=== PATIENT | female | born 1950 | race Caucasian/White ===

== ENCOUNTER 2017-07-08 12:15 | Outpatient (CLI) | payer MEDICARE, OTHER ==
--- NOTE | 2017-07-08 19:44 | XRAY Report ---
THREE VIEW RIGHT FOOT: 07/08/2017 CLINICAL INDICATION: Pain. AP, lateral, oblique views of the right foot demonstrate previous postoperative changes in the first metatarsal, with mild osteoarthritis. There is no evidence of acute fracture or dislocation. Planta r and posterior calcaneal spurring is noted. IMPRESSION: POSTOPERATIVE CHANGES IN THE FIRST METATARSAL. OSTEOARTHRITIS. JOB #: [id number] EXT JOB #:[id number]
== END 2017-07-08 12:16 | disposition home or self-care (01) ==
LOC: DI 12:15
PROVIDERS: ATTEND Podiatrist
DX: M79.671 Pain in right foot (principal)

== ENCOUNTER 2022-04-17 13:46 | Emergency (ER) | payer MEDICARE, OTHER ==
[2022-04-17 14:06] VITALS: BP 145/82
--- OUTSIDE RECORDS SUMMARY | 2022-04-18 16:32 | EXTERNAL MEDICAL SUMMARY RPT | Continuity of Care Document ---
:1950 Author Organization [facility] Address [address] [place] [address] Phone Allergies and Intolerances date description facility type (no date) hydrochlorothiazide [facility] (unknown) (no date) insulin detemir [facility] (unknown) (no date) lisinopril [facility] (unknown) (no date) verapamil [facility] (unknown) Encounters No information. Functional Status No information. Immunizations No information. Medications date description facility +0000 Methocarbamol 500 MG Oral Tablet [facility] [id number] Amoxicillin 875 MG Oral Tablet [facility] [id number] tramadol hydrochloride 50 MG Oral Tabl et [facility] Problems No information. Procedures date description facility [id number] Diagnosis [facility] [id number] Finding [facility] [id number] General Physician [facility] [id number] General Physician [facility] [id number]+0000 [facility] Results/Labs test date author facility value unit interpret ation Result panel 1 (unknown) (no (unknown) (unknown) (no value) (units (unk nown) date) unknown) (unknown) (no (unknown) (unknown) Assessment and Plan: (uni ts (unknown) date) unknown) (unknown) (no (unknown) (unknown) Status: Chronic (units (unknown) date) unknown) (unknown) (no (unknown) (unknown) (no value) (units (unk nown) date) unknown) (unknown) (no (unknown) (unknown) (no value) (units (unk nown) date) unknown) (unknown) (no (unknown) (unknown) [place] [address] (unit s (unknown) date) unknown) (unknown) (no (unknown) (unknown) BLOATING (units (unkno wn) date) unknown) (unknown) (no (unknown) (unknown) COUGH, BLOAT (units (u nknown) date) unknown) (unknown) (no (unknown) (unknown) Draft (units (unkno wn) date) unknown) (unknown) (no (unknown) (unknown) Rash (units (unkno wn) date) unknown) (unknown) (no (unknown) (unknown) Sleep Visit (units (un known) date) unknown) (unknown) (no (unknown) (unknown) [facility] unknown) (unknown) (no (unknown) (unknown) (no value) (units (unk nown) date) unknown) (unknown) (no (unknown) (unknown) Device data last 90 (unit s (unknown) date) days: unknown) (unknown) (no (unknown) (unknown) [place] ([place]) date[place] [facility] [place] (according to available medical records), (unknown) (no (unknown) (unknown) by trouble staying (units (unknown) date) asleep and unknown) non-restorative sleep. This can be seen secondary (unknown) (no (unknown) (unknown) comfortable, the (units (unknown) date) room should be quiet, unknown) not too hot or cold, or too bright. (unknown) (no (unknown) (unknown) conversations and (units (unknown) date) activities before unknown) trying to go to sleep. Don't dwell on, or (unknown) (no (unknown) (unknown) head elevated or (units (unknown) date) denies sleeping pills unknown) (unknown) (no (unknown) (unknown) listen to the radio, (uni ts (unknown) date) or read as if you unknown) associate falling asleep with these (unknown) (no (unknown) (unknown) low back), denies (units (unknown) date) dizziness in the unknown) morning, reports trouble (unknown) (no (unknown) (unknown) or gasping (denies), (uni ts (unknown) date) epworth sleep scale unknown) score (19/24), bruxism (denies), sleep (unknown) (no (unknown) (unknown) talking (denies) and (uni ts (unknown) date) sleep walking unknown) (denies) (unknown) (no (unknown) (unknown) to continue with PAP (uni ts (unknown) date) therapy. unknown) (unknown) (no (unknown) (unknown) to sleep apnea, (units (unknown) date) depression, medical unknown) conditions or can be an independent (unknown) (no (unknown) (unknown) with a sleep (units (u nknown) date) problem, it's not a unknown) good time to start experimenting with spicy (unknown) (no (unknown) (unknown) (1) Obstructive (units (unknown) date) sleep apnea of adult: unknown) (unknown) (no (unknown) (unknown) (2) Excessive (units ( unknown) date) daytime sleepiness: unknown) (unknown) (no (unknown) (unknown) ([id number]), normal (unit s (unknown) date) wake time (0877-3022; unknown) she returns to sleep 1-1.5 hours), (unknown) (no (unknown) (unknown) (3) Primary (units (un known) date) insomnia: unknown) (unknown) (no (unknown) (unknown) (neuropathic pain); (unit s (unknown) date) Denies morning unknown) headache or vertigo (unknown) (no (unknown) (unknown) (waking 3 times (units (unknown) date) nightly, attributed unknown) to chronic pain and mask leak), early (unknown) (no (unknown) (unknown) 007 (units (unkno wn) date) unknown) (unknown) (no (unknown) (unknown) 02/05/22 (units (unkno wn) date) unknown) (unknown) (no (unknown) (unknown) 08/08/21 14:09) (units (unknown) date) unknown) (unknown) (no (unknown) (unknown) 1401 to 1404, chart (unit s (unknown) date) and compliance review unknown) (unknown) (no (unknown) (unknown) 1404 to 1419, visit (unit s (unknown) date) unknown) (unknown) (no (unknown) (unknown) 14:09) (units (unkno wn) date) unknown) (unknown) (no (unknown) (unknown) 1746 to 1749, (units ( unknown) date) charting unknown) (unknown) (no (unknown) (unknown) AM), reports (units (un known) date) non-supine sleeping, unknown) denies stimulant therapy, denies sleeping with (unknown) (no (unknown) (unknown) Adhere to regular (units (unknown) date) mealtime schedule, unknown) avoid snacking (unknown) (no (unknown) (unknown) Affect: normal (units (unknown) date) affect unknown) (unknown) (no (unknown) (unknown) Age/Sex: 71 / F (units (unknown) date) Date of Service: unknown) (unknown) (no (unknown) (unknown) Allergies (units (unkn own) date) unknown) (unknown) (no (unknown) (unknown) Assessment + Plan (units (unknown) date) unknown) (unknown) (no (unknown) (unknown) Associate your bed (units (unknown) date) with sleep. It's not unknown) a good idea to use your bed to watch TV, (unknown) (no (unknown) (unknown) Attending Dr: Kishan (uni ts (unknown) date) Janell PIPER unknown) (unknown) (no (unknown) (unknown) Attitude: (units (unkn own) date) cooperative unknown) (unknown) (no (unknown) (unknown) AutoBiPAP Set (units ( unknown) date) Pressures: IPAPmax: unknown) 16 cwp EPAPmin: 8 cwp PS: 6/4 cwp (unknown) (no (unknown) (unknown) Avoid alcohol after (unit s (unknown) date) 4 pm unknown) (unknown) (no (unknown) (unknown) Avoid medications (units (unknown) date) which may interfere unknown) with sleep (unknown) (no (unknown) (unknown) Avoid random napping (uni ts (unknown) date) during the day; it unknown) can disturb the normal pattern of sleep (unknown) (no (unknown) (unknown) Avoid stimulants (units (unknown) date) such as caffeine, unknown) nicotine, and alcohol too close to bedtime. (unknown) (no (unknown) (unknown) Bi-level PAP (units (u nknown) date) (-6) unknown) (unknown) (no (unknown) (unknown) Bilateral bunions (units (unknown) date) unknown) (unknown) (no (unknown) (unknown) Cardiac (units (unkno wn) date) unknown) (unknown) (no (unknown) (unknown) Chief Complaint: (units (unknown) date) Patient is here to unknown) follow up on therapy for RABIA (unknown) (no (unknown) (unknown) Clinical Course (units (unknown) date) unknown) (unknown) (no (unknown) (unknown) Condition is Onset: (unit s (unknown) date) Chronic and ongoing unknown) condition (unknown) (no (unknown) (unknown) Conjunctivae: (units ( unknown) date) conjunctivae normal unknown) (unknown) (no (unknown) (unknown) Consider weaning (units (unknown) date) caffeine use, unknown) starting with no caffeine after 3pm (unknown) (no (unknown) (unknown) Const (units (unkno wn) date) unknown) (unknown) (no (unknown) (unknown) : 1950 (units (unknown) date) Acct:[id number] unknown) (unknown) (no (unknown) (unknown) Denies chest pain or (uni ts (unknown) date) nocturnal unknown) palpitations (unknown) (no (unknown) (unknown) Denies dyspnea at (units (unknown) date) night or cough unknown) (unknown) (no (unknown) (unknown) Denies itchy eyes, (units (unknown) date) redness, blurry unknown) vision or seasonal allergies (unknown) (no (unknown) (unknown) Denies reflux pain (units (unknown) date) at night or bloating unknown) on CPAP (unknown) (no (unknown) (unknown) Denies weakness (units (unknown) date) associated with unknown) strong emotion or sleep paralysis (unknown) (no (unknown) (unknown) Dept at (units (unkno wn) date) . 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 unknown) This will be reassessed on her new bi- (unknown) (no (unknown) (unknown) ENT (units (unkno wn) date) unknown) (unknown) (no (unknown) (unknown) Ears: hearing (units ( unknown) date) grossly normal unknown) bilaterally and external ears normal (unknown) (no (unknown) (unknown) Effort + Inspection: (uni ts (unknown) date) normal respiratory unknown) effort, able to speak in complete (unknown) (no (unknown) (unknown) Ensure adequate (units (unknown) date) exposure to natural unknown) light. This is particularly important for (unknown) (no (unknown) (unknown) Establish a regular (units (unknown) date) relaxing bedtime unknown) routine. Try to avoid emotionally upsetting (unknown) (no (unknown) (unknown) Exacerbating/Allevia (uni ts (unknown) date) ting Factors unknown) (unknown) (no (unknown) (unknown) Exam (units (unkno wn) date) unknown) (unknown) (no (unknown) (unknown) Exam Narrative (units (unknown) date) unknown) (unknown) (no (unknown) (unknown) Exam Narrative: (units (unknown) date) unknown) (unknown) (no (unknown) (unknown) Excessive daytime (units (unknown) date) sleepiness unknown) (unknown) (no (unknown) (unknown) Eyes (units (unkno wn) date) unknown) (unknown) (no (unknown) (unknown) Food can be (units (un known) date) disruptive right unknown) before sleep; stay away from large meals close to (unknown) (no (unknown) (unknown) GI (units (unkno wn) date) unknown) (unknown) (no (unknown) (unknown) (units (unkno wn) date) unknown) (unknown) (no (unknown) (unknown) Gait: gait assisted (unit s (unknown) date) (uses cane) unknown) (unknown) (no (unknown) (unknown) General: cooperative (uni ts (unknown) date) and no acute distress unknown) (but looks fatigued) (unknown) (no (unknown) (unknown) General: patient (units (unknown) date) alert and patient unknown) oriented x3 (unknown) (no (unknown) (unknown) Get regular moderate (uni ts (unknown) date) exercise (30 minutes, unknown) 3x/week) (unknown) (no (unknown) (unknown) HENMT (units (unkno wn) date) unknown) (unknown) (no (unknown) (unknown) HPI (units (unkno wn) date) unknown) (unknown) (no (unknown) (unknown) HPI Sleep Follow Up (unit s (unknown) date) unknown) (unknown) (no (unknown) (unknown) Head: normal to (units (unknown) date) inspection unknown) (unknown) (no (unknown) (unknown) History of (units (unk nown) date) bunionectomy of both unknown) great toes (unknown) (no (unknown) (unknown) Intake (units (unkno wn) date) unknown) (unknown) (no (unknown) (unknown) Light exposure (units (unknown) date) during the day helps unknown) maintain a healthy sleep-wake cycle. In (unknown) (no (unknown) (unknown) Loc: SLEEP (units (unk nown) date) unknown) (unknown) (no (unknown) (unknown) Make sure that the (units (unknown) date) sleep environment is unknown) pleasant and relaxing. The bed should be (unknown) (no (unknown) (unknown) Medical History (units (unknown) date) (Reviewed 02/05/22 @ unknown) 13:02 by Kishan Maciel MD) (unknown) (no (unknown) (unknown) Memory loss of (units (unknown) date) unknown cause unknown) (unknown) (no (unknown) (unknown) Mood: congruent mood (uni ts (unknown) date) unknown) (unknown) (no (unknown) (unknown) Musc (units (unkno wn) date) unknown) (unknown) (no (unknown) (unknown) Neck (units (unkno wn) date) unknown) (unknown) (no (unknown) (unknown) Neck: normal visual (unit s (unknown) date) inspection unknown) (unknown) (no (unknown) (unknown) Neuro (units (unkno wn) date) unknown) (unknown) (no (unknown) (unknown) Neurological (units (u nknown) date) unknown) (unknown) (no (unknown) (unknown) 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 She also felt she slept (unknown) (no (unknown) (unknown) PFSH (units (unkno wn) date) unknown) (unknown) (no (unknown) (unknown) Patient denies (units (unknown) date) stress, denies unknown) alcohol (abstains), reports caffeine (2 cups in (unknown) (no (unknown) (unknown) Patient instructed (units (unknown) date) to use scheduled naps unknown) as needed for drowsiness safety. (unknown) (no (unknown) (unknown) Patient reported a (units (unknown) date) history of snoring unknown) and a disturbed sleep pattern. There is (unknown) (no (unknown) (unknown) Patient reports (units (unknown) date) difficulty falling unknown) asleep is denied, difficulty staying asleep (unknown) (no (unknown) (unknown) Patient reports (units (unknown) date) symptoms of chronic unknown) insomnia for more than 3 months as evidenced (unknown) (no (unknown) (unknown) Patient was (units (un known) date) encouraged to unknown) continue with PAP therapy at IPAPmax 16, EPAPmin 18 (unknown) (no (unknown) (unknown) Patient was (units (un known) date) encouraged to unknown) maintain CPAP usage at a minimum of 4 hours a night, (unknown) (no (unknown) (unknown) Patient was (units (un known) date) instructed to avoid unknown) driving or operating heavy machinery when (unknown) (no (unknown) (unknown) Patient was (units (un known) date) instructed to return unknown) sooner if any questions or concerns arise. (unknown) (no (unknown) (unknown) Patient's compliance (uni ts (unknown) date) is good with positive unknown) clinical response including no (unknown) (no (unknown) (unknown) Patient: WalisukiTerrence Dowell (uni ts (unknown) date) MR#: [id number] unknown) (unknown) (no (unknown) (unknown) Pertinent (units (unkn own) date) Positives/Negatives unknown) (unknown) (no (unknown) (unknown) Plan (units (unkno wn) date) unknown) (unknown) (no (unknown) (unknown) Primary insomnia (units (unknown) date) unknown) (unknown) (no (unknown) (unknown) Properly timed (units (unknown) date) exercise can promote unknown) good sleep. Vigorous exercise should be (unknown) (no (unknown) (unknown) Psych (units (unkno wn) date) unknown) (unknown) (no (unknown) (unknown) Psychological (units ( unknown) date) unknown) (unknown) (no (unknown) (unknown) ROS Sleep (units (unkn own) date) unknown) (unknown) (no (unknown) (unknown) Reason For Visit (units (unknown) date) unknown) (unknown) (no (unknown) (unknown) Reports dizzy in the (uni ts (unknown) date) morning, trouble unknown) concentrating or focusing and other (unknown) (no (unknown) (unknown) Reports dry mouth in (uni ts (unknown) date) the morning; Denies unknown) runny nose, nasal congestion at night (unknown) (no (unknown) (unknown) Reports myalgia (units (unknown) date) interfering with unknown) sleep and arthralgia interfering with sleep; (unknown) (no (unknown) (unknown) Reports napping; (units (unknown) date) Denies depression, unknown) anxiety, hypnagogic hallucinations or sleep (unknown) (no (unknown) (unknown) Reports nocturia (units (unknown) date) unknown) (unknown) (no (unknown) (unknown) Resp (units (unkno wn) date) unknown) (unknown) (no (unknown) (unknown) Respiratory (units (un known) date) unknown) (unknown) (no (unknown) (unknown) Return visit in 6 (units (unknown) date) months to assess unknown) continued response to PAP therapy (unknown) (no (unknown) (unknown) S/P lumbar spinal (units (unknown) date) fusion unknown) (unknown) (no (unknown) (unknown) Sclera: sclerae (units (unknown) date) normal unknown) (unknown) (no (unknown) (unknown) She is currently on (unit s (unknown) date) nasal Bi-level PAP at unknown) -. She is using it regularly (unknown) (no (unknown) (unknown) Signed By: (units (unk nown) date) unknown) (unknown) (no (unknown) (unknown) Smoking Status: (units (unknown) date) Never smoker unknown) (unknown) (no (unknown) (unknown) Social History (units (unknown) date) unknown) (unknown) (no (unknown) (unknown) Speech: speech (units (unknown) date) normal unknown) (unknown) (no (unknown) (unknown) Sub-optimal therapy (unit s (unknown) date) unknown) (unknown) (no (unknown) (unknown) Surgical History (units (unknown) date) (Reviewed 02/05/22 @ unknown) 13:02 by Kishan Maciel MD) (unknown) (no (unknown) (unknown) Symptoms (units (unkno wn) date) unknown) (unknown) (no (unknown) (unknown) The patient reported (uni ts (unknown) date) symptoms of excessive unknown) daytime sleepiness as evidenced by (unknown) (no (unknown) (unknown) This note may have (units (unknown) date) been all or partially unknown) generated using voice recognition (unknown) (no (unknown) (unknown) Time Coding Minutes (unit s (unknown) date) Spent: (must be on unknown) same date of service/appointment) (unknown) (no (unknown) (unknown) Time Spent (units (unk nown) date) unknown) (unknown) (no (unknown) (unknown) Tobacco + Substance (unit s (unknown) date) Use unknown) (unknown) (no (unknown) (unknown) Tobacco Status (units (unknown) date) unknown) (unknown) (no (unknown) (unknown) Total Time: 21 (units (unknown) date) unknown) (unknown) (no (unknown) (unknown) Treatment Effects: (units (unknown) date) Pap Treatment unknown) Response/Side Effects: adherent to current PAP (unknown) (no (unknown) (unknown) Treatment (units (unkn own) date) Response/Side Affects unknown) (unknown) (no (unknown) (unknown) Type 2 diabetes (units (unknown) date) mellitus unknown) (unknown) (no (unknown) (unknown) Usage: 100%, w/98.9% (unit s (unknown) date) of that time > 4 unknown) hours. Leak: 13 sec flowAHI: 0.6 (unknown) (no (unknown) (unknown) Visit Reasons: 6M (units (unknown) date) unknown) (unknown) (no (unknown) (unknown) Visit type (FU): (units (unknown) date) follow up of RABIA unknown) therapy Follow up evaluation of RABIA therapy: (unknown) (no (unknown) (unknown) While alcohol is (units (unknown) date) well known to speed unknown) the onset of sleep, it disrupts sleep in (unknown) (no (unknown) (unknown) activities, you may (unit s (unknown) date) have more problems unknown) getting back to sleep during the night. (unknown) (no (unknown) (unknown) addition, avoiding (units (unknown) date) nighttime bright unknown) light exposure, which can occur with many (unknown) (no (unknown) (unknown) also a history of (units (unknown) date) hypertension with a unknown) Mallampati score of IV. For this a (unknown) (no (unknown) (unknown) an [place] (units (unk nown) date) Sleepiness scale unknown) score of 19/24. Her pain is significant and it is (unknown) (no (unknown) (unknown) and sleep quality. (units (unknown) date) Her NPO on CPAP was unknown) positive, so she under went a bi-level (unknown) (no (unknown) (unknown) and wakefulness. (units (unknown) date) Scheduled napping may unknown) be considered if appropriate for the (unknown) (no (unknown) (unknown) bedtime. Also dietary (uni ts (unknown) date) changes can cause unknown) sleep problems, if someone is struggling (unknown) (no (unknown) (unknown) better on b-level (units (unknown) date) PAP. She is currently unknown) on bi-level PAP machine at 16/8/4-6 and (unknown) (no (unknown) (unknown) bring your problems (unit s (unknown) date) to bed. unknown) (unknown) (no (unknown) (unknown) but increased (units ( unknown) date) benefit from more unknown) usage was also explained. (unknown) (no (unknown) (unknown) can be seen (units (un known) date) secondary to sleep unknown) apnea, insomnia, depression, medical conditions (unknown) (no (unknown) (unknown) caregiver/support (units (unknown) date) person: No unknown) (unknown) (no (unknown) (unknown) clinical response (units (unknown) date) including no snoring unknown) and no daytime sleepiness. It is clear (unknown) (no (unknown) (unknown) compliance wais (units (unknown) date) excellent with a unknown) normal AHIflow, but she was snoring and her (unknown) (no (unknown) (unknown) condition (units (unkn own) date) unknown) (unknown) (no (unknown) (unknown) congestion at night, (uni ts (unknown) date) reports dry mouth, unknown) denies sore throat in the morning, (unknown) (no (unknown) (unknown) consentrating/focusi (uni ts (unknown) date) ng durng the day unknown) (having progressive difficulties), denies (unknown) (no (unknown) (unknown) daytime sleeping and (uni ts (unknown) date) an elevated [place] unknown) Sleepiness Scale score of 12/24. This (unknown) (no (unknown) (unknown) denies night sweats, (uni ts (unknown) date) reports morning unknown) headache (head gear), denies nasal (unknown) (no (unknown) (unknown) denies nocturnal (units (unknown) date) cough, denies unknown) nocturnal palpitations, denies heart burn (unknown) (no (unknown) (unknown) depression or denies (uni ts (unknown) date) anxiety unknown) (unknown) (no (unknown) (unknown) details: bayron Wu, (uni ts (unknown) date) lives in [place] unknown) (unknown) (no (unknown) (unknown) diagnostic sleep (units (unknown) date) study was performed unknown) and showed obstructive sleep apnea. (unknown) (no (unknown) (unknown) dishes. And, (units (u nknown) date) remember, chocolate unknown) has caffeine. (unknown) (no (unknown) (unknown) done before bed to (units (unknown) date) help initiate a unknown) restful night's sleep. (unknown) (no (unknown) (unknown) drowsy. Drowsy (units (unknown) date) driving handout made unknown) available. (unknown) (no (unknown) (unknown) effecting the (units ( unknown) date) quality of her sleep. unknown) Also her PAP machine is due to be replaced. (unknown) (no (unknown) (unknown) has not improved. (units (unknown) date) unknown) (unknown) (no (unknown) (unknown) have occurred. If (units (unknown) date) there are any unknown) questions, please contact the Medical Records (unknown) (no (unknown) (unknown) having already been (unit s (unknown) date) on CPAP, and was unknown) effective until 2017 when she developed (unknown) (no (unknown) (unknown) headaches and (units ( unknown) date) nocturia, as well as unknown) diminishing cognitive capabilities. An NPO (unknown) (no (unknown) (unknown) her compliance is (units (unknown) date) excellent with an unknown) optimal AHIflow. She also reports positive (unknown) (no (unknown) (unknown) hours ) frequent, (units (unknown) date) spending time in bed unknown) not sleeping a little, normal bedtime (unknown) (no (unknown) (unknown) household members: (units (unknown) date) spouse unknown) (unknown) (no (unknown) (unknown) housing: house (units (unknown) date) unknown) (unknown) (no (unknown) (unknown) hydrochlorothiazide (unit s (unknown) date) [From ZESTORETIC] unknown) Allergy (Intermediate, Verified 08/08/21 (unknown) (no (unknown) (unknown) insulin detemir (units (unknown) date) [From Levemir U-100 unknown) Insulin] Allergy (Intermediate, Verified (unknown) (no (unknown) (unknown) level PAP machine. (units (unknown) date) unknown) (unknown) (no (unknown) (unknown) lisinopril [From (units (unknown) date) ZESTORETIC] Allergy unknown) (Intermediate, Verified 08/08/21 14:09) (unknown) (no (unknown) (unknown) lives independently: (uni ts (unknown) date) Yes unknown) (unknown) (no (unknown) (unknown) marital status: (units (unknown) date) unknown) (unknown) (no (unknown) (unknown) may occur. (units (unk nown) date) Occasional wrong-word unknown) or 'sound-alike' substitutions may have (unknown) (no (unknown) (unknown) morning awakening (units (unknown) date) (may wake at unknown) [id number], up for 2 hours, back to sleep for 3 (unknown) (no (unknown) (unknown) occurred due to the (unit s (unknown) date) inherent limitations unknown) of voice recognition software. Please (unknown) (no (unknown) (unknown) older people who may (uni ts (unknown) date) not venture outside unknown) as frequently as children and adults. (unknown) (no (unknown) (unknown) on PAP well, sleep (units (unknown) date) quality okay and unknown) daytime sleepiness (unknown) (no (unknown) (unknown) on PAP; other naps (units (unknown) date) are unintentional), unknown) snoring (denies), apnea (denies), choking (unknown) (no (unknown) (unknown) optimal sleep (units ( unknown) date) schedule. unknown) (unknown) (no (unknown) (unknown) or can be a primary (unit s (unknown) date) problem. This unknown) continues to be elevated on PAP therapy with (unknown) (no (unknown) (unknown) or sore throat in (units (unknown) date) the morning unknown) (unknown) (no (unknown) (unknown) paralysis (units (unkn own) date) unknown) (unknown) (no (unknown) (unknown) personal electronic (unit s (unknown) date) devices, can also unknown) help maintain a healthy sleep-wake cycle. (unknown) (no (unknown) (unknown) pressures, found to (unit s (unknown) date) be 17/11 cwp. unknown) (unknown) (no (unknown) (unknown) problem. Sleep (units (unknown) date) hygiene and sleep unknown) schedules were discussed. This has improved (unknown) (no (unknown) (unknown) read the note (units ( unknown) date) carefully and unknown) recognize, using context, where these substitutions (unknown) (no (unknown) (unknown) seconds <= 88%. She (unit s (unknown) date) repeated the biPAP unknown) titration study to identify optimal (unknown) (no (unknown) (unknown) sentences, no (units ( unknown) date) audible wheezes, no unknown) cough, no grunting and not labored (unknown) (no (unknown) (unknown) she is benefitting (units (unknown) date) from bi-level PAP unknown) therapy and is motivated to continue its (unknown) (no (unknown) (unknown) she would benefit (units (unknown) date) from the continued unknown) use of PAP therapy. The patient is willing (unknown) (no (unknown) (unknown) sleep quality was (units (unknown) date) less than optimal. unknown) Her pressure was increased for the snoring (unknown) (no (unknown) (unknown) sleep schedule (units (unknown) date) (somewhat variable), unknown) daytime somnolence (daily; naps for 2 hours (unknown) (no (unknown) (unknown) snoring but she (units (unknown) date) continues to have unknown) significant daytime sleepiness. Patient's (unknown) (no (unknown) (unknown) software. 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 In (unit s (unknown) date) 06/2019 she reported unknown) new onset night sweats, morning (unknown) (no (unknown) (unknown) study (07/20/19) (units (unknown) date) showed GAIVN: 19, with unknown) eufemia SpO2: 60%, and spent 62 minutes 18 (unknown) (no (unknown) (unknown) substance use type: (unit s (unknown) date) does not use unknown) (unknown) (no (unknown) (unknown) symptoms at night, (units (unknown) date) reports nocturia (3 unknown) times nightly), reports pain (feet, legs, (unknown) (no (unknown) (unknown) symptoms of CPAP (units (unknown) date) failure. Switched to unknown) bi-levelPAP therapy after a titration (unknown) (no (unknown) (unknown) taken in the morning (uni ts (unknown) date) or late afternoon. A unknown) relaxing exercise, like yoga, can be (unknown) (no (unknown) (unknown) the second half as (units (unknown) date) the body begins to unknown) metabolize the alcohol, causing arousal. (unknown) (no (unknown) (unknown) treatment variable (units (unknown) date) response to treatment unknown) (unknown) (no (unknown) (unknown) use. (units (unkno wn) date) unknown) (unknown) (no (unknown) (unknown) verapamil (units (unkn own) date) [VERAPAMIL] Allergy unknown) (Intermediate, Verified 08/08/21 14:09) (unknown) (no (unknown) (unknown) with an optimal (units (unknown) date) AHIflow. She reports unknown) no problems with the pressure. She feels (unknown) (no (unknown) (unknown) with pressure (units ( unknown) date) support of 4-6 cwp. unknown) Result panel 2 (unknown) (no (unknown) (unknown) (no value) (units (unk nown) date) unknown) (unknown) (no (unknown) (unknown) Assessment and Plan: (uni ts (unknown) date) unknown) (unknown) (no (unknown) (unknown) Status: Chronic (units (unknown) date) unknown) (unknown) (no (unknown) (unknown) (no value) (units (unk nown) date) unknown) (unknown) (no (unknown) (unknown) (no value) (units (unk nown) date) unknown) (unknown) (no (unknown) (unknown) [place] [address] (unit s (unknown) date) unknown) (unknown) (no (unknown) (unknown) BLOATING (units (unkno wn) date) unknown) (unknown) (no (unknown) (unknown) COUGH, BLOAT (units (u nknown) date) unknown) (unknown) (no (unknown) (unknown) Draft (units (unkno wn) date) unknown) (unknown) (no (unknown) (unknown) Rash (units (unkno wn) date) unknown) (unknown) (no (unknown) (unknown) Sleep Visit (units (un known) date) unknown) (unknown) (no (unknown) (unknown) [facility] unknown) (unknown) (no (unknown) (unknown) (no value) (units (unk nown) date) unknown) (unknown) (no (unknown) (unknown) (), bruxism (units (unknown) date) (denies), sleep unknown) talking (denies) and sleep walking (denies) (unknown) (no (unknown) (unknown) 2: unchanged (units (u nknown) date) unknown) (unknown) (no (unknown) (unknown) Device data last 90 (unit s (unknown) date) days: unknown) (unknown) (no (unknown) (unknown) Initially [place] ([place]) [place] [facility] [place] (according to available medical records), (unknown) (no (unknown) (unknown) by trouble staying (units (unknown) date) asleep and unknown) non-restorative sleep. This can be seen secondary (unknown) (no (unknown) (unknown) comfortable, the (units (unknown) date) room should be quiet, unknown) not too hot or cold, or too bright. (unknown) (no (unknown) (unknown) conversations and (units (unknown) date) activities before unknown) trying to go to sleep. Don't dwell on, or (unknown) (no (unknown) (unknown) head elevated or (units (unknown) date) denies sleeping pills unknown) (unknown) (no (unknown) (unknown) listen to the radio, (uni ts (unknown) date) or read as if you unknown) associate falling asleep with these (unknown) (no (unknown) (unknown) low back), denies (units (unknown) date) dizziness in the unknown) morning, reports trouble (unknown) (no (unknown) (unknown) to sleep apnea, (units (unknown) date) depression, medical unknown) conditions or can be an independent (unknown) (no (unknown) (unknown) with a sleep (units (u nknown) date) problem, it's not a unknown) good time to start experimenting with spicy (unknown) (no (unknown) (unknown) (1) Obstructive (units (unknown) date) sleep apnea of adult: unknown) (unknown) (no (unknown) (unknown) (2) Excessive (units ( unknown) date) daytime sleepiness: unknown) (unknown) (no (unknown) (unknown) ([id number]), normal (unit s (unknown) date) wake time ([id number]; unknown) she returns to sleep 1-1.5 hours), (unknown) (no (unknown) (unknown) (3) Primary (units (un known) date) insomnia: unknown) (unknown) (no (unknown) (unknown) (denies), apnea (units (unknown) date) (denies), choking or unknown) gasping (denies), epworth sleep scale score (unknown) (no (unknown) (unknown) (neuropathic pain); (unit s (unknown) date) Denies morning unknown) headache or vertigo (unknown) (no (unknown) (unknown) (waking 3 times (units (unknown) date) nightly, attributed unknown) to chronic pain and mask leak), early (unknown) (no (unknown) (unknown) 007 (units (unkno wn) date) unknown) (unknown) (no (unknown) (unknown) 02/05/22 (units (unkno wn) date) unknown) (unknown) (no (unknown) (unknown) 08/08/21 14:09) (units (unknown) date) unknown) (unknown) (no (unknown) (unknown) 1401 to 1404, chart (unit s (unknown) date) and compliance review unknown) (unknown) (no (unknown) (unknown) 1404 to 1419, visit (unit s (unknown) date) unknown) (unknown) (no (unknown) (unknown) 14:09) (units (unkno wn) date) unknown) (unknown) (no (unknown) (unknown) 1746 to 1749, (units ( unknown) date) charting unknown) (unknown) (no (unknown) (unknown) AM), reports (units (un known) date) non-supine sleeping, unknown) denies stimulant therapy, denies sleeping with (unknown) (no (unknown) (unknown) Adhere to regular (units (unknown) date) mealtime schedule, unknown) avoid snacking (unknown) (no (unknown) (unknown) Affect: normal (units (unknown) date) affect unknown) (unknown) (no (unknown) (unknown) Age/Sex: 71 / F (units (unknown) date) Date of Service: unknown) (unknown) (no (unknown) (unknown) Allergies (units (unkn own) date) unknown) (unknown) (no (unknown) (unknown) Assessment + Plan (units (unknown) date) unknown) (unknown) (no (unknown) (unknown) Associate your bed (units (unknown) date) with sleep. It's not unknown) a good idea to use your bed to watch TV, (unknown) (no (unknown) (unknown) Attending Dr: Kishan (uni ts (unknown) date) Janell PIPER unknown) (unknown) (no (unknown) (unknown) Attitude: (units (unkn own) date) cooperative unknown) (unknown) (no (unknown) (unknown) AutoBiPAP Set (units ( unknown) date) Pressures: IPAPmax: unknown) 16 cwp EPAPmin: 8 cwp PS: 6/4 cwp (unknown) (no (unknown) (unknown) Avoid alcohol after (unit s (unknown) date) 4 pm unknown) (unknown) (no (unknown) (unknown) Avoid medications (units (unknown) date) which may interfere unknown) with sleep (unknown) (no (unknown) (unknown) Avoid random napping (uni ts (unknown) date) during the day; it unknown) can disturb the normal pattern of sleep (unknown) (no (unknown) (unknown) Avoid stimulants (units (unknown) date) such as caffeine, unknown) nicotine, and alcohol too close to bedtime. (unknown) (no (unknown) (unknown) Bi-level PAP (units (u nknown) date) (-6) unknown) (unknown) (no (unknown) (unknown) Bilateral bunions (units (unknown) date) unknown) (unknown) (no (unknown) (unknown) Cardiac (units (unkno wn) date) unknown) (unknown) (no (unknown) (unknown) Chief Complaint: (units (unknown) date) Patient is here to unknown) follow up on therapy for RABIA (unknown) (no (unknown) (unknown) Clinical Course (units (unknown) date) unknown) (unknown) (no (unknown) (unknown) Condition is Onset: (unit s (unknown) date) Chronic and ongoing unknown) condition (unknown) (no (unknown) (unknown) Conjunctivae: (units ( unknown) date) conjunctivae normal unknown) (unknown) (no (unknown) (unknown) Consider weaning (units (unknown) date) caffeine use, unknown) starting with no caffeine after 3pm (unknown) (no (unknown) (unknown) Const (units (unkno wn) date) unknown) (unknown) (no (unknown) (unknown) : 1950 (units (unknown) date) Acct:[id number] unknown) (unknown) (no (unknown) (unknown) Denies chest pain or (uni ts (unknown) date) nocturnal unknown) palpitations (unknown) (no (unknown) (unknown) Denies dyspnea at (units (unknown) date) night or cough unknown) (unknown) (no (unknown) (unknown) Denies itchy eyes, (units (unknown) date) redness, blurry unknown) vision or seasonal allergies (unknown) (no (unknown) (unknown) Denies reflux pain (units (unknown) date) at night or bloating unknown) on CPAP (unknown) (no (unknown) (unknown) Denies weakness (units (unknown) date) associated with unknown) strong emotion or sleep paralysis (unknown) (no (unknown) (unknown) Dept at (units (unkno wn) date) . 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 This is particularly important for (unknown) (no (unknown) (unknown) Establish a regular (units (unknown) date) relaxing bedtime unknown) routine. Try to avoid emotionally upsetting (unknown) (no (unknown) (unknown) Exacerbating/Allevia (uni ts (unknown) date) ting Factors unknown) (unknown) (no (unknown) (unknown) Exam (units (unkno wn) date) unknown) (unknown) (no (unknown) (unknown) Exam Narrative (units (unknown) date) unknown) (unknown) (no (unknown) (unknown) Exam Narrative: (units (unknown) date) unknown) (unknown) (no (unknown) (unknown) Excessive daytime (units (unknown) date) sleepiness unknown) (unknown) (no (unknown) (unknown) Eyes (units (unkno wn) date) unknown) (unknown) (no (unknown) (unknown) Food can be (units (un known) date) disruptive right unknown) before sleep; stay away from large meals close to (unknown) (no (unknown) (unknown) GI (units (unkno wn) date) unknown) (unknown) (no (unknown) (unknown) (units (unkno wn) date) unknown) (unknown) (no (unknown) (unknown) Gait: gait assisted (unit s (unknown) date) (uses cane) unknown) (unknown) (no (unknown) (unknown) General: cooperative (uni ts (unknown) date) and no acute distress unknown) (but looks fatigued) (unknown) (no (unknown) (unknown) General: patient (units (unknown) date) alert and patient unknown) oriented x3 (unknown) (no (unknown) (unknown) Get regular moderate (uni ts (unknown) date) exercise (30 minutes, unknown) 3x/week) (unknown) (no (unknown) (unknown) HENMT (units (unkno wn) date) unknown) (unknown) (no (unknown) (unknown) HPI (units (unkno wn) date) unknown) (unknown) (no (unknown) (unknown) HPI Sleep Follow Up (unit s (unknown) date) unknown) (unknown) (no (unknown) (unknown) Head: normal to (units (unknown) date) inspection unknown) (unknown) (no (unknown) (unknown) History of (units (unk nown) date) bunionectomy of both unknown) great toes (unknown) (no (unknown) (unknown) Intake (units (unkno wn) date) unknown) (unknown) (no (unknown) (unknown) Light exposure (units (unknown) date) during the day helps unknown) maintain a healthy sleep-wake cycle. In (unknown) (no (unknown) (unknown) Loc: SLEEP (units (unk nown) date) unknown) (unknown) (no (unknown) (unknown) Make sure that the (units (unknown) date) sleep environment is unknown) pleasant and relaxing. The bed should be (unknown) (no (unknown) (unknown) Medical History (units (unknown) date) (Reviewed 02/05/22 @ unknown) 13:02 by Kishan Maciel MD) (unknown) (no (unknown) (unknown) Memory loss of (units (unknown) date) unknown cause unknown) (unknown) (no (unknown) (unknown) Mood: congruent mood (uni ts (unknown) date) unknown) (unknown) (no (unknown) (unknown) Musc (units (unkno wn) date) unknown) (unknown) (no (unknown) (unknown) Neck (units (unkno wn) date) unknown) (unknown) (no (unknown) (unknown) Neck: normal visual (unit s (unknown) date) inspection unknown) (unknown) (no (unknown) (unknown) Neuro (units (unkno wn) date) unknown) (unknown) (no (unknown) (unknown) Neurological (units (u nknown) date) unknown) (unknown) (no (unknown) (unknown) 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 She also felt she slept (unknown) (no (unknown) (unknown) PFSH (units (unkno wn) date) unknown) (unknown) (no (unknown) (unknown) Patient denies (units (unknown) date) stress, denies unknown) alcohol (abstains), reports caffeine (2 cups in (unknown) (no (unknown) (unknown) Patient instructed (units (unknown) date) to use scheduled naps unknown) as needed for drowsiness safety. (unknown) (no (unknown) (unknown) Patient reported a (units (unknown) date) history of snoring unknown) and a disturbed sleep pattern. There is (unknown) (no (unknown) (unknown) Patient reports (units (unknown) date) difficulty falling unknown) asleep is denied, difficulty staying asleep (unknown) (no (unknown) (unknown) Patient reports (units (unknown) date) symptoms of chronic unknown) insomnia for more than 3 months as evidenced (unknown) (no (unknown) (unknown) Patient was (units (un known) date) encouraged to unknown) continue with PAP therapy at IPAPmax 16, EPAPmin 18 (unknown) (no (unknown) (unknown) Patient was (units (un known) date) encouraged to unknown) maintain CPAP usage at a minimum of 4 hours a night, (unknown) (no (unknown) (unknown) Patient was (units (un known) date) instructed to avoid unknown) driving or operating heavy machinery when (unknown) (no (unknown) (unknown) Patient was (units (un known) date) instructed to return unknown) sooner if any questions or concerns arise. (unknown) (no (unknown) (unknown) Patient's compliance (uni ts (unknown) date) is good with positive unknown) clinical response including no (unknown) (no (unknown) (unknown) Patient: Terrence Buckley (uni ts (unknown) date) MR#: [id number] unknown) (unknown) (no (unknown) (unknown) Pertinent (units (unkn own) date) Positives/Negatives unknown) (unknown) (no (unknown) (unknown) Plan (units (unkno wn) date) unknown) (unknown) (no (unknown) (unknown) Primary insomnia (units (unknown) date) unknown) (unknown) (no (unknown) (unknown) Properly timed (units (unknown) date) exercise can promote unknown) good sleep. Vigorous exercise should be (unknown) (no (unknown) (unknown) Psych (units (unkno wn) date) unknown) (unknown) (no (unknown) (unknown) Psychological (units ( unknown) date) unknown) (unknown) (no (unknown) (unknown) ROS Sleep (units (unkn own) date) unknown) (unknown) (no (unknown) (unknown) Reason For Visit (units (unknown) date) unknown) (unknown) (no (unknown) (unknown) Reports daytime (units (unknown) date) sleepiness, Reports unknown) fatigue, Denies snoring and Denies stops (unknown) (no (unknown) (unknown) Reports dizzy in the (uni ts (unknown) date) morning, trouble unknown) concentrating or focusing and other (unknown) (no (unknown) (unknown) Reports dry mouth in (uni ts (unknown) date) the morning; Denies unknown) runny nose, nasal congestion at night (unknown) (no (unknown) (unknown) Reports myalgia (units (unknown) date) interfering with unknown) sleep and arthralgia interfering with sleep; (unknown) (no (unknown) (unknown) Reports napping on a (uni ts (unknown) date) regular basis; Denies unknown) depression, anxiety, hypnagogic (unknown) (no (unknown) (unknown) Reports nocturia (units (unknown) date) unknown) (unknown) (no (unknown) (unknown) Resp (units (unkno wn) date) unknown) (unknown) (no (unknown) (unknown) Respiratory (units (un known) date) unknown) (unknown) (no (unknown) (unknown) Return visit in 6 (units (unknown) date) months to assess unknown) continued response to PAP therapy (unknown) (no (unknown) (unknown) S/P lumbar spinal (units (unknown) date) fusion unknown) (unknown) (no (unknown) (unknown) Sclera: sclerae (units (unknown) date) normal unknown) (unknown) (no (unknown) (unknown) She is currently on (unit s (unknown) date) nasal Bi-level PAP at unknown) -. She is using it regularly (unknown) (no (unknown) (unknown) Signed By: (units (unk nown) date) unknown) (unknown) (no (unknown) (unknown) Smoking Status: (units (unknown) date) Never smoker unknown) (unknown) (no (unknown) (unknown) Social History (units (unknown) date) unknown) (unknown) (no (unknown) (unknown) Speech: speech (units (unknown) date) normal unknown) (unknown) (no (unknown) (unknown) Sub-optimal therapy (unit s (unknown) date) unknown) (unknown) (no (unknown) (unknown) Surgical History (units (unknown) date) (Reviewed 02/05/22 @ unknown) 13:02 by Kishan Maciel MD) (unknown) (no (unknown) (unknown) Symptoms (units (unkno wn) date) unknown) (unknown) (no (unknown) (unknown) The patient reported (uni ts (unknown) date) symptoms of excessive unknown) daytime sleepiness as evidenced by (unknown) (no (unknown) (unknown) This note may have (units (unknown) date) been all or partially unknown) generated using voice recognition (unknown) (no (unknown) (unknown) This will be (units (u nknown) date) reassessed on her new unknown) bi-level PAP machine. (unknown) (no (unknown) (unknown) Time Coding Minutes (unit s (unknown) date) Spent: (must be on unknown) same date of service/appointment) (unknown) (no (unknown) (unknown) Time Spent (units (unk nown) date) unknown) (unknown) (no (unknown) (unknown) Tobacco + Substance (unit s (unknown) date) Use unknown) (unknown) (no (unknown) (unknown) Tobacco Status (units (unknown) date) unknown) (unknown) (no (unknown) (unknown) Total Time: 21 (units (unknown) date) unknown) (unknown) (no (unknown) (unknown) Treatment Effects: (units (unknown) date) Pap Treatment unknown) Response/Side Effects: adherent to current PAP (unknown) (no (unknown) (unknown) Treatment (units (unkn own) date) Response/Side Affects unknown) (unknown) (no (unknown) (unknown) Type 2 diabetes (units (unknown) date) mellitus unknown) (unknown) (no (unknown) (unknown) Usage: 100%, w/98.9% (unit s (unknown) date) of that time > 4 unknown) hours. Leak: 13 sec flowAHI: 0.6 (unknown) (no (unknown) (unknown) Visit Reasons: 6M (units (unknown) date) unknown) (unknown) (no (unknown) (unknown) Visit type (FU): (units (unknown) date) follow up of RABIA unknown) therapy Follow up evaluation of RABIA therapy: (unknown) (no (unknown) (unknown) While alcohol is (units (unknown) date) well known to speed unknown) the onset of sleep, it disrupts sleep in (unknown) (no (unknown) (unknown) activities, you may (unit s (unknown) date) have more problems unknown) getting back to sleep during the night. (unknown) (no (unknown) (unknown) addition, avoiding (units (unknown) date) nighttime bright unknown) light exposure, which can occur with many (unknown) (no (unknown) (unknown) also a history of (units (unknown) date) hypertension with a unknown) Mallampati score of IV. For this a (unknown) (no (unknown) (unknown) an [place] (units (unk nown) date) Sleepiness scale unknown) score of 22/24. Her pain is significant and it is (unknown) (no (unknown) (unknown) and sleep quality. (units (unknown) date) Her NPO on CPAP was unknown) positive, so she under went a bi-level (unknown) (no (unknown) (unknown) and wakefulness. (units (unknown) date) Scheduled napping may unknown) be considered if appropriate for the (unknown) (no (unknown) (unknown) bedtime. Also dietary (uni ts (unknown) date) changes can cause unknown) sleep problems, if someone is struggling (unknown) (no (unknown) (unknown) better on b-level (units (unknown) date) PAP. She is currently unknown) on bi-level PAP machine at 16/8/4-6 and (unknown) (no (unknown) (unknown) breathing during (units (unknown) date) sleep unknown) (unknown) (no (unknown) (unknown) bring your problems (unit s (unknown) date) to bed. unknown) (unknown) (no (unknown) (unknown) but increased (units ( unknown) date) benefit from more unknown) usage was also explained. (unknown) (no (unknown) (unknown) can be seen (units (un known) date) secondary to sleep unknown) apnea, insomnia, depression, medical conditions (unknown) (no (unknown) (unknown) caregiver/support (units (unknown) date) person: No unknown) (unknown) (no (unknown) (unknown) clinical response (units (unknown) date) including no snoring. unknown) It is clear she would benefit from the (unknown) (no (unknown) (unknown) compliance wais (units (unknown) date) excellent with a unknown) normal AHIflow, but she was snoring and her (unknown) (no (unknown) (unknown) condition (units (unkn own) date) unknown) (unknown) (no (unknown) (unknown) congestion at night, (uni ts (unknown) date) reports dry mouth, unknown) denies sore throat in the morning, (unknown) (no (unknown) (unknown) consentrating/focusi (uni ts (unknown) date) ng durng the day unknown) (having progressive difficulties), denies (unknown) (no (unknown) (unknown) continued use of PAP (uni ts (unknown) date) therapy. The patient unknown) is willing to continue with PAP (unknown) (no (unknown) (unknown) daytime sleeping and (uni ts (unknown) date) an elevated [place] unknown) Sleepiness Scale score of 12/24. This (unknown) (no (unknown) (unknown) denies night sweats, (uni ts (unknown) date) reports morning unknown) headache (head gear), denies nasal (unknown) (no (unknown) (unknown) denies nocturnal (units (unknown) date) cough, denies unknown) nocturnal palpitations, denies heart burn (unknown) (no (unknown) (unknown) depression or denies (uni ts (unknown) date) anxiety unknown) (unknown) (no (unknown) (unknown) details: bayron Bryce, (uni ts (unknown) date) lives in [place] unknown) (unknown) (no (unknown) (unknown) diagnostic sleep (units (unknown) date) study was performed unknown) and showed obstructive sleep apnea. (unknown) (no (unknown) (unknown) dishes. And, (units (u nknown) date) remember, chocolate unknown) has caffeine. (unknown) (no (unknown) (unknown) done before bed to (units (unknown) date) help initiate a unknown) restful night's sleep. (unknown) (no (unknown) (unknown) drowsy. Drowsy (units (unknown) date) driving handout made unknown) available. (unknown) (no (unknown) (unknown) effecting the (units ( unknown) date) quality of her sleep. unknown) Drowsiness risks and symptoms reviewed. (unknown) (no (unknown) (unknown) hallucinations or (units (unknown) date) sleep paralysis unknown) (unknown) (no (unknown) (unknown) has not improved. (units (unknown) date) unknown) (unknown) (no (unknown) (unknown) have occurred. If (units (unknown) date) there are any unknown) questions, please contact the Medical Records (unknown) (no (unknown) (unknown) having already been (unit s (unknown) date) on CPAP, and was unknown) effective until 2017 when she developed (unknown) (no (unknown) (unknown) headaches and (units ( unknown) date) nocturia, as well as unknown) diminishing cognitive capabilities. An NPO (unknown) (no (unknown) (unknown) her compliance is (units (unknown) date) excellent with an unknown) optimal AHIflow. She also reports positive (unknown) (no (unknown) (unknown) hours ) frequent, (units (unknown) date) spending time in bed unknown) not sleeping a little, normal bedtime (unknown) (no (unknown) (unknown) household members: (units (unknown) date) spouse unknown) (unknown) (no (unknown) (unknown) housing: house (units (unknown) date) unknown) (unknown) (no (unknown) (unknown) hydrochlorothiazide (unit s (unknown) date) [From ZESTORETIC] unknown) Allergy (Intermediate, Verified 08/08/21 (unknown) (no (unknown) (unknown) insulin detemir (units (unknown) date) [From Levemir U-100 unknown) Insulin] Allergy (Intermediate, Verified (unknown) (no (unknown) (unknown) lisinopril [From (units (unknown) date) ZESTORETIC] Allergy unknown) (Intermediate, Verified 08/08/21 14:09) (unknown) (no (unknown) (unknown) lives independently: (uni ts (unknown) date) Yes unknown) (unknown) (no (unknown) (unknown) marital status: (units (unknown) date) unknown) (unknown) (no (unknown) (unknown) may occur. (units (unk nown) date) Occasional wrong-word unknown) or 'sound-alike' substitutions may have (unknown) (no (unknown) (unknown) morning awakening (units (unknown) date) (may wake at unknown) [id number], up for 2 hours, back to sleep for 3 (unknown) (no (unknown) (unknown) occurred due to the (unit s (unknown) date) inherent limitations unknown) of voice recognition software. Please (unknown) (no (unknown) (unknown) older people who may (uni ts (unknown) date) not venture outside unknown) as frequently as children and adults. (unknown) (no (unknown) (unknown) on PAP well, sleep (units (unknown) date) quality okay and unknown) daytime sleepiness Daytime Sleepiness Branch (unknown) (no (unknown) (unknown) optimal sleep (units ( unknown) date) schedule. unknown) (unknown) (no (unknown) (unknown) or can be a primary (unit s (unknown) date) problem. This unknown) continues to be elevated on PAP therapy with (unknown) (no (unknown) (unknown) or sore throat in (units (unknown) date) the morning unknown) (unknown) (no (unknown) (unknown) personal electronic (unit s (unknown) date) devices, can also unknown) help maintain a healthy sleep-wake cycle. (unknown) (no (unknown) (unknown) pressures, found to (unit s (unknown) date) be 17/11 cwp. unknown) (unknown) (no (unknown) (unknown) problem. Sleep (units (unknown) date) hygiene and sleep unknown) schedules were discussed. This has improved (unknown) (no (unknown) (unknown) read the note (units ( unknown) date) carefully and unknown) recognize, using context, where these substitutions (unknown) (no (unknown) (unknown) seconds <= 88%. She (unit s (unknown) date) repeated the biPAP unknown) titration study to identify optimal (unknown) (no (unknown) (unknown) sentences, no (units ( unknown) date) audible wheezes, no unknown) cough, no grunting and not labored (unknown) (no (unknown) (unknown) she is benefitting (units (unknown) date) from bi-level PAP unknown) therapy and is motivated to continue its (unknown) (no (unknown) (unknown) sleep quality was (units (unknown) date) less than optimal. unknown) Her pressure was increased for the snoring (unknown) (no (unknown) (unknown) sleep schedule (units (unknown) date) (somewhat variable), unknown) daytime somnolence frequent, snoring (unknown) (no (unknown) (unknown) snoring but she (units (unknown) date) continues to have unknown) significant daytime sleepiness. Patient's (unknown) (no (unknown) (unknown) software. 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 In (unit s (unknown) date) 06/2019 she reported unknown) new onset night sweats, morning (unknown) (no (unknown) (unknown) study (07/20/19) (units (unknown) date) showed GAVIN: 19, with unknown) eufemia SpO2: 60%, and spent 62 minutes 18 (unknown) (no (unknown) (unknown) substance use type: (unit s (unknown) date) does not use unknown) (unknown) (no (unknown) (unknown) symptoms at night, (units (unknown) date) reports nocturia (3 unknown) times nightly), reports pain (feet, legs, (unknown) (no (unknown) (unknown) symptoms of CPAP (units (unknown) date) failure. Switched to unknown) bi-levelPAP therapy after a titration (unknown) (no (unknown) (unknown) taken in the morning (uni ts (unknown) date) or late afternoon. A unknown) relaxing exercise, like yoga, can be (unknown) (no (unknown) (unknown) the second half as (units (unknown) date) the body begins to unknown) metabolize the alcohol, causing arousal. (unknown) (no (unknown) (unknown) therapy. (units (unkno wn) date) unknown) (unknown) (no (unknown) (unknown) treatment variable (units (unknown) date) response to treatment unknown) (unknown) (no (unknown) (unknown) use. (units (unkno wn) date) unknown) (unknown) (no (unknown) (unknown) verapamil (units (unkn own) date) [VERAPAMIL] Allergy unknown) (Intermediate, Verified 08/08/21 14:09) (unknown) (no (unknown) (unknown) with an optimal (units (unknown) date) AHIflow. She reports unknown) no problems with the pressure. She feels (unknown) (no (unknown) (unknown) with pressure (units ( unknown) date) support of 4-6 cwp. unknown) Result panel 3 (unknown) (no (unknown) (unknown) (no value) (units (unk nown) date) unknown) (unknown) (no (unknown) (unknown) Assessment and Plan: (uni ts (unknown) date) unknown) (unknown) (no (unknown) (unknown) Status: Chronic (units (unknown) date) unknown) (unknown) (no (unknown) (unknown) (no value) (units (unk nown) date) unknown) (unknown) (no (unknown) (unknown) (no value) (units (unk nown) date) unknown) (unknown) (no (unknown) (unknown) 02/05/22 (units (unkno wn) date) unknown) (unknown) (no (unknown) (unknown) 13:27 (units (unkno wn) date) unknown) (unknown) (no (unknown) (unknown) RAUL Bass [id number] (unit s (unknown) date) unknown) (unknown) (no (unknown) (unknown) BLOATING (units (unkno wn) date) unknown) (unknown) (no (unknown) (unknown) COUGH, BLOAT (units (u nknown) date) unknown) (unknown) (no (unknown) (unknown) Draft (units (unkno wn) date) unknown) (unknown) (no (unknown) (unknown) Rash (units (unkno wn) date) unknown) (unknown) (no (unknown) (unknown) Sleep Visit (units (un known) date) unknown) (unknown) (no (unknown) (unknown) [facility] unknown) (unknown) (no (unknown) (unknown) (no value) (units (unk nown) date) unknown) (unknown) (no (unknown) (unknown) (), bruxism (units (unknown) date) (denies), sleep unknown) talking (denies) and sleep walking (denies) (unknown) (no (unknown) (unknown) 2: unchanged (units (u nknown) date) unknown) (unknown) (no (unknown) (unknown) Device data last 90 (unit s (unknown) date) days: unknown) (unknown) (no (unknown) (unknown) [place] ([place]) [place] [facility] [place] (according to available medical records), (unknown) (no (unknown) (unknown) by trouble staying (units (unknown) date) asleep and unknown) non-restorative sleep. This can be seen secondary (unknown) (no (unknown) (unknown) comfortable, the (units (unknown) date) room should be quiet, unknown) not too hot or cold, or too bright. (unknown) (no (unknown) (unknown) conversations and (units (unknown) date) activities before unknown) trying to go to sleep. Don't dwell on, or (unknown) (no (unknown) (unknown) head elevated or (units (unknown) date) denies sleeping pills unknown) (unknown) (no (unknown) (unknown) listen to the radio, (uni ts (unknown) date) or read as if you unknown) associate falling asleep with these (unknown) (no (unknown) (unknown) low back), denies (units (unknown) date) dizziness in the unknown) morning, reports trouble (unknown) (no (unknown) (unknown) to sleep apnea, (units (unknown) date) depression, medical unknown) conditions or can be an independent (unknown) (no (unknown) (unknown) with a sleep (units (u nknown) date) problem, it's not a unknown) good time to start experimenting with spicy (unknown) (no (unknown) (unknown) (1) Obstructive (units (unknown) date) sleep apnea of adult: unknown) (unknown) (no (unknown) (unknown) (2) Excessive (units ( unknown) date) daytime sleepiness: unknown) (unknown) (no (unknown) (unknown) ([id number]), normal (unit s (unknown) date) wake time (0613-9383; unknown) she returns to sleep 1-1.5 hours), (unknown) (no (unknown) (unknown) (3) Primary (units (un known) date) insomnia: unknown) (unknown) (no (unknown) (unknown) (denies), apnea (units (unknown) date) (denies), choking or unknown) gasping (denies), epworth sleep scale score (unknown) (no (unknown) (unknown) (neuropathic pain); (unit s (unknown) date) Denies morning unknown) headache or vertigo (unknown) (no (unknown) (unknown) (waking 3 times (units (unknown) date) nightly, attributed unknown) to chronic pain and mask leak), early (unknown) (no (unknown) (unknown) 0 = Would never doze (uni ts (unknown) date) or sleep, 1 = Slight unknown) chance of dozing or sleeping, 2 = (unknown) (no (unknown) (unknown) 007 (units (unkno wn) date) unknown) (unknown) (no (unknown) (unknown) 02/05/22 (units (unkno wn) date) unknown) (unknown) (no (unknown) (unknown) 08/08/21 14:09) (units (unknown) date) unknown) (unknown) (no (unknown) (unknown) 1401 to 1404, chart (unit s (unknown) date) and compliance review unknown) (unknown) (no (unknown) (unknown) 1404 to 1419, visit (unit s (unknown) date) unknown) (unknown) (no (unknown) (unknown) 14:09) (units (unkno wn) date) unknown) (unknown) (no (unknown) (unknown) 1746 to 1749, (units ( unknown) date) charting unknown) (unknown) (no (unknown) (unknown) AM), reports (units (un known) date) non-supine sleeping, unknown) denies stimulant therapy, denies sleeping with (unknown) (no (unknown) (unknown) Adhere to regular (units (unknown) date) mealtime schedule, unknown) avoid snacking (unknown) (no (unknown) (unknown) Affect: normal (units (unknown) date) affect unknown) (unknown) (no (unknown) (unknown) Age/Sex: 71 / F (units (unknown) date) Date of Service: unknown) (unknown) (no (unknown) (unknown) Allergies (units (unkn own) date) unknown) (unknown) (no (unknown) (unknown) Assessment + Plan (units (unknown) date) unknown) (unknown) (no (unknown) (unknown) Associate your bed (units (unknown) date) with sleep. It's not unknown) a good idea to use your bed to watch TV, (unknown) (no (unknown) (unknown) Attending Dr: Kishan (uni ts (unknown) date) Janell PIPER unknown) (unknown) (no (unknown) (unknown) Attitude: (units (unkn own) date) cooperative unknown) (unknown) (no (unknown) (unknown) AutoBiPAP Set (units ( unknown) date) Pressures: IPAPmax: unknown) 16 cwp EPAPmin: 8 cwp PS: 6/4 cwp (unknown) (no (unknown) (unknown) Avoid alcohol after (unit s (unknown) date) 4 pm unknown) (unknown) (no (unknown) (unknown) Avoid medications (units (unknown) date) which may interfere unknown) with sleep (unknown) (no (unknown) (unknown) Avoid random napping (uni ts (unknown) date) during the day; it unknown) can disturb the normal pattern of sleep (unknown) (no (unknown) (unknown) Avoid stimulants (units (unknown) date) such as caffeine, unknown) nicotine, and alcohol too close to bedtime. (unknown) (no (unknown) (unknown) BMI 41.0 (units (un known) date) unknown) (unknown) (no (unknown) (unknown) BP 108/72 (units (u nknown) date) unknown) (unknown) (no (unknown) (unknown) Being a passenger in (uni ts (unknown) date) a motor vehicle for unknown) an hour or so: 3 = High (unknown) (no (unknown) (unknown) Bi-level PAP (units (u nknown) date) (-6) unknown) (unknown) (no (unknown) (unknown) Bilateral bunions (units (unknown) date) unknown) (unknown) (no (unknown) (unknown) Blood Pressure (units (unknown) date) Location Lt unknown) brachial (unknown) (no (unknown) (unknown) Cardiac (units (unkno wn) date) unknown) (unknown) (no (unknown) (unknown) Chief Complaint: (units (unknown) date) Patient is here to unknown) follow up on therapy for RABIA (unknown) (no (unknown) (unknown) Clinical Course (units (unknown) date) unknown) (unknown) (no (unknown) (unknown) Condition is Onset: (unit s (unknown) date) Chronic and ongoing unknown) condition (unknown) (no (unknown) (unknown) Conjunctivae: (units ( unknown) date) conjunctivae normal unknown) (unknown) (no (unknown) (unknown) Consider weaning (units (unknown) date) caffeine use, unknown) starting with no caffeine after 3pm (unknown) (no (unknown) (unknown) Const (units (unkno wn) date) unknown) (unknown) (no (unknown) (unknown) : 1950 (units (unknown) date) Acct:[id number] unknown) (unknown) (no (unknown) (unknown) Denies chest pain or (uni ts (unknown) date) nocturnal unknown) palpitations (unknown) (no (unknown) (unknown) Denies dyspnea at (units (unknown) date) night or cough unknown) (unknown) (no (unknown) (unknown) Denies itchy eyes, (units (unknown) date) redness, blurry unknown) vision or seasonal allergies (unknown) (no (unknown) (unknown) Denies reflux pain (units (unknown) date) at night or bloating unknown) on CPAP (unknown) (no (unknown) (unknown) Denies weakness (units (unknown) date) associated with unknown) strong emotion or sleep paralysis (unknown) (no (unknown) (unknown) Dept at (units (unkno wn) date) . 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 This is particularly important for (unknown) (no (unknown) (unknown) [place] Score: 21 (units (unknown) date) unknown) (unknown) (no (unknown) (unknown) [place] Sleepiness (units (unknown) date) Scale unknown) (unknown) (no (unknown) (unknown) Establish a regular (units (unknown) date) relaxing bedtime unknown) routine. Try to avoid emotionally upsetting (unknown) (no (unknown) (unknown) Exacerbating/Allevia (uni ts (unknown) date) ting Factors unknown) (unknown) (no (unknown) (unknown) Exam (units (unkno wn) date) unknown) (unknown) (no (unknown) (unknown) Exam Narrative (units (unknown) date) unknown) (unknown) (no (unknown) (unknown) Exam Narrative: (units (unknown) date) unknown) (unknown) (no (unknown) (unknown) Excessive daytime (units (unknown) date) sleepiness unknown) (unknown) (no (unknown) (unknown) Eyes (units (unkno wn) date) unknown) (unknown) (no (unknown) (unknown) Food can be (units (un known) date) disruptive right unknown) before sleep; stay away from large meals close to (unknown) (no (unknown) (unknown) GI (units (unkno wn) date) unknown) (unknown) (no (unknown) (unknown) (units (unkno wn) date) unknown) (unknown) (no (unknown) (unknown) Gait: gait assisted (unit s (unknown) date) (uses cane) unknown) (unknown) (no (unknown) (unknown) General: cooperative (uni ts (unknown) date) and no acute distress unknown) (but looks fatigued) (unknown) (no (unknown) (unknown) General: patient (units (unknown) date) alert and patient unknown) oriented x3 (unknown) (no (unknown) (unknown) Get regular moderate (uni ts (unknown) date) exercise (30 minutes, unknown) 3x/week) (unknown) (no (unknown) (unknown) HENMT (units (unkno wn) date) unknown) (unknown) (no (unknown) (unknown) HPI (units (unkno wn) date) unknown) (unknown) (no (unknown) (unknown) HPI Sleep Follow Up (unit s (unknown) date) unknown) (unknown) (no (unknown) (unknown) Head: normal to (units (unknown) date) inspection unknown) (unknown) (no (unknown) (unknown) Height 5 ft (units (unknown) date) unknown) (unknown) (no (unknown) (unknown) History of (units (unk nown) date) bunionectomy of both unknown) great toes (unknown) (no (unknown) (unknown) Intake (units (unkno wn) date) unknown) (unknown) (no (unknown) (unknown) Light exposure (units (unknown) date) during the day helps unknown) maintain a healthy sleep-wake cycle. In (unknown) (no (unknown) (unknown) Loc: SLEEP (units (unk nown) date) unknown) (unknown) (no (unknown) (unknown) Lying down in the (units (unknown) date) afternoon: 3 = High unknown) (unknown) (no (unknown) (unknown) Make sure that the (units (unknown) date) sleep environment is unknown) pleasant and relaxing. The bed should be (unknown) (no (unknown) (unknown) Medical History (units (unknown) date) (Reviewed 02/05/22 @ unknown) 13:02 by Kishan Maciel MD) (unknown) (no (unknown) (unknown) Memory loss of (units (unknown) date) unknown cause unknown) (unknown) (no (unknown) (unknown) Moderate chance of (units (unknown) date) dozing or sleeping, 3 unknown) = High chance of dozing or sleeping (unknown) (no (unknown) (unknown) Mood: congruent mood (uni ts (unknown) date) unknown) (unknown) (no (unknown) (unknown) Musc (units (unkno wn) date) unknown) (unknown) (no (unknown) (unknown) Neck (units (unkno wn) date) unknown) (unknown) (no (unknown) (unknown) Neck: normal visual (unit s (unknown) date) inspection unknown) (unknown) (no (unknown) (unknown) Neuro (units (unkno wn) date) unknown) (unknown) (no (unknown) (unknown) Neurological (units (u nknown) date) unknown) (unknown) (no (unknown) (unknown) 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 She also felt she slept (unknown) (no (unknown) (unknown) PFSH (units (unkno wn) date) unknown) (unknown) (no (unknown) (unknown) Patient denies (units (unknown) date) stress, denies unknown) alcohol (abstains), reports caffeine (2 cups in (unknown) (no (unknown) (unknown) Patient instructed (units (unknown) date) to use scheduled naps unknown) as needed for drowsiness safety. (unknown) (no (unknown) (unknown) Patient reported a (units (unknown) date) history of snoring unknown) and a disturbed sleep pattern. There is (unknown) (no (unknown) (unknown) Patient reports (units (unknown) date) difficulty falling unknown) asleep is denied, difficulty staying asleep (unknown) (no (unknown) (unknown) Patient reports (units (unknown) date) symptoms of chronic unknown) insomnia for more than 3 months as evidenced (unknown) (no (unknown) (unknown) Patient was (units (un known) date) encouraged to unknown) continue with PAP therapy at IPAPmax 16, EPAPmin 18 (unknown) (no (unknown) (unknown) Patient was (units (un known) date) encouraged to unknown) maintain CPAP usage at a minimum of 4 hours a night, (unknown) (no (unknown) (unknown) Patient was (units (un known) date) instructed to avoid unknown) driving or operating heavy machinery when (unknown) (no (unknown) (unknown) Patient was (units (un known) date) instructed to return unknown) sooner if any questions or concerns arise. (unknown) (no (unknown) (unknown) Patient's compliance (uni ts (unknown) date) is good with positive unknown) clinical response including no (unknown) (no (unknown) (unknown) Patient: Terrence Buckley (uni ts (unknown) date) MR#: [id number] unknown) (unknown) (no (unknown) (unknown) Pertinent (units (unkn own) date) Positives/Negatives unknown) (unknown) (no (unknown) (unknown) Plan (units (unkno wn) date) unknown) (unknown) (no (unknown) (unknown) Position Sitting (unit s (unknown) date) unknown) (unknown) (no (unknown) (unknown) Primary insomnia (units (unknown) date) unknown) (unknown) (no (unknown) (unknown) Properly timed (units (unknown) date) exercise can promote unknown) good sleep. Vigorous exercise should be (unknown) (no (unknown) (unknown) Psych (units (unkno wn) date) unknown) (unknown) (no (unknown) (unknown) Psychological (units ( unknown) date) unknown) (unknown) (no (unknown) (unknown) Pulse 71 (units (un known) date) unknown) (unknown) (no (unknown) (unknown) Questionnaires (units (unknown) date) unknown) (unknown) (no (unknown) (unknown) ROS Sleep (units (unkn own) date) unknown) (unknown) (no (unknown) (unknown) Reason For Visit (units (unknown) date) unknown) (unknown) (no (unknown) (unknown) Reports daytime (units (unknown) date) sleepiness, Reports unknown) fatigue, Denies snoring and Denies stops (unknown) (no (unknown) (unknown) Reports dizzy in the (uni ts (unknown) date) morning, trouble unknown) concentrating or focusing and other (unknown) (no (unknown) (unknown) Reports dry mouth in (uni ts (unknown) date) the morning; Denies unknown) runny nose, nasal congestion at night (unknown) (no (unknown) (unknown) Reports myalgia (units (unknown) date) interfering with unknown) sleep and arthralgia interfering with sleep; (unknown) (no (unknown) (unknown) Reports napping on a (uni ts (unknown) date) regular basis; Denies unknown) depression, anxiety, hypnagogic (unknown) (no (unknown) (unknown) Reports nocturia (units (unknown) date) unknown) (unknown) (no (unknown) (unknown) Resp (units (unkno wn) date) unknown) (unknown) (no (unknown) (unknown) Respiration 16 (units (unknown) date) unknown) (unknown) (no (unknown) (unknown) Respiratory (units (un known) date) unknown) (unknown) (no (unknown) (unknown) Return visit in 6 (units (unknown) date) months to assess unknown) continued response to PAP therapy (unknown) (no (unknown) (unknown) S/P lumbar spinal (units (unknown) date) fusion unknown) (unknown) (no (unknown) (unknown) Sclera: sclerae (units (unknown) date) normal unknown) (unknown) (no (unknown) (unknown) She is currently on (unit s (unknown) date) nasal Bi-level PAP at unknown) -. She is using it regularly (unknown) (no (unknown) (unknown) Signed By: (units (unk nown) date) unknown) (unknown) (no (unknown) (unknown) Sitting and Reading: (uni ts (unknown) date) 3 = High unknown) (unknown) (no (unknown) (unknown) Sitting and talking (unit s (unknown) date) to someone: 0 = Never unknown) (None) (unknown) (no (unknown) (unknown) Sitting inactive in (unit s (unknown) date) a public place: 3 = unknown) High (unknown) (no (unknown) (unknown) Sitting quietly (units (unknown) date) after lunch (no unknown) alcohol): 3 = High (unknown) (no (unknown) (unknown) Smoking Status: (units (unknown) date) Never smoker unknown) (unknown) (no (unknown) (unknown) Social History (units (unknown) date) unknown) (unknown) (no (unknown) (unknown) Speech: speech (units (unknown) date) normal unknown) (unknown) (no (unknown) (unknown) Stopped for a few (units (unknown) date) minutes in traffic: 3 unknown) = High (unknown) (no (unknown) (unknown) Sub-optimal therapy (unit s (unknown) date) unknown) (unknown) (no (unknown) (unknown) Surgical History (units (unknown) date) (Reviewed 02/05/22 @ unknown) 13:02 by Kishan Maciel MD) (unknown) (no (unknown) (unknown) Symptoms (units (unkno wn) date) unknown) (unknown) (no (unknown) (unknown) Temp 97.6 F (units (unknown) date) unknown) (unknown) (no (unknown) (unknown) The patient reported (uni ts (unknown) date) symptoms of excessive unknown) daytime sleepiness as evidenced by (unknown) (no (unknown) (unknown) This note may have (units (unknown) date) been all or partially unknown) generated using voice recognition (unknown) (no (unknown) (unknown) This will be (units (u nknown) date) reassessed on her new unknown) bi-level PAP machine. (unknown) (no (unknown) (unknown) Time Coding Minutes (unit s (unknown) date) Spent: (must be on unknown) same date of service/appointment) (unknown) (no (unknown) (unknown) Time Spent (units (unk nown) date) unknown) (unknown) (no (unknown) (unknown) Tobacco + Substance (unit s (unknown) date) Use unknown) (unknown) (no (unknown) (unknown) Tobacco Status (units (unknown) date) unknown) (unknown) (no (unknown) (unknown) Treatment Effects: (units (unknown) date) Pap Treatment unknown) Response/Side Effects: adherent to current PAP (unknown) (no (unknown) (unknown) Treatment (units (unkn own) date) Response/Side Affects unknown) (unknown) (no (unknown) (unknown) Type 2 diabetes (units (unknown) date) mellitus unknown) (unknown) (no (unknown) (unknown) Usage: 100%, w/98.9% (unit s (unknown) date) of that time > 4 unknown) hours. Leak: 13 sec flowAHI: 0.6 (unknown) (no (unknown) (unknown) Visit Reasons: 6M (units (unknown) date) unknown) (unknown) (no (unknown) (unknown) Visit type (FU): (units (unknown) date) follow up of RABIA unknown) therapy Follow up evaluation of RABIA therapy: (unknown) (no (unknown) (unknown) Vitals (units (unkno wn) date) unknown) (unknown) (no (unknown) (unknown) Watching TV: 3 = (units (unknown) date) High unknown) (unknown) (no (unknown) (unknown) Weight 210 lb (units (unknown) date) unknown) (unknown) (no (unknown) (unknown) While alcohol is (units (unknown) date) well known to speed unknown) the onset of sleep, it disrupts sleep in (unknown) (no (unknown) (unknown) activities, you may (unit s (unknown) date) have more problems unknown) getting back to sleep during the night. (unknown) (no (unknown) (unknown) addition, avoiding (units (unknown) date) nighttime bright unknown) light exposure, which can occur with many (unknown) (no (unknown) (unknown) also a history of (units (unknown) date) hypertension with a unknown) Mallampati score of IV. For this a (unknown) (no (unknown) (unknown) an [place] (units (unk nown) date) Sleepiness scale unknown) score of 22/24. Her pain is significant and it is (unknown) (no (unknown) (unknown) and sleep quality. (units (unknown) date) Her NPO on CPAP was unknown) positive, so she under went a bi-level (unknown) (no (unknown) (unknown) and wakefulness. (units (unknown) date) Scheduled napping may unknown) be considered if appropriate for the (unknown) (no (unknown) (unknown) bedtime. Also dietary (uni ts (unknown) date) changes can cause unknown) sleep problems, if someone is struggling (unknown) (no (unknown) (unknown) better on b-level (units (unknown) date) PAP. She is currently unknown) on bi-level PAP machine at 16/8/4-6 and (unknown) (no (unknown) (unknown) breathing during (units (unknown) date) sleep unknown) (unknown) (no (unknown) (unknown) bring your problems (unit s (unknown) date) to bed. unknown) (unknown) (no (unknown) (unknown) but increased (units ( unknown) date) benefit from more unknown) usage was also explained. (unknown) (no (unknown) (unknown) can be seen (units (un known) date) secondary to sleep unknown) apnea, insomnia, depression, medical conditions (unknown) (no (unknown) (unknown) caregiver/support (units (unknown) date) person: No unknown) (unknown) (no (unknown) (unknown) clinical response (units (unknown) date) including no snoring. unknown) It is clear she would benefit from the (unknown) (no (unknown) (unknown) compliance wais (units (unknown) date) excellent with a unknown) normal AHIflow, but she was snoring and her (unknown) (no (unknown) (unknown) condition (units (unkn own) date) unknown) (unknown) (no (unknown) (unknown) congestion at night, (uni ts (unknown) date) reports dry mouth, unknown) denies sore throat in the morning, (unknown) (no (unknown) (unknown) consentrating/focusi (uni ts (unknown) date) ng durng the day unknown) (having progressive difficulties), denies (unknown) (no (unknown) (unknown) continued use of PAP (uni ts (unknown) date) therapy. The patient unknown) is willing to continue with PAP (unknown) (no (unknown) (unknown) daytime sleeping and (uni ts (unknown) date) an elevated [place] unknown) Sleepiness Scale score of 12/24. This (unknown) (no (unknown) (unknown) denies night sweats, (uni ts (unknown) date) reports morning unknown) headache (head gear), denies nasal (unknown) (no (unknown) (unknown) denies nocturnal (units (unknown) date) cough, denies unknown) nocturnal palpitations, denies heart burn (unknown) (no (unknown) (unknown) depression or denies (uni ts (unknown) date) anxiety unknown) (unknown) (no (unknown) (unknown) details: bayron Wu, (uni ts (unknown) date) lives in [place] unknown) (unknown) (no (unknown) (unknown) diagnostic sleep (units (unknown) date) study was performed unknown) and showed obstructive sleep apnea. (unknown) (no (unknown) (unknown) dishes. And, (units (u nknown) date) remember, chocolate unknown) has caffeine. (unknown) (no (unknown) (unknown) done before bed to (units (unknown) date) help initiate a unknown) restful night's sleep. (unknown) (no (unknown) (unknown) drowsy. Drowsy (units (unknown) date) driving handout made unknown) available. (unknown) (no (unknown) (unknown) effecting the (units ( unknown) date) quality of her sleep. unknown) Drowsiness risks and symptoms reviewed. (unknown) (no (unknown) (unknown) hallucinations or (units (unknown) date) sleep paralysis unknown) (unknown) (no (unknown) (unknown) has not improved. (units (unknown) date) unknown) (unknown) (no (unknown) (unknown) have occurred. If (units (unknown) date) there are any unknown) questions, please contact the Medical Records (unknown) (no (unknown) (unknown) having already been (unit s (unknown) date) on CPAP, and was unknown) effective until 2017 when she developed (unknown) (no (unknown) (unknown) headaches and (units ( unknown) date) nocturia, as well as unknown) diminishing cognitive capabilities. An NPO (unknown) (no (unknown) (unknown) her compliance is (units (unknown) date) excellent with an unknown) optimal AHIflow. She also reports positive (unknown) (no (unknown) (unknown) hours ) frequent, (units (unknown) date) spending time in bed unknown) not sleeping a little, normal bedtime (unknown) (no (unknown) (unknown) household members: (units (unknown) date) spouse unknown) (unknown) (no (unknown) (unknown) housing: house (units (unknown) date) unknown) (unknown) (no (unknown) (unknown) hydrochlorothiazide (unit s (unknown) date) [From ZESTORETIC] unknown) Allergy (Intermediate, Verified 08/08/21 (unknown) (no (unknown) (unknown) insulin detemir (units (unknown) date) [From Levemir U-100 unknown) Insulin] Allergy (Intermediate, Verified (unknown) (no (unknown) (unknown) lisinopril [From (units (unknown) date) ZESTORETIC] Allergy unknown) (Intermediate, Verified 08/08/21 14:09) (unknown) (no (unknown) (unknown) lives independently: (uni ts (unknown) date) Yes unknown) (unknown) (no (unknown) (unknown) marital status: (units (unknown) date) unknown) (unknown) (no (unknown) (unknown) may occur. (units (unk nown) date) Occasional wrong-word unknown) or 'sound-alike' substitutions may have (unknown) (no (unknown) (unknown) morning awakening (units (unknown) date) (may wake at unknown) [id number], up for 2 hours, back to sleep for 3 (unknown) (no (unknown) (unknown) occurred due to the (unit s (unknown) date) inherent limitations unknown) of voice recognition software. Please (unknown) (no (unknown) (unknown) older people who may (uni ts (unknown) date) not venture outside unknown) as frequently as children and adults. (unknown) (no (unknown) (unknown) on PAP well, sleep (units (unknown) date) quality okay and unknown) daytime sleepiness Daytime Sleepiness Branch (unknown) (no (unknown) (unknown) optimal sleep (units ( unknown) date) schedule. unknown) (unknown) (no (unknown) (unknown) or can be a primary (unit s (unknown) date) problem. This unknown) continues to be elevated on PAP therapy with (unknown) (no (unknown) (unknown) or sore throat in (units (unknown) date) the morning unknown) (unknown) (no (unknown) (unknown) personal electronic (unit s (unknown) date) devices, can also unknown) help maintain a healthy sleep-wake cycle. (unknown) (no (unknown) (unknown) pressures, found to (unit s (unknown) date) be 17 cwp. unknown) (unknown) (no (unknown) (unknown) problem. Sleep (units (unknown) date) hygiene and sleep unknown) schedules were discussed. This has improved (unknown) (no (unknown) (unknown) read the note (units ( unknown) date) carefully and unknown) recognize, using context, where these substitutions (unknown) (no (unknown) (unknown) seconds <= 88%. She (unit s (unknown) date) repeated the biPAP unknown) titration study to identify optimal (unknown) (no (unknown) (unknown) sentences, no (units ( unknown) date) audible wheezes, no unknown) cough, no grunting and not labored (unknown) (no (unknown) (unknown) she is benefitting (units (unknown) date) from bi-level PAP unknown) therapy and is motivated to continue its (unknown) (no (unknown) (unknown) sleep quality was (units (unknown) date) less than optimal. unknown) Her pressure was increased for the snoring (unknown) (no (unknown) (unknown) sleep schedule (units (unknown) date) (somewhat variable), unknown) daytime somnolence frequent, snoring (unknown) (no (unknown) (unknown) snoring but she (units (unknown) date) continues to have unknown) significant daytime sleepiness. Patient's (unknown) (no (unknown) (unknown) software. 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 In (unit s (unknown) date) 06/2019 she reported unknown) new onset night sweats, morning (unknown) (no (unknown) (unknown) study (07/20/19) (units (unknown) date) showed GAVIN: 19, with unknown) eufemia SpO2: 60%, and spent 62 minutes 18 (unknown) (no (unknown) (unknown) substance use type: (unit s (unknown) date) does not use unknown) (unknown) (no (unknown) (unknown) symptoms at night, (units (unknown) date) reports nocturia (3 unknown) times nightly), reports pain (feet, legs, (unknown) (no (unknown) (unknown) symptoms of CPAP (units (unknown) date) failure. Switched to unknown) bi-levelPAP therapy after a titration (unknown) (no (unknown) (unknown) taken in the morning (uni ts (unknown) date) or late afternoon. A unknown) relaxing exercise, like yoga, can be (unknown) (no (unknown) (unknown) the second half as (units (unknown) date) the body begins to unknown) metabolize the alcohol, causing arousal. (unknown) (no (unknown) (unknown) therapy. (units (unkno wn) date) unknown) (unknown) (no (unknown) (unknown) treatment variable (units (unknown) date) response to treatment unknown) (unknown) (no (unknown) (unknown) use. (units (unkno wn) date) unknown) (unknown) (no (unknown) (unknown) verapamil (units (unkn own) date) [VERAPAMIL] Allergy unknown) (Intermediate, Verified 08/08/21 14:09) (unknown) (no (unknown) (unknown) with an optimal (units (unknown) date) AHIflow. She reports unknown) no problems with the pressure. She feels (unknown) (no (unknown) (unknown) with pressure (units ( unknown) date) support of 4-6 cwp. unknown) Result panel 4 (unknown) (no (unknown) (unknown) (no value) (units (unk nown) date) unknown) (unknown) (no (unknown) (unknown) Assessment and Plan: (uni ts (unknown) date) unknown) (unknown) (no (unknown) (unknown) Status: Chronic (units (unknown) date) unknown) (unknown) (no (unknown) (unknown) (no value) (units (unk nown) date) unknown) (unknown) (no (unknown) (unknown) (no value) (units (unk nown) date) unknown) (unknown) (no (unknown) (unknown) [place] [address] (unit s (unknown) date) unknown) (unknown) (no (unknown) (unknown) BLOATING (units (unkno wn) date) unknown) (unknown) (no (unknown) (unknown) COUGH, BLOAT (units (u nknown) date) unknown) (unknown) (no (unknown) (unknown) Draft (units (unkno wn) date) unknown) (unknown) (no (unknown) (unknown) Rash (units (unkno wn) date) unknown) (unknown) (no (unknown) (unknown) Sleep Visit (units (un known) date) unknown) (unknown) (no (unknown) (unknown) [facility]) (unknown) (no (unknown) (unknown) (no value) (units (unk nown) date) unknown) (unknown) (no (unknown) (unknown) (), bruxism (units (unknown) date) (denies), sleep unknown) talking (denies) and sleep walking (denies) (unknown) (no (unknown) (unknown) 2: unchanged (units (u nknown) date) unknown) (unknown) (no (unknown) (unknown) Device data last 90 (unit s (unknown) date) days: unknown) (unknown) (no (unknown) (unknown) [place] ([place]) [place] [facility] [place] (according to available medical records), (unknown) (no (unknown) (unknown) by trouble staying (units (unknown) date) asleep and unknown) non-restorative sleep. This can be seen secondary (unknown) (no (unknown) (unknown) comfortable, the (units (unknown) date) room should be quiet, unknown) not too hot or cold, or too bright. (unknown) (no (unknown) (unknown) conversations and (units (unknown) date) activities before unknown) trying to go to sleep. Don't dwell on, or (unknown) (no (unknown) (unknown) head elevated or (units (unknown) date) denies sleeping pills unknown) (unknown) (no (unknown) (unknown) listen to the radio, (uni ts (unknown) date) or read as if you unknown) associate falling asleep with these (unknown) (no (unknown) (unknown) low back), denies (units (unknown) date) dizziness in the unknown) morning, reports trouble (unknown) (no (unknown) (unknown) to sleep apnea, (units (unknown) date) depression, medical unknown) conditions or can be an independent (unknown) (no (unknown) (unknown) with a sleep (units (u nknown) date) problem, it's not a unknown) good time to start experimenting with spicy (unknown) (no (unknown) (unknown) (1) Obstructive (units (unknown) date) sleep apnea of adult: unknown) (unknown) (no (unknown) (unknown) (2) Excessive (units ( unknown) date) daytime sleepiness: unknown) (unknown) (no (unknown) (unknown) ([id number]), normal (unit s (unknown) date) wake time (5527-6519; unknown) she returns to sleep 1-1.5 hours), (unknown) (no (unknown) (unknown) (3) Primary (units (un known) date) insomnia: unknown) (unknown) (no (unknown) (unknown) (denies), apnea (units (unknown) date) (denies), choking or unknown) gasping (denies), epworth sleep scale score (unknown) (no (unknown) (unknown) (neuropathic pain); (unit s (unknown) date) Denies morning unknown) headache or vertigo (unknown) (no (unknown) (unknown) (waking 3 times (units (unknown) date) nightly, attributed unknown) to chronic pain and mask leak), early (unknown) (no (unknown) (unknown) 0 = Would never doze (uni ts (unknown) date) or sleep, 1 = Slight unknown) chance of dozing or sleeping, 2 = (unknown) (no (unknown) (unknown) 007 (units (unkno wn) date) unknown) (unknown) (no (unknown) (unknown) 02/05/22 (units (unkno wn) date) unknown) (unknown) (no (unknown) (unknown) 08/08/21 14:09) (units (unknown) date) unknown) (unknown) (no (unknown) (unknown) 1401 to 1404, chart (unit s (unknown) date) and compliance review unknown) (unknown) (no (unknown) (unknown) 1404 to 1419, visit (unit s (unknown) date) unknown) (unknown) (no (unknown) (unknown) 14:09) (units (unkno wn) date) unknown) (unknown) (no (unknown) (unknown) 1746 to 1749, (units ( unknown) date) charting unknown) (unknown) (no (unknown) (unknown) AM), reports (units (un known) date) non-supine sleeping, unknown) denies stimulant therapy, denies sleeping with (unknown) (no (unknown) (unknown) Adhere to regular (units (unknown) date) mealtime schedule, unknown) avoid snacking (unknown) (no (unknown) (unknown) Affect: normal (units (unknown) date) affect unknown) (unknown) (no (unknown) (unknown) Age/Sex: 71 / F (units (unknown) date) Date of Service: unknown) (unknown) (no (unknown) (unknown) Allergies (units (unkn own) date) unknown) (unknown) (no (unknown) (unknown) Assessment + Plan (units (unknown) date) unknown) (unknown) (no (unknown) (unknown) Associate your bed (units (unknown) date) with sleep. It's not unknown) a good idea to use your bed to watch TV, (unknown) (no (unknown) (unknown) Attending Dr: Kishan (uni ts (unknown) date) Janell PIPER unknown) (unknown) (no (unknown) (unknown) Attitude: (units (unkn own) date) cooperative unknown) (unknown) (no (unknown) (unknown) AutoBiPAP Set (units ( unknown) date) Pressures: IPAPmax: unknown) 16 cwp EPAPmin: 8 cwp PS: 6/4 cwp (unknown) (no (unknown) (unknown) Avoid alcohol after (unit s (unknown) date) 4 pm unknown) (unknown) (no (unknown) (unknown) Avoid medications (units (unknown) date) which may interfere unknown) with sleep (unknown) (no (unknown) (unknown) Avoid random napping (uni ts (unknown) date) during the day; it unknown) can disturb the normal pattern of sleep (unknown) (no (unknown) (unknown) Avoid stimulants (units (unknown) date) such as caffeine, unknown) nicotine, and alcohol too close to bedtime. (unknown) (no (unknown) (unknown) Being a passenger in (uni ts (unknown) date) a motor vehicle for unknown) an hour or so: 3 = High (unknown) (no (unknown) (unknown) Bi-level PAP (units (u nknown) date) (-6) unknown) (unknown) (no (unknown) (unknown) Bilateral bunions (units (unknown) date) unknown) (unknown) (no (unknown) (unknown) Cardiac (units (unkno wn) date) unknown) (unknown) (no (unknown) (unknown) Chief Complaint: (units (unknown) date) Patient is here to unknown) follow up on therapy for RABIA (unknown) (no (unknown) (unknown) Clinical Course (units (unknown) date) unknown) (unknown) (no (unknown) (unknown) Condition is Onset: (unit s (unknown) date) Chronic and ongoing unknown) condition (unknown) (no (unknown) (unknown) Conjunctivae: (units ( unknown) date) conjunctivae normal unknown) (unknown) (no (unknown) (unknown) Consider weaning (units (unknown) date) caffeine use, unknown) starting with no caffeine after 3pm (unknown) (no (unknown) (unknown) Const (units (unkno wn) date) unknown) (unknown) (no (unknown) (unknown) : 1950 (units (unknown) date) Acct:[id number] unknown) (unknown) (no (unknown) (unknown) Denies chest pain or (uni ts (unknown) date) nocturnal unknown) palpitations (unknown) (no (unknown) (unknown) Denies dyspnea at (units (unknown) date) night or cough unknown) (unknown) (no (unknown) (unknown) Denies itchy eyes, (units (unknown) date) redness, blurry unknown) vision or seasonal allergies (unknown) (no (unknown) (unknown) Denies reflux pain (units (unknown) date) at night or bloating unknown) on CPAP (unknown) (no (unknown) (unknown) Denies weakness (units (unknown) date) associated with unknown) strong emotion or sleep paralysis (unknown) (no (unknown) (unknown) Dept at (units (unkno wn) date) . 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 This is particularly important for (unknown) (no (unknown) (unknown) [place] Score: 21 (units (unknown) date) unknown) (unknown) (no (unknown) (unknown) [place] Sleepiness (units (unknown) date) Scale unknown) (unknown) (no (unknown) (unknown) Establish a regular (units (unknown) date) relaxing bedtime unknown) routine. Try to avoid emotionally upsetting (unknown) (no (unknown) (unknown) Exacerbating/Allevia (uni ts (unknown) date) ting Factors unknown) (unknown) (no (unknown) (unknown) Exam (units (unkno wn) date) unknown) (unknown) (no (unknown) (unknown) Exam Narrative (units (unknown) date) unknown) (unknown) (no (unknown) (unknown) Exam Narrative: (units (unknown) date) unknown) (unknown) (no (unknown) (unknown) Excessive daytime (units (unknown) date) sleepiness unknown) (unknown) (no (unknown) (unknown) Eyes (units (unkno wn) date) unknown) (unknown) (no (unknown) (unknown) Food can be (units (un known) date) disruptive right unknown) before sleep; stay away from large meals close to (unknown) (no (unknown) (unknown) GI (units (unkno wn) date) unknown) (unknown) (no (unknown) (unknown) (units (unkno wn) date) unknown) (unknown) (no (unknown) (unknown) Gait: gait assisted (unit s (unknown) date) (uses cane) unknown) (unknown) (no (unknown) (unknown) General: cooperative (uni ts (unknown) date) and no acute distress unknown) (but looks fatigued) (unknown) (no (unknown) (unknown) General: patient (units (unknown) date) alert and patient unknown) oriented x3 (unknown) (no (unknown) (unknown) Get regular moderate (uni ts (unknown) date) exercise (30 minutes, unknown) 3x/week) (unknown) (no (unknown) (unknown) HENMT (units (unkno wn) date) unknown) (unknown) (no (unknown) (unknown) HPI (units (unkno wn) date) unknown) (unknown) (no (unknown) (unknown) HPI Sleep Follow Up (unit s (unknown) date) unknown) (unknown) (no (unknown) (unknown) Head: normal to (units (unknown) date) inspection unknown) (unknown) (no (unknown) (unknown) History of (units (unk nown) date) bunionectomy of both unknown) great toes (unknown) (no (unknown) (unknown) Intake (units (unkno wn) date) unknown) (unknown) (no (unknown) (unknown) Light exposure (units (unknown) date) during the day helps unknown) maintain a healthy sleep-wake cycle. In (unknown) (no (unknown) (unknown) Loc: SLEEP (units (unk nown) date) unknown) (unknown) (no (unknown) (unknown) Lying down in the (units (unknown) date) afternoon: 3 = High unknown) (unknown) (no (unknown) (unknown) Make sure that the (units (unknown) date) sleep environment is unknown) pleasant and relaxing. The bed should be (unknown) (no (unknown) (unknown) Medical History (units (unknown) date) (Reviewed 02/05/22 @ unknown) 13:02 by Kishan Maciel MD) (unknown) (no (unknown) (unknown) Memory loss of (units (unknown) date) unknown cause unknown) (unknown) (no (unknown) (unknown) Moderate chance of (units (unknown) date) dozing or sleeping, 3 unknown) = High chance of dozing or sleeping (unknown) (no (unknown) (unknown) Mood: congruent mood (uni ts (unknown) date) unknown) (unknown) (no (unknown) (unknown) Musc (units (unkno wn) date) unknown) (unknown) (no (unknown) (unknown) Neck (units (unkno wn) date) unknown) (unknown) (no (unknown) (unknown) Neck: normal visual (unit s (unknown) date) inspection unknown) (unknown) (no (unknown) (unknown) Neuro (units (unkno wn) date) unknown) (unknown) (no (unknown) (unknown) Neurological (units (u nknown) date) unknown) (unknown) (no (unknown) (unknown) 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 She also felt she slept (unknown) (no (unknown) (unknown) PFSH (units (unkno wn) date) unknown) (unknown) (no (unknown) (unknown) Patient denies (units (unknown) date) stress, denies unknown) alcohol (abstains), reports caffeine (2 cups in (unknown) (no (unknown) (unknown) Patient instructed (units (unknown) date) to use scheduled naps unknown) as needed for drowsiness safety. (unknown) (no (unknown) (unknown) Patient reported a (units (unknown) date) history of snoring unknown) and a disturbed sleep pattern. There is (unknown) (no (unknown) (unknown) Patient reports (units (unknown) date) difficulty falling unknown) asleep is denied, difficulty staying asleep (unknown) (no (unknown) (unknown) Patient reports (units (unknown) date) symptoms of chronic unknown) insomnia for more than 3 months as evidenced (unknown) (no (unknown) (unknown) Patient was (units (un known) date) encouraged to unknown) continue with PAP therapy at IPAPmax 16, EPAPmin 18 (unknown) (no (unknown) (unknown) Patient was (units (un known) date) encouraged to unknown) maintain CPAP usage at a minimum of 4 hours a night, (unknown) (no (unknown) (unknown) Patient was (units (un known) date) instructed to avoid unknown) driving or operating heavy machinery when (unknown) (no (unknown) (unknown) Patient was (units (un known) date) instructed to return unknown) sooner if any questions or concerns arise. (unknown) (no (unknown) (unknown) Patient's compliance (uni ts (unknown) date) is good with positive unknown) clinical response including no (unknown) (no (unknown) (unknown) Patient: Terrence Buckley (uni ts (unknown) date) MR#: [id number] unknown) (unknown) (no (unknown) (unknown) Pertinent (units (unkn own) date) Positives/Negatives unknown) (unknown) (no (unknown) (unknown) Plan (units (unkno wn) date) unknown) (unknown) (no (unknown) (unknown) Primary insomnia (units (unknown) date) unknown) (unknown) (no (unknown) (unknown) Properly timed (units (unknown) date) exercise can promote unknown) good sleep. Vigorous exercise should be (unknown) (no (unknown) (unknown) Psych (units (unkno wn) date) unknown) (unknown) (no (unknown) (unknown) Psychological (units ( unknown) date) unknown) (unknown) (no (unknown) (unknown) Questionnaires (units (unknown) date) unknown) (unknown) (no (unknown) (unknown) ROS Sleep (units (unkn own) date) unknown) (unknown) (no (unknown) (unknown) Reason For Visit (units (unknown) date) unknown) (unknown) (no (unknown) (unknown) Reports daytime (units (unknown) date) sleepiness, Reports unknown) fatigue, Denies snoring and Denies stops (unknown) (no (unknown) (unknown) Reports dizzy in the (uni ts (unknown) date) morning, trouble unknown) concentrating or focusing and other (unknown) (no (unknown) (unknown) Reports dry mouth in (uni ts (unknown) date) the morning; Denies unknown) runny nose, nasal congestion at night (unknown) (no (unknown) (unknown) Reports myalgia (units (unknown) date) interfering with unknown) sleep and arthralgia interfering with sleep; (unknown) (no (unknown) (unknown) Reports napping on a (uni ts (unknown) date) regular basis; Denies unknown) depression, anxiety, hypnagogic (unknown) (no (unknown) (unknown) Reports nocturia (units (unknown) date) unknown) (unknown) (no (unknown) (unknown) Resp (units (unkno wn) date) unknown) (unknown) (no (unknown) (unknown) Respiratory (units (un known) date) unknown) (unknown) (no (unknown) (unknown) Return visit in 6 (units (unknown) date) months to assess unknown) continued response to PAP therapy (unknown) (no (unknown) (unknown) S/P lumbar spinal (units (unknown) date) fusion unknown) (unknown) (no (unknown) (unknown) Sclera: sclerae (units (unknown) date) normal unknown) (unknown) (no (unknown) (unknown) She is currently on (unit s (unknown) date) nasal Bi-level PAP at unknown) -4. She is using it regularly (unknown) (no (unknown) (unknown) Signed By: (units (unk nown) date) unknown) (unknown) (no (unknown) (unknown) Sitting and Reading: (uni ts (unknown) date) 3 = High unknown) (unknown) (no (unknown) (unknown) Sitting and talking (unit s (unknown) date) to someone: 0 = Never unknown) (None) (unknown) (no (unknown) (unknown) Sitting inactive in (unit s (unknown) date) a public place: 3 = unknown) High (unknown) (no (unknown) (unknown) Sitting quietly (units (unknown) date) after lunch (no unknown) alcohol): 3 = High (unknown) (no (unknown) (unknown) Smoking Status: (units (unknown) date) Never smoker unknown) (unknown) (no (unknown) (unknown) Social History (units (unknown) date) unknown) (unknown) (no (unknown) (unknown) Speech: speech (units (unknown) date) normal unknown) (unknown) (no (unknown) (unknown) Stopped for a few (units (unknown) date) minutes in traffic: 3 unknown) = High (unknown) (no (unknown) (unknown) Sub-optimal therapy (unit s (unknown) date) unknown) (unknown) (no (unknown) (unknown) Surgical History (units (unknown) date) (Reviewed 02/05/22 @ unknown) 13:02 by Kishan Maciel MD) (unknown) (no (unknown) (unknown) Symptoms (units (unkno wn) date) unknown) (unknown) (no (unknown) (unknown) The patient reported (uni ts (unknown) date) symptoms of excessive unknown) daytime sleepiness as evidenced by (unknown) (no (unknown) (unknown) This note may have (units (unknown) date) been all or partially unknown) generated using voice recognition (unknown) (no (unknown) (unknown) This will be (units (u nknown) date) reassessed on her new unknown) bi-level PAP machine. (unknown) (no (unknown) (unknown) Time Coding Minutes (unit s (unknown) date) Spent: (must be on unknown) same date of service/appointment) (unknown) (no (unknown) (unknown) Time Spent (units (unk nown) date) unknown) (unknown) (no (unknown) (unknown) Tobacco + Substance (unit s (unknown) date) Use unknown) (unknown) (no (unknown) (unknown) Tobacco Status (units (unknown) date) unknown) (unknown) (no (unknown) (unknown) Treatment Effects: (units (unknown) date) Pap Treatment unknown) Response/Side Effects: adherent to current PAP (unknown) (no (unknown) (unknown) Treatment (units (unkn own) date) Response/Side Affects unknown) (unknown) (no (unknown) (unknown) Type 2 diabetes (units (unknown) date) mellitus unknown) (unknown) (no (unknown) (unknown) Usage: 100%, w/98.9% (unit s (unknown) date) of that time > 4 unknown) hours. Leak: 13 sec flowAHI: 0.6 (unknown) (no (unknown) (unknown) Visit Reasons: 6M (units (unknown) date) unknown) (unknown) (no (unknown) (unknown) Visit type (FU): (units (unknown) date) follow up of RABIA unknown) therapy Follow up evaluation of RABIA therapy: (unknown) (no (unknown) (unknown) Watching TV: 3 = (units (unknown) date) High unknown) (unknown) (no (unknown) (unknown) While alcohol is (units (unknown) date) well known to speed unknown) the onset of sleep, it disrupts sleep in (unknown) (no (unknown) (unknown) activities, you may (unit s (unknown) date) have more problems unknown) getting back to sleep during the night. (unknown) (no (unknown) (unknown) addition, avoiding (units (unknown) date) nighttime bright unknown) light exposure, which can occur with many (unknown) (no (unknown) (unknown) also a history of (units (unknown) date) hypertension with a unknown) Mallampati score of IV. For this a (unknown) (no (unknown) (unknown) an [place] (units (unk nown) date) Sleepiness scale unknown) score of 22/24. Her pain is significant and it is (unknown) (no (unknown) (unknown) and sleep quality. (units (unknown) date) Her NPO on CPAP was unknown) positive, so she under went a bi-level (unknown) (no (unknown) (unknown) and wakefulness. (units (unknown) date) Scheduled napping may unknown) be considered if appropriate for the (unknown) (no (unknown) (unknown) bedtime. Also dietary (uni ts (unknown) date) changes can cause unknown) sleep problems, if someone is struggling (unknown) (no (unknown) (unknown) better on b-level (units (unknown) date) PAP. She is currently unknown) on bi-level PAP machine at 16/8/4-6 and (unknown) (no (unknown) (unknown) breathing during (units (unknown) date) sleep unknown) (unknown) (no (unknown) (unknown) bring your problems (unit s (unknown) date) to bed. unknown) (unknown) (no (unknown) (unknown) but increased (units ( unknown) date) benefit from more unknown) usage was also explained. (unknown) (no (unknown) (unknown) can be seen (units (un known) date) secondary to sleep unknown) apnea, insomnia, depression, medical conditions (unknown) (no (unknown) (unknown) caregiver/support (units (unknown) date) person: No unknown) (unknown) (no (unknown) (unknown) clinical response (units (unknown) date) including no snoring. unknown) It is clear she would benefit from the (unknown) (no (unknown) (unknown) compliance wais (units (unknown) date) excellent with a unknown) normal AHIflow, but she was snoring and her (unknown) (no (unknown) (unknown) condition (units (unkn own) date) unknown) (unknown) (no (unknown) (unknown) congestion at night, (uni ts (unknown) date) reports dry mouth, unknown) denies sore throat in the morning, (unknown) (no (unknown) (unknown) consentrating/focusi (uni ts (unknown) date) ng durng the day unknown) (having progressive difficulties), denies (unknown) (no (unknown) (unknown) continued use of PAP (uni ts (unknown) date) therapy. The patient unknown) is willing to continue with PAP (unknown) (no (unknown) (unknown) daytime sleeping and (uni ts (unknown) date) an elevated [place] unknown) Sleepiness Scale score of 12/24. This (unknown) (no (unknown) (unknown) denies night sweats, (uni ts (unknown) date) reports morning unknown) headache (head gear), denies nasal (unknown) (no (unknown) (unknown) denies nocturnal (units (unknown) date) cough, denies unknown) nocturnal palpitations, denies heart burn (unknown) (no (unknown) (unknown) depression or denies (uni ts (unknown) date) anxiety unknown) (unknown) (no (unknown) (unknown) details: bayron Wu, (uni ts (unknown) date) lives in [place] unknown) (unknown) (no (unknown) (unknown) diagnostic sleep (units (unknown) date) study was performed unknown) and showed obstructive sleep apnea. (unknown) (no (unknown) (unknown) dishes. And, (units (u nknown) date) remember, chocolate unknown) has caffeine. (unknown) (no (unknown) (unknown) done before bed to (units (unknown) date) help initiate a unknown) restful night's sleep. (unknown) (no (unknown) (unknown) drowsy. Drowsy (units (unknown) date) driving handout made unknown) available. (unknown) (no (unknown) (unknown) effecting the (units ( unknown) date) quality of her sleep. unknown) Drowsiness risks and symptoms reviewed. (unknown) (no (unknown) (unknown) hallucinations or (units (unknown) date) sleep paralysis unknown) (unknown) (no (unknown) (unknown) has not improved. (units (unknown) date) unknown) (unknown) (no (unknown) (unknown) have occurred. If (units (unknown) date) there are any unknown) questions, please contact the Medical Records (unknown) (no (unknown) (unknown) having already been (unit s (unknown) date) on CPAP, and was unknown) effective until 2017 when she developed (unknown) (no (unknown) (unknown) headaches and (units ( unknown) date) nocturia, as well as unknown) diminishing cognitive capabilities. An NPO (unknown) (no (unknown) (unknown) her compliance is (units (unknown) date) excellent with an unknown) optimal AHIflow. She also reports positive (unknown) (no (unknown) (unknown) hours ) frequent, (units (unknown) date) spending time in bed unknown) not sleeping a little, normal bedtime (unknown) (no (unknown) (unknown) household members: (units (unknown) date) spouse unknown) (unknown) (no (unknown) (unknown) housing: house (units (unknown) date) unknown) (unknown) (no (unknown) (unknown) hydrochlorothiazide (unit s (unknown) date) [From ZESTORETIC] unknown) Allergy (Intermediate, Verified 08/08/21 (unknown) (no (unknown) (unknown) insulin detemir (units (unknown) date) [From Levemir U-100 unknown) Insulin] Allergy (Intermediate, Verified (unknown) (no (unknown) (unknown) lisinopril [From (units (unknown) date) ZESTORETIC] Allergy unknown) (Intermediate, Verified 08/08/21 14:09) (unknown) (no (unknown) (unknown) lives independently: (uni ts (unknown) date) Yes unknown) (unknown) (no (unknown) (unknown) marital status: (units (unknown) date) unknown) (unknown) (no (unknown) (unknown) may occur. (units (unk nown) date) Occasional wrong-word unknown) or 'sound-alike' substitutions may have (unknown) (no (unknown) (unknown) morning awakening (units (unknown) date) (may wake at unknown) [id number], up for 2 hours, back to sleep for 3 (unknown) (no (unknown) (unknown) occurred due to the (unit s (unknown) date) inherent limitations unknown) of voice recognition software. Please (unknown) (no (unknown) (unknown) older people who may (uni ts (unknown) date) not venture outside unknown) as frequently as children and adults. (unknown) (no (unknown) (unknown) on PAP well, sleep (units (unknown) date) quality okay and unknown) daytime sleepiness Daytime Sleepiness Branch (unknown) (no (unknown) (unknown) optimal sleep (units ( unknown) date) schedule. unknown) (unknown) (no (unknown) (unknown) or can be a primary (unit s (unknown) date) problem. This unknown) continues to be elevated on PAP therapy with (unknown) (no (unknown) (unknown) or sore throat in (units (unknown) date) the morning unknown) (unknown) (no (unknown) (unknown) personal electronic (unit s (unknown) date) devices, can also unknown) help maintain a healthy sleep-wake cycle. (unknown) (no (unknown) (unknown) pressures, found to (unit s (unknown) date) be 17/11 cwp. unknown) (unknown) (no (unknown) (unknown) problem. Sleep (units (unknown) date) hygiene and sleep unknown) schedules were discussed. This has improved (unknown) (no (unknown) (unknown) read the note (units ( unknown) date) carefully and unknown) recognize, using context, where these substitutions (unknown) (no (unknown) (unknown) seconds <= 88%. She (unit s (unknown) date) repeated the biPAP unknown) titration study to identify optimal (unknown) (no (unknown) (unknown) sentences, no (units ( unknown) date) audible wheezes, no unknown) cough, no grunting and not labored (unknown) (no (unknown) (unknown) she is benefitting (units (unknown) date) from bi-level PAP unknown) therapy and is motivated to continue its (unknown) (no (unknown) (unknown) sleep quality was (units (unknown) date) less than optimal. unknown) Her pressure was increased for the snoring (unknown) (no (unknown) (unknown) sleep schedule (units (unknown) date) (somewhat variable), unknown) daytime somnolence frequent, snoring (unknown) (no (unknown) (unknown) snoring but she (units (unknown) date) continues to have unknown) significant daytime sleepiness. Patient's (unknown) (no (unknown) (unknown) software. 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 In (unit s (unknown) date) 06/2019 she reported unknown) new onset night sweats, morning (unknown) (no (unknown) (unknown) study (07/20/19) (units (unknown) date) showed GAVIN: 19, with unknown) eufemia SpO2: 60%, and spent 62 minutes 18 (unknown) (no (unknown) (unknown) substance use type: (unit s (unknown) date) does not use unknown) (unknown) (no (unknown) (unknown) symptoms at night, (units (unknown) date) reports nocturia (3 unknown) times nightly), reports pain (feet, legs, (unknown) (no (unknown) (unknown) symptoms of CPAP (units (unknown) date) failure. Switched to unknown) bi-levelPAP therapy after a titration (unknown) (no (unknown) (unknown) taken in the morning (uni ts (unknown) date) or late afternoon. A unknown) relaxing exercise, like yoga, can be (unknown) (no (unknown) (unknown) the second half as (units (unknown) date) the body begins to unknown) metabolize the alcohol, causing arousal. (unknown) (no (unknown) (unknown) therapy. (units (unkno wn) date) unknown) (unknown) (no (unknown) (unknown) treatment variable (units (unknown) date) response to treatment unknown) (unknown) (no (unknown) (unknown) use. Pain is (units (u nknown) date) interfering with her unknown) sleep. (unknown) (no (unknown) (unknown) verapamil (units (unkn own) date) [VERAPAMIL] Allergy unknown) (Intermediate, Verified 08/08/21 14:09) (unknown) (no (unknown) (unknown) with an optimal (units (unknown) date) AHIflow. She reports unknown) no problems with the pressure. She feels (unknown) (no (unknown) (unknown) with pressure (units ( unknown) date) support of 4-6 cwp. unknown) Result panel 5 (unknown) (no (unknown) (unknown) (no value) (units (unk nown) date) unknown) (unknown) (no (unknown) (unknown) Assessment and Plan: (uni ts (unknown) date) unknown) (unknown) (no (unknown) (unknown) Status: Chronic (units (unknown) date) unknown) (unknown) (no (unknown) (unknown) (no value) (units (unk nown) date) unknown) (unknown) (no (unknown) (unknown) (no value) (units (unk nown) date) unknown) (unknown) (no (unknown) (unknown) [place] [id number] (unit s (unknown) date) unknown) (unknown) (no (unknown) (unknown) BLOATING (units (unkno wn) date) unknown) (unknown) (no (unknown) (unknown) COUGH, BLOAT (units (u nknown) date) unknown) (unknown) (no (unknown) (unknown) Draft (units (unkno wn) date) unknown) (unknown) (no (unknown) (unknown) Rash (units (unkno wn) date) unknown) (unknown) (no (unknown) (unknown) Sleep Visit (units (un known) date) unknown) (unknown) (no (unknown) (unknown) [facility]) (unknown) (no (unknown) (unknown) (no value) (units (unk nown) date) unknown) (unknown) (no (unknown) (unknown) 2: unchanged (units (u nknown) date) unknown) (unknown) (no (unknown) (unknown) Device data last 90 (unit s (unknown) date) days: unknown) (unknown) (no (unknown) (unknown) [place] ([place]) [place] [facility] [place] (according to available medical records), (unknown) (no (unknown) (unknown) by trouble staying (units (unknown) date) asleep and unknown) non-restorative sleep. This can be seen secondary (unknown) (no (unknown) (unknown) comfortable, the (units (unknown) date) room should be quiet, unknown) not too hot or cold, or too bright. (unknown) (no (unknown) (unknown) conversations and (units (unknown) date) activities before unknown) trying to go to sleep. Don't dwell on, or (unknown) (no (unknown) (unknown) listen to the radio, (uni ts (unknown) date) or read as if you unknown) associate falling asleep with these (unknown) (no (unknown) (unknown) to sleep apnea, (units (unknown) date) depression, medical unknown) conditions or can be an independent (unknown) (no (unknown) (unknown) with a sleep (units (u nknown) date) problem, it's not a unknown) good time to start experimenting with spicy (unknown) (no (unknown) (unknown) (1) Obstructive (units (unknown) date) sleep apnea of adult: unknown) (unknown) (no (unknown) (unknown) (2) Excessive (units ( unknown) date) daytime sleepiness: unknown) (unknown) (no (unknown) (unknown) ([id number]), normal (unit s (unknown) date) wake time unknown) ([id number]), sleep schedule (somewhat variable), (unknown) (no (unknown) (unknown) (3) Primary (units (un known) date) insomnia: unknown) (unknown) (no (unknown) (unknown) (having progressive (unit s (unknown) date) difficulties), denies unknown) depression or denies anxiety (unknown) (no (unknown) (unknown) (neuropathic pain); (unit s (unknown) date) Denies morning unknown) headache or vertigo (unknown) (no (unknown) (unknown) (waking 3 times (units (unknown) date) nightly, attributed unknown) to chronic pain and mask leak), early mo (unknown) (no (unknown) (unknown) 0 = Would never doze (uni ts (unknown) date) or sleep, 1 = Slight unknown) chance of dozing or sleeping, 2 = (unknown) (no (unknown) (unknown) 007 (units (unkno wn) date) unknown) (unknown) (no (unknown) (unknown) 02/05/22 (units (unkno wn) date) unknown) (unknown) (no (unknown) (unknown) 08/08/21 14:09) (units (unknown) date) unknown) (unknown) (no (unknown) (unknown) 1401 to 1404, chart (unit s (unknown) date) and compliance review unknown) (unknown) (no (unknown) (unknown) 1404 to 1419, visit (unit s (unknown) date) unknown) (unknown) (no (unknown) (unknown) 14:09) (units (unkno wn) date) unknown) (unknown) (no (unknown) (unknown) 1746 to 1749, (units ( unknown) date) charting unknown) (unknown) (no (unknown) (unknown) Adhere to regular (units (unknown) date) mealtime schedule, unknown) avoid snacking (unknown) (no (unknown) (unknown) Affect: normal (units (unknown) date) affect unknown) (unknown) (no (unknown) (unknown) Age/Sex: 71 / F (units (unknown) date) Date of Service: unknown) (unknown) (no (unknown) (unknown) Allergies (units (unkn own) date) unknown) (unknown) (no (unknown) (unknown) Assessment + Plan (units (unknown) date) unknown) (unknown) (no (unknown) (unknown) Associate your bed (units (unknown) date) with sleep. It's not unknown) a good idea to use your bed to watch TV, (unknown) (no (unknown) (unknown) Attending Dr: Kishan (uni ts (unknown) date) Janell PIPER unknown) (unknown) (no (unknown) (unknown) Attitude: (units (unkn own) date) cooperative unknown) (unknown) (no (unknown) (unknown) AutoBiPAP Set (units ( unknown) date) Pressures: IPAPmax: unknown) 16 cwp EPAPmin: 8 cwp PS: 6/4 cwp (unknown) (no (unknown) (unknown) Avoid alcohol after (unit s (unknown) date) 4 pm unknown) (unknown) (no (unknown) (unknown) Avoid medications (units (unknown) date) which may interfere unknown) with sleep (unknown) (no (unknown) (unknown) Avoid random napping (uni ts (unknown) date) during the day; it unknown) can disturb the normal pattern of sleep (unknown) (no (unknown) (unknown) Avoid stimulants (units (unknown) date) such as caffeine, unknown) nicotine, and alcohol too close to bedtime. (unknown) (no (unknown) (unknown) Being a passenger in (uni ts (unknown) date) a motor vehicle for unknown) an hour or so: 3 = High (unknown) (no (unknown) (unknown) Bi-level PAP (units (u nknown) date) (-6) unknown) (unknown) (no (unknown) (unknown) Bilateral bunions (units (unknown) date) unknown) (unknown) (no (unknown) (unknown) Cardiac (units (unkno wn) date) unknown) (unknown) (no (unknown) (unknown) Chief Complaint: (units (unknown) date) Patient is here to unknown) follow up on therapy for RABIA (unknown) (no (unknown) (unknown) Clinical Course (units (unknown) date) unknown) (unknown) (no (unknown) (unknown) Condition is Onset: (unit s (unknown) date) Chronic and ongoing unknown) condition (unknown) (no (unknown) (unknown) Conjunctivae: (units ( unknown) date) conjunctivae normal unknown) (unknown) (no (unknown) (unknown) Consider weaning (units (unknown) date) caffeine use, unknown) starting with no caffeine after 3pm (unknown) (no (unknown) (unknown) Const (units (unkno wn) date) unknown) (unknown) (no (unknown) (unknown) : 1950 (units (unknown) date) Acct:[id number] unknown) (unknown) (no (unknown) (unknown) Denies chest pain or (uni ts (unknown) date) nocturnal unknown) palpitations (unknown) (no (unknown) (unknown) Denies dyspnea at (units (unknown) date) night or cough unknown) (unknown) (no (unknown) (unknown) Denies itchy eyes, (units (unknown) date) redness, blurry unknown) vision or seasonal allergies (unknown) (no (unknown) (unknown) Denies reflux pain (units (unknown) date) at night or bloating unknown) on CPAP (unknown) (no (unknown) (unknown) Denies weakness (units (unknown) date) associated with unknown) strong emotion or sleep paralysis (unknown) (no (unknown) (unknown) Dept at (units (unkno wn) date) . 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 This is particularly important for (unknown) (no (unknown) (unknown) [place] Score: 21 (units (unknown) date) unknown) (unknown) (no (unknown) (unknown) [place] Sleepiness (units (unknown) date) Scale unknown) (unknown) (no (unknown) (unknown) Establish a regular (units (unknown) date) relaxing bedtime unknown) routine. Try to avoid emotionally upsetting (unknown) (no (unknown) (unknown) Exam (units (unkno wn) date) unknown) (unknown) (no (unknown) (unknown) Exam Narrative (units (unknown) date) unknown) (unknown) (no (unknown) (unknown) Exam Narrative: (units (unknown) date) unknown) (unknown) (no (unknown) (unknown) Excessive daytime (units (unknown) date) sleepiness unknown) (unknown) (no (unknown) (unknown) Eyes (units (unkno wn) date) unknown) (unknown) (no (unknown) (unknown) Food can be (units (un known) date) disruptive right unknown) before sleep; stay away from large meals close to (unknown) (no (unknown) (unknown) GI (units (unkno wn) date) unknown) (unknown) (no (unknown) (unknown) (units (unkno wn) date) unknown) (unknown) (no (unknown) (unknown) Gait: gait assisted (unit s (unknown) date) (uses cane) unknown) (unknown) (no (unknown) (unknown) General: cooperative (uni ts (unknown) date) and no acute distress unknown) (but looks fatigued) (unknown) (no (unknown) (unknown) General: patient (units (unknown) date) alert and patient unknown) oriented x3 (unknown) (no (unknown) (unknown) Get regular moderate (uni ts (unknown) date) exercise (30 minutes, unknown) 3x/week) (unknown) (no (unknown) (unknown) HENMT (units (unkno wn) date) unknown) (unknown) (no (unknown) (unknown) HPI (units (unkno wn) date) unknown) (unknown) (no (unknown) (unknown) HPI Sleep Follow Up (unit s (unknown) date) unknown) (unknown) (no (unknown) (unknown) Head: normal to (units (unknown) date) inspection unknown) (unknown) (no (unknown) (unknown) History of (units (unk nown) date) bunionectomy of both unknown) great toes (unknown) (no (unknown) (unknown) Intake (units (unkno wn) date) unknown) (unknown) (no (unknown) (unknown) Light exposure (units (unknown) date) during the day helps unknown) maintain a healthy sleep-wake cycle. In (unknown) (no (unknown) (unknown) Loc: SLEEP (units (unk nown) date) unknown) (unknown) (no (unknown) (unknown) Lying down in the (units (unknown) date) afternoon: 3 = High unknown) (unknown) (no (unknown) (unknown) Make sure that the (units (unknown) date) sleep environment is unknown) pleasant and relaxing. The bed should be (unknown) (no (unknown) (unknown) Medical History (units (unknown) date) (Reviewed 02/05/22 @ unknown) 13:02 by Kishan Maciel MD) (unknown) (no (unknown) (unknown) Memory loss of (units (unknown) date) unknown cause unknown) (unknown) (no (unknown) (unknown) Moderate chance of (units (unknown) date) dozing or sleeping, 3 unknown) = High chance of dozing or sleeping (unknown) (no (unknown) (unknown) Mood: congruent mood (uni ts (unknown) date) unknown) (unknown) (no (unknown) (unknown) Musc (units (unkno wn) date) unknown) (unknown) (no (unknown) (unknown) Neck (units (unkno wn) date) unknown) (unknown) (no (unknown) (unknown) Neck: normal visual (unit s (unknown) date) inspection unknown) (unknown) (no (unknown) (unknown) Neuro (units (unkno wn) date) unknown) (unknown) (no (unknown) (unknown) Neurological (units (u nknown) date) unknown) (unknown) (no (unknown) (unknown) 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 She also felt she slept (unknown) (no (unknown) (unknown) PFSH (units (unkno wn) date) unknown) (unknown) (no (unknown) (unknown) Patient instructed (units (unknown) date) to use scheduled naps unknown) as needed for drowsiness safety. (unknown) (no (unknown) (unknown) Patient reported a (units (unknown) date) history of snoring unknown) and a disturbed sleep pattern. There is (unknown) (no (unknown) (unknown) Patient reports (units (unknown) date) difficulty falling unknown) asleep is denied, difficulty staying asleep (unknown) (no (unknown) (unknown) Patient reports (units (unknown) date) symptoms of chronic unknown) insomnia for more than 3 months as evidenced (unknown) (no (unknown) (unknown) Patient was (units (un known) date) encouraged to unknown) continue with PAP therapy at IPAPmax 16, EPAPmin 18 (unknown) (no (unknown) (unknown) Patient was (units (un known) date) encouraged to unknown) maintain CPAP usage at a minimum of 4 hours a night, (unknown) (no (unknown) (unknown) Patient was (units (un known) date) instructed to avoid unknown) driving or operating heavy machinery when (unknown) (no (unknown) (unknown) Patient was (units (un known) date) instructed to return unknown) sooner if any questions or concerns arise. (unknown) (no (unknown) (unknown) Patient's compliance (uni ts (unknown) date) is good with positive unknown) clinical response including no (unknown) (no (unknown) (unknown) Patient: Terrence Buckley (uni ts (unknown) date) MR#: [id number] unknown) (unknown) (no (unknown) (unknown) Pertinent (units (unkn own) date) Positives/Negatives unknown) (unknown) (no (unknown) (unknown) Plan (units (unkno wn) date) unknown) (unknown) (no (unknown) (unknown) Primary insomnia (units (unknown) date) unknown) (unknown) (no (unknown) (unknown) Properly timed (units (unknown) date) exercise can promote unknown) good sleep. Vigorous exercise should be (unknown) (no (unknown) (unknown) Psych (units (unkno wn) date) unknown) (unknown) (no (unknown) (unknown) Psychological (units ( unknown) date) unknown) (unknown) (no (unknown) (unknown) Questionnaires (units (unknown) date) unknown) (unknown) (no (unknown) (unknown) ROS Sleep (units (unkn own) date) unknown) (unknown) (no (unknown) (unknown) Reason For Visit (units (unknown) date) unknown) (unknown) (no (unknown) (unknown) Reports daytime (units (unknown) date) sleepiness, Reports unknown) fatigue, Denies snoring and Denies stops (unknown) (no (unknown) (unknown) Reports dizzy in the (uni ts (unknown) date) morning, trouble unknown) concentrating or focusing and other (unknown) (no (unknown) (unknown) Reports dry mouth in (uni ts (unknown) date) the morning; Denies unknown) runny nose, nasal congestion at night (unknown) (no (unknown) (unknown) Reports myalgia (units (unknown) date) interfering with unknown) sleep and arthralgia interfering with sleep; (unknown) (no (unknown) (unknown) Reports napping on a (uni ts (unknown) date) regular basis; Denies unknown) depression, anxiety, hypnagogic (unknown) (no (unknown) (unknown) Reports nocturia (units (unknown) date) unknown) (unknown) (no (unknown) (unknown) Resp (units (unkno wn) date) unknown) (unknown) (no (unknown) (unknown) Respiratory (units (un known) date) unknown) (unknown) (no (unknown) (unknown) Return visit in 6 (units (unknown) date) months to assess unknown) continued response to PAP therapy (unknown) (no (unknown) (unknown) S/P lumbar spinal (units (unknown) date) fusion unknown) (unknown) (no (unknown) (unknown) Sclera: sclerae (units (unknown) date) normal unknown) (unknown) (no (unknown) (unknown) She is currently on (unit s (unknown) date) nasal Bi-level PAP at unknown) -4. She is using it regularly (unknown) (no (unknown) (unknown) Signed By: (units (unk nown) date) unknown) (unknown) (no (unknown) (unknown) Sitting and Reading: (uni ts (unknown) date) 3 = High unknown) (unknown) (no (unknown) (unknown) Sitting and talking (unit s (unknown) date) to someone: 0 = Never unknown) (None) (unknown) (no (unknown) (unknown) Sitting inactive in (unit s (unknown) date) a public place: 3 = unknown) High (unknown) (no (unknown) (unknown) Sitting quietly (units (unknown) date) after lunch (no unknown) alcohol): 3 = High (unknown) (no (unknown) (unknown) Smoking Status: (units (unknown) date) Never smoker unknown) (unknown) (no (unknown) (unknown) Social History (units (unknown) date) unknown) (unknown) (no (unknown) (unknown) Speech: speech (units (unknown) date) normal unknown) (unknown) (no (unknown) (unknown) Stopped for a few (units (unknown) date) minutes in traffic: 3 unknown) = High (unknown) (no (unknown) (unknown) Sub-optimal therapy (unit s (unknown) date) unknown) (unknown) (no (unknown) (unknown) Surgical History (units (unknown) date) (Reviewed 02/05/22 @ unknown) 13:02 by Kishan Maciel MD) (unknown) (no (unknown) (unknown) Symptoms (units (unkno wn) date) unknown) (unknown) (no (unknown) (unknown) The patient reported (uni ts (unknown) date) symptoms of excessive unknown) daytime sleepiness as evidenced by (unknown) (no (unknown) (unknown) This note may have (units (unknown) date) been all or partially unknown) generated using voice recognition (unknown) (no (unknown) (unknown) Time Coding Minutes (unit s (unknown) date) Spent: (must be on unknown) same date of service/appointment) (unknown) (no (unknown) (unknown) Time Spent (units (unk nown) date) unknown) (unknown) (no (unknown) (unknown) Tobacco + Substance (unit s (unknown) date) Use unknown) (unknown) (no (unknown) (unknown) Tobacco Status (units (unknown) date) unknown) (unknown) (no (unknown) (unknown) Treatment Effects: (units (unknown) date) Pap Treatment unknown) Response/Side Effects: adherent to current PAP (unknown) (no (unknown) (unknown) Treatment (units (unkn own) date) Response/Side Affects unknown) (unknown) (no (unknown) (unknown) Type 2 diabetes (units (unknown) date) mellitus unknown) (unknown) (no (unknown) (unknown) Usage: 100%, w/98.9% (unit s (unknown) date) of that time > 4 unknown) hours. Leak: 13 sec flowAHI: 0.6 (unknown) (no (unknown) (unknown) Visit Reasons: 6M (units (unknown) date) unknown) (unknown) (no (unknown) (unknown) Visit type (FU): (units (unknown) date) follow up of RABIA unknown) therapy Follow up evaluation of RABIA therapy: (unknown) (no (unknown) (unknown) Watching TV: 3 = (units (unknown) date) High unknown) (unknown) (no (unknown) (unknown) While alcohol is (units (unknown) date) well known to speed unknown) the onset of sleep, it disrupts sleep in (unknown) (no (unknown) (unknown) activities, you may (unit s (unknown) date) have more problems unknown) getting back to sleep during the night. (unknown) (no (unknown) (unknown) addition, avoiding (units (unknown) date) nighttime bright unknown) light exposure, which can occur with many (unknown) (no (unknown) (unknown) also a history of (units (unknown) date) hypertension with a unknown) Mallampati score of IV. For this a (unknown) (no (unknown) (unknown) an [place] (units (unk nown) date) Sleepiness scale unknown) score of 22/24. Her pain is significant and it is (unknown) (no (unknown) (unknown) and sleep quality. (units (unknown) date) Her NPO on CPAP was unknown) positive, so she under went a bi-level (unknown) (no (unknown) (unknown) and wakefulness. (units (unknown) date) Scheduled napping may unknown) be considered if appropriate for the (unknown) (no (unknown) (unknown) bedtime. Also dietary (uni ts (unknown) date) changes can cause unknown) sleep problems, if someone is struggling (unknown) (no (unknown) (unknown) better on b-level (units (unknown) date) PAP. She is currently unknown) on bi-level PAP machine at 16/8/4-6 and (unknown) (no (unknown) (unknown) breathing during (units (unknown) date) sleep unknown) (unknown) (no (unknown) (unknown) bring your problems (unit s (unknown) date) to bed. unknown) (unknown) (no (unknown) (unknown) but increased (units ( unknown) date) benefit from more unknown) usage was also explained. (unknown) (no (unknown) (unknown) can be seen (units (un known) date) secondary to sleep unknown) apnea, insomnia, depression, medical conditions (unknown) (no (unknown) (unknown) caregiver/support (units (unknown) date) person: No unknown) (unknown) (no (unknown) (unknown) clinical response (units (unknown) date) including no snoring. unknown) It is clear she would benefit from the (unknown) (no (unknown) (unknown) compliance wais (units (unknown) date) excellent with a unknown) normal AHIflow, but she was snoring and her (unknown) (no (unknown) (unknown) condition (units (unkn own) date) unknown) (unknown) (no (unknown) (unknown) continued use of PAP (uni ts (unknown) date) therapy. The patient unknown) is willing to continue with PAP (unknown) (no (unknown) (unknown) daytime sleeping and (uni ts (unknown) date) an elevated [place] unknown) Sleepiness Scale score of 12/24. This (unknown) (no (unknown) (unknown) daytime somnolence (units (unknown) date) frequent, snoring unknown) (denies), apnea (denies), choking or (unknown) (no (unknown) (unknown) denies night sweats, (uni ts (unknown) date) denies morning unknown) headache, denies nasal congestion at night, (unknown) (no (unknown) (unknown) denies nocturnal (units (unknown) date) palpitations, denies unknown) heart burn symptoms at night, reports (unknown) (no (unknown) (unknown) details: bayron Bryce, (uni ts (unknown) date) lives in [place] unknown) (unknown) (no (unknown) (unknown) diagnostic sleep (units (unknown) date) study was performed unknown) and showed obstructive sleep apnea. (unknown) (no (unknown) (unknown) dishes. And, (units (u nknown) date) remember, chocolate unknown) has caffeine. (unknown) (no (unknown) (unknown) disturbing to her (units (unknown) date) sleep. unknown) (unknown) (no (unknown) (unknown) dizziness in the (units (unknown) date) morning, reports unknown) trouble consentrating/focusin g durng the day (unknown) (no (unknown) (unknown) done before bed to (units (unknown) date) help initiate a unknown) restful night's sleep. (unknown) (no (unknown) (unknown) drowsiness. (units (un known) date) Drowsiness risks and unknown) symptoms reviewed. (unknown) (no (unknown) (unknown) drowsy. Drowsy (units (unknown) date) driving handout made unknown) available. (unknown) (no (unknown) (unknown) effecting the (units ( unknown) date) quality of her sleep unknown) and the pain medication adds to her (unknown) (no (unknown) (unknown) gasping (denies), (units (unknown) date) epworth sleep scale unknown) score (22/24), bruxism (denies), sleep (unknown) (no (unknown) (unknown) hallucinations or (units (unknown) date) sleep paralysis unknown) (unknown) (no (unknown) (unknown) has not improved. (units (unknown) date) unknown) (unknown) (no (unknown) (unknown) have occurred. If (units (unknown) date) there are any unknown) questions, please contact the Medical Records (unknown) (no (unknown) (unknown) having already been (unit s (unknown) date) on CPAP, and was unknown) effective until 2017 when she developed (unknown) (no (unknown) (unknown) headaches and (units ( unknown) date) nocturia, as well as unknown) diminishing cognitive capabilities. An NPO (unknown) (no (unknown) (unknown) her compliance is (units (unknown) date) excellent with an unknown) optimal AHIflow. She also reports positive (unknown) (no (unknown) (unknown) hours ) frequent, (units (unknown) date) spending time in bed unknown) not sleeping a little, normal bedtime (unknown) (no (unknown) (unknown) household members: (units (unknown) date) spouse unknown) (unknown) (no (unknown) (unknown) housing: house (units (unknown) date) unknown) (unknown) (no (unknown) (unknown) hydrochlorothiazide (unit s (unknown) date) [From ZESTORETIC] unknown) Allergy (Intermediate, Verified 08/08/21 (unknown) (no (unknown) (unknown) insulin detemir (units (unknown) date) [From Levemir U-100 unknown) Insulin] Allergy (Intermediate, Verified (unknown) (no (unknown) (unknown) lisinopril [From (units (unknown) date) ZESTORETIC] Allergy unknown) (Intermediate, Verified 08/08/21 14:09) (unknown) (no (unknown) (unknown) lives independently: (uni ts (unknown) date) Yes unknown) (unknown) (no (unknown) (unknown) marital status: (units (unknown) date) unknown) (unknown) (no (unknown) (unknown) may occur. (units (unk nown) date) Occasional wrong-word unknown) or 'sound-alike' substitutions may have (unknown) (no (unknown) (unknown) nocturia (3 times (units (unknown) date) nightly), reports unknown) pain (feet, legs, low back), denies (unknown) (no (unknown) (unknown) occurred due to the (unit s (unknown) date) inherent limitations unknown) of voice recognition software. Please (unknown) (no (unknown) (unknown) older people who may (uni ts (unknown) date) not venture outside unknown) as frequently as children and adults. (unknown) (no (unknown) (unknown) on PAP well, sleep (units (unknown) date) quality okay and unknown) daytime sleepiness Daytime Sleepiness Branch (unknown) (no (unknown) (unknown) optimal sleep (units ( unknown) date) schedule. unknown) (unknown) (no (unknown) (unknown) or can be a primary (unit s (unknown) date) problem. This unknown) continues to be elevated on PAP therapy with (unknown) (no (unknown) (unknown) or sore throat in (units (unknown) date) the morning unknown) (unknown) (no (unknown) (unknown) personal electronic (unit s (unknown) date) devices, can also unknown) help maintain a healthy sleep-wake cycle. (unknown) (no (unknown) (unknown) pressures, found to (unit s (unknown) date) be 17/ cwp. unknown) (unknown) (no (unknown) (unknown) problem. Sleep (units (unknown) date) hygiene and sleep unknown) schedules were discussed. This has improved (unknown) (no (unknown) (unknown) read the note (units ( unknown) date) carefully and unknown) recognize, using context, where these substitutions (unknown) (no (unknown) (unknown) reports dry mouth, (units (unknown) date) denies sore throat in unknown) the morning, denies nocturnal cough, (unknown) (no (unknown) (unknown) rning awakening (february (uni ts (unknown) date) wake at [id number], up unknown) for 2 hours, back to sleep for 3 (unknown) (no (unknown) (unknown) seconds <= 88%. She (unit s (unknown) date) repeated the biPAP unknown) titration study to identify optimal (unknown) (no (unknown) (unknown) sentences, no (units ( unknown) date) audible wheezes, no unknown) cough, no grunting and not labored (unknown) (no (unknown) (unknown) she is benefitting (units (unknown) date) from bi-level PAP unknown) therapy and is motivated to continue its (unknown) (no (unknown) (unknown) sleep quality was (units (unknown) date) less than optimal. unknown) Her pressure was increased for the snoring (unknown) (no (unknown) (unknown) snoring but she (units (unknown) date) continues to have unknown) significant daytime sleepiness. Patient's (unknown) (no (unknown) (unknown) software. 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 In (unit s (unknown) date) 06/2019 she reported unknown) new onset night sweats, morning (unknown) (no (unknown) (unknown) study (07/20/19) (units (unknown) date) showed GAVIN: 19, with unknown) eufemia SpO2: 60%, and spent 62 minutes 18 (unknown) (no (unknown) (unknown) substance use type: (unit s (unknown) date) does not use unknown) (unknown) (no (unknown) (unknown) symptoms of CPAP (units (unknown) date) failure. Switched to unknown) bi-levelPAP therapy after a titration (unknown) (no (unknown) (unknown) taken in the morning (uni ts (unknown) date) or late afternoon. A unknown) relaxing exercise, like yoga, can be (unknown) (no (unknown) (unknown) talking (denies) and (uni ts (unknown) date) sleep walking unknown) (denies) (unknown) (no (unknown) (unknown) the second half as (units (unknown) date) the body begins to unknown) metabolize the alcohol, causing arousal. (unknown) (no (unknown) (unknown) therapy. (units (unkno wn) date) unknown) (unknown) (no (unknown) (unknown) treatment variable (units (unknown) date) response to treatment unknown) (unknown) (no (unknown) (unknown) use. Pain is (units (u nknown) date) interfering with her unknown) sleep, neuropathy in her feet is most (unknown) (no (unknown) (unknown) verapamil (units (unkn own) date) [VERAPAMIL] Allergy unknown) (Intermediate, Verified 08/08/21 14:09) (unknown) (no (unknown) (unknown) with an optimal (units (unknown) date) AHIflow. She reports unknown) no problems with the pressure. She feels (unknown) (no (unknown) (unknown) with pressure (units ( unknown) date) support of 4-6 cwp. unknown) Result panel 6 (unknown) (no (unknown) (unknown) (no value) (units (unk nown) date) unknown) (unknown) (no (unknown) (unknown) Assessment and Plan: (uni ts (unknown) date) unknown) (unknown) (no (unknown) (unknown) Status: Chronic (units (unknown) date) unknown) (unknown) (no (unknown) (unknown) (no value) (units (unk nown) date) unknown) (unknown) (no (unknown) (unknown) (no value) (units (unk nown) date) unknown) (unknown) (no (unknown) (unknown) [place] [address] (unit s (unknown) date) unknown) (unknown) (no (unknown) (unknown) BLOATING (units (unkno wn) date) unknown) (unknown) (no (unknown) (unknown) COUGH, BLOAT (units (u nknown) date) unknown) (unknown) (no (unknown) (unknown) Draft (units (unkno wn) date) unknown) (unknown) (no (unknown) (unknown) Rash (units (unkno wn) date) unknown) (unknown) (no (unknown) (unknown) Sleep Visit (units (un known) date) unknown) (unknown) (no (unknown) (unknown) [facility] unknown) (unknown) (no (unknown) (unknown) (no value) (units (unk nown) date) unknown) (unknown) (no (unknown) (unknown) 2: unchanged (units (u nknown) date) unknown) (unknown) (no (unknown) (unknown) Device data last 90 (unit s (unknown) date) days: unknown) (unknown) (no (unknown) (unknown) Initially [place]unit [place] ([place]) date[place] [facility] [place] (according to available medical records), (unknown) (no (unknown) (unknown) by trouble staying (units (unknown) date) asleep and unknown) non-restorative sleep. This can be seen secondary (unknown) (no (unknown) (unknown) comfortable, the (units (unknown) date) room should be quiet, unknown) not too hot or cold, or too bright. (unknown) (no (unknown) (unknown) conversations and (units (unknown) date) activities before unknown) trying to go to sleep. Don't dwell on, or (unknown) (no (unknown) (unknown) listen to the radio, (uni ts (unknown) date) or read as if you unknown) associate falling asleep with these acti (unknown) (no (unknown) (unknown) to sleep apnea, (units (unknown) date) depression, medical unknown) conditions or can be an independent (unknown) (no (unknown) (unknown) with a sleep (units (u nknown) date) problem, it's not a unknown) good time to start experimenting with spicy (unknown) (no (unknown) (unknown) (1) Obstructive (units (unknown) date) sleep apnea of adult: unknown) (unknown) (no (unknown) (unknown) (2) Excessive (units ( unknown) date) daytime sleepiness: unknown) (unknown) (no (unknown) (unknown) ([id number]), normal (unit s (unknown) date) wake time unknown) ([id number]), sleep schedule (somewhat variable), (unknown) (no (unknown) (unknown) (3) Primary (units (un known) date) insomnia: unknown) (unknown) (no (unknown) (unknown) (having progressive (unit s (unknown) date) difficulties), denies unknown) depression or denies anxiety (unknown) (no (unknown) (unknown) (neuropathic pain); (unit s (unknown) date) Denies morning unknown) headache or vertigo (unknown) (no (unknown) (unknown) (waking 3 times (units (unknown) date) nightly, attributed unknown) to chronic pain and mask leak), early mo (unknown) (no (unknown) (unknown) 0 = Would never doze (uni ts (unknown) date) or sleep, 1 = Slight unknown) chance of dozing or sleeping, 2 = (unknown) (no (unknown) (unknown) 007 (units (unkno wn) date) unknown) (unknown) (no (unknown) (unknown) 02/05/22 (units (unkno wn) date) unknown) (unknown) (no (unknown) (unknown) 08/08/21 14:09) (units (unknown) date) unknown) (unknown) (no (unknown) (unknown) 1401 to 1404, chart (unit s (unknown) date) and compliance review unknown) (unknown) (no (unknown) (unknown) 1404 to 1419, visit (unit s (unknown) date) unknown) (unknown) (no (unknown) (unknown) 14:09) (units (unkno wn) date) unknown) (unknown) (no (unknown) (unknown) 1746 to 1749, (units ( unknown) date) charting unknown) (unknown) (no (unknown) (unknown) Adhere to regular (units (unknown) date) mealtime schedule, unknown) avoid snacking (unknown) (no (unknown) (unknown) Affect: normal (units (unknown) date) affect unknown) (unknown) (no (unknown) (unknown) Age/Sex: 71 / F (units (unknown) date) Date of Service: unknown) (unknown) (no (unknown) (unknown) Allergies (units (unkn own) date) unknown) (unknown) (no (unknown) (unknown) Assessment + Plan (units (unknown) date) unknown) (unknown) (no (unknown) (unknown) Associate your bed (units (unknown) date) with sleep. It's not unknown) a good idea to use your bed to watch TV, (unknown) (no (unknown) (unknown) Attending Dr: Kishan (uni ts (unknown) date) Janell PIPER unknown) (unknown) (no (unknown) (unknown) Attitude: (units (unkn own) date) cooperative unknown) (unknown) (no (unknown) (unknown) AutoBiPAP Set (units ( unknown) date) Pressures: IPAPmax: unknown) 16 cwp EPAPmin: 8 cwp PS: 6/4 cwp (unknown) (no (unknown) (unknown) Avoid alcohol after (unit s (unknown) date) 4 pm unknown) (unknown) (no (unknown) (unknown) Avoid medications (units (unknown) date) which may interfere unknown) with sleep (unknown) (no (unknown) (unknown) Avoid random napping (uni ts (unknown) date) during the day; it unknown) can disturb the normal pattern of sleep (unknown) (no (unknown) (unknown) Avoid stimulants (units (unknown) date) such as caffeine, unknown) nicotine, and alcohol too close to bedtime. (unknown) (no (unknown) (unknown) Being a passenger in (uni ts (unknown) date) a motor vehicle for unknown) an hour or so: 3 = High (unknown) (no (unknown) (unknown) Bi-level PAP (units (u nknown) date) (11/06/4-6) unknown) (unknown) (no (unknown) (unknown) Bilateral bunions (units (unknown) date) unknown) (unknown) (no (unknown) (unknown) Cardiac (units (unkno wn) date) unknown) (unknown) (no (unknown) (unknown) Chief Complaint: (units (unknown) date) Patient is here to unknown) follow up on therapy for RABIA (unknown) (no (unknown) (unknown) Clinical Course (units (unknown) date) unknown) (unknown) (no (unknown) (unknown) Condition is Onset: (unit s (unknown) date) Chronic and ongoing unknown) condition (unknown) (no (unknown) (unknown) Conjunctivae: (units ( unknown) date) conjunctivae normal unknown) (unknown) (no (unknown) (unknown) Consider weaning (units (unknown) date) caffeine use, unknown) starting with no caffeine after 3pm (unknown) (no (unknown) (unknown) Const (units (unkno wn) date) unknown) (unknown) (no (unknown) (unknown) : 1950 (units (unknown) date) Acct:[id number] unknown) (unknown) (no (unknown) (unknown) Denies chest pain or (uni ts (unknown) date) nocturnal unknown) palpitations (unknown) (no (unknown) (unknown) Denies dyspnea at (units (unknown) date) night or cough unknown) (unknown) (no (unknown) (unknown) Denies itchy eyes, (units (unknown) date) redness, blurry unknown) vision or seasonal allergies (unknown) (no (unknown) (unknown) Denies reflux pain (units (unknown) date) at night or bloating unknown) on CPAP (unknown) (no (unknown) (unknown) Denies weakness (units (unknown) date) associated with unknown) strong emotion or sleep paralysis (unknown) (no (unknown) (unknown) Dept at (units (unkno wn) date) . 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 This is particularly important for (unknown) (no (unknown) (unknown) [place] Score: 21 (units (unknown) date) unknown) (unknown) (no (unknown) (unknown) [place] Sleepiness (units (unknown) date) Scale unknown) (unknown) (no (unknown) (unknown) Establish a regular (units (unknown) date) relaxing bedtime unknown) routine. Try to avoid emotionally upsetting (unknown) (no (unknown) (unknown) Exam (units (unkno wn) date) unknown) (unknown) (no (unknown) (unknown) Exam Narrative (units (unknown) date) unknown) (unknown) (no (unknown) (unknown) Exam Narrative: (units (unknown) date) unknown) (unknown) (no (unknown) (unknown) Excessive daytime (units (unknown) date) sleepiness unknown) (unknown) (no (unknown) (unknown) Eyes (units (unkno wn) date) unknown) (unknown) (no (unknown) (unknown) Food can be (units (un known) date) disruptive right unknown) before sleep; stay away from large meals close to (unknown) (no (unknown) (unknown) GI (units (unkno wn) date) unknown) (unknown) (no (unknown) (unknown) (units (unkno wn) date) unknown) (unknown) (no (unknown) (unknown) Gait: gait assisted (unit s (unknown) date) Method: walking stick unknown) (unknown) (no (unknown) (unknown) General: cooperative (uni ts (unknown) date) and no acute distress unknown) (but looks fatigued) (unknown) (no (unknown) (unknown) General: patient (units (unknown) date) alert and patient unknown) oriented x3 (unknown) (no (unknown) (unknown) Get regular moderate (uni ts (unknown) date) exercise (30 minutes, unknown) 3x/week) (unknown) (no (unknown) (unknown) HENMT (units (unkno wn) date) unknown) (unknown) (no (unknown) (unknown) HPI (units (unkno wn) date) unknown) (unknown) (no (unknown) (unknown) HPI Sleep Follow Up (unit s (unknown) date) unknown) (unknown) (no (unknown) (unknown) Head: normal to (units (unknown) date) inspection unknown) (unknown) (no (unknown) (unknown) History of (units (unk nown) date) bunionectomy of both unknown) great toes (unknown) (no (unknown) (unknown) Intake (units (unkno wn) date) unknown) (unknown) (no (unknown) (unknown) Light exposure (units (unknown) date) during the day helps unknown) maintain a healthy sleep-wake cycle. In (unknown) (no (unknown) (unknown) Loc: SLEEP (units (unk nown) date) unknown) (unknown) (no (unknown) (unknown) Lying down in the (units (unknown) date) afternoon: 3 = High unknown) (unknown) (no (unknown) (unknown) Make sure that the (units (unknown) date) sleep environment is unknown) pleasant and relaxing. The bed should be (unknown) (no (unknown) (unknown) Medical History (units (unknown) date) (Reviewed 02/05/22 @ unknown) 13:02 by Kishan Maciel MD) (unknown) (no (unknown) (unknown) Memory loss of (units (unknown) date) unknown cause unknown) (unknown) (no (unknown) (unknown) Moderate chance of (units (unknown) date) dozing or sleeping, 3 unknown) = High chance of dozing or sleeping (unknown) (no (unknown) (unknown) Mood: congruent mood (uni ts (unknown) date) unknown) (unknown) (no (unknown) (unknown) Musc (units (unkno wn) date) unknown) (unknown) (no (unknown) (unknown) Neck (units (unkno wn) date) unknown) (unknown) (no (unknown) (unknown) Neck: normal visual (unit s (unknown) date) inspection unknown) (unknown) (no (unknown) (unknown) Neuro (units (unkno wn) date) unknown) (unknown) (no (unknown) (unknown) Neurological (units (u nknown) date) unknown) (unknown) (no (unknown) (unknown) 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 She also felt she slept (unknown) (no (unknown) (unknown) PFSH (units (unkno wn) date) unknown) (unknown) (no (unknown) (unknown) Patient instructed (units (unknown) date) to use scheduled naps unknown) as needed for drowsiness safety. (unknown) (no (unknown) (unknown) Patient reported a (units (unknown) date) history of snoring unknown) and a disturbed sleep pattern. There is (unknown) (no (unknown) (unknown) Patient reports (units (unknown) date) difficulty falling unknown) asleep is denied, difficulty staying asleep (unknown) (no (unknown) (unknown) Patient reports (units (unknown) date) symptoms of chronic unknown) insomnia for more than 3 months as evidenced (unknown) (no (unknown) (unknown) Patient was (units (un known) date) encouraged to unknown) continue with PAP therapy at IPAPmax 16, EPAPmin 18 (unknown) (no (unknown) (unknown) Patient was (units (un known) date) encouraged to unknown) maintain CPAP usage at a minimum of 4 hours a night, (unknown) (no (unknown) (unknown) Patient was (units (un known) date) instructed to avoid unknown) driving or operating heavy machinery when (unknown) (no (unknown) (unknown) Patient was (units (un known) date) instructed to return unknown) sooner if any questions or concerns arise. (unknown) (no (unknown) (unknown) Patient's compliance (uni ts (unknown) date) is good with positive unknown) clinical response including no (unknown) (no (unknown) (unknown) Patient: Terrence Buckley (uni ts (unknown) date) MR#: [id number] unknown) (unknown) (no (unknown) (unknown) Pertinent (units (unkn own) date) Positives/Negatives unknown) (unknown) (no (unknown) (unknown) Plan (units (unkno wn) date) unknown) (unknown) (no (unknown) (unknown) Primary insomnia (units (unknown) date) unknown) (unknown) (no (unknown) (unknown) Properly timed (units (unknown) date) exercise can promote unknown) good sleep. Vigorous exercise should be (unknown) (no (unknown) (unknown) Psych (units (unkno wn) date) unknown) (unknown) (no (unknown) (unknown) Psychological (units ( unknown) date) unknown) (unknown) (no (unknown) (unknown) Questionnaires (units (unknown) date) unknown) (unknown) (no (unknown) (unknown) ROS Sleep (units (unkn own) date) unknown) (unknown) (no (unknown) (unknown) Reason For Visit (units (unknown) date) unknown) (unknown) (no (unknown) (unknown) Reports daytime (units (unknown) date) sleepiness, Reports unknown) fatigue, Denies snoring and Denies stops (unknown) (no (unknown) (unknown) Reports dizzy in the (uni ts (unknown) date) morning, trouble unknown) concentrating or focusing and other (unknown) (no (unknown) (unknown) Reports dry mouth in (uni ts (unknown) date) the morning; Denies unknown) runny nose, nasal congestion at night (unknown) (no (unknown) (unknown) Reports myalgia (units (unknown) date) interfering with unknown) sleep and arthralgia interfering with sleep; (unknown) (no (unknown) (unknown) Reports napping on a (uni ts (unknown) date) regular basis; Denies unknown) depression, anxiety, hypnagogic (unknown) (no (unknown) (unknown) Reports nocturia (units (unknown) date) unknown) (unknown) (no (unknown) (unknown) Resp (units (unkno wn) date) unknown) (unknown) (no (unknown) (unknown) Respiratory (units (un known) date) unknown) (unknown) (no (unknown) (unknown) Return visit in 6 (units (unknown) date) months to assess unknown) continued response to PAP therapy (unknown) (no (unknown) (unknown) S/P lumbar spinal (units (unknown) date) fusion unknown) (unknown) (no (unknown) (unknown) Sclera: sclerae (units (unknown) date) normal unknown) (unknown) (no (unknown) (unknown) She is currently on (unit s (unknown) date) nasal Bi-level PAP at unknown) -4. She is using it regularly (unknown) (no (unknown) (unknown) Signed By: (units (unk nown) date) unknown) (unknown) (no (unknown) (unknown) Sitting and Reading: (uni ts (unknown) date) 3 = High unknown) (unknown) (no (unknown) (unknown) Sitting and talking (unit s (unknown) date) to someone: 0 = Never unknown) (None) (unknown) (no (unknown) (unknown) Sitting inactive in (unit s (unknown) date) a public place: 3 = unknown) High (unknown) (no (unknown) (unknown) Sitting quietly (units (unknown) date) after lunch (no unknown) alcohol): 3 = High (unknown) (no (unknown) (unknown) Smoking Status: (units (unknown) date) Never smoker unknown) (unknown) (no (unknown) (unknown) Social History (units (unknown) date) unknown) (unknown) (no (unknown) (unknown) Speech: speech (units (unknown) date) normal unknown) (unknown) (no (unknown) (unknown) Stopped for a few (units (unknown) date) minutes in traffic: 3 unknown) = High (unknown) (no (unknown) (unknown) Sub-optimal therapy (unit s (unknown) date) unknown) (unknown) (no (unknown) (unknown) Surgical History (units (unknown) date) (Reviewed 02/05/22 @ unknown) 13:02 by Kishan Maciel MD) (unknown) (no (unknown) (unknown) Symptoms (units (unkno wn) date) unknown) (unknown) (no (unknown) (unknown) The patient reported (uni ts (unknown) date) symptoms of excessive unknown) daytime sleepiness as evidenced by (unknown) (no (unknown) (unknown) This note may have (units (unknown) date) been all or partially unknown) generated using voice recognition (unknown) (no (unknown) (unknown) Time Coding Minutes (unit s (unknown) date) Spent: (must be on unknown) same date of service/appointment) (unknown) (no (unknown) (unknown) Time Spent (units (unk nown) date) unknown) (unknown) (no (unknown) (unknown) Tobacco + Substance (unit s (unknown) date) Use unknown) (unknown) (no (unknown) (unknown) Tobacco Status (units (unknown) date) unknown) (unknown) (no (unknown) (unknown) Treatment Effects: (units (unknown) date) Pap Treatment unknown) Response/Side Effects: adherent to current PAP (unknown) (no (unknown) (unknown) Treatment (units (unkn own) date) Response/Side Affects unknown) (unknown) (no (unknown) (unknown) Type 2 diabetes (units (unknown) date) mellitus unknown) (unknown) (no (unknown) (unknown) Usage: 100%, w/98.9% (unit s (unknown) date) of that time > 4 unknown) hours. Leak: 13 sec flowAHI: 0.6 (unknown) (no (unknown) (unknown) Visit Reasons: 6M (units (unknown) date) unknown) (unknown) (no (unknown) (unknown) Visit type (FU): (units (unknown) date) follow up of RABIA unknown) therapy Follow up evaluation of RABIA therapy: (unknown) (no (unknown) (unknown) Watching TV: 3 = (units (unknown) date) High unknown) (unknown) (no (unknown) (unknown) While alcohol is (units (unknown) date) well known to speed unknown) the onset of sleep, it disrupts sleep in (unknown) (no (unknown) (unknown) addition, avoiding (units (unknown) date) nighttime bright unknown) light exposure, which can occur with many (unknown) (no (unknown) (unknown) also a history of (units (unknown) date) hypertension with a unknown) Mallampati score of IV. For this a (unknown) (no (unknown) (unknown) an [place] (units (unk nown) date) Sleepiness scale unknown) score of 22/24. Her pain is significant and it is (unknown) (no (unknown) (unknown) and sleep quality. (units (unknown) date) Her NPO on CPAP was unknown) positive, so she under went a bi-level (unknown) (no (unknown) (unknown) and wakefulness. (units (unknown) date) Scheduled napping may unknown) be considered if appropriate for the o (unknown) (no (unknown) (unknown) bedtime. Also dietary (uni ts (unknown) date) changes can cause unknown) sleep problems, if someone is struggling (unknown) (no (unknown) (unknown) better on b-level (units (unknown) date) PAP. She is currently unknown) on bi-level PAP machine at 16/4-6 and (unknown) (no (unknown) (unknown) breathing during (units (unknown) date) sleep unknown) (unknown) (no (unknown) (unknown) bring your problems (unit s (unknown) date) to bed. unknown) (unknown) (no (unknown) (unknown) but increased (units ( unknown) date) benefit from more unknown) usage was also explained. (unknown) (no (unknown) (unknown) can be seen (units (un known) date) secondary to sleep unknown) apnea, insomnia, depression, medical conditions (unknown) (no (unknown) (unknown) caregiver/support (units (unknown) date) person: No unknown) (unknown) (no (unknown) (unknown) clinical response (units (unknown) date) including no snoring. unknown) It is clear she would benefit from the (unknown) (no (unknown) (unknown) compliance wais (units (unknown) date) excellent with a unknown) normal AHIflow, but she was snoring and her (unknown) (no (unknown) (unknown) condition (units (unkn own) date) unknown) (unknown) (no (unknown) (unknown) continued use of PAP (uni ts (unknown) date) therapy. The patient unknown) is willing to continue with PAP (unknown) (no (unknown) (unknown) daytime sleeping and (uni ts (unknown) date) an elevated [place] unknown) Sleepiness Scale score of 12/24. This (unknown) (no (unknown) (unknown) daytime somnolence (units (unknown) date) frequent, snoring unknown) (denies), apnea (denies), choking or (unknown) (no (unknown) (unknown) denies night sweats, (uni ts (unknown) date) denies morning unknown) headache, denies nasal congestion at night, (unknown) (no (unknown) (unknown) denies nocturnal (units (unknown) date) palpitations, denies unknown) heart burn symptoms at night, reports (unknown) (no (unknown) (unknown) details: bayron Wu, (uni ts (unknown) date) lives in [place] unknown) (unknown) (no (unknown) (unknown) diagnostic sleep (units (unknown) date) study was performed unknown) and showed obstructive sleep apnea. (unknown) (no (unknown) (unknown) dishes. And, (units (u nknown) date) remember, chocolate unknown) has caffeine. (unknown) (no (unknown) (unknown) disturbing to her (units (unknown) date) sleep. unknown) (unknown) (no (unknown) (unknown) dizziness in the (units (unknown) date) morning, reports unknown) trouble consentrating/focusin g durng the day (unknown) (no (unknown) (unknown) done before bed to (units (unknown) date) help initiate a unknown) restful night's sleep. (unknown) (no (unknown) (unknown) drowsiness. (units (un known) date) Drowsiness risks and unknown) symptoms reviewed. (unknown) (no (unknown) (unknown) drowsy. Drowsy (units (unknown) date) driving handout made unknown) available. (unknown) (no (unknown) (unknown) effecting the (units ( unknown) date) quality of her sleep unknown) and the pain medication adds to her (unknown) (no (unknown) (unknown) gasping (denies), (units (unknown) date) epworth sleep scale unknown) score (22/24), bruxism (denies), sleep (unknown) (no (unknown) (unknown) hallucinations or (units (unknown) date) sleep paralysis unknown) (unknown) (no (unknown) (unknown) has not improved. (units (unknown) date) unknown) (unknown) (no (unknown) (unknown) have occurred. If (units (unknown) date) there are any unknown) questions, please contact the Medical Records (unknown) (no (unknown) (unknown) having already been (unit s (unknown) date) on CPAP, and was unknown) effective until 2017 when she developed (unknown) (no (unknown) (unknown) headaches and (units ( unknown) date) nocturia, as well as unknown) diminishing cognitive capabilities. An NPO (unknown) (no (unknown) (unknown) her compliance is (units (unknown) date) excellent with an unknown) optimal AHIflow. She also reports positive (unknown) (no (unknown) (unknown) hours ) frequent, (units (unknown) date) spending time in bed unknown) not sleeping a little, normal bedtime (unknown) (no (unknown) (unknown) household members: (units (unknown) date) spouse unknown) (unknown) (no (unknown) (unknown) housing: house (units (unknown) date) unknown) (unknown) (no (unknown) (unknown) hydrochlorothiazide (unit s (unknown) date) [From ZESTORETIC] unknown) Allergy (Intermediate, Verified 08/08/21 (unknown) (no (unknown) (unknown) insulin detemir (units (unknown) date) [From Levemir U-100 unknown) Insulin] Allergy (Intermediate, Verified (unknown) (no (unknown) (unknown) lisinopril [From (units (unknown) date) ZESTORETIC] Allergy unknown) (Intermediate, Verified 08/08/21 14:09) (unknown) (no (unknown) (unknown) lives independently: (uni ts (unknown) date) Yes unknown) (unknown) (no (unknown) (unknown) marital status: (units (unknown) date) unknown) (unknown) (no (unknown) (unknown) may occur. (units (unk nown) date) Occasional wrong-word unknown) or 'sound-alike' substitutions may have (unknown) (no (unknown) (unknown) nocturia (3 times (units (unknown) date) nightly), reports unknown) pain (feet, legs, low back), denies (unknown) (no (unknown) (unknown) occurred due to the (unit s (unknown) date) inherent limitations unknown) of voice recognition software. Please (unknown) (no (unknown) (unknown) older people who may (uni ts (unknown) date) not venture outside unknown) as frequently as children and adults. (unknown) (no (unknown) (unknown) on PAP well, sleep (units (unknown) date) quality okay and unknown) daytime sleepiness Daytime Sleepiness Branch (unknown) (no (unknown) (unknown) or can be a primary (unit s (unknown) date) problem. This unknown) continues to be elevated on PAP therapy with (unknown) (no (unknown) (unknown) or sore throat in (units (unknown) date) the morning unknown) (unknown) (no (unknown) (unknown) personal electronic (unit s (unknown) date) devices, can also unknown) help maintain a healthy sleep-wake cycle. (unknown) (no (unknown) (unknown) pressures, found to (unit s (unknown) date) be 17 cwp. unknown) (unknown) (no (unknown) (unknown) problem. Sleep (units (unknown) date) hygiene and sleep unknown) schedules were discussed. This has improved (unknown) (no (unknown) (unknown) ptimal sleep (units (u nknown) date) schedule. unknown) (unknown) (no (unknown) (unknown) read the note (units ( unknown) date) carefully and unknown) recognize, using context, where these substitutions (unknown) (no (unknown) (unknown) reports dry mouth, (units (unknown) date) denies sore throat in unknown) the morning, denies nocturnal cough, (unknown) (no (unknown) (unknown) rning awakening (february (uni ts (unknown) date) wake at [id number], up unknown) for 2 hours, back to sleep for 3 (unknown) (no (unknown) (unknown) seconds <= 88%. She (unit s (unknown) date) repeated the biPAP unknown) titration study to identify optimal (unknown) (no (unknown) (unknown) sentences, no (units ( unknown) date) audible wheezes, no unknown) cough, no grunting and not labored (unknown) (no (unknown) (unknown) she is benefitting (units (unknown) date) from bi-level PAP unknown) therapy and is motivated to continue its (unknown) (no (unknown) (unknown) sleep quality was (units (unknown) date) less than optimal. unknown) Her pressure was increased for the snoring (unknown) (no (unknown) (unknown) snoring but she (units (unknown) date) continues to have unknown) significant daytime sleepiness. Patient's (unknown) (no (unknown) (unknown) software. 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 In (unit s (unknown) date) 06/2019 she reported unknown) new onset night sweats, morning (unknown) (no (unknown) (unknown) study (07/20/19) (units (unknown) date) showed GAVIN: 19, with unknown) eufemia SpO2: 60%, and spent 62 minutes 18 (unknown) (no (unknown) (unknown) substance use type: (unit s (unknown) date) does not use unknown) (unknown) (no (unknown) (unknown) symptoms of CPAP (units (unknown) date) failure. Switched to unknown) bi-levelPAP therapy after a titration (unknown) (no (unknown) (unknown) taken in the morning (uni ts (unknown) date) or late afternoon. A unknown) relaxing exercise, like yoga, can be (unknown) (no (unknown) (unknown) talking (denies) and (uni ts (unknown) date) sleep walking unknown) (denies) (unknown) (no (unknown) (unknown) the second half as (units (unknown) date) the body begins to unknown) metabolize the alcohol, causing arousal. (unknown) (no (unknown) (unknown) therapy. (units (unkno wn) date) unknown) (unknown) (no (unknown) (unknown) treatment variable (units (unknown) date) response to treatment unknown) (unknown) (no (unknown) (unknown) use. Pain is (units (u nknown) date) interfering with her unknown) sleep, neuropathy in her feet is most (unknown) (no (unknown) (unknown) verapamil (units (unkn own) date) [VERAPAMIL] Allergy unknown) (Intermediate, Verified 08/08/21 14:09) (unknown) (no (unknown) (unknown) vities, you may have (uni ts (unknown) date) more problems getting unknown) back to sleep during the night. (unknown) (no (unknown) (unknown) with an optimal (units (unknown) date) AHIflow. She reports unknown) no problems with the pressure. She feels (unknown) (no (unknown) (unknown) with pressure (units ( unknown) date) support of 4-6 cwp. unknown) Result panel 7 (unknown) (no (unknown) (unknown) (no value) (units (unk nown) date) unknown) (unknown) (no (unknown) (unknown) Assessment and Plan: (uni ts (unknown) date) unknown) (unknown) (no (unknown) (unknown) Status: Chronic (units (unknown) date) unknown) (unknown) (no (unknown) (unknown) (no value) (units (unk nown) date) unknown) (unknown) (no (unknown) (unknown) (no value) (units (unk nown) date) unknown) (unknown) (no (unknown) (unknown) 02/05/22 (units (unkno wn) date) unknown) (unknown) (no (unknown) (unknown) 13:27 (units (unkno wn) date) unknown) (unknown) (no (unknown) (unknown) [place] [id number] (unit s (unknown) date) unknown) (unknown) (no (unknown) (unknown) BLOATING (units (unkno wn) date) unknown) (unknown) (no (unknown) (unknown) COUGH, BLOAT (units (u nknown) date) unknown) (unknown) (no (unknown) (unknown) Draft (units (unkno wn) date) unknown) (unknown) (no (unknown) (unknown) Rash (units (unkno wn) date) unknown) (unknown) (no (unknown) (unknown) Sleep Visit (units (un known) date) unknown) (unknown) (no (unknown) (unknown) [facility] unknown) (unknown) (no (unknown) (unknown) (no value) (units (unk nown) date) unknown) (unknown) (no (unknown) (unknown) 2: unchanged (units (u nknown) date) unknown) (unknown) (no (unknown) (unknown) Device data last 90 (unit s (unknown) date) days: unknown) (unknown) (no (unknown) (unknown) [place] ([place]) [place] [facility] [place] (according to available medical records), (unknown) (no (unknown) (unknown) by trouble staying (units (unknown) date) asleep and unknown) non-restorative sleep. This can be seen secondary (unknown) (no (unknown) (unknown) comfortable, the (units (unknown) date) room should be quiet, unknown) not too hot or cold, or too bright. (unknown) (no (unknown) (unknown) conversations and (units (unknown) date) activities before unknown) trying to go to sleep. Don't dwell on, or (unknown) (no (unknown) (unknown) listen to the radio, (uni ts (unknown) date) or read as if you unknown) associate falling asleep with these (unknown) (no (unknown) (unknown) to sleep apnea, (units (unknown) date) depression, medical unknown) conditions or can be an independent (unknown) (no (unknown) (unknown) with a sleep (units (u nknown) date) problem, it's not a unknown) good time to start experimenting with spicy (unknown) (no (unknown) (unknown) (1) Obstructive (units (unknown) date) sleep apnea of adult: unknown) (unknown) (no (unknown) (unknown) (2) Excessive (units ( unknown) date) daytime sleepiness: unknown) (unknown) (no (unknown) (unknown) ([id number]), normal (unit s (unknown) date) wake time unknown) ([id number]), sleep schedule (somewhat variable), (unknown) (no (unknown) (unknown) (3) Primary (units (un known) date) insomnia: unknown) (unknown) (no (unknown) (unknown) (having progressive (unit s (unknown) date) difficulties), denies unknown) depression or denies anxiety (unknown) (no (unknown) (unknown) (neuropathic pain); (unit s (unknown) date) Denies morning unknown) headache or vertigo (unknown) (no (unknown) (unknown) (waking 3 times (units (unknown) date) nightly, attributed unknown) to chronic pain and mask leak), early (unknown) (no (unknown) (unknown) 0 = Would never doze (uni ts (unknown) date) or sleep, 1 = Slight unknown) chance of dozing or sleeping, 2 = (unknown) (no (unknown) (unknown) 007 (units (unkno wn) date) unknown) (unknown) (no (unknown) (unknown) 02/05/22 (units (unkno wn) date) unknown) (unknown) (no (unknown) (unknown) 08/08/21 14:09) (units (unknown) date) unknown) (unknown) (no (unknown) (unknown) 1401 to 1404, chart (unit s (unknown) date) and compliance review unknown) (unknown) (no (unknown) (unknown) 1404 to 1419, visit (unit s (unknown) date) unknown) (unknown) (no (unknown) (unknown) 14:09) (units (unkno wn) date) unknown) (unknown) (no (unknown) (unknown) 1746 to 1749, (units ( unknown) date) charting unknown) (unknown) (no (unknown) (unknown) Adhere to regular (units (unknown) date) mealtime schedule, unknown) avoid snacking (unknown) (no (unknown) (unknown) Affect: normal (units (unknown) date) affect unknown) (unknown) (no (unknown) (unknown) Age/Sex: 71 / F (units (unknown) date) Date of Service: unknown) (unknown) (no (unknown) (unknown) Allergies (units (unkn own) date) unknown) (unknown) (no (unknown) (unknown) Assessment + Plan (units (unknown) date) unknown) (unknown) (no (unknown) (unknown) Associate your bed (units (unknown) date) with sleep. It's not unknown) a good idea to use your bed to watch TV, (unknown) (no (unknown) (unknown) Attending Dr: Kishan (uni ts (unknown) date) Janell PIPER unknown) (unknown) (no (unknown) (unknown) Attitude: (units (unkn own) date) cooperative unknown) (unknown) (no (unknown) (unknown) AutoBiPAP Set (units ( unknown) date) Pressures: IPAPmax: unknown) 16 cwp EPAPmin: 8 cwp PS: 6/4 cwp (unknown) (no (unknown) (unknown) Avoid alcohol after (unit s (unknown) date) 4 pm unknown) (unknown) (no (unknown) (unknown) Avoid medications (units (unknown) date) which may interfere unknown) with sleep (unknown) (no (unknown) (unknown) Avoid random napping (uni ts (unknown) date) during the day; it unknown) can disturb the normal pattern of sleep (unknown) (no (unknown) (unknown) Avoid stimulants (units (unknown) date) such as caffeine, unknown) nicotine, and alcohol too close to bedtime. (unknown) (no (unknown) (unknown) BMI 41.0 (units (un known) date) unknown) (unknown) (no (unknown) (unknown) BP 108/72 (units (u nknown) date) unknown) (unknown) (no (unknown) (unknown) Being a passenger in (uni ts (unknown) date) a motor vehicle for unknown) an hour or so: 3 = High (unknown) (no (unknown) (unknown) Bi-level PAP (units (u nknown) date) (11/06/-6) unknown) (unknown) (no (unknown) (unknown) Bilateral bunions (units (unknown) date) unknown) (unknown) (no (unknown) (unknown) Blood Pressure (units (unknown) date) Location Lt unknown) brachial (unknown) (no (unknown) (unknown) Cardiac (units (unkno wn) date) unknown) (unknown) (no (unknown) (unknown) Chief Complaint: (units (unknown) date) Patient is here to unknown) follow up on therapy for RABIA (unknown) (no (unknown) (unknown) Clinical Course (units (unknown) date) unknown) (unknown) (no (unknown) (unknown) Condition is Onset: (unit s (unknown) date) Chronic and ongoing unknown) condition (unknown) (no (unknown) (unknown) Conjunctivae: (units ( unknown) date) conjunctivae normal unknown) (unknown) (no (unknown) (unknown) Consider weaning (units (unknown) date) caffeine use, unknown) starting with no caffeine after 3pm (unknown) (no (unknown) (unknown) Const (units (unkno wn) date) unknown) (unknown) (no (unknown) (unknown) : 1950 (units (unknown) date) Acct:[id number] unknown) (unknown) (no (unknown) (unknown) Denies chest pain or (uni ts (unknown) date) nocturnal unknown) palpitations (unknown) (no (unknown) (unknown) Denies dyspnea at (units (unknown) date) night or cough unknown) (unknown) (no (unknown) (unknown) Denies itchy eyes, (units (unknown) date) redness, blurry unknown) vision or seasonal allergies (unknown) (no (unknown) (unknown) Denies reflux pain (units (unknown) date) at night or bloating unknown) on CPAP (unknown) (no (unknown) (unknown) Denies weakness (units (unknown) date) associated with unknown) strong emotion or sleep paralysis (unknown) (no (unknown) (unknown) Dept at (units (unkno wn) date) . 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 This is particularly important for (unknown) (no (unknown) (unknown) [place] Score: 21 (units (unknown) date) unknown) (unknown) (no (unknown) (unknown) [place] Sleepiness (units (unknown) date) Scale unknown) (unknown) (no (unknown) (unknown) Establish a regular (units (unknown) date) relaxing bedtime unknown) routine. Try to avoid emotionally upsetting (unknown) (no (unknown) (unknown) Exam (units (unkno wn) date) unknown) (unknown) (no (unknown) (unknown) Exam Narrative (units (unknown) date) unknown) (unknown) (no (unknown) (unknown) Exam Narrative: (units (unknown) date) unknown) (unknown) (no (unknown) (unknown) Excessive daytime (units (unknown) date) sleepiness unknown) (unknown) (no (unknown) (unknown) Eyes (units (unkno wn) date) unknown) (unknown) (no (unknown) (unknown) Food can be (units (un known) date) disruptive right unknown) before sleep; stay away from large meals close to (unknown) (no (unknown) (unknown) GI (units (unkno wn) date) unknown) (unknown) (no (unknown) (unknown) (units (unkno wn) date) unknown) (unknown) (no (unknown) (unknown) Gait: gait assisted (unit s (unknown) date) Method: walking stick unknown) (unknown) (no (unknown) (unknown) General: cooperative (uni ts (unknown) date) and no acute distress unknown) (but looks fatigued) (unknown) (no (unknown) (unknown) General: patient (units (unknown) date) alert and patient unknown) oriented x3 (unknown) (no (unknown) (unknown) Get regular moderate (uni ts (unknown) date) exercise (30 minutes, unknown) 3x/week) (unknown) (no (unknown) (unknown) HENMT (units (unkno wn) date) unknown) (unknown) (no (unknown) (unknown) HPI (units (unkno wn) date) unknown) (unknown) (no (unknown) (unknown) HPI Sleep Follow Up (unit s (unknown) date) unknown) (unknown) (no (unknown) (unknown) Head: normal to (units (unknown) date) inspection unknown) (unknown) (no (unknown) (unknown) Height 152.4 cm (units (unknown) date) unknown) (unknown) (no (unknown) (unknown) History of (units (unk nown) date) bunionectomy of both unknown) great toes (unknown) (no (unknown) (unknown) Intake (units (unkno wn) date) unknown) (unknown) (no (unknown) (unknown) Light exposure (units (unknown) date) during the day helps unknown) maintain a healthy sleep-wake cycle. In (unknown) (no (unknown) (unknown) Loc: SLEEP (units (unk nown) date) unknown) (unknown) (no (unknown) (unknown) Lying down in the (units (unknown) date) afternoon: 3 = High unknown) (unknown) (no (unknown) (unknown) Make sure that the (units (unknown) date) sleep environment is unknown) pleasant and relaxing. The bed should be (unknown) (no (unknown) (unknown) Medical History (units (unknown) date) (Reviewed 02/05/22 @ unknown) 13:02 by Kishan Maciel MD) (unknown) (no (unknown) (unknown) Memory loss of (units (unknown) date) unknown cause unknown) (unknown) (no (unknown) (unknown) Moderate chance of (units (unknown) date) dozing or sleeping, 3 unknown) = High chance of dozing or sleeping (unknown) (no (unknown) (unknown) Mood: congruent mood (uni ts (unknown) date) unknown) (unknown) (no (unknown) (unknown) Musc (units (unkno wn) date) unknown) (unknown) (no (unknown) (unknown) Neck (units (unkno wn) date) unknown) (unknown) (no (unknown) (unknown) Neck: normal visual (unit s (unknown) date) inspection unknown) (unknown) (no (unknown) (unknown) Neuro (units (unkno wn) date) unknown) (unknown) (no (unknown) (unknown) Neurological (units (u nknown) date) unknown) (unknown) (no (unknown) (unknown) 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 She also felt she slept (unknown) (no (unknown) (unknown) PFSH (units (unkno wn) date) unknown) (unknown) (no (unknown) (unknown) Patient instructed (units (unknown) date) to use scheduled naps unknown) as needed for drowsiness safety. (unknown) (no (unknown) (unknown) Patient reported a (units (unknown) date) history of snoring unknown) and a disturbed sleep pattern. There is (unknown) (no (unknown) (unknown) Patient reports (units (unknown) date) difficulty falling unknown) asleep is denied, difficulty staying asleep (unknown) (no (unknown) (unknown) Patient reports (units (unknown) date) symptoms of chronic unknown) insomnia for more than 3 months as evidenced (unknown) (no (unknown) (unknown) Patient was (units (un known) date) encouraged to unknown) continue with PAP therapy at IPAPmax 16, EPAPmin 18 (unknown) (no (unknown) (unknown) Patient was (units (un known) date) encouraged to unknown) maintain CPAP usage at a minimum of 4 hours a night, (unknown) (no (unknown) (unknown) Patient was (units (un known) date) instructed to avoid unknown) driving or operating heavy machinery when (unknown) (no (unknown) (unknown) Patient was (units (un known) date) instructed to return unknown) sooner if any questions or concerns arise. (unknown) (no (unknown) (unknown) Patient's compliance (uni ts (unknown) date) is good with positive unknown) clinical response including no (unknown) (no (unknown) (unknown) Patient: Terrence Buckley (uni ts (unknown) date) MR#: [id number] unknown) (unknown) (no (unknown) (unknown) Performed by (units (u nknown) date) unknown) (unknown) (no (unknown) (unknown) Performed by: (units ( unknown) date) unknown) (unknown) (no (unknown) (unknown) Pertinent (units (unkn own) date) Positives/Negatives unknown) (unknown) (no (unknown) (unknown) Plan (units (unkno wn) date) unknown) (unknown) (no (unknown) (unknown) Position Sitting (unit s (unknown) date) unknown) (unknown) (no (unknown) (unknown) Primary insomnia (units (unknown) date) unknown) (unknown) (no (unknown) (unknown) Properly timed (units (unknown) date) exercise can promote unknown) good sleep. Vigorous exercise should be (unknown) (no (unknown) (unknown) Psych (units (unkno wn) date) unknown) (unknown) (no (unknown) (unknown) Psychological (units ( unknown) date) unknown) (unknown) (no (unknown) (unknown) Pulse 71 (units (un known) date) unknown) (unknown) (no (unknown) (unknown) Questionnaires (units (unknown) date) unknown) (unknown) (no (unknown) (unknown) ROS Sleep (units (unkn own) date) unknown) (unknown) (no (unknown) (unknown) Reason For Visit (units (unknown) date) unknown) (unknown) (no (unknown) (unknown) Khushi Alvarez [employer] (units (unknown) date) unknown) (unknown) (no (unknown) (unknown) Reports daytime (units (unknown) date) sleepiness, Reports unknown) fatigue, Denies snoring and Denies stops (unknown) (no (unknown) (unknown) Reports dizzy in the (uni ts (unknown) date) morning, trouble unknown) concentrating or focusing and other (unknown) (no (unknown) (unknown) Reports dry mouth in (uni ts (unknown) date) the morning; Denies unknown) runny nose, nasal congestion at night (unknown) (no (unknown) (unknown) Reports myalgia (units (unknown) date) interfering with unknown) sleep and arthralgia interfering with sleep; (unknown) (no (unknown) (unknown) Reports napping on a (uni ts (unknown) date) regular basis; Denies unknown) depression, anxiety, hypnagogic (unknown) (no (unknown) (unknown) Reports nocturia (units (unknown) date) unknown) (unknown) (no (unknown) (unknown) Resp (units (unkno wn) date) unknown) (unknown) (no (unknown) (unknown) Respiration 16 (units (unknown) date) unknown) (unknown) (no (unknown) (unknown) Respiratory (units (un known) date) unknown) (unknown) (no (unknown) (unknown) Return visit in 6 (units (unknown) date) months to assess unknown) continued response to PAP therapy (unknown) (no (unknown) (unknown) S/P lumbar spinal (units (unknown) date) fusion unknown) (unknown) (no (unknown) (unknown) Sclera: sclerae (units (unknown) date) normal unknown) (unknown) (no (unknown) (unknown) She is currently on (unit s (unknown) date) nasal Bi-level PAP at unknown) -. She is using it regularly (unknown) (no (unknown) (unknown) Signed By: (units (unk nown) date) unknown) (unknown) (no (unknown) (unknown) Sitting and Reading: (uni ts (unknown) date) 3 = High unknown) (unknown) (no (unknown) (unknown) Sitting and talking (unit s (unknown) date) to someone: 0 = Never unknown) (None) (unknown) (no (unknown) (unknown) Sitting inactive in (unit s (unknown) date) a public place: 3 = unknown) High (unknown) (no (unknown) (unknown) Sitting quietly (units (unknown) date) after lunch (no unknown) alcohol): 3 = High (unknown) (no (unknown) (unknown) Sleep Procedure (units (unknown) date) unknown) (unknown) (no (unknown) (unknown) Smoking Status: (units (unknown) date) Never smoker unknown) (unknown) (no (unknown) (unknown) Social History (units (unknown) date) unknown) (unknown) (no (unknown) (unknown) Speech: speech (units (unknown) date) normal unknown) (unknown) (no (unknown) (unknown) Stopped for a few (units (unknown) date) minutes in traffic: 3 unknown) = High (unknown) (no (unknown) (unknown) Sub-optimal therapy (unit s (unknown) date) unknown) (unknown) (no (unknown) (unknown) Surgical History (units (unknown) date) (Reviewed 02/05/22 @ unknown) 13:02 by Kishan Maciel MD) (unknown) (no (unknown) (unknown) Symptoms (units (unkno wn) date) unknown) (unknown) (no (unknown) (unknown) Tech Observations (units (unknown) date) unknown) (unknown) (no (unknown) (unknown) Tech Observations: (units (unknown) date) unknown) (unknown) (no (unknown) (unknown) Temp 97.6 F (units (unknown) date) unknown) (unknown) (no (unknown) (unknown) The patient reported (uni ts (unknown) date) symptoms of excessive unknown) daytime sleepiness as evidenced by (unknown) (no (unknown) (unknown) This note may have (units (unknown) date) been all or partially unknown) generated using voice recognition (unknown) (no (unknown) (unknown) Time Coding Minutes (unit s (unknown) date) Spent: (must be on unknown) same date of service/appointment) (unknown) (no (unknown) (unknown) Time Spent (units (unk nown) date) unknown) (unknown) (no (unknown) (unknown) Tobacco + Substance (unit s (unknown) date) Use unknown) (unknown) (no (unknown) (unknown) Tobacco Status (units (unknown) date) unknown) (unknown) (no (unknown) (unknown) Treatment Effects: (units (unknown) date) Pap Treatment unknown) Response/Side Effects: adherent to current PAP (unknown) (no (unknown) (unknown) Treatment (units (unkn own) date) Response/Side Affects unknown) (unknown) (no (unknown) (unknown) Type 2 diabetes (units (unknown) date) mellitus unknown) (unknown) (no (unknown) (unknown) Usage: 100%, w/98.9% (unit s (unknown) date) of that time > 4 unknown) hours. Leak: 13 sec flowAHI: 0.6 (unknown) (no (unknown) (unknown) Visit Reasons: 6M (units (unknown) date) unknown) (unknown) (no (unknown) (unknown) Visit type (FU): (units (unknown) date) follow up of RABIA unknown) therapy Follow up evaluation of RABIA therapy: (unknown) (no (unknown) (unknown) Vitals (units (unkno wn) date) unknown) (unknown) (no (unknown) (unknown) Watching TV: 3 = (units (unknown) date) High unknown) (unknown) (no (unknown) (unknown) Weight 95.254 kg (unit s (unknown) date) unknown) (unknown) (no (unknown) (unknown) While alcohol is (units (unknown) date) well known to speed unknown) the onset of sleep, it disrupts sleep in (unknown) (no (unknown) (unknown) activities, you may (unit s (unknown) date) have more problems unknown) getting back to sleep during the night. (unknown) (no (unknown) (unknown) addition, avoiding (units (unknown) date) nighttime bright unknown) light exposure, which can occur with many (unknown) (no (unknown) (unknown) also a history of (units (unknown) date) hypertension with a unknown) Mallampati score of IV. For this a (unknown) (no (unknown) (unknown) an [place] (units (unk nown) date) Sleepiness scale unknown) score of 22/24. Her pain is significant and it is (unknown) (no (unknown) (unknown) and sleep quality. (units (unknown) date) Her NPO on CPAP was unknown) positive, so she under went a bi-level (unknown) (no (unknown) (unknown) and wakefulness. (units (unknown) date) Scheduled napping may unknown) be considered if appropriate for the (unknown) (no (unknown) (unknown) bedtime. Also dietary (uni ts (unknown) date) changes can cause unknown) sleep problems, if someone is struggling (unknown) (no (unknown) (unknown) better on b-level (units (unknown) date) PAP. She is currently unknown) on bi-level PAP machine at 168/4-6 and (unknown) (no (unknown) (unknown) breathing during (units (unknown) date) sleep unknown) (unknown) (no (unknown) (unknown) bring your problems (unit s (unknown) date) to bed. unknown) (unknown) (no (unknown) (unknown) but increased (units ( unknown) date) benefit from more unknown) usage was also explained. (unknown) (no (unknown) (unknown) can be seen (units (un known) date) secondary to sleep unknown) apnea, insomnia, depression, medical conditions (unknown) (no (unknown) (unknown) caregiver/support (units (unknown) date) person: No unknown) (unknown) (no (unknown) (unknown) clinical response (units (unknown) date) including no snoring. unknown) It is clear she would benefit from the (unknown) (no (unknown) (unknown) compliance wais (units (unknown) date) excellent with a unknown) normal AHIflow, but she was snoring and her (unknown) (no (unknown) (unknown) condition (units (unkn own) date) unknown) (unknown) (no (unknown) (unknown) continued use of PAP (uni ts (unknown) date) therapy. The patient unknown) is willing to continue with PAP (unknown) (no (unknown) (unknown) daytime sleeping and (uni ts (unknown) date) an elevated [place] unknown) Sleepiness Scale score of 12/24. This (unknown) (no (unknown) (unknown) daytime somnolence (units (unknown) date) frequent, snoring unknown) (denies), apnea (denies), choking or (unknown) (no (unknown) (unknown) denies night sweats, (uni ts (unknown) date) denies morning unknown) headache, denies nasal congestion at night, (unknown) (no (unknown) (unknown) denies nocturnal (units (unknown) date) palpitations, denies unknown) heart burn symptoms at night, reports (unknown) (no (unknown) (unknown) details: bayron Wu, (uni ts (unknown) date) lives in [place] unknown) (unknown) (no (unknown) (unknown) diagnostic sleep (units (unknown) date) study was performed unknown) and showed obstructive sleep apnea. (unknown) (no (unknown) (unknown) dishes. And, (units (u nknown) date) remember, chocolate unknown) has caffeine. (unknown) (no (unknown) (unknown) disturbing to her (units (unknown) date) sleep. unknown) (unknown) (no (unknown) (unknown) dizziness in the (units (unknown) date) morning, reports unknown) trouble consentrating/focusin g durng the day (unknown) (no (unknown) (unknown) done before bed to (units (unknown) date) help initiate a unknown) restful night's sleep. (unknown) (no (unknown) (unknown) drowsiness. (units (un known) date) Drowsiness risks and unknown) symptoms reviewed. (unknown) (no (unknown) (unknown) drowsy. Drowsy (units (unknown) date) driving handout made unknown) available. (unknown) (no (unknown) (unknown) effecting the (units ( unknown) date) quality of her sleep unknown) and the pain medication adds to her (unknown) (no (unknown) (unknown) gasping (denies), (units (unknown) date) epworth sleep scale unknown) score (22/24), bruxism (denies), sleep (unknown) (no (unknown) (unknown) hallucinations or (units (unknown) date) sleep paralysis unknown) (unknown) (no (unknown) (unknown) has not improved. (units (unknown) date) unknown) (unknown) (no (unknown) (unknown) have occurred. If (units (unknown) date) there are any unknown) questions, please contact the Medical Records (unknown) (no (unknown) (unknown) having already been (unit s (unknown) date) on CPAP, and was unknown) effective until 2017 when she developed (unknown) (no (unknown) (unknown) headaches and (units ( unknown) date) nocturia, as well as unknown) diminishing cognitive capabilities. An NPO (unknown) (no (unknown) (unknown) her compliance is (units (unknown) date) excellent with an unknown) optimal AHIflow. She also reports positive (unknown) (no (unknown) (unknown) her head (units (unkno wn) date) unknown) (unknown) (no (unknown) (unknown) hours ) frequent, (units (unknown) date) spending time in bed unknown) not sleeping a little, normal bedtime (unknown) (no (unknown) (unknown) household members: (units (unknown) date) spouse unknown) (unknown) (no (unknown) (unknown) housing: house (units (unknown) date) unknown) (unknown) (no (unknown) (unknown) hydrochlorothiazide (unit s (unknown) date) [From ZESTORETIC] unknown) Allergy (Intermediate, Verified 08/08/21 (unknown) (no (unknown) (unknown) insulin detemir (units (unknown) date) [From Levemir U-100 unknown) Insulin] Allergy (Intermediate, Verified (unknown) (no (unknown) (unknown) lisinopril [From (units (unknown) date) ZESTORETIC] Allergy unknown) (Intermediate, Verified 08/08/21 14:09) (unknown) (no (unknown) (unknown) lives independently: (uni ts (unknown) date) Yes unknown) (unknown) (no (unknown) (unknown) marital status: (units (unknown) date) unknown) (unknown) (no (unknown) (unknown) may occur. (units (unk nown) date) Occasional wrong-word unknown) or 'sound-alike' substitutions may have (unknown) (no (unknown) (unknown) medium cushion (units (unknown) date) unknown) (unknown) (no (unknown) (unknown) morning awakening (units (unknown) date) (may wake at unknown) [id number], up for 2 hours, back to sleep for 3 (unknown) (no (unknown) (unknown) nocturia (3 times (units (unknown) date) nightly), reports unknown) pain (feet, legs, low back), denies (unknown) (no (unknown) (unknown) occurred due to the (unit s (unknown) date) inherent limitations unknown) of voice recognition software. Please (unknown) (no (unknown) (unknown) older people who may (uni ts (unknown) date) not venture outside unknown) as frequently as children and adults. (unknown) (no (unknown) (unknown) on PAP well, sleep (units (unknown) date) quality okay and unknown) daytime sleepiness Daytime Sleepiness Branch (unknown) (no (unknown) (unknown) optimal sleep (units ( unknown) date) schedule. unknown) (unknown) (no (unknown) (unknown) or can be a primary (unit s (unknown) date) problem. This unknown) continues to be elevated on PAP therapy with (unknown) (no (unknown) (unknown) or sore throat in (units (unknown) date) the morning unknown) (unknown) (no (unknown) (unknown) personal electronic (unit s (unknown) date) devices, can also unknown) help maintain a healthy sleep-wake cycle. (unknown) (no (unknown) (unknown) pressures, found to (unit s (unknown) date) be 17/11 cwp. unknown) (unknown) (no (unknown) (unknown) problem. Sleep (units (unknown) date) hygiene and sleep unknown) schedules were discussed. This has improved (unknown) (no (unknown) (unknown) pt complaining of (units (unknown) date) some discomfort with unknown) the [employer] Paykal Eson 2 at the back of (unknown) (no (unknown) (unknown) pt will let us know (unit s (unknown) date) if this mask will unknown) work for her (unknown) (no (unknown) (unknown) read the note (units ( unknown) date) carefully and unknown) recognize, using context, where these substitutions (unknown) (no (unknown) (unknown) reports dry mouth, (units (unknown) date) denies sore throat in unknown) the morning, denies nocturnal cough, (unknown) (no (unknown) (unknown) seconds <= 88%. She (unit s (unknown) date) repeated the biPAP unknown) titration study to identify optimal (unknown) (no (unknown) (unknown) sent home with pt to (uni ts (unknown) date) try the Resmed Airfit unknown) N20 standard headgear small and (unknown) (no (unknown) (unknown) sentences, no (units ( unknown) date) audible wheezes, no unknown) cough, no grunting and not labored (unknown) (no (unknown) (unknown) she is benefitting (units (unknown) date) from bi-level PAP unknown) therapy and is motivated to continue its (unknown) (no (unknown) (unknown) sleep quality was (units (unknown) date) less than optimal. unknown) Her pressure was increased for the snoring (unknown) (no (unknown) (unknown) snoring but she (units (unknown) date) continues to have unknown) significant daytime sleepiness. Patient's (unknown) (no (unknown) (unknown) software. 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 In (unit s (unknown) date) 06/2019 she reported unknown) new onset night sweats, morning (unknown) (no (unknown) (unknown) study (07/20/19) (units (unknown) date) showed GAVIN: 19, with unknown) eufemia SpO2: 60%, and spent 62 minutes 18 (unknown) (no (unknown) (unknown) substance use type: (unit s (unknown) date) does not use unknown) (unknown) (no (unknown) (unknown) suggested and showed (uni ts (unknown) date) pt the resmed Airfit unknown) N20 (unknown) (no (unknown) (unknown) symptoms of CPAP (units (unknown) date) failure. Switched to unknown) bi-levelPAP therapy after a titration (unknown) (no (unknown) (unknown) taken in the morning (uni ts (unknown) date) or late afternoon. A unknown) relaxing exercise, like yoga, can be (unknown) (no (unknown) (unknown) talking (denies) and (uni ts (unknown) date) sleep walking unknown) (denies) (unknown) (no (unknown) (unknown) the second half as (units (unknown) date) the body begins to unknown) metabolize the alcohol, causing arousal. (unknown) (no (unknown) (unknown) therapy. (units (unkno wn) date) unknown) (unknown) (no (unknown) (unknown) treatment variable (units (unknown) date) response to treatment unknown) (unknown) (no (unknown) (unknown) use. Pain is (units (u nknown) date) interfering with her unknown) sleep, neuropathy in her feet is most (unknown) (no (unknown) (unknown) verapamil (units (unkn own) date) [VERAPAMIL] Allergy unknown) (Intermediate, Verified 08/08/21 14:09) (unknown) (no (unknown) (unknown) with an optimal (units (unknown) date) AHIflow. She reports unknown) no problems with the pressure. She feels (unknown) (no (unknown) (unknown) with pressure (units ( unknown) date) support of 4-6 cwp. unknown) Result panel 8 (unknown) (no (unknown) (unknown) (no value) (units (unk nown) date) unknown) (unknown) (no (unknown) (unknown) Assessment and Plan: (uni ts (unknown) date) unknown) (unknown) (no (unknown) (unknown) Status: Chronic (units (unknown) date) unknown) (unknown) (no (unknown) (unknown) (no value) (units (unk nown) date) unknown) (unknown) (no (unknown) (unknown) (no value) (units (unk nown) date) unknown) (unknown) (no (unknown) (unknown) 02/05/22 (units (unkno wn) date) unknown) (unknown) (no (unknown) (unknown) 13:27 (units (unkno wn) date) unknown) (unknown) (no (unknown) (unknown) [place] [address] (unit s (unknown) date) unknown) (unknown) (no (unknown) (unknown) BLOATING (units (unkno wn) date) unknown) (unknown) (no (unknown) (unknown) COUGH, BLOAT (units (u nknown) date) unknown) (unknown) (no (unknown) (unknown) Draft (units (unkno wn) date) unknown) (unknown) (no (unknown) (unknown) Rash (units (unkno wn) date) unknown) (unknown) (no (unknown) (unknown) Sleep Visit (units (un known) date) unknown) (unknown) (no (unknown) (unknown) [facility]) (unknown) (no (unknown) (unknown) (no value) (units (unk nown) date) unknown) (unknown) (no (unknown) (unknown) 2: unchanged (units (u nknown) date) unknown) (unknown) (no (unknown) (unknown) Device data last 90 (unit s (unknown) date) days: unknown) (unknown) (no (unknown) (unknown) [place] ([place]) [place] [facility] [place] (according to available medical records), (unknown) (no (unknown) (unknown) by trouble staying (units (unknown) date) asleep and unknown) non-restorative sleep. This can be seen secondary (unknown) (no (unknown) (unknown) comfortable, the (units (unknown) date) room should be quiet, unknown) not too hot or cold, or too bright. (unknown) (no (unknown) (unknown) conversations and (units (unknown) date) activities before unknown) trying to go to sleep. Don't dwell on, or (unknown) (no (unknown) (unknown) listen to the radio, (uni ts (unknown) date) or read as if you unknown) associate falling asleep with these (unknown) (no (unknown) (unknown) to sleep apnea, (units (unknown) date) depression, medical unknown) conditions or can be an independent (unknown) (no (unknown) (unknown) with a sleep (units (u nknown) date) problem, it's not a unknown) good time to start experimenting with spicy (unknown) (no (unknown) (unknown) (1) Obstructive (units (unknown) date) sleep apnea of adult: unknown) (unknown) (no (unknown) (unknown) (2) Excessive (units ( unknown) date) daytime sleepiness: unknown) (unknown) (no (unknown) (unknown) ([id number]), normal (unit s (unknown) date) wake time unknown) ([id number]), sleep schedule (somewhat variable), (unknown) (no (unknown) (unknown) (3) Primary (units (un known) date) insomnia: unknown) (unknown) (no (unknown) (unknown) (having progressive (unit s (unknown) date) difficulties), denies unknown) depression or denies anxiety (unknown) (no (unknown) (unknown) (neuropathic pain); (unit s (unknown) date) Denies morning unknown) headache or vertigo (unknown) (no (unknown) (unknown) (waking 3 times (units (unknown) date) nightly, attributed unknown) to chronic pain and mask leak), early (unknown) (no (unknown) (unknown) 0 = Would never doze (uni ts (unknown) date) or sleep, 1 = Slight unknown) chance of dozing or sleeping, 2 = (unknown) (no (unknown) (unknown) 007 (units (unkno wn) date) unknown) (unknown) (no (unknown) (unknown) 02/05/22 (units (unkno wn) date) unknown) (unknown) (no (unknown) (unknown) 08/08/21 14:09) (units (unknown) date) unknown) (unknown) (no (unknown) (unknown) 1401 to 1404, chart (unit s (unknown) date) and compliance review unknown) (unknown) (no (unknown) (unknown) 1404 to 1419, visit (unit s (unknown) date) unknown) (unknown) (no (unknown) (unknown) 14:09) (units (unkno wn) date) unknown) (unknown) (no (unknown) (unknown) 1746 to 1749, (units ( unknown) date) charting unknown) (unknown) (no (unknown) (unknown) Adhere to regular (units (unknown) date) mealtime schedule, unknown) avoid snacking (unknown) (no (unknown) (unknown) Affect: normal (units (unknown) date) affect unknown) (unknown) (no (unknown) (unknown) Age/Sex: 71 / F (units (unknown) date) Date of Service: unknown) (unknown) (no (unknown) (unknown) Allergies (units (unkn own) date) unknown) (unknown) (no (unknown) (unknown) Assessment + Plan (units (unknown) date) unknown) (unknown) (no (unknown) (unknown) Associate your bed (units (unknown) date) with sleep. It's not unknown) a good idea to use your bed to watch TV, (unknown) (no (unknown) (unknown) Attending Dr: Kishan (uni ts (unknown) date) Janell PIPER unknown) (unknown) (no (unknown) (unknown) Attitude: (units (unkn own) date) cooperative unknown) (unknown) (no (unknown) (unknown) AutoBiPAP Set (units ( unknown) date) Pressures: IPAPmax: unknown) 16 cwp EPAPmin: 8 cwp PS: 6/4 cwp (unknown) (no (unknown) (unknown) Avoid alcohol after (unit s (unknown) date) 4 pm unknown) (unknown) (no (unknown) (unknown) Avoid medications (units (unknown) date) which may interfere unknown) with sleep (unknown) (no (unknown) (unknown) Avoid random napping (uni ts (unknown) date) during the day; it unknown) can disturb the normal pattern of sleep (unknown) (no (unknown) (unknown) Avoid stimulants (units (unknown) date) such as caffeine, unknown) nicotine, and alcohol too close to bedtime. (unknown) (no (unknown) (unknown) BMI 41.0 (units (un known) date) unknown) (unknown) (no (unknown) (unknown) BP 108/72 (units (u nknown) date) unknown) (unknown) (no (unknown) (unknown) Being a passenger in (uni ts (unknown) date) a motor vehicle for unknown) an hour or so: 3 = High (unknown) (no (unknown) (unknown) Bi-level PAP (units (u nknown) date) (-6) unknown) (unknown) (no (unknown) (unknown) Bilateral bunions (units (unknown) date) unknown) (unknown) (no (unknown) (unknown) Blood Pressure (units (unknown) date) Location Lt unknown) brachial (unknown) (no (unknown) (unknown) Cardiac (units (unkno wn) date) unknown) (unknown) (no (unknown) (unknown) Chief Complaint: (units (unknown) date) Patient is here to unknown) follow up on therapy for RABIA (unknown) (no (unknown) (unknown) Clinical Course (units (unknown) date) unknown) (unknown) (no (unknown) (unknown) Condition is Onset: (unit s (unknown) date) Chronic and ongoing unknown) condition (unknown) (no (unknown) (unknown) Conjunctivae: (units ( unknown) date) conjunctivae normal unknown) (unknown) (no (unknown) (unknown) Consider weaning (units (unknown) date) caffeine use, unknown) starting with no caffeine after 3pm (unknown) (no (unknown) (unknown) Const (units (unkno wn) date) unknown) (unknown) (no (unknown) (unknown) DME [employer] (units (un known) date) unknown) (unknown) (no (unknown) (unknown) : 1950 (units (unknown) date) Acct:[id number] unknown) (unknown) (no (unknown) (unknown) Denies chest pain or (uni ts (unknown) date) nocturnal unknown) palpitations (unknown) (no (unknown) (unknown) Denies dyspnea at (units (unknown) date) night or cough unknown) (unknown) (no (unknown) (unknown) Denies itchy eyes, (units (unknown) date) redness, blurry unknown) vision or seasonal allergies (unknown) (no (unknown) (unknown) Denies reflux pain (units (unknown) date) at night or bloating unknown) on CPAP (unknown) (no (unknown) (unknown) Denies weakness (units (unknown) date) associated with unknown) strong emotion or sleep paralysis (unknown) (no (unknown) (unknown) Dept at (units (unkno wn) date) . 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 This is particularly important for (unknown) (no (unknown) (unknown) [place] Score: 21 (units (unknown) date) unknown) (unknown) (no (unknown) (unknown) [place] Sleepiness (units (unknown) date) Scale unknown) (unknown) (no (unknown) (unknown) Establish a regular (units (unknown) date) relaxing bedtime unknown) routine. Try to avoid emotionally upsetting (unknown) (no (unknown) (unknown) Exam (units (unkno wn) date) unknown) (unknown) (no (unknown) (unknown) Exam Narrative (units (unknown) date) unknown) (unknown) (no (unknown) (unknown) Exam Narrative: (units (unknown) date) unknown) (unknown) (no (unknown) (unknown) Excessive daytime (units (unknown) date) sleepiness unknown) (unknown) (no (unknown) (unknown) Eyes (units (unkno wn) date) unknown) (unknown) (no (unknown) (unknown) Food can be (units (un known) date) disruptive right unknown) before sleep; stay away from large meals close to (unknown) (no (unknown) (unknown) GI (units (unkno wn) date) unknown) (unknown) (no (unknown) (unknown) (units (unkno wn) date) unknown) (unknown) (no (unknown) (unknown) Gait: gait assisted (unit s (unknown) date) Method: walking stick unknown) (unknown) (no (unknown) (unknown) General: cooperative (uni ts (unknown) date) and no acute distress unknown) (but looks fatigued) (unknown) (no (unknown) (unknown) General: patient (units (unknown) date) alert and patient unknown) oriented x3 (unknown) (no (unknown) (unknown) Get regular moderate (uni ts (unknown) date) exercise (30 minutes, unknown) 3x/week) (unknown) (no (unknown) (unknown) HENMT (units (unkno wn) date) unknown) (unknown) (no (unknown) (unknown) HPI (units (unkno wn) date) unknown) (unknown) (no (unknown) (unknown) HPI Sleep Follow Up (unit s (unknown) date) unknown) (unknown) (no (unknown) (unknown) Head: normal to (units (unknown) date) inspection unknown) (unknown) (no (unknown) (unknown) Height 152.4 cm (units (unknown) date) unknown) (unknown) (no (unknown) (unknown) History of (units (unk nown) date) bunionectomy of both unknown) great toes (unknown) (no (unknown) (unknown) Intake (units (unkno wn) date) unknown) (unknown) (no (unknown) (unknown) Light exposure (units (unknown) date) during the day helps unknown) maintain a healthy sleep-wake cycle. In (unknown) (no (unknown) (unknown) Loc: SLEEP (units (unk nown) date) unknown) (unknown) (no (unknown) (unknown) Lying down in the (units (unknown) date) afternoon: 3 = High unknown) (unknown) (no (unknown) (unknown) Make sure that the (units (unknown) date) sleep environment is unknown) pleasant and relaxing. The bed should be (unknown) (no (unknown) (unknown) Medical History (units (unknown) date) (Reviewed 02/05/22 @ unknown) 13:02 by Kishan Maciel MD) (unknown) (no (unknown) (unknown) Memory loss of (units (unknown) date) unknown cause unknown) (unknown) (no (unknown) (unknown) Moderate chance of (units (unknown) date) dozing or sleeping, 3 unknown) = High chance of dozing or sleeping (unknown) (no (unknown) (unknown) Mood: congruent mood (uni ts (unknown) date) unknown) (unknown) (no (unknown) (unknown) Musc (units (unkno wn) date) unknown) (unknown) (no (unknown) (unknown) Neck (units (unkno wn) date) unknown) (unknown) (no (unknown) (unknown) Neck: normal visual (unit s (unknown) date) inspection unknown) (unknown) (no (unknown) (unknown) Neuro (units (unkno wn) date) unknown) (unknown) (no (unknown) (unknown) Neurological (units (u nknown) date) unknown) (unknown) (no (unknown) (unknown) 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 She also felt she slept (unknown) (no (unknown) (unknown) PFSH (units (unkno wn) date) unknown) (unknown) (no (unknown) (unknown) Patient instructed (units (unknown) date) to use scheduled naps unknown) as needed for drowsiness safety. (unknown) (no (unknown) (unknown) Patient reported a (units (unknown) date) history of snoring unknown) and a disturbed sleep pattern. There is (unknown) (no (unknown) (unknown) Patient reports (units (unknown) date) difficulty falling unknown) asleep is denied, difficulty staying asleep (unknown) (no (unknown) (unknown) Patient reports (units (unknown) date) symptoms of chronic unknown) insomnia for more than 3 months as evidenced (unknown) (no (unknown) (unknown) Patient was (units (un known) date) encouraged to unknown) continue with PAP therapy at IPAPmax 16, EPAPmin 18 (unknown) (no (unknown) (unknown) Patient was (units (un known) date) encouraged to unknown) maintain CPAP usage at a minimum of 4 hours a night, (unknown) (no (unknown) (unknown) Patient was (units (un known) date) instructed to avoid unknown) driving or operating heavy machinery when (unknown) (no (unknown) (unknown) Patient was (units (un known) date) instructed to return unknown) sooner if any questions or concerns arise. (unknown) (no (unknown) (unknown) Patient's compliance (uni ts (unknown) date) is good with positive unknown) clinical response including no (unknown) (no (unknown) (unknown) Patient: Terrence Buckley (uni ts (unknown) date) MR#: [id number] unknown) (unknown) (no (unknown) (unknown) Performed by (units (u nknown) date) unknown) (unknown) (no (unknown) (unknown) Performed by: (units ( unknown) date) unknown) (unknown) (no (unknown) (unknown) Pertinent (units (unkn own) date) Positives/Negatives unknown) (unknown) (no (unknown) (unknown) Plan (units (unkno wn) date) unknown) (unknown) (no (unknown) (unknown) Position Sitting (unit s (unknown) date) unknown) (unknown) (no (unknown) (unknown) Primary insomnia (units (unknown) date) unknown) (unknown) (no (unknown) (unknown) Properly timed (units (unknown) date) exercise can promote unknown) good sleep. Vigorous exercise should be (unknown) (no (unknown) (unknown) Psych (units (unkno wn) date) unknown) (unknown) (no (unknown) (unknown) Psychological (units ( unknown) date) unknown) (unknown) (no (unknown) (unknown) Pulse 71 (units (un known) date) unknown) (unknown) (no (unknown) (unknown) Questionnaires (units (unknown) date) unknown) (unknown) (no (unknown) (unknown) ROS Sleep (units (unkn own) date) unknown) (unknown) (no (unknown) (unknown) Reason For Visit (units (unknown) date) unknown) (unknown) (no (unknown) (unknown) Khushi Aczachon [employer] (units (unknown) date) unknown) (unknown) (no (unknown) (unknown) Reports daytime (units (unknown) date) sleepiness, Reports unknown) fatigue, Denies snoring and Denies stops (unknown) (no (unknown) (unknown) Reports dizzy in the (uni ts (unknown) date) morning, trouble unknown) concentrating or focusing and other (unknown) (no (unknown) (unknown) Reports dry mouth in (uni ts (unknown) date) the morning; Denies unknown) runny nose, nasal congestion at night (unknown) (no (unknown) (unknown) Reports myalgia (units (unknown) date) interfering with unknown) sleep and arthralgia interfering with sleep; (unknown) (no (unknown) (unknown) Reports napping on a (uni ts (unknown) date) regular basis; Denies unknown) depression, anxiety, hypnagogic (unknown) (no (unknown) (unknown) Reports nocturia (units (unknown) date) unknown) (unknown) (no (unknown) (unknown) Resp (units (unkno wn) date) unknown) (unknown) (no (unknown) (unknown) Respiration 16 (units (unknown) date) unknown) (unknown) (no (unknown) (unknown) Respiratory (units (un known) date) unknown) (unknown) (no (unknown) (unknown) Return visit in 6 (units (unknown) date) months to assess unknown) continued response to PAP therapy (unknown) (no (unknown) (unknown) S/P lumbar spinal (units (unknown) date) fusion unknown) (unknown) (no (unknown) (unknown) Sclera: sclerae (units (unknown) date) normal unknown) (unknown) (no (unknown) (unknown) She is currently on (unit s (unknown) date) nasal Bi-level PAP at unknown) -4. She is using it regularly (unknown) (no (unknown) (unknown) Signed By: (units (unk nown) date) unknown) (unknown) (no (unknown) (unknown) Sitting and Reading: (uni ts (unknown) date) 3 = High unknown) (unknown) (no (unknown) (unknown) Sitting and talking (unit s (unknown) date) to someone: 0 = Never unknown) (None) (unknown) (no (unknown) (unknown) Sitting inactive in (unit s (unknown) date) a public place: 3 = unknown) High (unknown) (no (unknown) (unknown) Sitting quietly (units (unknown) date) after lunch (no unknown) alcohol): 3 = High (unknown) (no (unknown) (unknown) Sleep Procedure (units (unknown) date) unknown) (unknown) (no (unknown) (unknown) Smoking Status: (units (unknown) date) Never smoker unknown) (unknown) (no (unknown) (unknown) Social History (units (unknown) date) unknown) (unknown) (no (unknown) (unknown) Speech: speech (units (unknown) date) normal unknown) (unknown) (no (unknown) (unknown) Stopped for a few (units (unknown) date) minutes in traffic: 3 unknown) = High (unknown) (no (unknown) (unknown) Sub-optimal therapy (unit s (unknown) date) unknown) (unknown) (no (unknown) (unknown) Surgical History (units (unknown) date) (Reviewed 02/05/22 @ unknown) 13:02 by Kishan Maciel MD) (unknown) (no (unknown) (unknown) Symptoms (units (unkno wn) date) unknown) (unknown) (no (unknown) (unknown) Tech Observations (units (unknown) date) unknown) (unknown) (no (unknown) (unknown) Tech Observations: (units (unknown) date) unknown) (unknown) (no (unknown) (unknown) Temp 97.6 F (units (unknown) date) unknown) (unknown) (no (unknown) (unknown) The patient reported (uni ts (unknown) date) symptoms of excessive unknown) daytime sleepiness as evidenced by (unknown) (no (unknown) (unknown) This note may have (units (unknown) date) been all or partially unknown) generated using voice recognition (unknown) (no (unknown) (unknown) Time Coding Minutes (unit s (unknown) date) Spent: (must be on unknown) same date of service/appointment) (unknown) (no (unknown) (unknown) Time Spent (units (unk nown) date) unknown) (unknown) (no (unknown) (unknown) Tobacco + Substance (unit s (unknown) date) Use unknown) (unknown) (no (unknown) (unknown) Tobacco Status (units (unknown) date) unknown) (unknown) (no (unknown) (unknown) Treatment Effects: (units (unknown) date) Pap Treatment unknown) Response/Side Effects: adherent to current PAP (unknown) (no (unknown) (unknown) Treatment (units (unkn own) date) Response/Side Affects unknown) (unknown) (no (unknown) (unknown) Type 2 diabetes (units (unknown) date) mellitus unknown) (unknown) (no (unknown) (unknown) Usage: 100%, w/98.9% (unit s (unknown) date) of that time > 4 unknown) hours. Leak: 13 sec flowAHI: 0.6 (unknown) (no (unknown) (unknown) Visit Reasons: 6M (units (unknown) date) unknown) (unknown) (no (unknown) (unknown) Visit type (FU): (units (unknown) date) follow up of RABIA unknown) therapy Follow up evaluation of RABIA therapy: (unknown) (no (unknown) (unknown) Vitals (units (unkno wn) date) unknown) (unknown) (no (unknown) (unknown) Watching TV: 3 = (units (unknown) date) High unknown) (unknown) (no (unknown) (unknown) Weight 95.254 kg (unit s (unknown) date) unknown) (unknown) (no (unknown) (unknown) While alcohol is (units (unknown) date) well known to speed unknown) the onset of sleep, it disrupts sleep in (unknown) (no (unknown) (unknown) activities, you may (unit s (unknown) date) have more problems unknown) getting back to sleep during the night. (unknown) (no (unknown) (unknown) addition, avoiding (units (unknown) date) nighttime bright unknown) light exposure, which can occur with many (unknown) (no (unknown) (unknown) also a history of (units (unknown) date) hypertension with a unknown) Mallampati score of IV. For this a (unknown) (no (unknown) (unknown) an [place] (units (unk nown) date) Sleepiness scale unknown) score of 22/24. Her pain is significant and it is (unknown) (no (unknown) (unknown) and sleep quality. (units (unknown) date) Her NPO on CPAP was unknown) positive, so she under went a bi-level (unknown) (no (unknown) (unknown) and wakefulness. (units (unknown) date) Scheduled napping may unknown) be considered if appropriate for the (unknown) (no (unknown) (unknown) bedtime. Also dietary (uni ts (unknown) date) changes can cause unknown) sleep problems, if someone is struggling (unknown) (no (unknown) (unknown) better on b-level (units (unknown) date) PAP. She is currently unknown) on bi-level PAP machine at 16/4-6 and (unknown) (no (unknown) (unknown) breathing during (units (unknown) date) sleep unknown) (unknown) (no (unknown) (unknown) bring your problems (unit s (unknown) date) to bed. unknown) (unknown) (no (unknown) (unknown) but increased (units ( unknown) date) benefit from more unknown) usage was also explained. (unknown) (no (unknown) (unknown) can be seen (units (un known) date) secondary to sleep unknown) apnea, insomnia, depression, medical conditions (unknown) (no (unknown) (unknown) caregiver/support (units (unknown) date) person: No unknown) (unknown) (no (unknown) (unknown) clinical response (units (unknown) date) including no snoring. unknown) It is clear she would benefit from the (unknown) (no (unknown) (unknown) compliance wais (units (unknown) date) excellent with a unknown) normal AHIflow, but she was snoring and her (unknown) (no (unknown) (unknown) condition (units (unkn own) date) unknown) (unknown) (no (unknown) (unknown) continued use of PAP (uni ts (unknown) date) therapy. The patient unknown) is willing to continue with PAP (unknown) (no (unknown) (unknown) daytime sleeping and (uni ts (unknown) date) an elevated [place] unknown) Sleepiness Scale score of 12/24. This (unknown) (no (unknown) (unknown) daytime somnolence (units (unknown) date) frequent, snoring unknown) (denies), apnea (denies), choking or (unknown) (no (unknown) (unknown) denies night sweats, (uni ts (unknown) date) denies morning unknown) headache, denies nasal congestion at night, (unknown) (no (unknown) (unknown) denies nocturnal (units (unknown) date) palpitations, denies unknown) heart burn symptoms at night, reports (unknown) (no (unknown) (unknown) details: bayron Wu, (uni ts (unknown) date) lives in [place] unknown) (unknown) (no (unknown) (unknown) diagnostic sleep (units (unknown) date) study was performed unknown) and showed obstructive sleep apnea. (unknown) (no (unknown) (unknown) dishes. And, (units (u nknown) date) remember, chocolate unknown) has caffeine. (unknown) (no (unknown) (unknown) disturbing to her (units (unknown) date) sleep. unknown) (unknown) (no (unknown) (unknown) dizziness in the (units (unknown) date) morning, reports unknown) trouble consentrating/focusin g durng the day (unknown) (no (unknown) (unknown) done before bed to (units (unknown) date) help initiate a unknown) restful night's sleep. (unknown) (no (unknown) (unknown) drowsiness. (units (un known) date) Drowsiness risks and unknown) symptoms reviewed. (unknown) (no (unknown) (unknown) drowsy. Drowsy (units (unknown) date) driving handout made unknown) available. (unknown) (no (unknown) (unknown) effecting the (units ( unknown) date) quality of her sleep unknown) and the pain medication adds to her (unknown) (no (unknown) (unknown) gasping (denies), (units (unknown) date) epworth sleep scale unknown) score (22/24), bruxism (denies), sleep (unknown) (no (unknown) (unknown) hallucinations or (units (unknown) date) sleep paralysis unknown) (unknown) (no (unknown) (unknown) has not improved. (units (unknown) date) unknown) (unknown) (no (unknown) (unknown) have occurred. If (units (unknown) date) there are any unknown) questions, please contact the Medical Records (unknown) (no (unknown) (unknown) having already been (unit s (unknown) date) on CPAP, and was unknown) effective until 2017 when she developed (unknown) (no (unknown) (unknown) headaches and (units ( unknown) date) nocturia, as well as unknown) diminishing cognitive capabilities. An NPO (unknown) (no (unknown) (unknown) her compliance is (units (unknown) date) excellent with an unknown) optimal AHIflow. She also reports positive (unknown) (no (unknown) (unknown) her head (units (unkno wn) date) unknown) (unknown) (no (unknown) (unknown) hours ) frequent, (units (unknown) date) spending time in bed unknown) not sleeping a little, normal bedtime (unknown) (no (unknown) (unknown) household members: (units (unknown) date) spouse unknown) (unknown) (no (unknown) (unknown) housing: house (units (unknown) date) unknown) (unknown) (no (unknown) (unknown) hydrochlorothiazide (unit s (unknown) date) [From ZESTORETIC] unknown) Allergy (Intermediate, Verified 08/08/21 (unknown) (no (unknown) (unknown) insulin detemir (units (unknown) date) [From Levemir U-100 unknown) Insulin] Allergy (Intermediate, Verified (unknown) (no (unknown) (unknown) lisinopril [From (units (unknown) date) ZESTORETIC] Allergy unknown) (Intermediate, Verified 08/08/21 14:09) (unknown) (no (unknown) (unknown) lives independently: (uni ts (unknown) date) Yes unknown) (unknown) (no (unknown) (unknown) marital status: (units (unknown) date) unknown) (unknown) (no (unknown) (unknown) may occur. (units (unk nown) date) Occasional wrong-word unknown) or 'sound-alike' substitutions may have (unknown) (no (unknown) (unknown) medium cushion (units (unknown) date) unknown) (unknown) (no (unknown) (unknown) morning awakening (units (unknown) date) (may wake at unknown) [id number], up for 2 hours, back to sleep for 3 (unknown) (no (unknown) (unknown) nocturia (3 times (units (unknown) date) nightly), reports unknown) pain (feet, legs, low back), denies (unknown) (no (unknown) (unknown) occurred due to the (unit s (unknown) date) inherent limitations unknown) of voice recognition software. Please (unknown) (no (unknown) (unknown) older people who may (uni ts (unknown) date) not venture outside unknown) as frequently as children and adults. (unknown) (no (unknown) (unknown) on PAP well, sleep (units (unknown) date) quality okay and unknown) daytime sleepiness Daytime Sleepiness Branch (unknown) (no (unknown) (unknown) optimal sleep (units ( unknown) date) schedule. unknown) (unknown) (no (unknown) (unknown) or can be a primary (unit s (unknown) date) problem. This unknown) continues to be elevated on PAP therapy with (unknown) (no (unknown) (unknown) or sore throat in (units (unknown) date) the morning unknown) (unknown) (no (unknown) (unknown) personal electronic (unit s (unknown) date) devices, can also unknown) help maintain a healthy sleep-wake cycle. (unknown) (no (unknown) (unknown) pressures, found to (unit s (unknown) date) be 17/11 cwp. unknown) (unknown) (no (unknown) (unknown) problem. Sleep (units (unknown) date) hygiene and sleep unknown) schedules were discussed. This has improved (unknown) (no (unknown) (unknown) pt complaining of (units (unknown) date) some discomfort with unknown) the Squirro 2 at the back of (unknown) (no (unknown) (unknown) pt will let us know (unit s (unknown) date) if this mask will unknown) work for her (unknown) (no (unknown) (unknown) read the note (units ( unknown) date) carefully and unknown) recognize, using context, where these substitutions (unknown) (no (unknown) (unknown) reports dry mouth, (units (unknown) date) denies sore throat in unknown) the morning, denies nocturnal cough, (unknown) (no (unknown) (unknown) seconds <= 88%. She (unit s (unknown) date) repeated the biPAP unknown) titration study to identify optimal (unknown) (no (unknown) (unknown) sent home with pt to (uni ts (unknown) date) try the Resmed Airfit unknown) N20 standard headgear small and (unknown) (no (unknown) (unknown) sentences, no (units ( unknown) date) audible wheezes, no unknown) cough, no grunting and not labored (unknown) (no (unknown) (unknown) she is benefitting (units (unknown) date) from bi-level PAP unknown) therapy and is motivated to continue its (unknown) (no (unknown) (unknown) sleep quality was (units (unknown) date) less than optimal. unknown) Her pressure was increased for the snoring (unknown) (no (unknown) (unknown) snoring but she (units (unknown) date) continues to have unknown) significant daytime sleepiness. Patient's (unknown) (no (unknown) (unknown) software. 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 In (unit s (unknown) date) 06/2019 she reported unknown) new onset night sweats, morning (unknown) (no (unknown) (unknown) study (07/20/19) (units (unknown) date) showed GAVIN: 19, with unknown) eufemia SpO2: 60%, and spent 62 minutes 18 (unknown) (no (unknown) (unknown) substance use type: (unit s (unknown) date) does not use unknown) (unknown) (no (unknown) (unknown) suggested and showed (uni ts (unknown) date) pt the resmed Airfit unknown) N20 (unknown) (no (unknown) (unknown) symptoms of CPAP (units (unknown) date) failure. Switched to unknown) bi-levelPAP therapy after a titration (unknown) (no (unknown) (unknown) taken in the morning (uni ts (unknown) date) or late afternoon. A unknown) relaxing exercise, like yoga, can be (unknown) (no (unknown) (unknown) talking (denies) and (uni ts (unknown) date) sleep walking unknown) (denies) (unknown) (no (unknown) (unknown) the second half as (units (unknown) date) the body begins to unknown) metabolize the alcohol, causing arousal. (unknown) (no (unknown) (unknown) therapy. (units (unkno wn) date) unknown) (unknown) (no (unknown) (unknown) treatment variable (units (unknown) date) response to treatment unknown) (unknown) (no (unknown) (unknown) use. Pain is (units (u nknown) date) interfering with her unknown) sleep, neuropathy in her feet is most (unknown) (no (unknown) (unknown) verapamil (units (unkn own) date) [VERAPAMIL] Allergy unknown) (Intermediate, Verified 08/08/21 14:09) (unknown) (no (unknown) (unknown) with an optimal (units (unknown) date) AHIflow. She reports unknown) no problems with the pressure. She feels (unknown) (no (unknown) (unknown) with pressure (units ( unknown) date) support of 4-6 cwp. unknown) Result panel 9 (unknown) (no (unknown) (unknown) (no value) (units (unk nown) date) unknown) (unknown) (no (unknown) (unknown) Assessment and Plan: (uni ts (unknown) date) unknown) (unknown) (no (unknown) (unknown) Status: Chronic (units (unknown) date) unknown) (unknown) (no (unknown) (unknown) (no value) (units (unk nown) date) unknown) (unknown) (no (unknown) (unknown) (no value) (units (unk nown) date) unknown) (unknown) (no (unknown) (unknown) 02/05/22 (units (unkno wn) date) unknown) (unknown) (no (unknown) (unknown) 13:27 (units (unkno wn) date) unknown) (unknown) (no (unknown) (unknown) [place] [address] (unit s (unknown) date) unknown) (unknown) (no (unknown) (unknown) BLOATING (units (unkno wn) date) unknown) (unknown) (no (unknown) (unknown) COUGH, BLOAT (units (u nknown) date) unknown) (unknown) (no (unknown) (unknown) Draft (units (unkno wn) date) unknown) (unknown) (no (unknown) (unknown) Rash (units (unkno wn) date) unknown) (unknown) (no (unknown) (unknown) Sleep Visit (units (un known) date) unknown) (unknown) (no (unknown) (unknown) [facility]) (unknown) (no (unknown) (unknown) (no value) (units (unk nown) date) unknown) (unknown) (no (unknown) (unknown) 2: unchanged (units (u nknown) date) unknown) (unknown) (no (unknown) (unknown) Device data last 90 (unit s (unknown) date) days: unknown) (unknown) (no (unknown) (unknown) [place]unit [place] ([place]) [place] [facility] [place] (according to available medical records), (unknown) (no (unknown) (unknown) by trouble staying (units (unknown) date) asleep and unknown) non-restorative sleep. This can be seen secondary (unknown) (no (unknown) (unknown) comfortable, the (units (unknown) date) room should be quiet, unknown) not too hot or cold, or too bright. (unknown) (no (unknown) (unknown) conversations and (units (unknown) date) activities before unknown) trying to go to sleep. Don't dwell on, or (unknown) (no (unknown) (unknown) listen to the radio, (uni ts (unknown) date) or read as if you unknown) associate falling asleep with these (unknown) (no (unknown) (unknown) to sleep apnea, (units (unknown) date) depression, medical unknown) conditions or can be an independent (unknown) (no (unknown) (unknown) with a sleep (units (u nknown) date) problem, it's not a unknown) good time to start experimenting with spicy (unknown) (no (unknown) (unknown) (1) Obstructive (units (unknown) date) sleep apnea of adult: unknown) (unknown) (no (unknown) (unknown) (2) Excessive (units ( unknown) date) daytime sleepiness: unknown) (unknown) (no (unknown) (unknown) (2901-2140), normal (unit s (unknown) date) wake time unknown) ([id number]), sleep schedule (somewhat variable), (unknown) (no (unknown) (unknown) (3) Primary (units (un known) date) insomnia: unknown) (unknown) (no (unknown) (unknown) (having progressive (unit s (unknown) date) difficulties), denies unknown) depression or denies anxiety (unknown) (no (unknown) (unknown) (neuropathic pain); (unit s (unknown) date) Denies morning unknown) headache or vertigo (unknown) (no (unknown) (unknown) (waking 3 times (units (unknown) date) nightly, attributed unknown) to chronic pain and mask leak), early (unknown) (no (unknown) (unknown) 0 = Would never doze (uni ts (unknown) date) or sleep, 1 = Slight unknown) chance of dozing or sleeping, 2 = (unknown) (no (unknown) (unknown) 007 (units (unkno wn) date) unknown) (unknown) (no (unknown) (unknown) 02/05/22 (units (unkno wn) date) unknown) (unknown) (no (unknown) (unknown) 08/08/21 14:09) (units (unknown) date) unknown) (unknown) (no (unknown) (unknown) 1401 to 1404, chart (unit s (unknown) date) and compliance review unknown) (unknown) (no (unknown) (unknown) 1404 to 1419, visit (unit s (unknown) date) unknown) (unknown) (no (unknown) (unknown) 14:09) (units (unkno wn) date) unknown) (unknown) (no (unknown) (unknown) 1746 to 1749, (units ( unknown) date) charting unknown) (unknown) (no (unknown) (unknown) Adhere to regular (units (unknown) date) mealtime schedule, unknown) avoid snacking (unknown) (no (unknown) (unknown) Affect: normal (units (unknown) date) affect unknown) (unknown) (no (unknown) (unknown) Age/Sex: 71 / F (units (unknown) date) Date of Service: unknown) (unknown) (no (unknown) (unknown) Allergies (units (unkn own) date) unknown) (unknown) (no (unknown) (unknown) Assessment + Plan (units (unknown) date) unknown) (unknown) (no (unknown) (unknown) Associate your bed (units (unknown) date) with sleep. It's not unknown) a good idea to use your bed to watch TV, (unknown) (no (unknown) (unknown) Attending Dr: Kishan (uni ts (unknown) date) Janell PIPER unknown) (unknown) (no (unknown) (unknown) Attitude: (units (unkn own) date) cooperative unknown) (unknown) (no (unknown) (unknown) AutoBiPAP Set (units ( unknown) date) Pressures: IPAPmax: unknown) 16 cwp EPAPmin: 8 cwp PS: 6/4 cwp (unknown) (no (unknown) (unknown) Avoid alcohol after (unit s (unknown) date) 4 pm unknown) (unknown) (no (unknown) (unknown) Avoid medications (units (unknown) date) which may interfere unknown) with sleep (unknown) (no (unknown) (unknown) Avoid random napping (uni ts (unknown) date) during the day; it unknown) can disturb the normal pattern of sleep (unknown) (no (unknown) (unknown) Avoid stimulants (units (unknown) date) such as caffeine, unknown) nicotine, and alcohol too close to bedtime. (unknown) (no (unknown) (unknown) BMI 41.0 (units (un known) date) unknown) (unknown) (no (unknown) (unknown) BP 108/72 (units (u nknown) date) unknown) (unknown) (no (unknown) (unknown) Being a passenger in (uni ts (unknown) date) a motor vehicle for unknown) an hour or so: 3 = High (unknown) (no (unknown) (unknown) Bi-level PAP (units (u nknown) date) (16/4-6) unknown) (unknown) (no (unknown) (unknown) Bilateral bunions (units (unknown) date) unknown) (unknown) (no (unknown) (unknown) Blood Pressure (units (unknown) date) Location Lt unknown) brachial (unknown) (no (unknown) (unknown) Cardiac (units (unkno wn) date) unknown) (unknown) (no (unknown) (unknown) Chief Complaint: (units (unknown) date) Patient is here to unknown) follow up on therapy for RABIA (unknown) (no (unknown) (unknown) Clinical Course (units (unknown) date) unknown) (unknown) (no (unknown) (unknown) Condition is Onset: (unit s (unknown) date) Chronic and ongoing unknown) condition (unknown) (no (unknown) (unknown) Conjunctivae: (units ( unknown) date) conjunctivae normal unknown) (unknown) (no (unknown) (unknown) Consider weaning (units (unknown) date) caffeine use, unknown) starting with no caffeine after 3pm (unknown) (no (unknown) (unknown) Const (units (unkno wn) date) unknown) (unknown) (no (unknown) (unknown) DME [employer] (units (un known) date) unknown) (unknown) (no (unknown) (unknown) : 1950 (units (unknown) date) Acct:[id number] unknown) (unknown) (no (unknown) (unknown) Denies chest pain or (uni ts (unknown) date) nocturnal unknown) palpitations (unknown) (no (unknown) (unknown) Denies dyspnea at (units (unknown) date) night or cough unknown) (unknown) (no (unknown) (unknown) Denies itchy eyes, (units (unknown) date) redness, blurry unknown) vision or seasonal allergies (unknown) (no (unknown) (unknown) Denies reflux pain (units (unknown) date) at night or bloating unknown) on CPAP (unknown) (no (unknown) (unknown) Denies weakness (units (unknown) date) associated with unknown) strong emotion or sleep paralysis (unknown) (no (unknown) (unknown) Dept at (units (unkno wn) date) . 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 This is particularly important for (unknown) (no (unknown) (unknown) [place] Score: 21 (units (unknown) date) unknown) (unknown) (no (unknown) (unknown) [place] Sleepiness (units (unknown) date) Scale unknown) (unknown) (no (unknown) (unknown) Establish a regular (units (unknown) date) relaxing bedtime unknown) routine. Try to avoid emotionally upsetting (unknown) (no (unknown) (unknown) Exam (units (unkno wn) date) unknown) (unknown) (no (unknown) (unknown) Exam Narrative (units (unknown) date) unknown) (unknown) (no (unknown) (unknown) Exam Narrative: (units (unknown) date) unknown) (unknown) (no (unknown) (unknown) Excessive daytime (units (unknown) date) sleepiness unknown) (unknown) (no (unknown) (unknown) Eyes (units (unkno wn) date) unknown) (unknown) (no (unknown) (unknown) Food can be (units (un known) date) disruptive right unknown) before sleep; stay away from large meals close to (unknown) (no (unknown) (unknown) GI (units (unkno wn) date) unknown) (unknown) (no (unknown) (unknown) (units (unkno wn) date) unknown) (unknown) (no (unknown) (unknown) Gait: gait assisted (unit s (unknown) date) Method: walking stick unknown) (unknown) (no (unknown) (unknown) General: cooperative (uni ts (unknown) date) and no acute distress unknown) (but looks fatigued) (unknown) (no (unknown) (unknown) General: patient (units (unknown) date) alert and patient unknown) oriented x3 (unknown) (no (unknown) (unknown) Get regular moderate (uni ts (unknown) date) exercise (30 minutes, unknown) 3x/week) (unknown) (no (unknown) (unknown) HENMT (units (unkno wn) date) unknown) (unknown) (no (unknown) (unknown) HPI (units (unkno wn) date) unknown) (unknown) (no (unknown) (unknown) HPI Sleep Follow Up (unit s (unknown) date) unknown) (unknown) (no (unknown) (unknown) Head: normal to (units (unknown) date) inspection unknown) (unknown) (no (unknown) (unknown) Height 5 ft (units (unknown) date) unknown) (unknown) (no (unknown) (unknown) History of (units (unk nown) date) bunionectomy of both unknown) great toes (unknown) (no (unknown) (unknown) Intake (units (unkno wn) date) unknown) (unknown) (no (unknown) (unknown) Light exposure (units (unknown) date) during the day helps unknown) maintain a healthy sleep-wake cycle. In (unknown) (no (unknown) (unknown) Loc: SLEEP (units (unk nown) date) unknown) (unknown) (no (unknown) (unknown) Lying down in the (units (unknown) date) afternoon: 3 = High unknown) (unknown) (no (unknown) (unknown) Make sure that the (units (unknown) date) sleep environment is unknown) pleasant and relaxing. The bed should be (unknown) (no (unknown) (unknown) Medical History (units (unknown) date) (Reviewed 02/05/22 @ unknown) 13:02 by Kishan Maciel MD) (unknown) (no (unknown) (unknown) Memory loss of (units (unknown) date) unknown cause unknown) (unknown) (no (unknown) (unknown) Moderate chance of (units (unknown) date) dozing or sleeping, 3 unknown) = High chance of dozing or sleeping (unknown) (no (unknown) (unknown) Mood: congruent mood (uni ts (unknown) date) unknown) (unknown) (no (unknown) (unknown) Musc (units (unkno wn) date) unknown) (unknown) (no (unknown) (unknown) Neck (units (unkno wn) date) unknown) (unknown) (no (unknown) (unknown) Neck: normal visual (unit s (unknown) date) inspection unknown) (unknown) (no (unknown) (unknown) Neuro (units (unkno wn) date) unknown) (unknown) (no (unknown) (unknown) Neurological (units (u nknown) date) unknown) (unknown) (no (unknown) (unknown) 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 She also felt she slept (unknown) (no (unknown) (unknown) PFSH (units (unkno wn) date) unknown) (unknown) (no (unknown) (unknown) Patient instructed (units (unknown) date) to use scheduled naps unknown) as needed for drowsiness safety. (unknown) (no (unknown) (unknown) Patient reported a (units (unknown) date) history of snoring unknown) and a disturbed sleep pattern. There is (unknown) (no (unknown) (unknown) Patient reports (units (unknown) date) difficulty falling unknown) asleep is denied, difficulty staying asleep (unknown) (no (unknown) (unknown) Patient reports (units (unknown) date) symptoms of chronic unknown) insomnia for more than 3 months as evidenced (unknown) (no (unknown) (unknown) Patient was (units (un known) date) encouraged to unknown) continue with PAP therapy at IPAPmax 16, EPAPmin 18 (unknown) (no (unknown) (unknown) Patient was (units (un known) date) encouraged to unknown) maintain CPAP usage at a minimum of 4 hours a night, (unknown) (no (unknown) (unknown) Patient was (units (un known) date) instructed to avoid unknown) driving or operating heavy machinery when (unknown) (no (unknown) (unknown) Patient was (units (un known) date) instructed to return unknown) sooner if any questions or concerns arise. (unknown) (no (unknown) (unknown) Patient's compliance (uni ts (unknown) date) is good with positive unknown) clinical response including no (unknown) (no (unknown) (unknown) Patient: Terrence Buckley (uni ts (unknown) date) MR#: [id number] unknown) (unknown) (no (unknown) (unknown) Performed by (units (u nknown) date) unknown) (unknown) (no (unknown) (unknown) Performed by: (units ( unknown) date) unknown) (unknown) (no (unknown) (unknown) Pertinent (units (unkn own) date) Positives/Negatives unknown) (unknown) (no (unknown) (unknown) Plan (units (unkno wn) date) unknown) (unknown) (no (unknown) (unknown) Position Sitting (unit s (unknown) date) unknown) (unknown) (no (unknown) (unknown) Primary insomnia (units (unknown) date) unknown) (unknown) (no (unknown) (unknown) Properly timed (units (unknown) date) exercise can promote unknown) good sleep. Vigorous exercise should be (unknown) (no (unknown) (unknown) Psych (units (unkno wn) date) unknown) (unknown) (no (unknown) (unknown) Psychological (units ( unknown) date) unknown) (unknown) (no (unknown) (unknown) Pulse 71 (units (un known) date) unknown) (unknown) (no (unknown) (unknown) Questionnaires (units (unknown) date) unknown) (unknown) (no (unknown) (unknown) ROS Sleep (units (unkn own) date) unknown) (unknown) (no (unknown) (unknown) Reason For Visit (units (unknown) date) unknown) (unknown) (no (unknown) (unknown) Khushi Alvarez [employer] (units (unknown) date) unknown) (unknown) (no (unknown) (unknown) Reports daytime (units (unknown) date) sleepiness, Reports unknown) fatigue, Denies snoring and Denies stops (unknown) (no (unknown) (unknown) Reports dizzy in the (uni ts (unknown) date) morning, trouble unknown) concentrating or focusing and other (unknown) (no (unknown) (unknown) Reports dry mouth in (uni ts (unknown) date) the morning; Denies unknown) runny nose, nasal congestion at night (unknown) (no (unknown) (unknown) Reports myalgia (units (unknown) date) interfering with unknown) sleep and arthralgia interfering with sleep; (unknown) (no (unknown) (unknown) Reports napping on a (uni ts (unknown) date) regular basis; Denies unknown) depression, anxiety, hypnagogic (unknown) (no (unknown) (unknown) Reports nocturia (units (unknown) date) unknown) (unknown) (no (unknown) (unknown) Resp (units (unkno wn) date) unknown) (unknown) (no (unknown) (unknown) Respiration 16 (units (unknown) date) unknown) (unknown) (no (unknown) (unknown) Respiratory (units (un known) date) unknown) (unknown) (no (unknown) (unknown) Return visit in 6 (units (unknown) date) months to assess unknown) continued response to PAP therapy (unknown) (no (unknown) (unknown) S/P lumbar spinal (units (unknown) date) fusion unknown) (unknown) (no (unknown) (unknown) Sclera: sclerae (units (unknown) date) normal unknown) (unknown) (no (unknown) (unknown) She is currently on (unit s (unknown) date) nasal Bi-level PAP at unknown) -. She is using it regularly (unknown) (no (unknown) (unknown) Signed By: (units (unk nown) date) unknown) (unknown) (no (unknown) (unknown) Sitting and Reading: (uni ts (unknown) date) 3 = High unknown) (unknown) (no (unknown) (unknown) Sitting and talking (unit s (unknown) date) to someone: 0 = Never unknown) (None) (unknown) (no (unknown) (unknown) Sitting inactive in (unit s (unknown) date) a public place: 3 = unknown) High (unknown) (no (unknown) (unknown) Sitting quietly (units (unknown) date) after lunch (no unknown) alcohol): 3 = High (unknown) (no (unknown) (unknown) Sleep Procedure (units (unknown) date) unknown) (unknown) (no (unknown) (unknown) Smoking Status: (units (unknown) date) Never smoker unknown) (unknown) (no (unknown) (unknown) Social History (units (unknown) date) unknown) (unknown) (no (unknown) (unknown) Speech: speech (units (unknown) date) normal unknown) (unknown) (no (unknown) (unknown) Stopped for a few (units (unknown) date) minutes in traffic: 3 unknown) = High (unknown) (no (unknown) (unknown) Sub-optimal therapy (unit s (unknown) date) unknown) (unknown) (no (unknown) (unknown) Surgical History (units (unknown) date) (Reviewed 02/05/22 @ unknown) 13:02 by Kishan Maciel MD) (unknown) (no (unknown) (unknown) Symptoms (units (unkno wn) date) unknown) (unknown) (no (unknown) (unknown) Tech Observations (units (unknown) date) unknown) (unknown) (no (unknown) (unknown) Tech Observations: (units (unknown) date) unknown) (unknown) (no (unknown) (unknown) Temp 97.6 F (units (unknown) date) unknown) (unknown) (no (unknown) (unknown) The patient reported (uni ts (unknown) date) symptoms of excessive unknown) daytime sleepiness as evidenced by (unknown) (no (unknown) (unknown) This note may have (units (unknown) date) been all or partially unknown) generated using voice recognition (unknown) (no (unknown) (unknown) Time Coding Minutes (unit s (unknown) date) Spent: (must be on unknown) same date of service/appointment) (unknown) (no (unknown) (unknown) Time Spent (units (unk nown) date) unknown) (unknown) (no (unknown) (unknown) Tobacco + Substance (unit s (unknown) date) Use unknown) (unknown) (no (unknown) (unknown) Tobacco Status (units (unknown) date) unknown) (unknown) (no (unknown) (unknown) Treatment Effects: (units (unknown) date) Pap Treatment unknown) Response/Side Effects: adherent to current PAP (unknown) (no (unknown) (unknown) Treatment (units (unkn own) date) Response/Side Affects unknown) (unknown) (no (unknown) (unknown) Type 2 diabetes (units (unknown) date) mellitus unknown) (unknown) (no (unknown) (unknown) Usage: 100%, w/98.9% (unit s (unknown) date) of that time > 4 unknown) hours. Leak: 13 sec flowAHI: 0.6 (unknown) (no (unknown) (unknown) Visit Reasons: 6M (units (unknown) date) unknown) (unknown) (no (unknown) (unknown) Visit type (FU): (units (unknown) date) follow up of RABIA unknown) therapy Follow up evaluation of RABIA therapy: (unknown) (no (unknown) (unknown) Vitals (units (unkno wn) date) unknown) (unknown) (no (unknown) (unknown) Watching TV: 3 = (units (unknown) date) High unknown) (unknown) (no (unknown) (unknown) Weight 210 lb (units (unknown) date) unknown) (unknown) (no (unknown) (unknown) While alcohol is (units (unknown) date) well known to speed unknown) the onset of sleep, it disrupts sleep in (unknown) (no (unknown) (unknown) activities, you may (unit s (unknown) date) have more problems unknown) getting back to sleep during the night. (unknown) (no (unknown) (unknown) addition, avoiding (units (unknown) date) nighttime bright unknown) light exposure, which can occur with many (unknown) (no (unknown) (unknown) also a history of (units (unknown) date) hypertension with a unknown) Mallampati score of IV. For this a (unknown) (no (unknown) (unknown) an [place] (units (unk nown) date) Sleepiness scale unknown) score of 22/24. Her pain is significant and it is (unknown) (no (unknown) (unknown) and sleep quality. (units (unknown) date) Her NPO on CPAP was unknown) positive, so she under went a bi-level (unknown) (no (unknown) (unknown) and wakefulness. (units (unknown) date) Scheduled napping may unknown) be considered if appropriate for the (unknown) (no (unknown) (unknown) bedtime. Also dietary (uni ts (unknown) date) changes can cause unknown) sleep problems, if someone is struggling (unknown) (no (unknown) (unknown) better on b-level (units (unknown) date) PAP. She is currently unknown) on bi-level PAP machine at 16/8/4-6 and (unknown) (no (unknown) (unknown) breathing during (units (unknown) date) sleep unknown) (unknown) (no (unknown) (unknown) bring your problems (unit s (unknown) date) to bed. unknown) (unknown) (no (unknown) (unknown) but increased (units ( unknown) date) benefit from more unknown) usage was also explained. (unknown) (no (unknown) (unknown) can be seen (units (un known) date) secondary to sleep unknown) apnea, insomnia, depression, medical conditions (unknown) (no (unknown) (unknown) caregiver/support (units (unknown) date) person: No unknown) (unknown) (no (unknown) (unknown) clinical response (units (unknown) date) including no snoring. unknown) It is clear she would benefit from the (unknown) (no (unknown) (unknown) compliance wais (units (unknown) date) excellent with a unknown) normal AHIflow, but she was snoring and her (unknown) (no (unknown) (unknown) condition (units (unkn own) date) unknown) (unknown) (no (unknown) (unknown) continued use of PAP (uni ts (unknown) date) therapy. The patient unknown) is willing to continue with PAP (unknown) (no (unknown) (unknown) daytime sleeping and (uni ts (unknown) date) an elevated [place] unknown) Sleepiness Scale score of 12/24. This (unknown) (no (unknown) (unknown) daytime somnolence (units (unknown) date) frequent, snoring unknown) (denies), apnea (denies), choking or (unknown) (no (unknown) (unknown) denies night sweats, (uni ts (unknown) date) denies morning unknown) headache, denies nasal congestion at night, (unknown) (no (unknown) (unknown) denies nocturnal (units (unknown) date) palpitations, denies unknown) heart burn symptoms at night, reports (unknown) (no (unknown) (unknown) details: bayron Wu, (uni ts (unknown) date) lives in [place] unknown) (unknown) (no (unknown) (unknown) diagnostic sleep (units (unknown) date) study was performed unknown) and showed obstructive sleep apnea. (unknown) (no (unknown) (unknown) dishes. And, (units (u nknown) date) remember, chocolate unknown) has caffeine. (unknown) (no (unknown) (unknown) disturbing to her (units (unknown) date) sleep. unknown) (unknown) (no (unknown) (unknown) dizziness in the (units (unknown) date) morning, reports unknown) trouble consentrating/focusin g durng the day (unknown) (no (unknown) (unknown) done before bed to (units (unknown) date) help initiate a unknown) restful night's sleep. (unknown) (no (unknown) (unknown) drowsiness. (units (un known) date) Drowsiness risks and unknown) symptoms reviewed. (unknown) (no (unknown) (unknown) drowsy. Drowsy (units (unknown) date) driving handout made unknown) available. (unknown) (no (unknown) (unknown) effecting the (units ( unknown) date) quality of her sleep unknown) and the pain medication adds to her (unknown) (no (unknown) (unknown) gasping (denies), (units (unknown) date) epworth sleep scale unknown) score (22/24), bruxism (denies), sleep (unknown) (no (unknown) (unknown) hallucinations or (units (unknown) date) sleep paralysis unknown) (unknown) (no (unknown) (unknown) has not improved. (units (unknown) date) unknown) (unknown) (no (unknown) (unknown) have occurred. If (units (unknown) date) there are any unknown) questions, please contact the Medical Records (unknown) (no (unknown) (unknown) having already been (unit s (unknown) date) on CPAP, and was unknown) effective until 2017 when she developed (unknown) (no (unknown) (unknown) headaches and (units ( unknown) date) nocturia, as well as unknown) diminishing cognitive capabilities. An NPO (unknown) (no (unknown) (unknown) her compliance is (units (unknown) date) excellent with an unknown) optimal AHIflow. She also reports positive (unknown) (no (unknown) (unknown) her head (units (unkno wn) date) unknown) (unknown) (no (unknown) (unknown) hours ) frequent, (units (unknown) date) spending time in bed unknown) not sleeping a little, normal bedtime (unknown) (no (unknown) (unknown) household members: (units (unknown) date) spouse unknown) (unknown) (no (unknown) (unknown) housing: house (units (unknown) date) unknown) (unknown) (no (unknown) (unknown) hydrochlorothiazide (unit s (unknown) date) [From ZESTORETIC] unknown) Allergy (Intermediate, Verified 08/08/21 (unknown) (no (unknown) (unknown) insulin detemir (units (unknown) date) [From Levemir U-100 unknown) Insulin] Allergy (Intermediate, Verified (unknown) (no (unknown) (unknown) lisinopril [From (units (unknown) date) ZESTORETIC] Allergy unknown) (Intermediate, Verified 08/08/21 14:09) (unknown) (no (unknown) (unknown) lives independently: (uni ts (unknown) date) Yes unknown) (unknown) (no (unknown) (unknown) marital status: (units (unknown) date) unknown) (unknown) (no (unknown) (unknown) may occur. (units (unk nown) date) Occasional wrong-word unknown) or 'sound-alike' substitutions may have (unknown) (no (unknown) (unknown) medium cushion (units (unknown) date) unknown) (unknown) (no (unknown) (unknown) morning awakening (units (unknown) date) (may wake at unknown) [id number], up for 2 hours, back to sleep for 3 (unknown) (no (unknown) (unknown) nocturia (3 times (units (unknown) date) nightly), reports unknown) pain (feet, legs, low back), denies (unknown) (no (unknown) (unknown) occurred due to the (unit s (unknown) date) inherent limitations unknown) of voice recognition software. Please (unknown) (no (unknown) (unknown) older people who may (uni ts (unknown) date) not venture outside unknown) as frequently as children and adults. (unknown) (no (unknown) (unknown) on PAP well, sleep (units (unknown) date) quality okay and unknown) daytime sleepiness Daytime Sleepiness Branch (unknown) (no (unknown) (unknown) optimal sleep (units ( unknown) date) schedule. unknown) (unknown) (no (unknown) (unknown) or can be a primary (unit s (unknown) date) problem. This unknown) continues to be elevated on PAP therapy with (unknown) (no (unknown) (unknown) or sore throat in (units (unknown) date) the morning unknown) (unknown) (no (unknown) (unknown) personal electronic (unit s (unknown) date) devices, can also unknown) help maintain a healthy sleep-wake cycle. (unknown) (no (unknown) (unknown) pressures, found to (unit s (unknown) date) be 17/11 cwp. unknown) (unknown) (no (unknown) (unknown) problem. Sleep (units (unknown) date) hygiene and sleep unknown) schedules were discussed. This has improved (unknown) (no (unknown) (unknown) pt complaining of (units (unknown) date) some discomfort with unknown) the [place] Paykal Eson 2 at the back of (unknown) (no (unknown) (unknown) pt will let us know (unit s (unknown) date) if this mask will unknown) work for her (unknown) (no (unknown) (unknown) read the note (units ( unknown) date) carefully and unknown) recognize, using context, where these substitutions (unknown) (no (unknown) (unknown) reports dry mouth, (units (unknown) date) denies sore throat in unknown) the morning, denies nocturnal cough, (unknown) (no (unknown) (unknown) seconds <= 88%. She (unit s (unknown) date) repeated the biPAP unknown) titration study to identify optimal (unknown) (no (unknown) (unknown) sent home with pt to (uni ts (unknown) date) try the Resmed Airfit unknown) N20 standard headgear small and (unknown) (no (unknown) (unknown) sentences, no (units ( unknown) date) audible wheezes, no unknown) cough, no grunting and not labored (unknown) (no (unknown) (unknown) she is benefitting (units (unknown) date) from bi-level PAP unknown) therapy and is motivated to continue its (unknown) (no (unknown) (unknown) sleep quality was (units (unknown) date) less than optimal. unknown) Her pressure was increased for the snoring (unknown) (no (unknown) (unknown) snoring but she (units (unknown) date) continues to have unknown) significant daytime sleepiness. Patient's (unknown) (no (unknown) (unknown) software. 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 In (unit s (unknown) date) 06/2019 she reported unknown) new onset night sweats, morning (unknown) (no (unknown) (unknown) study (07/20/19) (units (unknown) date) showed GAVIN: 19, with unknown) eufemia SpO2: 60%, and spent 62 minutes 18 (unknown) (no (unknown) (unknown) substance use type: (unit s (unknown) date) does not use unknown) (unknown) (no (unknown) (unknown) suggested and showed (uni ts (unknown) date) pt the resmed Airfit unknown) N20 (unknown) (no (unknown) (unknown) symptoms of CPAP (units (unknown) date) failure. Switched to unknown) bi-levelPAP therapy after a titration (unknown) (no (unknown) (unknown) taken in the morning (uni ts (unknown) date) or late afternoon. A unknown) relaxing exercise, like yoga, can be (unknown) (no (unknown) (unknown) talking (denies) and (uni ts (unknown) date) sleep walking unknown) (denies) (unknown) (no (unknown) (unknown) the second half as (units (unknown) date) the body begins to unknown) metabolize the alcohol, causing arousal. (unknown) (no (unknown) (unknown) therapy. (units (unkno wn) date) unknown) (unknown) (no (unknown) (unknown) treatment variable (units (unknown) date) response to treatment unknown) (unknown) (no (unknown) (unknown) use. Pain is (units (u nknown) date) interfering with her unknown) sleep, neuropathy in her feet is most (unknown) (no (unknown) (unknown) verapamil (units (unkn own) date) [VERAPAMIL] Allergy unknown) (Intermediate, Verified 08/08/21 14:09) (unknown) (no (unknown) (unknown) with an optimal (units (unknown) date) AHIflow. She reports unknown) no problems with the pressure. She feels (unknown) (no (unknown) (unknown) with pressure (units ( unknown) date) support of 4-6 cwp. unknown) Result panel 10 (unknown) (no (unknown) (unknown) (no value) (units (unk nown) date) unknown) (unknown) (no (unknown) (unknown) Assessment and Plan: (uni ts (unknown) date) unknown) (unknown) (no (unknown) (unknown) Status: Chronic (units (unknown) date) unknown) (unknown) (no (unknown) (unknown) (no value) (units (unk nown) date) unknown) (unknown) (no (unknown) (unknown) (no value) (units (unk nown) date) unknown) (unknown) (no (unknown) (unknown) 02/05/22 (units (unkno wn) date) unknown) (unknown) (no (unknown) (unknown) 02/05/22 1653 (units ( unknown) date) unknown) (unknown) (no (unknown) (unknown) 13:27 (units (unkno wn) date) unknown) (unknown) (no (unknown) (unknown) RAUL Bass [id number] (unit s (unknown) date) unknown) (unknown) (no (unknown) (unknown) BLOATING (units (unkno wn) date) unknown) (unknown) (no (unknown) (unknown) COUGH, BLOAT (units (u nknown) date) unknown) (unknown) (no (unknown) (unknown) Rash (units (unkno wn) date) unknown) (unknown) (no (unknown) (unknown) Signed (units (unkno wn) date) unknown) (unknown) (no (unknown) (unknown) Sleep Visit (units (un known) date) unknown) (unknown) (no (unknown) (unknown) [facility] unknown) (unknown) (no (unknown) (unknown) (no value) (units (unk nown) date) unknown) (unknown) (no (unknown) (unknown) 2: unchanged (units (u nknown) date) unknown) (unknown) (no (unknown) (unknown) Device data last 90 (unit s (unknown) date) days: unknown) (unknown) (no (unknown) (unknown) [place] ([place] [facility] [place] (according to available medical records), (unknown) (no (unknown) (unknown) by trouble staying (units (unknown) date) asleep and unknown) non-restorative sleep. This can be seen secondary (unknown) (no (unknown) (unknown) comfortable, the (units (unknown) date) room should be quiet, unknown) not too hot or cold, or too bright. (unknown) (no (unknown) (unknown) conversations and (units (unknown) date) activities before unknown) trying to go to sleep. Don't dwell on, or (unknown) (no (unknown) (unknown) listen to the radio, (uni ts (unknown) date) or read as if you unknown) associate falling asleep with these (unknown) (no (unknown) (unknown) to sleep apnea, (units (unknown) date) depression, medical unknown) conditions or can be an independent (unknown) (no (unknown) (unknown) with a sleep (units (u nknown) date) problem, it's not a unknown) good time to start experimenting with spicy (unknown) (no (unknown) (unknown) (1) Obstructive (units (unknown) date) sleep apnea of adult: unknown) (unknown) (no (unknown) (unknown) (2) Excessive (units ( unknown) date) daytime sleepiness: unknown) (unknown) (no (unknown) (unknown) ([id number]), normal (unit s (unknown) date) wake time unknown) ([id number]), sleep schedule (somewhat variable), (unknown) (no (unknown) (unknown) (3) Primary (units (un known) date) insomnia: unknown) (unknown) (no (unknown) (unknown) (having progressive (unit s (unknown) date) difficulties), denies unknown) depression or denies anxiety (unknown) (no (unknown) (unknown) (neuropathic pain); (unit s (unknown) date) Denies morning unknown) headache or vertigo (unknown) (no (unknown) (unknown) (waking 3 times (units (unknown) date) nightly, attributed unknown) to chronic pain and mask leak), early (unknown) (no (unknown) (unknown) 0 = Would never doze (uni ts (unknown) date) or sleep, 1 = Slight unknown) chance of dozing or sleeping, 2 = (unknown) (no (unknown) (unknown) 007 (units (unkno wn) date) unknown) (unknown) (no (unknown) (unknown) 02/05/22 (units (unkno wn) date) unknown) (unknown) (no (unknown) (unknown) 08/08/21 14:09) (units (unknown) date) unknown) (unknown) (no (unknown) (unknown) 1401 to 1404, chart (unit s (unknown) date) and compliance review unknown) (unknown) (no (unknown) (unknown) 1404 to 1419, visit (unit s (unknown) date) unknown) (unknown) (no (unknown) (unknown) 14:09) (units (unkno wn) date) unknown) (unknown) (no (unknown) (unknown) 1746 to 1749, (units ( unknown) date) charting unknown) (unknown) (no (unknown) (unknown) Adhere to regular (units (unknown) date) mealtime schedule, unknown) avoid snacking (unknown) (no (unknown) (unknown) Affect: normal (units (unknown) date) affect unknown) (unknown) (no (unknown) (unknown) Age/Sex: 71 / F (units (unknown) date) Date of Service: unknown) (unknown) (no (unknown) (unknown) Allergies (units (unkn own) date) unknown) (unknown) (no (unknown) (unknown) Assessment + Plan (units (unknown) date) unknown) (unknown) (no (unknown) (unknown) Associate your bed (units (unknown) date) with sleep. It's not unknown) a good idea to use your bed to watch TV, (unknown) (no (unknown) (unknown) Attending Dr: Kishan (uni ts (unknown) date) Janell PIPER unknown) (unknown) (no (unknown) (unknown) Attitude: (units (unkn own) date) cooperative unknown) (unknown) (no (unknown) (unknown) AutoBiPAP Set (units ( unknown) date) Pressures: IPAPmax: unknown) 16 cwp EPAPmin: 8 cwp PS: 6/4 cwp (unknown) (no (unknown) (unknown) Avoid alcohol after (unit s (unknown) date) 4 pm unknown) (unknown) (no (unknown) (unknown) Avoid medications (units (unknown) date) which may interfere unknown) with sleep (unknown) (no (unknown) (unknown) Avoid random napping (uni ts (unknown) date) during the day; it unknown) can disturb the normal pattern of sleep (unknown) (no (unknown) (unknown) Avoid stimulants (units (unknown) date) such as caffeine, unknown) nicotine, and alcohol too close to bedtime. (unknown) (no (unknown) (unknown) BMI 41.0 (units (un known) date) unknown) (unknown) (no (unknown) (unknown) BP 108/72 (units (u nknown) date) unknown) (unknown) (no (unknown) (unknown) Being a passenger in (uni ts (unknown) date) a motor vehicle for unknown) an hour or so: 3 = High (unknown) (no (unknown) (unknown) Bi-level PAP (units (u nknown) date) (16//4-6) unknown) (unknown) (no (unknown) (unknown) Bilateral bunions (units (unknown) date) unknown) (unknown) (no (unknown) (unknown) Blood Pressure (units (unknown) date) Location Lt unknown) brachial (unknown) (no (unknown) (unknown) Cardiac (units (unkno wn) date) unknown) (unknown) (no (unknown) (unknown) Chief Complaint: (units (unknown) date) Patient is here to unknown) follow up on therapy for RABIA (unknown) (no (unknown) (unknown) Clinical Course (units (unknown) date) unknown) (unknown) (no (unknown) (unknown) Condition is Onset: (unit s (unknown) date) Chronic and ongoing unknown) condition (unknown) (no (unknown) (unknown) Conjunctivae: (units ( unknown) date) conjunctivae normal unknown) (unknown) (no (unknown) (unknown) Consider weaning (units (unknown) date) caffeine use, unknown) starting with no caffeine after 3pm (unknown) (no (unknown) (unknown) Const (units (unkno wn) date) unknown) (unknown) (no (unknown) (unknown) DME [employer] (units (un known) date) unknown) (unknown) (no (unknown) (unknown) : 1950 (units (unknown) date) Acct:[id number] unknown) (unknown) (no (unknown) (unknown) Denies chest pain or (uni ts (unknown) date) nocturnal unknown) palpitations (unknown) (no (unknown) (unknown) Denies dyspnea at (units (unknown) date) night or cough unknown) (unknown) (no (unknown) (unknown) Denies itchy eyes, (units (unknown) date) redness, blurry unknown) vision or seasonal allergies (unknown) (no (unknown) (unknown) Denies reflux pain (units (unknown) date) at night or bloating unknown) on CPAP (unknown) (no (unknown) (unknown) Denies weakness (units (unknown) date) associated with unknown) strong emotion or sleep paralysis (unknown) (no (unknown) (unknown) Dept at (units (unkno wn) date) . 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 This is particularly important for (unknown) (no (unknown) (unknown) [place] Score: 21 (units (unknown) date) unknown) (unknown) (no (unknown) (unknown) [place] Sleepiness (units (unknown) date) Scale unknown) (unknown) (no (unknown) (unknown) Establish a regular (units (unknown) date) relaxing bedtime unknown) routine. Try to avoid emotionally upsetting (unknown) (no (unknown) (unknown) Exam (units (unkno wn) date) unknown) (unknown) (no (unknown) (unknown) Exam Narrative (units (unknown) date) unknown) (unknown) (no (unknown) (unknown) Exam Narrative: (units (unknown) date) unknown) (unknown) (no (unknown) (unknown) Excessive daytime (units (unknown) date) sleepiness unknown) (unknown) (no (unknown) (unknown) Eyes (units (unkno wn) date) unknown) (unknown) (no (unknown) (unknown) Food can be (units (un known) date) disruptive right unknown) before sleep; stay away from large meals close to (unknown) (no (unknown) (unknown) GI (units (unkno wn) date) unknown) (unknown) (no (unknown) (unknown) (units (unkno wn) date) unknown) (unknown) (no (unknown) (unknown) Gait: gait assisted (unit s (unknown) date) Method: walking stick unknown) (unknown) (no (unknown) (unknown) General: cooperative (uni ts (unknown) date) and no acute distress unknown) (but looks fatigued) (unknown) (no (unknown) (unknown) General: patient (units (unknown) date) alert and patient unknown) oriented x3 (unknown) (no (unknown) (unknown) Get regular moderate (uni ts (unknown) date) exercise (30 minutes, unknown) 3x/week) (unknown) (no (unknown) (unknown) HENMT (units (unkno wn) date) unknown) (unknown) (no (unknown) (unknown) HPI (units (unkno wn) date) unknown) (unknown) (no (unknown) (unknown) HPI Sleep Follow Up (unit s (unknown) date) unknown) (unknown) (no (unknown) (unknown) Head: normal to (units (unknown) date) inspection unknown) (unknown) (no (unknown) (unknown) Height 152.4 cm (units (unknown) date) unknown) (unknown) (no (unknown) (unknown) History of (units (unk nown) date) bunionectomy of both unknown) great toes (unknown) (no (unknown) (unknown) Intake (units (unkno wn) date) unknown) (unknown) (no (unknown) (unknown) Light exposure (units (unknown) date) during the day helps unknown) maintain a healthy sleep-wake cycle. In (unknown) (no (unknown) (unknown) Loc: SLEEP (units (unk nown) date) unknown) (unknown) (no (unknown) (unknown) Lying down in the (units (unknown) date) afternoon: 3 = High unknown) (unknown) (no (unknown) (unknown) Make sure that the (units (unknown) date) sleep environment is unknown) pleasant and relaxing. The bed should be (unknown) (no (unknown) (unknown) Medical History (units (unknown) date) (Reviewed 02/05/22 @ unknown) 13:02 by Kishan Maciel MD) (unknown) (no (unknown) (unknown) Memory loss of (units (unknown) date) unknown cause unknown) (unknown) (no (unknown) (unknown) Moderate chance of (units (unknown) date) dozing or sleeping, 3 unknown) = High chance of dozing or sleeping (unknown) (no (unknown) (unknown) Mood: congruent mood (uni ts (unknown) date) unknown) (unknown) (no (unknown) (unknown) Musc (units (unkno wn) date) unknown) (unknown) (no (unknown) (unknown) Neck (units (unkno wn) date) unknown) (unknown) (no (unknown) (unknown) Neck: normal visual (unit s (unknown) date) inspection unknown) (unknown) (no (unknown) (unknown) Neuro (units (unkno wn) date) unknown) (unknown) (no (unknown) (unknown) Neurological (units (u nknown) date) unknown) (unknown) (no (unknown) (unknown) 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 She also felt she slept (unknown) (no (unknown) (unknown) PFSH (units (unkno wn) date) unknown) (unknown) (no (unknown) (unknown) Patient instructed (units (unknown) date) to use scheduled naps unknown) as needed for drowsiness safety. (unknown) (no (unknown) (unknown) Patient reported a (units (unknown) date) history of snoring unknown) and a disturbed sleep pattern. There is (unknown) (no (unknown) (unknown) Patient reports (units (unknown) date) difficulty falling unknown) asleep is denied, difficulty staying asleep (unknown) (no (unknown) (unknown) Patient reports (units (unknown) date) symptoms of chronic unknown) insomnia for more than 3 months as evidenced (unknown) (no (unknown) (unknown) Patient was (units (un known) date) encouraged to unknown) continue with PAP therapy at IPAPmax 16, EPAPmin 18 (unknown) (no (unknown) (unknown) Patient was (units (un known) date) encouraged to unknown) maintain CPAP usage at a minimum of 4 hours a night, (unknown) (no (unknown) (unknown) Patient was (units (un known) date) instructed to avoid unknown) driving or operating heavy machinery when (unknown) (no (unknown) (unknown) Patient was (units (un known) date) instructed to return unknown) sooner if any questions or concerns arise. (unknown) (no (unknown) (unknown) Patient's compliance (uni ts (unknown) date) is good with positive unknown) clinical response including no (unknown) (no (unknown) (unknown) Patient: Terrence Buckley (uni ts (unknown) date) MR#: [id number] unknown) (unknown) (no (unknown) (unknown) Performed by (units (u nknown) date) unknown) (unknown) (no (unknown) (unknown) Performed by: (units ( unknown) date) unknown) (unknown) (no (unknown) (unknown) Pertinent (units (unkn own) date) Positives/Negatives unknown) (unknown) (no (unknown) (unknown) Plan (units (unkno wn) date) unknown) (unknown) (no (unknown) (unknown) Position Sitting (unit s (unknown) date) unknown) (unknown) (no (unknown) (unknown) Primary insomnia (units (unknown) date) unknown) (unknown) (no (unknown) (unknown) Properly timed (units (unknown) date) exercise can promote unknown) good sleep. Vigorous exercise should be (unknown) (no (unknown) (unknown) Psych (units (unkno wn) date) unknown) (unknown) (no (unknown) (unknown) Psychological (units ( unknown) date) unknown) (unknown) (no (unknown) (unknown) Pulse 71 (units (un known) date) unknown) (unknown) (no (unknown) (unknown) Questionnaires (units (unknown) date) unknown) (unknown) (no (unknown) (unknown) ROS Sleep (units (unkn own) date) unknown) (unknown) (no (unknown) (unknown) Reason For Visit (units (unknown) date) unknown) (unknown) (no (unknown) (unknown) [employer] (units (unknown) date) unknown) (unknown) (no (unknown) (unknown) Reports daytime (units (unknown) date) sleepiness, Reports unknown) fatigue, Denies snoring and Denies stops (unknown) (no (unknown) (unknown) Reports dizzy in the (uni ts (unknown) date) morning, trouble unknown) concentrating or focusing and other (unknown) (no (unknown) (unknown) Reports dry mouth in (uni ts (unknown) date) the morning; Denies unknown) runny nose, nasal congestion at night (unknown) (no (unknown) (unknown) Reports myalgia (units (unknown) date) interfering with unknown) sleep and arthralgia interfering with sleep; (unknown) (no (unknown) (unknown) Reports napping on a (uni ts (unknown) date) regular basis; Denies unknown) depression, anxiety, hypnagogic (unknown) (no (unknown) (unknown) Reports nocturia (units (unknown) date) unknown) (unknown) (no (unknown) (unknown) Resp (units (unkno wn) date) unknown) (unknown) (no (unknown) (unknown) Respiration 16 (units (unknown) date) unknown) (unknown) (no (unknown) (unknown) Respiratory (units (un known) date) unknown) (unknown) (no (unknown) (unknown) Return visit in 6 (units (unknown) date) months to assess unknown) continued response to PAP therapy (unknown) (no (unknown) (unknown) S/P lumbar spinal (units (unknown) date) fusion unknown) (unknown) (no (unknown) (unknown) Sclera: sclerae (units (unknown) date) normal unknown) (unknown) (no (unknown) (unknown) She is currently on (unit s (unknown) date) nasal Bi-level PAP at unknown) -. She is using it regularly (unknown) (no (unknown) (unknown) Signed By: (units (unk nown) date) <Electronically unknown) signed by Kishan Maciel MD> (unknown) (no (unknown) (unknown) Sitting and Reading: (uni ts (unknown) date) 3 = High unknown) (unknown) (no (unknown) (unknown) Sitting and talking (unit s (unknown) date) to someone: 0 = Never unknown) (None) (unknown) (no (unknown) (unknown) Sitting inactive in (unit s (unknown) date) a public place: 3 = unknown) High (unknown) (no (unknown) (unknown) Sitting quietly (units (unknown) date) after lunch (no unknown) alcohol): 3 = High (unknown) (no (unknown) (unknown) Sleep Procedure (units (unknown) date) unknown) (unknown) (no (unknown) (unknown) Smoking Status: (units (unknown) date) Never smoker unknown) (unknown) (no (unknown) (unknown) Social History (units (unknown) date) unknown) (unknown) (no (unknown) (unknown) Speech: speech (units (unknown) date) normal unknown) (unknown) (no (unknown) (unknown) Stopped for a few (units (unknown) date) minutes in traffic: 3 unknown) = High (unknown) (no (unknown) (unknown) Sub-optimal therapy (unit s (unknown) date) unknown) (unknown) (no (unknown) (unknown) Surgical History (units (unknown) date) (Reviewed 02/05/22 @ unknown) 13:02 by Kishan Maciel MD) (unknown) (no (unknown) (unknown) Symptoms (units (unkno wn) date) unknown) (unknown) (no (unknown) (unknown) Tech Observations (units (unknown) date) unknown) (unknown) (no (unknown) (unknown) Tech Observations: (units (unknown) date) unknown) (unknown) (no (unknown) (unknown) Temp 97.6 F (units (unknown) date) unknown) (unknown) (no (unknown) (unknown) The patient reported (uni ts (unknown) date) symptoms of excessive unknown) daytime sleepiness as evidenced by (unknown) (no (unknown) (unknown) This note may have (units (unknown) date) been all or partially unknown) generated using voice recognition (unknown) (no (unknown) (unknown) Time Coding Minutes (unit s (unknown) date) Spent: (must be on unknown) same date of service/appointment) (unknown) (no (unknown) (unknown) Time Spent (units (unk nown) date) unknown) (unknown) (no (unknown) (unknown) Tobacco + Substance (unit s (unknown) date) Use unknown) (unknown) (no (unknown) (unknown) Tobacco Status (units (unknown) date) unknown) (unknown) (no (unknown) (unknown) Treatment Effects: (units (unknown) date) Pap Treatment unknown) Response/Side Effects: adherent to current PAP (unknown) (no (unknown) (unknown) Treatment (units (unkn own) date) Response/Side Affects unknown) (unknown) (no (unknown) (unknown) Type 2 diabetes (units (unknown) date) mellitus unknown) (unknown) (no (unknown) (unknown) Usage: 100%, w/98.9% (unit s (unknown) date) of that time > 4 unknown) hours. Leak: 13 sec flowAHI: 0.6 (unknown) (no (unknown) (unknown) Visit Reasons: 6M (units (unknown) date) unknown) (unknown) (no (unknown) (unknown) Visit type (FU): (units (unknown) date) follow up of RABIA unknown) therapy Follow up evaluation of RABIA therapy: (unknown) (no (unknown) (unknown) Vitals (units (unkno wn) date) unknown) (unknown) (no (unknown) (unknown) Watching TV: 3 = (units (unknown) date) High unknown) (unknown) (no (unknown) (unknown) Weight 95.254 kg (unit s (unknown) date) unknown) (unknown) (no (unknown) (unknown) While alcohol is (units (unknown) date) well known to speed unknown) the onset of sleep, it disrupts sleep in (unknown) (no (unknown) (unknown) activities, you may (unit s (unknown) date) have more problems unknown) getting back to sleep during the night. (unknown) (no (unknown) (unknown) addition, avoiding (units (unknown) date) nighttime bright unknown) light exposure, which can occur with many (unknown) (no (unknown) (unknown) also a history of (units (unknown) date) hypertension with a unknown) Mallampati score of IV. For this a (unknown) (no (unknown) (unknown) an [place] (units (unk nown) date) Sleepiness scale unknown) score of 22/24. Her pain is significant and it is (unknown) (no (unknown) (unknown) and sleep quality. (units (unknown) date) Her NPO on CPAP was unknown) positive, so she under went a bi-level (unknown) (no (unknown) (unknown) and wakefulness. (units (unknown) date) Scheduled napping may unknown) be considered if appropriate for the (unknown) (no (unknown) (unknown) bedtime. Also dietary (uni ts (unknown) date) changes can cause unknown) sleep problems, if someone is struggling (unknown) (no (unknown) (unknown) better on b-level (units (unknown) date) PAP. She is currently unknown) on bi-level PAP machine at 16/8/4-6 and (unknown) (no (unknown) (unknown) breathing during (units (unknown) date) sleep unknown) (unknown) (no (unknown) (unknown) bring your problems (unit s (unknown) date) to bed. unknown) (unknown) (no (unknown) (unknown) but increased (units ( unknown) date) benefit from more unknown) usage was also explained. (unknown) (no (unknown) (unknown) can be seen (units (un known) date) secondary to sleep unknown) apnea, insomnia, depression, medical conditions (unknown) (no (unknown) (unknown) caregiver/support (units (unknown) date) person: No unknown) (unknown) (no (unknown) (unknown) clinical response (units (unknown) date) including no snoring. unknown) It is clear she would benefit from the (unknown) (no (unknown) (unknown) compliance wais (units (unknown) date) excellent with a unknown) normal AHIflow, but she was snoring and her (unknown) (no (unknown) (unknown) condition (units (unkn own) date) unknown) (unknown) (no (unknown) (unknown) continued use of PAP (uni ts (unknown) date) therapy. The patient unknown) is willing to continue with PAP (unknown) (no (unknown) (unknown) daytime sleeping and (uni ts (unknown) date) an elevated [place] unknown) Sleepiness Scale score of 12/24. This (unknown) (no (unknown) (unknown) daytime somnolence (units (unknown) date) frequent, snoring unknown) (denies), apnea (denies), choking or (unknown) (no (unknown) (unknown) denies night sweats, (uni ts (unknown) date) denies morning unknown) headache, denies nasal congestion at night, (unknown) (no (unknown) (unknown) denies nocturnal (units (unknown) date) palpitations, denies unknown) heart burn symptoms at night, reports (unknown) (no (unknown) (unknown) details: to Bryce, (uni ts (unknown) date) lives in [place] unknown) (unknown) (no (unknown) (unknown) diagnostic sleep (units (unknown) date) study was performed unknown) and showed obstructive sleep apnea. (unknown) (no (unknown) (unknown) dishes. And, (units (u nknown) date) remember, chocolate unknown) has caffeine. (unknown) (no (unknown) (unknown) disturbing to her (units (unknown) date) sleep. unknown) (unknown) (no (unknown) (unknown) dizziness in the (units (unknown) date) morning, reports unknown) trouble consentrating/focusin g durng the day (unknown) (no (unknown) (unknown) done before bed to (units (unknown) date) help initiate a unknown) restful night's sleep. (unknown) (no (unknown) (unknown) drowsiness. (units (un known) date) Drowsiness risks and unknown) symptoms reviewed. (unknown) (no (unknown) (unknown) drowsy. Drowsy (units (unknown) date) driving handout made unknown) available. (unknown) (no (unknown) (unknown) effecting the (units ( unknown) date) quality of her sleep unknown) and the pain medication adds to her (unknown) (no (unknown) (unknown) gasping (denies), (units (unknown) date) epworth sleep scale unknown) score (22/24), bruxism (denies), sleep (unknown) (no (unknown) (unknown) hallucinations or (units (unknown) date) sleep paralysis unknown) (unknown) (no (unknown) (unknown) has not improved. (units (unknown) date) unknown) (unknown) (no (unknown) (unknown) have occurred. If (units (unknown) date) there are any unknown) questions, please contact the Medical Records (unknown) (no (unknown) (unknown) having already been (unit s (unknown) date) on CPAP, and was unknown) effective until 2017 when she developed (unknown) (no (unknown) (unknown) headaches and (units ( unknown) date) nocturia, as well as unknown) diminishing cognitive capabilities. An NPO (unknown) (no (unknown) (unknown) her compliance is (units (unknown) date) excellent with an unknown) optimal AHIflow. She also reports positive (unknown) (no (unknown) (unknown) her head (units (unkno wn) date) unknown) (unknown) (no (unknown) (unknown) hours ) frequent, (units (unknown) date) spending time in bed unknown) not sleeping a little, normal bedtime (unknown) (no (unknown) (unknown) household members: (units (unknown) date) spouse unknown) (unknown) (no (unknown) (unknown) housing: house (units (unknown) date) unknown) (unknown) (no (unknown) (unknown) hydrochlorothiazide (unit s (unknown) date) [From ZESTORETIC] unknown) Allergy (Intermediate, Verified 08/08/21 (unknown) (no (unknown) (unknown) insulin detemir (units (unknown) date) [From Levemir U-100 unknown) Insulin] Allergy (Intermediate, Verified (unknown) (no (unknown) (unknown) lisinopril [From (units (unknown) date) ZESTORETIC] Allergy unknown) (Intermediate, Verified 08/08/21 14:09) (unknown) (no (unknown) (unknown) lives independently: (uni ts (unknown) date) Yes unknown) (unknown) (no (unknown) (unknown) marital status: (units (unknown) date) unknown) (unknown) (no (unknown) (unknown) may occur. (units (unk nown) date) Occasional wrong-word unknown) or 'sound-alike' substitutions may have (unknown) (no (unknown) (unknown) medium cushion (units (unknown) date) unknown) (unknown) (no (unknown) (unknown) morning awakening (units (unknown) date) (may wake at unknown) [id number], up for 2 hours, back to sleep for 3 (unknown) (no (unknown) (unknown) nocturia (3 times (units (unknown) date) nightly), reports unknown) pain (feet, legs, low back), denies (unknown) (no (unknown) (unknown) occurred due to the (unit s (unknown) date) inherent limitations unknown) of voice recognition software. Please (unknown) (no (unknown) (unknown) older people who may (uni ts (unknown) date) not venture outside unknown) as frequently as children and adults. (unknown) (no (unknown) (unknown) on PAP well, sleep (units (unknown) date) quality okay and unknown) daytime sleepiness Daytime Sleepiness Branch (unknown) (no (unknown) (unknown) optimal sleep (units ( unknown) date) schedule. unknown) (unknown) (no (unknown) (unknown) or can be a primary (unit s (unknown) date) problem. This unknown) continues to be elevated on PAP therapy with (unknown) (no (unknown) (unknown) or sore throat in (units (unknown) date) the morning unknown) (unknown) (no (unknown) (unknown) personal electronic (unit s (unknown) date) devices, can also unknown) help maintain a healthy sleep-wake cycle. (unknown) (no (unknown) (unknown) pressures, found to (unit s (unknown) date) be 17/ cwp. unknown) (unknown) (no (unknown) (unknown) problem. Sleep (units (unknown) date) hygiene and sleep unknown) schedules were discussed. This has improved (unknown) (no (unknown) (unknown) pt complaining of (units (unknown) date) some discomfort with unknown) the Gonzalez Paykal Eson 2 at the back of (unknown) (no (unknown) (unknown) pt will let us know (unit s (unknown) date) if this mask will unknown) work for her (unknown) (no (unknown) (unknown) read the note (units ( unknown) date) carefully and unknown) recognize, using context, where these substitutions (unknown) (no (unknown) (unknown) reports dry mouth, (units (unknown) date) denies sore throat in unknown) the morning, denies nocturnal cough, (unknown) (no (unknown) (unknown) seconds <= 88%. She (unit s (unknown) date) repeated the biPAP unknown) titration study to identify optimal (unknown) (no (unknown) (unknown) sent home with pt to (uni ts (unknown) date) try the Resmed Airfit unknown) N20 standard headgear small and (unknown) (no (unknown) (unknown) sentences, no (units ( unknown) date) audible wheezes, no unknown) cough, no grunting and not labored (unknown) (no (unknown) (unknown) she is benefitting (units (unknown) date) from bi-level PAP unknown) therapy and is motivated to continue its (unknown) (no (unknown) (unknown) sleep quality was (units (unknown) date) less than optimal. unknown) Her pressure was increased for the snoring (unknown) (no (unknown) (unknown) snoring but she (units (unknown) date) continues to have unknown) significant daytime sleepiness. Patient's (unknown) (no (unknown) (unknown) software. 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 In (unit s (unknown) date) 06/2019 she reported unknown) new onset night sweats, morning (unknown) (no (unknown) (unknown) study (07/20/19) (units (unknown) date) showed GAVIN: 19, with unknown) eufemia SpO2: 60%, and spent 62 minutes 18 (unknown) (no (unknown) (unknown) substance use type: (unit s (unknown) date) does not use unknown) (unknown) (no (unknown) (unknown) suggested and showed (uni ts (unknown) date) pt the resmed Airfit unknown) N20 (unknown) (no (unknown) (unknown) symptoms of CPAP (units (unknown) date) failure. Switched to unknown) bi-levelPAP therapy after a titration (unknown) (no (unknown) (unknown) taken in the morning (uni ts (unknown) date) or late afternoon. A unknown) relaxing exercise, like yoga, can be (unknown) (no (unknown) (unknown) talking (denies) and (uni ts (unknown) date) sleep walking unknown) (denies) (unknown) (no (unknown) (unknown) the second half as (units (unknown) date) the body begins to unknown) metabolize the alcohol, causing arousal. (unknown) (no (unknown) (unknown) therapy. (units (unkno wn) date) unknown) (unknown) (no (unknown) (unknown) treatment variable (units (unknown) date) response to treatment unknown) (unknown) (no (unknown) (unknown) use. Pain is (units (u nknown) date) interfering with her unknown) sleep, neuropathy in her feet is most (unknown) (no (unknown) (unknown) verapamil (units (unkn own) date) [VERAPAMIL] Allergy unknown) (Intermediate, Verified 08/08/21 14:09) (unknown) (no (unknown) (unknown) with an optimal (units (unknown) date) AHIflow. She reports unknown) no problems with the pressure. She feels (unknown) (no (unknown) (unknown) with pressure (units ( unknown) date) support of 4-6 cwp. unknown) Result panel 11 (unknown) (no (unknown) (unknown) (no value) (units (unk nown) date) unknown) (unknown) (no (unknown) (unknown) [address] [place] [address] (units (unknown) date) unknown) (unknown) (no (unknown) (unknown) [place], [place] (units ( unknown) date) [id number] unknown) (unknown) (no (unknown) (unknown) CT Scan Report (units (unknown) date) unknown) (unknown) (no (unknown) (unknown) [facility] (units (unknown) date) unknown) (unknown) (no (unknown) (unknown) Signed (units (unkno wn) date) unknown) (unknown) (no (unknown) (unknown) (no value) (units (unk nown) date) unknown) (unknown) (no (unknown) (unknown) 03/14/22 (units (unkno wn) date) unknown) (unknown) (no (unknown) (unknown) 1. No CT evidence (units (unknown) date) of acute unknown) intracranial trauma. (unknown) (no (unknown) (unknown) 2. No significant (units (unknown) date) soft tissue injury unknown) or underlying fracture. (unknown) (no (unknown) (unknown) Approved by: (units (u nknown) date) sabiha Leggett) Jones on 03/14/2022 at 17:37 (unknown) (no (unknown) (unknown) Brain: No (units (unk nown) date) intracranial unknown) bleeds or masses. There is cerebral volume loss for (unknown) (no (unknown) (unknown) COMPARISON: (units (un known) date) [facility], unknown) CT, HEAD WITHOUT CONTRAST, 12/16/2013, 19:06. (unknown) (no (unknown) (unknown) CSF spaces: (units (un known) date) Basal cisterns are unknown) patent. No extra-axial fluid collections. The (unknown) (no (unknown) (unknown) Dictated by: (units (u nknown) date) Toya Torres unknownArnav Goldman on 03/14/2022 at 17:35 (unknown) (no (unknown) (unknown) FINDINGS: (units (unkn own) date) unknown) (unknown) (no (unknown) (unknown) IMPRESSION: (units (un known) date) unknown) (unknown) (no (unknown) (unknown) INDICATIONS: (units (u nknown) date) fall, +loc unknown) (unknown) (no (unknown) (unknown) Image quality: (units (unknown) date) Excellent. unknown) (unknown) (no (unknown) (unknown) Noncontrast 4.5 (units (unknown) date) mm thick angled unknown) axial sections acquired from the foramen magnum (unknown) (no (unknown) (unknown) Sinuses: (units (unkno wn) date) Visualized sinuses unknown) and mastoids are clear. (unknown) (no (unknown) (unknown) Skull and face: (units (unknown) date) Calvarium and unknown) visualized facial bones appear intact, without (unknown) (no (unknown) (unknown) TECHNIQUE: (units (unk nown) date) unknown) (unknown) (no (unknown) (unknown) lesions. (units (unkno wn) date) unknown) (unknown) (no (unknown) (unknown) matter chronic (units (unknown) date) small vessel unknown) ischemic changes. (unknown) (no (unknown) (unknown) resultant (units (unkn own) date) ventricular and unknown) sulcal prominence. There are periventricular and (unknown) (no (unknown) (unknown) size. (units (unkno wn) date) unknown) (unknown) (no (unknown) (unknown) ventricles are (units (unknown) date) symmetric in size unknown) and shape. (unknown) (no (unknown) (unknown) vertex, with (units (u nknown) date) coronal and unknown) sagittal reformats. For radiation dose reduction, the (unknown) (no (unknown) (unknown) was used: (units (unkn own) date) automated exposure unknown) control, adjustment of mA and/or kV according to (unknown) (no (unknown) (unknown) 0007 (units (unkno wn) date) unknown) (unknown) (no (unknown) (unknown) Accession Number: (units (unknown) date) [id number] unknown) (unknown) (no (unknown) (unknown) Age/Sex: 71 / F (units (unknown) date) Date of Service: unknown) (unknown) (no (unknown) (unknown) : 1950 (units (unknown) date) Acct:[id number] unknown) (unknown) (no (unknown) (unknown) Loc: ED (units (unkno wn) date) unknown) (unknown) (no (unknown) (unknown) Ordering (units (unkno wn) date) Provider: unknown) Tamika Barahona D.O. (unknown) (no (unknown) (unknown) PROCEDURE: CT (units (unknown) date) HEAD/BRAIN WO CON unknown) (unknown) (no (unknown) (unknown) Patient: (units (unkno wn) date) Terrence Buckley unknown) MR#: [id number] (unknown) (no (unknown) (unknown) Procedure: CT (units ( unknown) date) head/brain wo con unknown) (unknown) (no (unknown) (unknown) age, with (units (unkn own) date) unknown) (unknown) (no (unknown) (unknown) deep white (units (unk nown) date) unknown) (unknown) (no (unknown) (unknown) following (units (unkn own) date) unknown) (unknown) (no (unknown) (unknown) patient (units (unkno wn) date) unknown) (unknown) (no (unknown) (unknown) suspicious (units (unk nown) date) unknown) (unknown) (no (unknown) (unknown) to the (units (unkno wn) date) unknown) Result panel 12 (unknown) (no (unknown) (unknown) Qty: 1 0RF (units (unk nown) date) unknown) (unknown) (no (unknown) (unknown) (no value) (units (unk nown) date) unknown) (unknown) (no (unknown) (unknown) Date of Service: (units (unknown) date) 03/14/22 unknown) (unknown) (no (unknown) (unknown) (no value) (units (unk nown) date) unknown) (unknown) (no (unknown) (unknown) 20 mg PO QDAY Qty: 0 (uni ts (unknown) date) 0RF unknown) (unknown) (no (unknown) (unknown) 35 unit SQ BID Qty: (unit s (unknown) date) 0 0RF unknown) (unknown) (no (unknown) (unknown) 4 mg PO QAM 0RF (units (unknown) date) unknown) (unknown) (no (unknown) (unknown) 5 - 10 mg PO Q3HP (units (unknown) date) PRNQty: 60 0RF unknown) (unknown) (no (unknown) (unknown) 81 mg PO QDAY Qty: 0 (uni ts (unknown) date) 0RF unknown) (unknown) (no (unknown) (unknown) Allergies (units (unkn own) date) unknown) (unknown) (no (unknown) (unknown) As directed (units (un known) date) unknown) (unknown) (no (unknown) (unknown) BLOAT (units (unkno wn) date) unknown) (unknown) (no (unknown) (unknown) DME: [facility] (units (unknown) date) unknown) (unknown) (no (unknown) (unknown) Dose Instruction: (units (unknown) date) unknown) (unknown) (no (unknown) (unknown) ED Orders (units (unkn own) date) unknown) (unknown) (no (unknown) (unknown) Emergency Report (units (unknown) date) unknown) (unknown) (no (unknown) (unknown) Home Medications (units (unknown) date) unknown) (unknown) (no (unknown) (unknown) [facility] [address] (uni ts (unknown) date) [address] unknown) [place] [address] (unknown) (no (unknown) (unknown) Label Comments: (units (unknown) date) unknown) (unknown) (no (unknown) (unknown) Pressure: IPAP 14 (units (unknown) date) EPAP 6 unknown) (unknown) (no (unknown) (unknown) Previous Rx's (units ( unknown) date) unknown) (unknown) (no (unknown) (unknown) Rx Instructions: (units (unknown) date) unknown) (unknown) (no (unknown) (unknown) Stop: 03/14/22 19:06 (uni ts (unknown) date) unknown) (unknown) (no (unknown) (unknown) Vital Signs - 8 hr (units (unknown) date) unknown) (unknown) (no (unknown) (unknown) (no value) (units (unk nown) date) unknown) (unknown) (no (unknown) (unknown) (DME) Resprionics (units (unknown) date) Dreamstation BIPAP unknown) (unknown) (no (unknown) (unknown) Lantus U-100 Insulin (uni ts (unknown) date) 100 UNIT/1 ML unknown) solution (unknown) (no (unknown) (unknown) aspirin 81 MG (units ( unknown) date) tablet,delayed unknown) release (DR/EC) (unknown) (no (unknown) (unknown) glimepiride 2 mg (units (unknown) date) tablet unknown) (unknown) (no (unknown) (unknown) oxycodone 5 MG (units (unknown) date) tablet unknown) (unknown) (no (unknown) (unknown) pantoprazole 20 MG (units (unknown) date) tablet,delayed unknown) release (DR/EC) (unknown) (no (unknown) (unknown) 03/14/22 (units (unkno wn) date) unknown) (unknown) (no (unknown) (unknown) Medication (units (unk nown) date) Instructions unknown) Recorded (unknown) (no (unknown) (unknown) Medication (units (unk nown) date) Instructions unknown) Recorded Confirmed (unknown) (no (unknown) (unknown) 007 (units (unkno wn) date) unknown) (unknown) (no (unknown) (unknown) 03/14/22 17:06 (units (unknown) date) unknown) (unknown) (no (unknown) (unknown) 17:00 (units (unkno wn) date) unknown) (unknown) (no (unknown) (unknown) Acetaminophen (units ( unknown) date) (Acetaminophen 325 Mg unknown) Tablet) 975 mg PO NOW ONE (unknown) (no (unknown) (unknown) Age/Sex: 71 / F (units (unknown) date) unknown) (unknown) (no (unknown) (unknown) Allergy/AdvReac Type (uni ts (unknown) date) Severity Reaction unknown) Status Date / Time (unknown) (no (unknown) (unknown) Bilateral bunions (units (unknown) date) unknown) (unknown) (no (unknown) (unknown) Blood Pressure (units (unknown) date) 133/81 03/14/22 unknown) 17:00 (unknown) (no (unknown) (unknown) Blood Pressure (units (unknown) date) 133/81 unknown) (unknown) (no (unknown) (unknown) CT head/brain wo con (uni ts (unknown) date) Stat unknown) (unknown) (no (unknown) (unknown) Chief Complaint: (units (unknown) date) Fall unknown) (unknown) (no (unknown) (unknown) Course (units (unkno wn) date) unknown) (unknown) (no (unknown) (unknown) : 1950 (units (unknown) date) Acct:[id number] unknown) (unknown) (no (unknown) (unknown) Departure (units (unkn own) date) unknown) (unknown) (no (unknown) (unknown) Diabetic neuropathy (unit s (unknown) date) associated with unknown) diabetes mellitus due to underlying (unknown) (no (unknown) (unknown) Discharge Plan (units (unknown) date) unknown) (unknown) (no (unknown) (unknown) Discontinued (units (u nknown) date) Medications unknown) (unknown) (no (unknown) (unknown) ER Physician: (units ( unknown) date) Vannesa King unknown) (unknown) (no (unknown) (unknown) Exam (units (unkno wn) date) unknown) (unknown) (no (unknown) (unknown) Excessive daytime (units (unknown) date) sleepiness unknown) (unknown) (no (unknown) (unknown) General (units (unkno wn) date) unknown) (unknown) (no (unknown) (unknown) HPI - Fall (units (unk nown) date) unknown) (unknown) (no (unknown) (unknown) HPI Narrative: (units (unknown) date) unknown) (unknown) (no (unknown) (unknown) History of Present (units (unknown) date) Illness unknown) (unknown) (no (unknown) (unknown) History of (units (unk nown) date) bunionectomy of both unknown) great toes (unknown) (no (unknown) (unknown) Initial Vital Signs (unit s (unknown) date) unknown) (unknown) (no (unknown) (unknown) Initial Vital Signs: (uni ts (unknown) date) unknown) (unknown) (no (unknown) (unknown) Medical History (units (unknown) date) (Reviewed 02/05/22 @ unknown) 13:02 by Kishan Maciel MD) (unknown) (no (unknown) (unknown) Memory loss of (units (unknown) date) unknown cause unknown) (unknown) (no (unknown) (unknown) Mode of arrival: (units (unknown) date) Ambulatory unknown) (unknown) (no (unknown) (unknown) Neuropathic pain of (unit s (unknown) date) both feet unknown) (unknown) (no (unknown) (unknown) No Action (units (unkn own) date) unknown) (unknown) (no (unknown) (unknown) Obstructive sleep (units (unknown) date) apnea of adult unknown) (unknown) (no (unknown) (unknown) Ordered: (units (unkno wn) date) unknown) (unknown) (no (unknown) (unknown) Orders (units (unkno wn) date) unknown) (unknown) (no (unknown) (unknown) Patient History (units (unknown) date) unknown) (unknown) (no (unknown) (unknown) Patient: Terrence Buckley (uni ts (unknown) date) MR#: [id number] unknown) (unknown) (no (unknown) (unknown) Prescriptions: (units (unknown) date) unknown) (unknown) (no (unknown) (unknown) Primary insomnia (units (unknown) date) unknown) (unknown) (no (unknown) (unknown) Pulse Oximetry 97 (units (unknown) date) 03/14/22 17:00 unknown) (unknown) (no (unknown) (unknown) Pulse Oximetry 97 (units (unknown) date) unknown) (unknown) (no (unknown) (unknown) Pulse Rate 81 (units (unknown) date) 03/14/22 17:00 unknown) (unknown) (no (unknown) (unknown) Pulse Rate 81 (units ( unknown) date) unknown) (unknown) (no (unknown) (unknown) Lizette Mireles DO (units (unknown) date) [Primary Care unknown) Provider] - (unknown) (no (unknown) (unknown) Referrals: (units (unk nown) date) unknown) (unknown) (no (unknown) (unknown) Related Data (units (u nknown) date) unknown) (unknown) (no (unknown) (unknown) Respiratory Rate (units (unknown) date) 169 H 03/14/22 17:00 unknown) (unknown) (no (unknown) (unknown) Respiratory Rate 169 (uni ts (unknown) date) H unknown) (unknown) (no (unknown) (unknown) Resprionics (units (un known) date) Dreamstation BIPAP #1 unknown) ea 01/06/19 08/08/21 (unknown) (no (unknown) (unknown) S/P lumbar spinal (units (unknown) date) fusion unknown) (unknown) (no (unknown) (unknown) Signed By: (units (unk nown) date) unknown) (unknown) (no (unknown) (unknown) Smoking Status: (units (unknown) date) Never smoker unknown) (unknown) (no (unknown) (unknown) Smoking Status: (units (unknown) date) Never smoker unknown) (unknown) (no (unknown) (unknown) Social History (units (unknown) date) (Reviewed 03/29/20 @ unknown) 18:13 by STAN Herrera) (unknown) (no (unknown) (unknown) Source: patient (units (unknown) date) unknown) (unknown) (no (unknown) (unknown) Stated Complaint: (units (unknown) date) knocked over by dog, unknown) hit head, loc (unknown) (no (unknown) (unknown) Substance Use Type: (unit s (unknown) date) does not use unknown) (unknown) (no (unknown) (unknown) Surgical History (units (unknown) date) (Reviewed 02/05/22 @ unknown) 13:02 by Kishan Maciel MD) (unknown) (no (unknown) (unknown) Temperature 98.0 F (unit s (unknown) date) 03/14/22 17:00 unknown) (unknown) (no (unknown) (unknown) Temperature 98.0 F (units (unknown) date) unknown) (unknown) (no (unknown) (unknown) This is a 71-year-old (uni ts (unknown) date) female presents to unknown) the emergency department complaining of (unknown) (no (unknown) (unknown) Time Seen by (units (u nknown) date) Provider: 03/14/22 unknown) 18:47 (unknown) (no (unknown) (unknown) Type 2 diabetes (units (unknown) date) mellitus unknown) (unknown) (no (unknown) (unknown) U-100 Insulin) (units (unknown) date) unknown) (unknown) (no (unknown) (unknown) Vital Signs (units (un known) date) unknown) (unknown) (no (unknown) (unknown) Vital signs: (units (u nknown) date) unknown) (unknown) (no (unknown) (unknown) [From Levemir U-100 (unit s (unknown) date) Insulin] unknown) (unknown) (no (unknown) (unknown) [From ZESTORETIC] (units (unknown) date) BLOAT unknown) (unknown) (no (unknown) (unknown) a fall earlier today (uni ts (unknown) date) while she was out unknown) walking the dog and she hit her right (unknown) (no (unknown) (unknown) alcohol intake (units (unknown) date) frequency: other unknown) (unknown) (no (unknown) (unknown) aspirin 81 mg (units ( unknown) date) tablet,delayed 81 mg unknown) PO QDAY #0 02/18/17 08/08/21 (unknown) (no (unknown) (unknown) at 1115, denies any (unit s (unknown) date) nausea or vomiting. unknown) Patient endorses feeling fatigued, (unknown) (no (unknown) (unknown) caregiver/support (units (unknown) date) person: No unknown) (unknown) (no (unknown) (unknown) complains of a (units (unknown) date) headache 10, she unknown) has (unknown) (no (unknown) (unknown) condition (units (unkn own) date) unknown) (unknown) (no (unknown) (unknown) details: to (units (u nknown) date) [place], [place] (unknown) (no (unknown) (unknown) glimepiride 2 mg (units (unknown) date) tablet 4 mg PO QAM unknown) tab 06/29/20 08/08/21 (unknown) (no (unknown) (unknown) household members: (units (unknown) date) spouse unknown) (unknown) (no (unknown) (unknown) housing: house (units (unknown) date) unknown) (unknown) (no (unknown) (unknown) hydrochlorothiazide (unit s (unknown) date) Allergy Intermediate unknown) COUGH, Verified 03/14/22 17:03 (unknown) (no (unknown) (unknown) insulin detemir (units (unknown) date) Allergy Intermediate unknown) Rash Verified 03/14/22 17:03 (unknown) (no (unknown) (unknown) insulin glargine 100 (uni ts (unknown) date) unit/mL 35 unit SQ unknown) BID #0 03/04/17 08/08/21 (unknown) (no (unknown) (unknown) lisinopril [From (units (unknown) date) ZESTORETIC] Allergy unknown) Intermediate COUGH, Verified 03/14/22 17:03 (unknown) (no (unknown) (unknown) lives independently: (uni ts (unknown) date) Yes unknown) (unknown) (no (unknown) (unknown) marital status: (units (unknown) date) unknown) (unknown) (no (unknown) (unknown) oxycodone 5 mg (units (unknown) date) tablet 5 - 10 mg PO unknown) Q3HP PRN #60 tab 03/07/17 (unknown) (no (unknown) (unknown) pantoprazole 20 mg (units (unknown) date) tablet,delayed 20 mg unknown) PO QDAY #0 02/18/17 08/08/21 (unknown) (no (unknown) (unknown) parietal head on the (uni ts (unknown) date) concrete. She had a unknown) positive loss consciousness, this was (unknown) (no (unknown) (unknown) release (units (unkno wn) date) unknown) (unknown) (no (unknown) (unknown) subcutaneous (units (u nknown) date) solution (Lantus unknown) (unknown) (no (unknown) (unknown) substance use type: (unit s (unknown) date) does not use unknown) (unknown) (no (unknown) (unknown) verapamil (units (unkn own) date) [VERAPAMIL] Allergy unknown) Intermediate BLOATING Verified 03/14/22 17:03 Result panel 13 (unknown) (no (unknown) (unknown) Qty: 1 0RF (units (unk nown) date) unknown) (unknown) (no (unknown) (unknown) (no value) (units (unk nown) date) unknown) (unknown) (no (unknown) (unknown) Radiologist's (units ( unknown) date) Impression: unknown) (unknown) (no (unknown) (unknown) *Please continue to (unit s (unknown) date) take your regular unknown) medications as directed. (unknown) (no (unknown) (unknown) Date of Service: (units (unknown) date) 03/14/22 unknown) (unknown) (no (unknown) (unknown) (no value) (units (unk nown) date) unknown) (unknown) (no (unknown) (unknown) <Electronically (units (unknown) date) signed by Vannesa Stoner unknown) [facility]> (unknown) (no (unknown) (unknown) 03/14/22 194 (units ( unknown) date) unknown) (unknown) (no (unknown) (unknown) 20 mg PO QDAY Qty: 0 (uni ts (unknown) date) 0RF unknown) (unknown) (no (unknown) (unknown) 35 unit SQ BID Qty: (unit s (unknown) date) 0 0RF unknown) (unknown) (no (unknown) (unknown) 4 mg PO QAM 0RF (units (unknown) date) unknown) (unknown) (no (unknown) (unknown) 5 - 10 mg PO Q3HP (units (unknown) date) PRNQty: 60 0RF unknown) (unknown) (no (unknown) (unknown) 81 mg PO QDAY Qty: 0 (uni ts (unknown) date) 0RF unknown) (unknown) (no (unknown) (unknown) Allergies (units (unkn own) date) unknown) (unknown) (no (unknown) (unknown) As directed (units (un known) date) unknown) (unknown) (no (unknown) (unknown) BLOAT (units (unkno wn) date) unknown) (unknown) (no (unknown) (unknown) DME: [facility] (units (unknown) date) unknown) (unknown) (no (unknown) (unknown) Documented by: (units (unknown) date) unknown) (unknown) (no (unknown) (unknown) Dose Instruction: (units (unknown) date) unknown) (unknown) (no (unknown) (unknown) ED Orders (units (unkn own) date) unknown) (unknown) (no (unknown) (unknown) Emergency Report (units (unknown) date) unknown) (unknown) (no (unknown) (unknown) Home Medications (units (unknown) date) unknown) (unknown) (no (unknown) (unknown) [facility] 1211 (uni ts (unknown) date) [address] [place] [address] unknown) [place] [address] (unknown) (no (unknown) (unknown) Label Comments: (units (unknown) date) unknown) (unknown) (no (unknown) (unknown) Last Admin: 03/14/22 (uni ts (unknown) date) 19:32 Dose: 975 mg unknown) (unknown) (no (unknown) (unknown) Pressure: IPAP 14 (units (unknown) date) EPAP 6 unknown) (unknown) (no (unknown) (unknown) Previous Rx's (units ( unknown) date) unknown) (unknown) (no (unknown) (unknown) Rx Instructions: (units (unknown) date) unknown) (unknown) (no (unknown) (unknown) Stop: 03/14/22 19:06 (uni ts (unknown) date) unknown) (unknown) (no (unknown) (unknown) Vital Signs - 8 hr (units (unknown) date) unknown) (unknown) (no (unknown) (unknown) [ ] New medication (units (unknown) date) prescriptions sent to unknown) your pharmacy: [ ] (unknown) (no (unknown) (unknown) [ ] New medication (units (unknown) date) written as a paper unknown) prescription (unknown) (no (unknown) (unknown) [x ] No new (units (un known) date) medications given unknown) (unknown) (no (unknown) (unknown) (no value) (units (unk nown) date) unknown) (unknown) (no (unknown) (unknown) (DME) Resprionics (units (unknown) date) Dreamstation BIPAP unknown) (unknown) (no (unknown) (unknown) Lantus U-100 Insulin (uni ts (unknown) date) 100 UNIT/1 ML unknown) solution (unknown) (no (unknown) (unknown) aspirin 81 MG (units ( unknown) date) tablet,delayed unknown) release (DR/EC) (unknown) (no (unknown) (unknown) glimepiride 2 mg (units (unknown) date) tablet unknown) (unknown) (no (unknown) (unknown) oxycodone 5 MG (units (unknown) date) tablet unknown) (unknown) (no (unknown) (unknown) pantoprazole 20 MG (units (unknown) date) tablet,delayed unknown) release (DR/EC) (unknown) (no (unknown) (unknown) 03/14/22 (units (unkno wn) date) unknown) (unknown) (no (unknown) (unknown) Encounter type: (units (unknown) date) initial encounter unknown) Loss of consciousness presence/duration: with (unknown) (no (unknown) (unknown) Encounter type: (units (unknown) date) initial encounter unknown) Qualified Code(s): S09.90XA - Unspecified (unknown) (no (unknown) (unknown) Is patient endorses (unit s (unknown) date) having a headache, unknown) denies vision changes, states she feels (unknown) (no (unknown) (unknown) LOC of 30 min or (units (unknown) date) less Qualified unknown) Code(s): S06.0X1A - Concussion with loss of (unknown) (no (unknown) (unknown) Medication (units (unk nown) date) Instructions unknown) Recorded (unknown) (no (unknown) (unknown) Medication (units (unk nown) date) Instructions unknown) Recorded Confirmed (unknown) (no (unknown) (unknown) Patient has been (units (unknown) date) informed of results. unknown) Patient has been given strict return to (unknown) (no (unknown) (unknown) You can take a (units (unknown) date) Benadryl to help with unknown) the Tylenol for your headache, you can (unknown) (no (unknown) (unknown) after the dog jolted (uni ts (unknown) date) in the wrong unknown) direction. She hit her head on the ground, (unknown) (no (unknown) (unknown) and it is not very (units (unknown) date) bad or worse than her unknown) baseline today. Patient was given (unknown) (no (unknown) (unknown) any laceration or (units (unknown) date) skull fracture, CT of unknown) her head and brain do not show any soft (unknown) (no (unknown) (unknown) discharge home. (units (unknown) date) Vital signs are unknown) stable on repeat examination is unremarkable. (unknown) (no (unknown) (unknown) in your brain. You (unit s (unknown) date) likely have a unknown) concussion, that is why you feel fatigued, (unknown) (no (unknown) (unknown) tissue injury or (units (unknown) date) underlying fracture, unknown) noevidence of acute intracranial trauma. (unknown) (no (unknown) (unknown) up closely with (units (unknown) date) outpatient providers unknown) as instructed. Patient understands plan (unknown) (no (unknown) (unknown) white (units (unkno wn) date) unknown) (unknown) (no (unknown) (unknown) you have any (units (u nknown) date) vomiting, weakness, unknown) vision changes, please come back to the (unknown) (no (unknown) (unknown) *If you do not have (unit s (unknown) date) a primary care unknown) provider please contact [phone] to (unknown) (no (unknown) (unknown) *Please follow up (units (unknown) date) with your primary unknown) care provider in 2-3 days, call for an (unknown) (no (unknown) (unknown) *Return to Emergency (uni ts (unknown) date) Department if you unknown) should have any new, worsening or (unknown) (no (unknown) (unknown) *What to do: (units (u nknown) date) unknown) (unknown) (no (unknown) (unknown) *You have been (units (unknown) date) diagnosed with a head unknown) injury, loss of consciousness, and a (unknown) (no (unknown) (unknown) 007 (units (unkno wn) date) unknown) (unknown) (no (unknown) (unknown) 03/14/22 17:06 (units (unknown) date) unknown) (unknown) (no (unknown) (unknown) 1. No CT evidence of (uni ts (unknown) date) acute intracranial unknown) trauma. (unknown) (no (unknown) (unknown) 17:00 (units (unkno wn) date) unknown) (unknown) (no (unknown) (unknown) 2. No significant (units (unknown) date) soft tissue injury or unknown) underlying fracture. ? (unknown) (no (unknown) (unknown) ? (units (unkno wn) date) unknown) (unknown) (no (unknown) (unknown) Acetaminophen (units ( unknown) date) (Acetaminophen 325 Mg unknown) Tablet) 975 mg PO NOW ONE (unknown) (no (unknown) (unknown) Activity (units (unkno wn) date) Restrictions/Addition unknown) al Instructions: (unknown) (no (unknown) (unknown) Age/Sex: 71 / F (units (unknown) date) unknown) (unknown) (no (unknown) (unknown) Allergy/AdvReac Type (uni ts (unknown) date) Severity Reaction unknown) Status Date / Time (unknown) (no (unknown) (unknown) Approved by: Toya Darlinguni ts (unknown) date) Jones Torres on unknown) 03/14/2022 at 17:37 ? (unknown) (no (unknown) (unknown) Bilateral bunions (units (unknown) date) unknown) (unknown) (no (unknown) (unknown) Blood Pressure (units (unknown) date) 133/81 03/14/22 unknown) 17:00 (unknown) (no (unknown) (unknown) Blood Pressure (units (unknown) date) 133/81 unknown) (unknown) (no (unknown) (unknown) Brain:? No (units (unk nown) date) intracranial bleeds unknown) or masses.? There is cerebral volume loss for (unknown) (no (unknown) (unknown) COM[facility]ISON:[facility], CT, HEAD unknown) WITHOUT CONTRAST, 12/16/2013, 19:06. (unknown) (no (unknown) (unknown) CSF spaces:? Basal (units (unknown) date) cisterns are patent.? unknown) No extra-axial fluid collections.? The (unknown) (no (unknown) (unknown) CT head/brain wo con (uni ts (unknown) date) Stat unknown) (unknown) (no (unknown) (unknown) CT scan - head: (units (unknown) date) unknown) (unknown) (no (unknown) (unknown) Cardio: denies chest (uni ts (unknown) date) pain, palpitations, unknown) edema (unknown) (no (unknown) (unknown) Cardiovascular: (units (unknown) date) regular rate and unknown) rhythm, no peripheral edema, warm extremities (unknown) (no (unknown) (unknown) Chief Complaint: (units (unknown) date) Fall unknown) (unknown) (no (unknown) (unknown) Clinical Impression: (uni ts (unknown) date) unknown) (unknown) (no (unknown) (unknown) Concussion (units (unk nown) date) unknown) (unknown) (no (unknown) (unknown) Course (units (unkno wn) date) unknown) (unknown) (no (unknown) (unknown) : 1950 (units (unknown) date) Acct:[id number] unknown) (unknown) (no (unknown) (unknown) Departure (units (unkn own) date) unknown) (unknown) (no (unknown) (unknown) 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 ? (unknown) (no (unknown) (unknown) Discharge Plan (units (unknown) date) unknown) (unknown) (no (unknown) (unknown) Discontinued (units (u nknown) date) Medications unknown) (unknown) (no (unknown) (unknown) ER Physician: (units ( unknown) date) Crew,Vannesa Stoner STAN unknown) (unknown) (no (unknown) (unknown) ER precautions for (units (unknown) date) any new or worsening unknown) symptoms. Patient understands to follow (unknown) (no (unknown) (unknown) Exam (units (unkno wn) date) unknown) (unknown) (no (unknown) (unknown) Exam Narrative: (units (unknown) date) unknown) (unknown) (no (unknown) (unknown) Excessive daytime (units (unknown) date) sleepiness unknown) (unknown) (no (unknown) (unknown) Eyes: denies visual (unit s (unknown) date) changes, eye pain unknown) (unknown) (no (unknown) (unknown) Eyes: equal round (units (unknown) date) and reactive, EOMI, unknown) conjunctiva normal (unknown) (no (unknown) (unknown) FINDINGS:? (units (unk nown) date) unknown) (unknown) (no (unknown) (unknown) GI: abdomen soft, (units (unknown) date) nontender to unknown) palpation, nondistended, no masses, no exquisite (unknown) (no (unknown) (unknown) GI: denies abdominal (uni ts (unknown) date) pain, nausea, unknown) vomiting, or diarrhea (unknown) (no (unknown) (unknown) : denies dysuria, (unit s (unknown) date) hematuria, urinary unknown) retention, frequency or incontinence (unknown) (no (unknown) (unknown) General (units (unkno wn) date) unknown) (unknown) (no (unknown) (unknown) General: (units (unkno wn) date) cooperative, unknown) comfortable, in no acute distress, well groomed (unknown) (no (unknown) (unknown) General: denies (units (unknown) date) fever, chills, unknown) malaise, sweats, endorses feeling fatigued (unknown) (no (unknown) (unknown) HPI - Fall (units (unk nown) date) unknown) (unknown) (no (unknown) (unknown) HPI Narrative: (units (unknown) date) unknown) (unknown) (no (unknown) (unknown) Head injury (units (un known) date) unknown) (unknown) (no (unknown) (unknown) Head/Neck: Endorses (uni ts (unknown) date) headache with unknown) dizziness, denies neck pain (unknown) (no (unknown) (unknown) Head: Palpable lump (uni ts (unknown) date) on right parietal unknown) scalp, no skull laceration,depression or (unknown) (no (unknown) (unknown) History of Present (units (unknown) date) Illness unknown) (unknown) (no (unknown) (unknown) History of (units (unk nown) date) bunionectomy of both unknown) great toes (unknown) (no (unknown) (unknown) IMPRESSION:? (units (u nknown) date) unknown) (unknown) (no (unknown) (unknown) INDICATIONS:? fall, (unit s (unknown) date) +loc unknown) (unknown) (no (unknown) (unknown) Image quality:? (units (unknown) date) Excellent.? unknown) (unknown) (no (unknown) (unknown) Imaging Data (units (u nknown) date) unknown) (unknown) (no (unknown) (unknown) Independently (units ( unknown) date) reviewed vitals signs unknown) and nursing notes. (unknown) (no (unknown) (unknown) Initial Vital Signs (unit s (unknown) date) unknown) (unknown) (no (unknown) (unknown) Initial Vital Signs: (uni ts (unknown) date) unknown) (unknown) (no (unknown) (unknown) Instructions: (units ( unknown) date) Concussion unknown) (unknown) (no (unknown) (unknown) MDM - Fall (units (unk nown) date) unknown) (unknown) (no (unknown) (unknown) MDM Narrative (units ( unknown) date) unknown) (unknown) (no (unknown) (unknown) MSK: denies joint (units (unknown) date) pain, muscle weakness unknown) (unknown) (no (unknown) (unknown) MSK: moves all (units (unknown) date) extremities, unknown) neurovascularly intact, no weakness, normal tone (unknown) (no (unknown) (unknown) Medical History (units (unknown) date) (Reviewed 03/14/22 @ unknown) 19:38 [address] Vannesa King [facility]) (unknown) (no (unknown) (unknown) Medical decision (units (unknown) date) making narrative: unknown) (unknown) (no (unknown) (unknown) Memory loss of (units (unknown) date) unknown cause unknown) (unknown) (no (unknown) (unknown) Mode of arrival: (units (unknown) date) Ambulatory unknown) (unknown) (no (unknown) (unknown) Mouth/Throat: moist (unit s (unknown) date) mucus membranes unknown) (unknown) (no (unknown) (unknown) Narrative (units (unkn own) date) unknown) (unknown) (no (unknown) (unknown) Narrative: (units (unk nown) date) unknown) (unknown) (no (unknown) (unknown) Neck: supple (units (u nknown) date) unknown) (unknown) (no (unknown) (unknown) Neuro: denies (units ( unknown) date) numbness, tingling unknown) (unknown) (no (unknown) (unknown) Neuro: normal speech (uni ts (unknown) date) and cognition, A+O x3 unknown) (unknown) (no (unknown) (unknown) Neuropathic pain of (unit s (unknown) date) both feet unknown) (unknown) (no (unknown) (unknown) No Action (units (unkn own) date) unknown) (unknown) (no (unknown) (unknown) Noncontrast 4.5 mm (units (unknown) date) thick angled axial unknown) sections acquired from the foramen magnum (unknown) (no (unknown) (unknown) Nose: nares patent, (unit s (unknown) date) no rhinorrhea unknown) (unknown) (no (unknown) (unknown) Obstructive sleep (units (unknown) date) apnea of adult unknown) (unknown) (no (unknown) (unknown) Ordered: (units (unkno wn) date) unknown) (unknown) (no (unknown) (unknown) Orders (units (unkno wn) date) unknown) (unknown) (no (unknown) (unknown) PROCEDURE:? CT (units (unknown) date) HEAD/BRAIN WO CON unknown) (unknown) (no (unknown) (unknown) Patient Disposition: (uni ts (unknown) date) Home unknown) (unknown) (no (unknown) (unknown) Patient History (units (unknown) date) unknown) (unknown) (no (unknown) (unknown) Patient: Warn,Terrence A (uni ts (unknown) date) MR#: [id number] unknown) (unknown) (no (unknown) (unknown) Prescriptions: (units (unknown) date) unknown) (unknown) (no (unknown) (unknown) Primary insomnia (units (unknown) date) unknown) (unknown) (no (unknown) (unknown) Psych: mental status (uni ts (unknown) date) is grossly normal, unknown) congruent mood, normal affect, pleasant (unknown) (no (unknown) (unknown) Pulse Oximetry 97 (units (unknown) date) 03/14/22 17:00 unknown) (unknown) (no (unknown) (unknown) Pulse Oximetry 97 (units (unknown) date) unknown) (unknown) (no (unknown) (unknown) Pulse Rate 81 (units (unknown) date) 03/14/22 17:00 unknown) (unknown) (no (unknown) (unknown) Pulse Rate 81 (units ( unknown) date) unknown) (unknown) (no (unknown) (unknown) Qualifiers: (units (un known) date) unknown) (unknown) (no (unknown) (unknown) Lizette Mireles DO (units (unknown) date) [Primary Care unknown) Provider] - (unknown) (no (unknown) (unknown) Referrals: (units (unk nown) date) unknown) (unknown) (no (unknown) (unknown) Related Data (units (u nknown) date) unknown) (unknown) (no (unknown) (unknown) Respiratory Rate (units (unknown) date) 169 H 03/14/22 17:00 unknown) (unknown) (no (unknown) (unknown) Respiratory Rate 169 (uni ts (unknown) date) H unknown) (unknown) (no (unknown) (unknown) Respiratory: denies (unit s (unknown) date) dyspnea, cough, unknown) orthopnea (unknown) (no (unknown) (unknown) Respiratory: normal (unit s (unknown) date) effort, able to speak unknown) in complete sentences, no audible (unknown) (no (unknown) (unknown) Resprionics (units (un known) date) Dreamstation BIPAP #1 unknown) ea 01/06/19 08/08/21 (unknown) (no (unknown) (unknown) Review of Systems (units (unknown) date) unknown) (unknown) (no (unknown) (unknown) S/P lumbar spinal (units (unknown) date) fusion unknown) (unknown) (no (unknown) (unknown) Signed By: (units (unk nown) date) unknown) (unknown) (no (unknown) (unknown) Sinuses:? Visualized (uni ts (unknown) date) sinuses and mastoids unknown) are clear.? (unknown) (no (unknown) (unknown) Skin: brisk (units (un known) date) capillary refill, no unknown) rash, no erythema (unknown) (no (unknown) (unknown) Skin: denies rash, (units (unknown) date) itching, skin lesions unknown) or other (unknown) (no (unknown) (unknown) Skull and face:? (units (unknown) date) Calvarium and unknown) visualized facial bones appear intact, without (unknown) (no (unknown) (unknown) Smoking Status: (units (unknown) date) Never smoker unknown) (unknown) (no (unknown) (unknown) Smoking Status: (units (unknown) date) Never smoker unknown) (unknown) (no (unknown) (unknown) Social History (units (unknown) date) (Reviewed 03/14/22 @ unknown) 19:38 by STAN Kruse) (unknown) (no (unknown) (unknown) Source: patient (units (unknown) date) unknown) (unknown) (no (unknown) (unknown) Stated Complaint: (units (unknown) date) knocked over by dog, unknown) hit head, loc (unknown) (no (unknown) (unknown) Subarachnoid (units (u nknown) date) hemorrhage, but unknown) unlikely as patient denies sudden onset of pain, (unknown) (no (unknown) (unknown) Substance Use Type: (unit s (unknown) date) does not use unknown) (unknown) (no (unknown) (unknown) Surgical History (units (unknown) date) (Reviewed 03/14/22 @ unknown) 19:38 by STAN Kruse) (unknown) (no (unknown) (unknown) TECHNIQUE:? (units (un known) date) unknown) (unknown) (no (unknown) (unknown) Temperature 98.0 F (unit s (unknown) date) 03/14/22 17:00 unknown) (unknown) (no (unknown) (unknown) Temperature 98.0 F (units (unknown) date) unknown) (unknown) (no (unknown) (unknown) This is a 71-year-old (uni ts (unknown) date) female presents to unknown) the emergency department complaining of (unknown) (no (unknown) (unknown) This is a pleasant (units (unknown) date) 71 year old female unknown) with history of diabetes, she presents to (unknown) (no (unknown) (unknown) Time Seen by (units (u nknown) date) Provider: 03/14/22 unknown) 18:47 (unknown) (no (unknown) (unknown) Tylenol in the (units (unknown) date) emergency department, unknown) states her headache was a 4/10 at that (unknown) (no (unknown) (unknown) Type 2 diabetes (units (unknown) date) mellitus unknown) (unknown) (no (unknown) (unknown) U-100 Insulin) (units (unknown) date) unknown) (unknown) (no (unknown) (unknown) Vital Signs (units (un known) date) unknown) (unknown) (no (unknown) (unknown) Vital signs: (units (u nknown) date) unknown) (unknown) (no (unknown) (unknown) [From Levemir U-100 (unit s (unknown) date) Insulin] unknown) (unknown) (no (unknown) (unknown) [From ZESTORETIC] (units (unknown) date) BLOAT unknown) (unknown) (no (unknown) (unknown) a fall earlier today (uni ts (unknown) date) while she was out unknown) walking the dog and she hit her right (unknown) (no (unknown) (unknown) activity in when her (uni ts (unknown) date) symptoms are gone. unknown) Patient states her under standing, she (unknown) (no (unknown) (unknown) age, with (units (unkn own) date) unknown) (unknown) (no (unknown) (unknown) alcohol intake (units (unknown) date) frequency: other unknown) (unknown) (no (unknown) (unknown) altered mental (units (unknown) date) status, hypertension unknown) or fever. Patient is encouraged to have (unknown) (no (unknown) (unknown) and agrees to (units (u nknown) date) discharge home. All unknown) questions and concerns answered at this time. (unknown) (no (unknown) (unknown) and cooperative (units (unknown) date) unknown) (unknown) (no (unknown) (unknown) appointment. Let them (uni ts (unknown) date) know you were seen in unknown) the Emergency Department and that we (unknown) (no (unknown) (unknown) asked that you be (units (unknown) date) seen for follow-up. unknown) We will electronically transmit a record (unknown) (no (unknown) (unknown) aspirin 81 mg (units ( unknown) date) tablet,delayed 81 mg unknown) PO QDAY #0 02/18/17 08/08/21 (unknown) (no (unknown) (unknown) at 1115, denies any (unit s (unknown) date) nausea or vomiting. unknown) Patient endorses feeling fatigued, (unknown) (no (unknown) (unknown) caregiver/support (units (unknown) date) person: No unknown) (unknown) (no (unknown) (unknown) changes, or other (units (unknown) date) concerning symptom. unknown) Headache considerations include, but not (unknown) (no (unknown) (unknown) close follow-up with (unit s (unknown) date) her primary doctor. unknown) Patient is appropriate and amenable to (unknown) (no (unknown) (unknown) complains of a (units (unknown) date) headache 02/03, denies unknown) any vision changes or blurry vision, she (unknown) (no (unknown) (unknown) concerning symptoms, (uni ts (unknown) date) such as [fever unknown) greater than 101F, chills, worsening pain, (unknown) (no (unknown) (unknown) concussion. You were (uni ts (unknown) date) given Tylenol at 1930 unknown) hours. Please go home and rest. If (unknown) (no (unknown) (unknown) condition (units (unkn own) date) unknown) (unknown) (no (unknown) (unknown) consciousness of 30 (unit s (unknown) date) minutes or less, unknown) initial encounter (unknown) (no (unknown) (unknown) crepitus, normal and (uni ts (unknown) date) equal facial unknown) expressions (unknown) (no (unknown) (unknown) details: to (units (u nknown) date) Bryce, [place] (unknown) (no (unknown) (unknown) doctor know that you (uni ts (unknown) date) had a fall today and unknown) head injury. (unknown) (no (unknown) (unknown) emergency department (unit s (unknown) date) for another unknown) evaluation. Your CT does not show any bleeding (unknown) (no (unknown) (unknown) emergency department (uni ts (unknown) date) if you have new or unknown) worsening symptoms. Please let your (unknown) (no (unknown) (unknown) establish care with (unit s (unknown) date) one of the [facility] primary care providers. (unknown) (no (unknown) (unknown) fatigue, dizziness, (unit s (unknown) date) your brain is not unknown) ready for that activity and is trying to (unknown) (no (unknown) (unknown) fatigued and has (units (unknown) date) occasional dizziness. unknown) Patient states she has a history vertigo (unknown) (no (unknown) (unknown) following (units (unkn own) date) unknown) (unknown) (no (unknown) (unknown) glimepiride 2 mg (units (unknown) date) tablet 4 mg PO QAM unknown) tab 06/29/20 08/08/21 (unknown) (no (unknown) (unknown) going for walks, or (unit s (unknown) date) interacting with unknown) others. If you are having a headache, (unknown) (no (unknown) (unknown) had a positive loss (unit s (unknown) date) of consciousness unknown) without emesis, states that she had a (unknown) (no (unknown) (unknown) has any vomiting, (units (unknown) date) mental status unknown) changes, weakness, worsening pain, vision (unknown) (no (unknown) (unknown) have a headache, (units (unknown) date) feel dizziness, and unknown) tired. Please try and rest as much as (unknown) (no (unknown) (unknown) her headache, you (units (unknown) date) can gradually unknown) increase your activity including watching TV (unknown) (no (unknown) (unknown) household members: (units (unknown) date) spouse unknown) (unknown) (no (unknown) (unknown) housing: house (units (unknown) date) unknown) (unknown) (no (unknown) (unknown) hydrochlorothiazide (unit s (unknown) date) Allergy Intermediate unknown) COUGH, Verified 03/14/22 17:03 (unknown) (no (unknown) (unknown) injury of head, (units (unknown) date) initial encounter unknown) (unknown) (no (unknown) (unknown) insulin detemir (units (unknown) date) Allergy Intermediate unknown) Rash Verified 03/14/22 17:03 (unknown) (no (unknown) (unknown) insulin glargine 100 (uni ts (unknown) date) unit/mL 35 unit SQ unknown) BID #0 03/04/17 08/08/21 (unknown) (no (unknown) (unknown) is encouraged to go (unit s (unknown) date) home and rest, to unknown) return to the emergency department if she (unknown) (no (unknown) (unknown) lesions.? (units (unkn own) date) unknown) (unknown) (no (unknown) (unknown) limited to: (units (un known) date) unknown) (unknown) (no (unknown) (unknown) lisinopril [From (units (unknown) date) ZESTORETIC] Allergy unknown) Intermediate COUGH, Verified 03/14/22 17:03 (unknown) (no (unknown) (unknown) lives independently: (uni ts (unknown) date) Yes unknown) (unknown) (no (unknown) (unknown) marital status: (units (unknown) date) unknown) (unknown) (no (unknown) (unknown) matter chronic small (uni ts (unknown) date) vessel ischemic unknown) changes. (unknown) (no (unknown) (unknown) not worst of life, (units (unknown) date) or neck pain, unknown) negative Brudzinski's, Kernig's sign, without (unknown) (no (unknown) (unknown) nystagmus or neck (units (unknown) date) pain. unknown) (unknown) (no (unknown) (unknown) of today's note if (units (unknown) date) your PCP is in our unknown) system (unknown) (no (unknown) (unknown) oxycodone 5 mg (units (unknown) date) tablet 5 - 10 mg PO unknown) Q3HP PRN #60 tab 03/07/17 (unknown) (no (unknown) (unknown) pantoprazole 20 mg (units (unknown) date) tablet,delayed 20 mg unknown) PO QDAY #0 02/18/17 08/08/21 (unknown) (no (unknown) (unknown) parietal head on the (uni ts (unknown) date) concrete. She had a unknown) positive loss consciousness, this was (unknown) (no (unknown) (unknown) patient (units (unkno wn) date) unknown) (unknown) (no (unknown) (unknown) period of time with (units (unknown) date) short memory loss, unknown) but that has resolved. She does not have (unknown) (no (unknown) (unknown) persistent vomiting (unit s (unknown) date) or other bothersome unknown) symptoms] (unknown) (no (unknown) (unknown) possible until these (uni ts (unknown) date) symptoms go away. unknown) When they have all gone away including (unknown) (no (unknown) (unknown) release (units (unkno wn) date) unknown) (unknown) (no (unknown) (unknown) resultant ventricular (uni ts (unknown) date) and sulcal unknown) prominence.? There are periventricular and deep (unknown) (no (unknown) (unknown) size.? (units (unkno wn) date) unknown) (unknown) (no (unknown) (unknown) states that she has (unit s (unknown) date) had some dizziness, unknown) headache, fatigue, and a small bump on (unknown) (no (unknown) (unknown) subcutaneous (units (u nknown) date) solution (Lantus unknown) (unknown) (no (unknown) (unknown) substance use type: (unit s (unknown) date) does not use unknown) (unknown) (no (unknown) (unknown) suspicious (units (unk nown) date) unknown) (unknown) (no (unknown) (unknown) take ibuprofen at (units (unknown) date) home if you tolerate unknown) this well. Please return to the (unknown) (no (unknown) (unknown) tell you it needs to (uni ts (unknown) date) rest the more. I unknown) hope that you start feeling better soon. (unknown) (no (unknown) (unknown) tenderness with (units (unknown) date) exam, without unknown) guarding or rebound. (unknown) (no (unknown) (unknown) the emergency (units (u nknown) date) department after unknown) ground level fall after tripping over a dog leash (unknown) (no (unknown) (unknown) the right side of (units (unknown) date) her head. She did unknown) not have any nausea, vomiting, weakness, (unknown) (no (unknown) (unknown) time. No neuro (units (unknown) date) deficits on exam, unknown) patient is ambulatory, discussed concussions (unknown) (no (unknown) (unknown) to the (units (unkno wn) date) unknown) (unknown) (no (unknown) (unknown) ventricles are (units (unknown) date) symmetric in size and unknown) shape.? (unknown) (no (unknown) (unknown) verapamil (units (unkn own) date) [VERAPAMIL] Allergy unknown) Intermediate BLOATING Verified 03/14/22 17:03 (unknown) (no (unknown) (unknown) vertex, with coronal (uni ts (unknown) date) and sagittal unknown) reformats.? For radiation dose reduction, the (unknown) (no (unknown) (unknown) was used:? automated (uni ts (unknown) date) exposure control, unknown) adjustment of mA and/or kV according to (unknown) (no (unknown) (unknown) wheezing, stridor, (units (unknown) date) or rales. No unknown) retractions or tachypnea. (unknown) (no (unknown) (unknown) with patient and (units (unknown) date) symptoms of them and unknown) how to rest at home and gradually add Result panel 14 (unknown) (no date) (unknown) (unknown) 0.2 E.U./dL (unkn own) (unknown) (no date) (unknown) (unknown) 1.010 (units (unkn own) unknown) (unknown) (no date) (unknown) (unknown) 6.5 (units (unkn own) unknown) (unknown) (no date) (unknown) (unknown) CLEAR (units (unkn own) unknown) (unknown) (no date) (unknown) (unknown) NEGATIVE (units (unkn own) unknown) (unknown) (no date) (unknown) (unknown) NEGATIVE g/dL (unkn own) (unknown) (no date) (unknown) (unknown) YELLOW (units (unkn own) unknown) Result panel 15 (unknown) (no date) (unknown) (unknown) 0-1/HPF (units (unkn own) unknown) (unknown) (no date) (unknown) (unknown) 0.2 E.U./dL (unkn own) (unknown) (no date) (unknown) (unknown) 1.010 (units (unkn own) unknown) (unknown) (no date) (unknown) (unknown) 6.5 (units (unkn own) unknown) (unknown) (no date) (unknown) (unknown) CLEAR (units (unkn own) unknown) (unknown) (no date) (unknown) (unknown) Cult Not (units (unkn own) Indicated unknown) (unknown) (no date) (unknown) (unknown) NEGATIVE (units (unkn own) unknown) (unknown) (no date) (unknown) (unknown) NEGATIVE g/dL (unkn own) (unknown) (no date) (unknown) (unknown) None Seen (units (unk nown) unknown) (unknown) (no date) (unknown) (unknown) None Seen (units (unk nown) unknown) (unknown) (no date) (unknown) (unknown) YELLOW (units (unkn own) unknown) Result panel 16 (unknown) (no (unknown) (unknown) Qty: 1 0RF (units (unk nown) date) unknown) (unknown) (no (unknown) (unknown) (no value) (units (unk nown) date) unknown) (unknown) (no (unknown) (unknown) Radiologist's (units ( unknown) date) Impression: unknown) (unknown) (no (unknown) (unknown) *Please continue to (unit s (unknown) date) take your regular unknown) medications as directed. (unknown) (no (unknown) (unknown) Date of Service: (units (unknown) date) 03/14/22 unknown) (unknown) (no (unknown) (unknown) (no value) (units (unk nown) date) unknown) (unknown) (no (unknown) (unknown) <Electronically (units (unknown) date) signed by Vannesa Stoner unknown) STAN Crew> (unknown) (no (unknown) (unknown) <Electronically (units (unknown) date) signed by Tamika Vivas unknown) Quirino Barahona> (unknown) (no (unknown) (unknown) 03/14/22 194 (units ( unknown) date) unknown) (unknown) (no (unknown) (unknown) 03/21/22 0746 (units ( unknown) date) unknown) (unknown) (no (unknown) (unknown) 20 mg PO QDAY Qty: 0 (uni ts (unknown) date) 0RF unknown) (unknown) (no (unknown) (unknown) 35 unit SQ BID Qty: (unit s (unknown) date) 0 0RF unknown) (unknown) (no (unknown) (unknown) 4 mg PO QAM 0RF (units (unknown) date) unknown) (unknown) (no (unknown) (unknown) 5 - 10 mg PO Q3HP (units (unknown) date) PRNQty: 60 0RF unknown) (unknown) (no (unknown) (unknown) 81 mg PO QDAY Qty: 0 (uni ts (unknown) date) 0RF unknown) (unknown) (no (unknown) (unknown) Allergies (units (unkn own) date) unknown) (unknown) (no (unknown) (unknown) As directed (units (un known) date) unknown) (unknown) (no (unknown) (unknown) BLOAT (units (unkno wn) date) unknown) (unknown) (no (unknown) (unknown) DME: [facility] (units (unknown) date) unknown) (unknown) (no (unknown) (unknown) Documented by: (units (unknown) date) NRHOADS unknown) (unknown) (no (unknown) (unknown) Dose Instruction: (units (unknown) date) unknown) (unknown) (no (unknown) (unknown) Emergency Report (units (unknown) date) unknown) (unknown) (no (unknown) (unknown) Home Medications (units (unknown) date) unknown) (unknown) (no (unknown) (unknown) [facility] [address] (uni ts (unknown) date) [address] unknown) [place] [address] (unknown) (no (unknown) (unknown) Lab Results (units (un known) date) unknown) (unknown) (no (unknown) (unknown) Label Comments: (units (unknown) date) unknown) (unknown) (no (unknown) (unknown) Last Admin: 03/14/22 (uni ts (unknown) date) 19:32 Dose: 975 mg unknown) (unknown) (no (unknown) (unknown) Pressure: IPAP 14 (units (unknown) date) EPAP 6 unknown) (unknown) (no (unknown) (unknown) Previous Rx's (units ( unknown) date) unknown) (unknown) (no (unknown) (unknown) Rx Instructions: (units (unknown) date) unknown) (unknown) (no (unknown) (unknown) Stop: 03/14/22 19:06 (uni ts (unknown) date) unknown) (unknown) (no (unknown) (unknown) Vital Signs - 8 hr (units (unknown) date) unknown) (unknown) (no (unknown) (unknown) [ ] New medication (units (unknown) date) prescriptions sent to unknown) your pharmacy: [ ] (unknown) (no (unknown) (unknown) [ ] New medication (units (unknown) date) written as a paper unknown) prescription (unknown) (no (unknown) (unknown) [x ] No new (units (un known) date) medications given unknown) (unknown) (no (unknown) (unknown) (no value) (units (unk nown) date) unknown) (unknown) (no (unknown) (unknown) (DME) Resprionics (units (unknown) date) Dreamstation BIPAP unknown) (unknown) (no (unknown) (unknown) 03/14/22 Range/Units (uni ts (unknown) date) unknown) (unknown) (no (unknown) (unknown) 19:41 (units (unkno wn) date) unknown) (unknown) (no (unknown) (unknown) Lantus U-100 Insulin (uni ts (unknown) date) 100 UNIT/1 ML unknown) solution (unknown) (no (unknown) (unknown) aspirin 81 MG (units ( unknown) date) tablet,delayed unknown) release (DR/EC) (unknown) (no (unknown) (unknown) glimepiride 2 mg (units (unknown) date) tablet unknown) (unknown) (no (unknown) (unknown) oxycodone 5 MG (units (unknown) date) tablet unknown) (unknown) (no (unknown) (unknown) pantoprazole 20 MG (units (unknown) date) tablet,delayed unknown) release (DR/EC) (unknown) (no (unknown) (unknown) 03/14/22 (units (unkno wn) date) unknown) (unknown) (no (unknown) (unknown) Encounter type: (units (unknown) date) initial encounter unknown) Loss of consciousness presence/duration: with (unknown) (no (unknown) (unknown) Encounter type: (units (unknown) date) initial encounter unknown) Qualified Code(s): S09.90XA - Unspecified (unknown) (no (unknown) (unknown) Is patient endorses (unit s (unknown) date) having a headache, unknown) denies vision changes, states she feels (unknown) (no (unknown) (unknown) LOC of 30 min or (units (unknown) date) less Qualified unknown) Code(s): S06.0X1A - Concussion with loss of (unknown) (no (unknown) (unknown) Medication (units (unk nown) date) Instructions unknown) Recorded (unknown) (no (unknown) (unknown) Medication (units (unk nown) date) Instructions unknown) Recorded Confirmed (unknown) (no (unknown) (unknown) Patient has been (units (unknown) date) informed of results. unknown) Patient has been given strict return to (unknown) (no (unknown) (unknown) You can take a (units (unknown) date) Benadryl to help with unknown) the Tylenol for your headache, you can (unknown) (no (unknown) (unknown) after the dog jolted (uni ts (unknown) date) in the wrong unknown) direction. She hit her head on the ground, (unknown) (no (unknown) (unknown) and it is not very (units (unknown) date) bad or worse than her unknown) baseline today. Patient was given (unknown) (no (unknown) (unknown) any laceration or (units (unknown) date) skull fracture, CT of unknown) her head and brain do not show any soft (unknown) (no (unknown) (unknown) discharge home. (units (unknown) date) Vital signs are unknown) stable on repeat examination is unremarkable. (unknown) (no (unknown) (unknown) in your brain. You (unit s (unknown) date) likely have a unknown) concussion, that is why you feel fatigued, (unknown) (no (unknown) (unknown) tissue injury or (units (unknown) date) underlying fracture, unknown) noevidence of acute intracranial trauma. (unknown) (no (unknown) (unknown) up closely with (units (unknown) date) outpatient providers unknown) as instructed. Patient understands plan (unknown) (no (unknown) (unknown) white (units (unkno wn) date) unknown) (unknown) (no (unknown) (unknown) you have any (units (u nknown) date) vomiting, weakness, unknown) vision changes, please come back to the (unknown) (no (unknown) (unknown) <Vannesa King, (units (unknown) date) [facility] - Last Filed: unknown) 03/14/22 19:44> (unknown) (no (unknown) (unknown) <Tamika Barahona, DO - (uni ts (unknown) date) Last Filed: 03/21/22 unknown) 07:46> (unknown) (no (unknown) (unknown) *If you do not have (unit s (unknown) date) a primary care unknown) provider please contact [phone] to (unknown) (no (unknown) (unknown) *Please follow up (units (unknown) date) with your primary unknown) care provider in 2-3 days, call for an (unknown) (no (unknown) (unknown) *Return to Emergency (uni ts (unknown) date) Department if you unknown) should have any new, worsening or (unknown) (no (unknown) (unknown) *What to do: (units (u nknown) date) unknown) (unknown) (no (unknown) (unknown) *You have been (units (unknown) date) diagnosed with a head unknown) injury, loss of consciousness, and a (unknown) (no (unknown) (unknown) 007 (units (unkno wn) date) unknown) (unknown) (no (unknown) (unknown) 1. No CT evidence of (uni ts (unknown) date) acute intracranial unknown) trauma. (unknown) (no (unknown) (unknown) 17:00 (units (unkno wn) date) unknown) (unknown) (no (unknown) (unknown) 2. No significant (units (unknown) date) soft tissue injury or unknown) underlying fracture. ? (unknown) (no (unknown) (unknown) ? (units (unkno wn) date) unknown) (unknown) (no (unknown) (unknown) Acetaminophen (units ( unknown) date) (Acetaminophen 325 Mg unknown) Tablet) 975 mg PO NOW ONE (unknown) (no (unknown) (unknown) Activity (units (unkno wn) date) Restrictions/Addition unknown) al Instructions: (unknown) (no (unknown) (unknown) Age/Sex: 71 / F (units (unknown) date) unknown) (unknown) (no (unknown) (unknown) Allergy/AdvReac Type (uni ts (unknown) date) Severity Reaction unknown) Status Date / Time (unknown) (no (unknown) (unknown) Approved by: Toya Darlinguni ts (unknown) date) Jones Torres on unknown) 03/14/2022 at 17:37 ? (unknown) (no (unknown) (unknown) Bilateral bunions (units (unknown) date) unknown) (unknown) (no (unknown) (unknown) Blood Pressure (units (unknown) date) 133/81 03/14/22 unknown) 17:00 (unknown) (no (unknown) (unknown) Blood Pressure (units (unknown) date) 133/81 unknown) (unknown) (no (unknown) (unknown) Brain:? No (units (unk nown) date) intracranial bleeds unknown) or masses.? There is cerebral volume loss for (unknown) (no (unknown) (unknown) COMPARISON:? [place] (unit s (unknown) date) [facility], CT, HEAD unknown) WITHOUT CONTRAST, 12/16/2013, 19:06. (unknown) (no (unknown) (unknown) CSF spaces:? Basal (units (unknown) date) cisterns are patent.? unknown) No extra-axial fluid collections.? The (unknown) (no (unknown) (unknown) CT scan - head: (units (unknown) date) unknown) (unknown) (no (unknown) (unknown) Cardio: denies chest (uni ts (unknown) date) pain, palpitations, unknown) edema (unknown) (no (unknown) (unknown) Cardiovascular: (units (unknown) date) regular rate and unknown) rhythm, no peripheral edema, warm extremities (unknown) (no (unknown) (unknown) Chief Complaint: (units (unknown) date) Fall unknown) (unknown) (no (unknown) (unknown) Clinical Impression: (uni ts (unknown) date) unknown) (unknown) (no (unknown) (unknown) Concussion (units (unk nown) date) unknown) (unknown) (no (unknown) (unknown) Cosign (units (unkno wn) date) unknown) (unknown) (no (unknown) (unknown) Course (units (unkno wn) date) unknown) (unknown) (no (unknown) (unknown) : 1950 (units (unknown) date) Acct:[id number] unknown) (unknown) (no (unknown) (unknown) Departure (units (unkn own) date) unknown) (unknown) (no (unknown) (unknown) 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 ? (unknown) (no (unknown) (unknown) Discharge Plan (units (unknown) date) unknown) (unknown) (no (unknown) (unknown) Discontinued (units (u nknown) date) Medications unknown) (unknown) (no (unknown) (unknown) ED Attending (units (u nknown) date) Cosignature unknown) Attestation: (unknown) (no (unknown) (unknown) ER Physician: (units ( unknown) date) Vannesa King unknown) (unknown) (no (unknown) (unknown) ER precautions for (units (unknown) date) any new or worsening unknown) symptoms. Patient understands to follow (unknown) (no (unknown) (unknown) Exam (units (unkno wn) date) unknown) (unknown) (no (unknown) (unknown) Exam Narrative: (units (unknown) date) unknown) (unknown) (no (unknown) (unknown) Excessive daytime (units (unknown) date) sleepiness unknown) (unknown) (no (unknown) (unknown) Eyes: denies visual (unit s (unknown) date) changes, eye pain unknown) (unknown) (no (unknown) (unknown) Eyes: equal round (units (unknown) date) and reactive, EOMI, unknown) conjunctiva normal (unknown) (no (unknown) (unknown) FINDINGS:? (units (unk nown) date) unknown) (unknown) (no (unknown) (unknown) GI: abdomen soft, (units (unknown) date) nontender to unknown) palpation, nondistended, no masses, no exquisite (unknown) (no (unknown) (unknown) GI: denies abdominal (uni ts (unknown) date) pain, nausea, unknown) vomiting, or diarrhea (unknown) (no (unknown) (unknown) : denies dysuria, (unit s (unknown) date) hematuria, urinary unknown) retention, frequency or incontinence (unknown) (no (unknown) (unknown) General (units (unkno wn) date) unknown) (unknown) (no (unknown) (unknown) General: (units (unkno wn) date) cooperative, unknown) comfortable, in no acute distress, well groomed (unknown) (no (unknown) (unknown) General: denies (units (unknown) date) fever, chills, unknown) malaise, sweats, endorses feeling fatigued (unknown) (no (unknown) (unknown) HPI - Fall (units (unk nown) date) unknown) (unknown) (no (unknown) (unknown) HPI Narrative: (units (unknown) date) unknown) (unknown) (no (unknown) (unknown) Head injury (units (un known) date) unknown) (unknown) (no (unknown) (unknown) Head/Neck: Endorses (uni ts (unknown) date) headache with unknown) dizziness, denies neck pain (unknown) (no (unknown) (unknown) Head: Palpable lump (uni ts (unknown) date) on right parietal unknown) scalp, no skull laceration,depression or (unknown) (no (unknown) (unknown) History of Present (units (unknown) date) Illness unknown) (unknown) (no (unknown) (unknown) History of (units (unk nown) date) bunionectomy of both unknown) great toes (unknown) (no (unknown) (unknown) I was immediately (units (unknown) date) available in the unknown) department for consultation. Documentation (unknown) (no (unknown) (unknown) IMPRESSION:? (units (u nknown) date) unknown) (unknown) (no (unknown) (unknown) INDICATIONS:? fall, (unit s (unknown) date) +loc unknown) (unknown) (no (unknown) (unknown) Image quality:? (units (unknown) date) Excellent.? unknown) (unknown) (no (unknown) (unknown) Imaging Data (units (u nknown) date) unknown) (unknown) (no (unknown) (unknown) Independently (units ( unknown) date) reviewed vitals signs unknown) and nursing notes. (unknown) (no (unknown) (unknown) Initial Vital Signs (unit s (unknown) date) unknown) (unknown) (no (unknown) (unknown) Initial Vital Signs: (uni ts (unknown) date) unknown) (unknown) (no (unknown) (unknown) Instructions: (units ( unknown) date) Concussion unknown) (unknown) (no (unknown) (unknown) Lab Data (units (unkno wn) date) unknown) (unknown) (no (unknown) (unknown) Labs: (units (unkno wn) date) unknown) (unknown) (no (unknown) (unknown) MDM - Fall (units (unk nown) date) unknown) (unknown) (no (unknown) (unknown) MDM Narrative (units ( unknown) date) unknown) (unknown) (no (unknown) (unknown) MSK: denies joint (units (unknown) date) pain, muscle weakness unknown) (unknown) (no (unknown) (unknown) MSK: moves all (units (unknown) date) extremities, unknown) neurovascularly intact, no weakness, normal tone (unknown) (no (unknown) (unknown) Medical History (units (unknown) date) (Reviewed 03/14/22 @ unknown) 19:[address] Vannesa King [facility]) (unknown) (no (unknown) (unknown) Medical decision (units (unknown) date) making narrative: unknown) (unknown) (no (unknown) (unknown) Memory loss of (units (unknown) date) unknown cause unknown) (unknown) (no (unknown) (unknown) Mode of arrival: (units (unknown) date) Ambulatory unknown) (unknown) (no (unknown) (unknown) Mouth/Throat: moist (unit s (unknown) date) mucus membranes unknown) (unknown) (no (unknown) (unknown) Narrative (units (unkn own) date) unknown) (unknown) (no (unknown) (unknown) Narrative: (units (unk nown) date) unknown) (unknown) (no (unknown) (unknown) Neck: supple (units (u nknown) date) unknown) (unknown) (no (unknown) (unknown) Neuro: denies (units ( unknown) date) numbness, tingling unknown) (unknown) (no (unknown) (unknown) Neuro: normal speech (uni ts (unknown) date) and cognition, A+O x3 unknown) (unknown) (no (unknown) (unknown) Neuropathic pain of (unit s (unknown) date) both feet unknown) (unknown) (no (unknown) (unknown) No Action (units (unkn own) date) unknown) (unknown) (no (unknown) (unknown) Noncontrast 4.5 mm (units (unknown) date) thick angled axial unknown) sections acquired from the foramen magnum (unknown) (no (unknown) (unknown) Nose: nares patent, (unit s (unknown) date) no rhinorrhea unknown) (unknown) (no (unknown) (unknown) Obstructive sleep (units (unknown) date) apnea of adult unknown) (unknown) (no (unknown) (unknown) Ordered: (units (unkno wn) date) unknown) (unknown) (no (unknown) (unknown) Orders (units (unkno wn) date) unknown) (unknown) (no (unknown) (unknown) PROCEDURE:? CT (units (unknown) date) HEAD/BRAIN WO CON unknown) (unknown) (no (unknown) (unknown) Patient Disposition: (uni ts (unknown) date) Home unknown) (unknown) (no (unknown) (unknown) Patient History (units (unknown) date) unknown) (unknown) (no (unknown) (unknown) Patient: Terrence Buckley (uni ts (unknown) date) MR#: [id number] unknown) (unknown) (no (unknown) (unknown) Prescriptions: (units (unknown) date) unknown) (unknown) (no (unknown) (unknown) Primary insomnia (units (unknown) date) unknown) (unknown) (no (unknown) (unknown) Psych: mental status (uni ts (unknown) date) is grossly normal, unknown) congruent mood, normal affect, pleasant (unknown) (no (unknown) (unknown) Pulse Oximetry 97 (units (unknown) date) 03/14/22 17:00 unknown) (unknown) (no (unknown) (unknown) Pulse Oximetry 97 (units (unknown) date) unknown) (unknown) (no (unknown) (unknown) Pulse Rate 81 (units (unknown) date) 03/14/22 17:00 unknown) (unknown) (no (unknown) (unknown) Pulse Rate 81 (units ( unknown) date) unknown) (unknown) (no (unknown) (unknown) Qualifiers: (units (un known) date) unknown) (unknown) (no (unknown) (unknown) Lizette Mireles DO (units (unknown) date) [Primary Care unknown) Provider] - (unknown) (no (unknown) (unknown) Referrals: (units (unk nown) date) unknown) (unknown) (no (unknown) (unknown) Related Data (units (u nknown) date) unknown) (unknown) (no (unknown) (unknown) Respiratory Rate 16 (uni ts (unknown) date) 03/14/22 17:00 unknown) (unknown) (no (unknown) (unknown) Respiratory Rate 169 (uni ts (unknown) date) H unknown) (unknown) (no (unknown) (unknown) Respiratory: denies (unit s (unknown) date) dyspnea, cough, unknown) orthopnea (unknown) (no (unknown) (unknown) Respiratory: normal (unit s (unknown) date) effort, able to speak unknown) in complete sentences, no audible (unknown) (no (unknown) (unknown) Resprionics (units (un known) date) Dreamstation BIPAP #1 unknown) ea 01/06/19 08/08/21 (unknown) (no (unknown) (unknown) Review of Systems (units (unknown) date) unknown) (unknown) (no (unknown) (unknown) S/P lumbar spinal (units (unknown) date) fusion unknown) (unknown) (no (unknown) (unknown) Signed By: (units (unk nown) date) unknown) (unknown) (no (unknown) (unknown) Sinuses:? Visualized (uni ts (unknown) date) sinuses and mastoids unknown) are clear.? (unknown) (no (unknown) (unknown) Skin: brisk (units (un known) date) capillary refill, no unknown) rash, no erythema (unknown) (no (unknown) (unknown) Skin: denies rash, (units (unknown) date) itching, skin lesions unknown) or other (unknown) (no (unknown) (unknown) Skull and face:? (units (unknown) date) Calvarium and unknown) visualized facial bones appear intact, without (unknown) (no (unknown) (unknown) Smoking Status: (units (unknown) date) Never smoker unknown) (unknown) (no (unknown) (unknown) Smoking Status: (units (unknown) date) Never smoker unknown) (unknown) (no (unknown) (unknown) Social History (units (unknown) date) (Reviewed 03/14/22 @ unknown) 19:38 by STAN Kruse) (unknown) (no (unknown) (unknown) Source: patient (units (unknown) date) unknown) (unknown) (no (unknown) (unknown) Stated Complaint: (units (unknown) date) knocked over by dog, unknown) hit head, loc (unknown) (no (unknown) (unknown) Subarachnoid (units (u nknown) date) hemorrhage, but unknown) unlikely as patient denies sudden onset of pain, (unknown) (no (unknown) (unknown) Substance Use Type: (unit s (unknown) date) does not use unknown) (unknown) (no (unknown) (unknown) Surgical History (units (unknown) date) (Reviewed 03/14/22 @ unknown) 19:38 by STAN Kruse) (unknown) (no (unknown) (unknown) TECHNIQUE:? (units (un known) date) unknown) (unknown) (no (unknown) (unknown) Temperature 98.0 F (unit s (unknown) date) 03/14/22 17:00 unknown) (unknown) (no (unknown) (unknown) Temperature 98.0 F (units (unknown) date) unknown) (unknown) (no (unknown) (unknown) This is a 71-year-old (uni ts (unknown) date) female presents to unknown) the emergency department complaining of (unknown) (no (unknown) (unknown) This is a pleasant (units (unknown) date) 71 year old female unknown) with history of diabetes, she presents to (unknown) (no (unknown) (unknown) Time Seen by (units (u nknown) date) Provider: 03/14/22 unknown) 18:47 (unknown) (no (unknown) (unknown) Tylenol in the (units (unknown) date) emergency department, unknown) states her headache was a 4/10 at that (unknown) (no (unknown) (unknown) Type 2 diabetes (units (unknown) date) mellitus unknown) (unknown) (no (unknown) (unknown) U-100 Insulin) (units (unknown) date) unknown) (unknown) (no (unknown) (unknown) Ur Culture (units (unk nown) date) Indicated? Cult not unknown) indicated (unknown) (no (unknown) (unknown) Ur Leukocyte (units (u nknown) date) Esterase Negative unknown) (NEGATIVE) (unknown) (no (unknown) (unknown) Ur Specific [place] (unit s (unknown) date) 1.010 (1.000-1.035) unknown) (unknown) (no (unknown) (unknown) Ur Squamous Epith (units (unknown) date) Cells None seen unknown) (0-5/HPF) (unknown) (no (unknown) (unknown) Urine Appearance (units (unknown) date) Clear unknown) (unknown) (no (unknown) (unknown) Urine Bacteria None (uni ts (unknown) date) seen (None) unknown) (unknown) (no (unknown) (unknown) Urine Bilirubin (units (unknown) date) Negative (NEGATIVE) unknown) (unknown) (no (unknown) (unknown) Urine Color Yellow (unit s (unknown) date) unknown) (unknown) (no (unknown) (unknown) Urine Glucose (UA) (units (unknown) date) Negative (Negative) unknown) g/dL (unknown) (no (unknown) (unknown) Urine Ketones (units ( unknown) date) Negative (NEGATIVE) unknown) (unknown) (no (unknown) (unknown) Urine Nitrate (units ( unknown) date) Negative (Negative) unknown) (unknown) (no (unknown) (unknown) Urine Occult Blood (units (unknown) date) Negative (Negative) unknown) (unknown) (no (unknown) (unknown) Urine Protein (units ( unknown) date) Negative (Negative) unknown) (unknown) (no (unknown) (unknown) Urine RBC None seen (uni ts (unknown) date) (0-5/HPF) unknown) (unknown) (no (unknown) (unknown) Urine Urobilinogen (units (unknown) date) 0.2 (0.2) E.U./dL unknown) (unknown) (no (unknown) (unknown) Urine WBC 0-1/hpf (units (unknown) date) (0-5/HPF) unknown) (unknown) (no (unknown) (unknown) Urine pH 6.5 (units ( unknown) date) (4.5-8.0) unknown) (unknown) (no (unknown) (unknown) Vital Signs (units (un known) date) unknown) (unknown) (no (unknown) (unknown) Vital signs: (units (u nknown) date) unknown) (unknown) (no (unknown) (unknown) [From Levemir U-100 (unit s (unknown) date) Insulin] unknown) (unknown) (no (unknown) (unknown) [From ZESTORETIC] (units (unknown) date) BLOAT unknown) (unknown) (no (unknown) (unknown) a fall earlier today (uni ts (unknown) date) while she was out unknown) walking the dog and she hit her right (unknown) (no (unknown) (unknown) activity in when her (uni ts (unknown) date) symptoms are gone. unknown) Patient states her under standing, she (unknown) (no (unknown) (unknown) age, with (units (unkn own) date) unknown) (unknown) (no (unknown) (unknown) alcohol intake (units (unknown) date) frequency: other unknown) (unknown) (no (unknown) (unknown) altered mental (units (unknown) date) status, hypertension unknown) or fever. Patient is encouraged to have (unknown) (no (unknown) (unknown) and agrees to (units (u nknown) date) discharge home. All unknown) questions and concerns answered at this time. (unknown) (no (unknown) (unknown) and cooperative (units (unknown) date) unknown) (unknown) (no (unknown) (unknown) appointment. Let them (uni ts (unknown) date) know you were seen in unknown) the Emergency Department and that we (unknown) (no (unknown) (unknown) asked that you be (units (unknown) date) seen for follow-up. unknown) We will electronically transmit a record (unknown) (no (unknown) (unknown) aspirin 81 mg (units ( unknown) date) tablet,delayed 81 mg unknown) PO QDAY #0 02/18/17 08/08/21 (unknown) (no (unknown) (unknown) at 1115, denies any (unit s (unknown) date) nausea or vomiting. unknown) Patient endorses feeling fatigued, (unknown) (no (unknown) (unknown) caregiver/support (units (unknown) date) person: No unknown) (unknown) (no (unknown) (unknown) changes, or other (units (unknown) date) concerning symptom. unknown) Headache considerations include, but not (unknown) (no (unknown) (unknown) close follow-up with (unit s (unknown) date) her primary doctor. unknown) Patient is appropriate and amenable to (unknown) (no (unknown) (unknown) complains of a (units (unknown) date) headache 02/03, denies unknown) any vision changes or blurry vision, she (unknown) (no (unknown) (unknown) concerning symptoms, (uni ts (unknown) date) such as [fever unknown) greater than 101F, chills, worsening pain, (unknown) (no (unknown) (unknown) concussion. You were (uni ts (unknown) date) given Tylenol at 1930 unknown) hours. Please go home and rest. If (unknown) (no (unknown) (unknown) condition (units (unkn own) date) unknown) (unknown) (no (unknown) (unknown) consciousness of 30 (unit s (unknown) date) minutes or less, unknown) initial encounter (unknown) (no (unknown) (unknown) crepitus, normal and (uni ts (unknown) date) equal facial unknown) expressions (unknown) (no (unknown) (unknown) details: to (units (u nknown) date) Bryce, [place] (unknown) (no (unknown) (unknown) doctor know that you (uni ts (unknown) date) had a fall today and unknown) head injury. (unknown) (no (unknown) (unknown) emergency department (unit s (unknown) date) for another unknown) evaluation. Your CT does not show any bleeding (unknown) (no (unknown) (unknown) emergency department (uni ts (unknown) date) if you have new or unknown) worsening symptoms. Please let your (unknown) (no (unknown) (unknown) establish care with (unit s (unknown) date) [facility] of the [facility] primary care providers. (unknown) (no (unknown) (unknown) fatigue, dizziness, (unit s (unknown) date) your brain is not unknown) ready for that activity and is trying to (unknown) (no (unknown) (unknown) fatigued and has (units (unknown) date) occasional dizziness. unknown) Patient states she has a history vertigo (unknown) (no (unknown) (unknown) following (units (unkn own) date) unknown) (unknown) (no (unknown) (unknown) glimepiride 2 mg (units (unknown) date) tablet 4 mg PO QAM unknown) tab 06/29/20 08/08/21 (unknown) (no (unknown) (unknown) going for walks, or (unit s (unknown) date) interacting with unknown) others. If you are having a headache, (unknown) (no (unknown) (unknown) had a positive loss (unit s (unknown) date) of consciousness unknown) without emesis, states that she had a (unknown) (no (unknown) (unknown) has any vomiting, (units (unknown) date) mental status unknown) changes, weakness, worsening pain, vision (unknown) (no (unknown) (unknown) has been reviewed. (units (unknown) date) unknown) (unknown) (no (unknown) (unknown) have a headache, (units (unknown) date) feel dizziness, and unknown) tired. Please try and rest as much as (unknown) (no (unknown) (unknown) her headache, you (units (unknown) date) can gradually unknown) increase your activity including watching TV (unknown) (no (unknown) (unknown) household members: (units (unknown) date) spouse unknown) (unknown) (no (unknown) (unknown) housing: house (units (unknown) date) unknown) (unknown) (no (unknown) (unknown) hydrochlorothiazide (unit s (unknown) date) Allergy Intermediate unknown) COUGH, Verified 03/14/22 17:03 (unknown) (no (unknown) (unknown) injury of head, (units (unknown) date) initial encounter unknown) (unknown) (no (unknown) (unknown) insulin detemir (units (unknown) date) Allergy Intermediate unknown) Rash Verified 03/14/22 17:03 (unknown) (no (unknown) (unknown) insulin glargine 100 (uni ts (unknown) date) unit/mL 35 unit SQ unknown) BID #0 03/04/17 08/08/21 (unknown) (no (unknown) (unknown) is encouraged to go (unit s (unknown) date) home and rest, to unknown) return to the emergency department if she (unknown) (no (unknown) (unknown) lesions.? (units (unkn own) date) unknown) (unknown) (no (unknown) (unknown) limited to: (units (un known) date) unknown) (unknown) (no (unknown) (unknown) lisinopril [From (units (unknown) date) ZESTORETIC] Allergy unknown) Intermediate COUGH, Verified 03/14/22 17:03 (unknown) (no (unknown) (unknown) lives independently: (uni ts (unknown) date) Yes unknown) (unknown) (no (unknown) (unknown) marital status: (units (unknown) date) unknown) (unknown) (no (unknown) (unknown) matter chronic small (uni ts (unknown) date) vessel ischemic unknown) changes. (unknown) (no (unknown) (unknown) not worst of life, (units (unknown) date) or neck pain, unknown) negative Brudzinski's, Kernig's sign, without (unknown) (no (unknown) (unknown) nystagmus or neck (units (unknown) date) pain. unknown) (unknown) (no (unknown) (unknown) of today's note if (units (unknown) date) your PCP is in our unknown) system (unknown) (no (unknown) (unknown) oxycodone 5 mg (units (unknown) date) tablet 5 - 10 mg PO unknown) Q3HP PRN #60 tab 03/07/17 (unknown) (no (unknown) (unknown) pantoprazole 20 mg (units (unknown) date) tablet,delayed 20 mg unknown) PO QDAY #0 02/18/17 08/08/21 (unknown) (no (unknown) (unknown) parietal head on the (uni ts (unknown) date) concrete. She had a unknown) positive loss consciousness, this was (unknown) (no (unknown) (unknown) patient (units (unkno wn) date) unknown) (unknown) (no (unknown) (unknown) period of time with (units (unknown) date) short memory loss, unknown) but that has resolved. She does not have (unknown) (no (unknown) (unknown) persistent vomiting (unit s (unknown) date) or other bothersome unknown) symptoms] (unknown) (no (unknown) (unknown) possible until these (uni ts (unknown) date) symptoms go away. unknown) When they have all gone away including (unknown) (no (unknown) (unknown) release (units (unkno wn) date) unknown) (unknown) (no (unknown) (unknown) resultant ventricular (uni ts (unknown) date) and sulcal unknown) prominence.? There are periventricular and deep (unknown) (no (unknown) (unknown) size.? (units (unkno wn) date) unknown) (unknown) (no (unknown) (unknown) states that she has (unit s (unknown) date) had some dizziness, unknown) headache, fatigue, and a small bump on (unknown) (no (unknown) (unknown) subcutaneous (units (u nknown) date) solution (Lantus unknown) (unknown) (no (unknown) (unknown) substance use type: (unit s (unknown) date) does not use unknown) (unknown) (no (unknown) (unknown) suspicious (units (unk nown) date) unknown) (unknown) (no (unknown) (unknown) take ibuprofen at (units (unknown) date) home if you tolerate unknown) this well. Please return to the (unknown) (no (unknown) (unknown) tell you it needs to (uni ts (unknown) date) rest the more. I unknown) hope that you start feeling better soon. (unknown) (no (unknown) (unknown) tenderness with (units (unknown) date) exam, without unknown) guarding or rebound. (unknown) (no (unknown) (unknown) the emergency (units (u nknown) date) department after unknown) ground level fall after tripping over a dog leash (unknown) (no (unknown) (unknown) the right side of (units (unknown) date) her head. She did unknown) not have any nausea, vomiting, weakness, (unknown) (no (unknown) (unknown) time. No neuro (units (unknown) date) deficits on exam, unknown) patient is ambulatory, discussed concussions (unknown) (no (unknown) (unknown) to the (units (unkno wn) date) unknown) (unknown) (no (unknown) (unknown) ventricles are (units (unknown) date) symmetric in size and unknown) shape.? (unknown) (no (unknown) (unknown) verapamil (units (unkn own) date) [VERAPAMIL] Allergy unknown) Intermediate BLOATING Verified 03/14/22 17:03 (unknown) (no (unknown) (unknown) vertex, with coronal (uni ts (unknown) date) and sagittal unknown) reformats.? For radiation dose reduction, the (unknown) (no (unknown) (unknown) was used:? automated (uni ts (unknown) date) exposure control, unknown) adjustment of mA and/or kV according to (unknown) (no (unknown) (unknown) wheezing, stridor, (units (unknown) date) or rales. No unknown) retractions or tachypnea. (unknown) (no (unknown) (unknown) with patient and (units (unknown) date) symptoms of them and unknown) how to rest at home and gradually add Result panel 17 (unknown) (no (unknown) (unknown) (no value) (units (unk nown) date) unknown) (unknown) (no (unknown) (unknown) [address] [place] [address] (units (unknown) date) unknown) (unknown) (no (unknown) (unknown) [place], [place] (units ( unknown) date) [id number] unknown) (unknown) (no (unknown) (unknown) [facility] (units (unknown) date) unknown) (unknown) (no (unknown) (unknown) Signed (units (unkno wn) date) unknown) (unknown) (no (unknown) (unknown) XRay Report (units (un known) date) unknown) (unknown) (no (unknown) (unknown) (no value) (units (unk nown) date) unknown) (unknown) (no (unknown) (unknown) 04/18/22 (units (unkno wn) date) unknown) (unknown) (no (unknown) (unknown) Approved by: (units (u nknown) date) Li Franco unknown) MD Patrick, PhD on 04/18/2022 at 12:08 (unknown) (no (unknown) (unknown) Bones and chest (units (unknown) date) wall: No unknown) fractures or dislocations. No suspicious bony (unknown) (no (unknown) (unknown) COMPARISON: (units (un known) date) None. unknown) (unknown) (no (unknown) (unknown) Dictated by: (units (u nknown) date) Li Franco unknown) MD Patrick, PhD on 04/18/2022 at 12:07 (unknown) (no (unknown) (unknown) FINDINGS: (units (unkn own) date) unknown) (unknown) (no (unknown) (unknown) IMPRESSION: No (units (unknown) date) displaced rib unknown) fracture. No acute cardiopulmonary disease (unknown) (no (unknown) (unknown) INDICATIONS: (units (u nknown) date) fall thinks she unknown) has a rib fracture (unknown) (no (unknown) (unknown) Lungs and pleura: (units (unknown) date) No pleural unknown) effusions or pneumothorax. Lungs appear clear. (unknown) (no (unknown) (unknown) Mediastinum: (units (u nknown) date) Mediastinal unknown) contours appear normal. Heart size is normal. (unknown) (no (unknown) (unknown) Overlying soft (units (unknown) date) tissues appear unknown) unremarkable. (unknown) (no (unknown) (unknown) Surgical changes (units (unknown) date) and devices: unknown) Cervical spine and partially visualized lumbar (unknown) (no (unknown) (unknown) TECHNIQUE: 2 (units ( unknown) date) views of the left unknown) ribs were acquired, along with a single view (unknown) (no (unknown) (unknown) fixation (units (unkno wn) date) hardware. unknown) Cholecystectomy clips. (unknown) (no (unknown) (unknown) 0007 (units (unkno wn) date) unknown) (unknown) (no (unknown) (unknown) Accession Number: (units (unknown) date) [id number] unknown) (unknown) (no (unknown) (unknown) Age/Sex: 71 / F (units (unknown) date) Date of Service: unknown) (unknown) (no (unknown) (unknown) : 1950 (units (unknown) date) Acct:[id number] unknown) (unknown) (no (unknown) (unknown) Loc: ED (units (unkno wn) date) unknown) (unknown) (no (unknown) (unknown) Ordering (units (unkno wn) date) Provider: unknown) Harpal Christian D.O. (unknown) (no (unknown) (unknown) PROCEDURE: XR (units (unknown) date) RIBS LT MIN 3V W unknown) CXR1V (unknown) (no (unknown) (unknown) Patient: (units (unkno wn) date) Terrence Buckley A unknown) MR#: [id number] (unknown) (no (unknown) (unknown) Procedure: XR (units ( unknown) date) ribs LT min 3V w unknown) CXR1V (unknown) (no (unknown) (unknown) chest. (units (unkno wn) date) unknown) (unknown) (no (unknown) (unknown) lesions. (units (unkno wn) date) unknown) (unknown) (no (unknown) (unknown) process. (units (unkno wn) date) unknown) (unknown) (no (unknown) (unknown) spine (units (unkno wn) date) unknown) Result panel 18 (unknown) (no (unknown) (unknown) Qty: 1 (units (unkno wn) date) unknown) (unknown) (no (unknown) (unknown) (no value) (units (unk nown) date) unknown) (unknown) (no (unknown) (unknown) Radiologist's (units ( unknown) date) Impression: unknown) (unknown) (no (unknown) (unknown) Date of Service: (units (unknown) date) 04/18/22 unknown) (unknown) (no (unknown) (unknown) (no value) (units (unk nown) date) unknown) (unknown) (no (unknown) (unknown) 20 mg PO QDAY Qty: 0 (uni ts (unknown) date) unknown) (unknown) (no (unknown) (unknown) 35 unit SQ BID Qty: (unit s (unknown) date) 0 unknown) (unknown) (no (unknown) (unknown) 4 mg PO QAM (units (un known) date) unknown) (unknown) (no (unknown) (unknown) 5 - 10 mg PO Q3HP (units (unknown) date) PRNQty: 60 0RF unknown) (unknown) (no (unknown) (unknown) 81 mg PO QDAY Qty: 0 (uni ts (unknown) date) unknown) (unknown) (no (unknown) (unknown) Allergies (units (unkn own) date) unknown) (unknown) (no (unknown) (unknown) As directed (units (un known) date) unknown) (unknown) (no (unknown) (unknown) BLOAT (units (unkno wn) date) unknown) (unknown) (no (unknown) (unknown) DME: [facility] (units (unknown) date) unknown) (unknown) (no (unknown) (unknown) Dose Instruction: (units (unknown) date) unknown) (unknown) (no (unknown) (unknown) ED Orders (units (unkn own) date) unknown) (unknown) (no (unknown) (unknown) Emergency Report (units (unknown) date) unknown) (unknown) (no (unknown) (unknown) Home Medications (units (unknown) date) unknown) (unknown) (no (unknown) (unknown) [facility] [address] (uni ts (unknown) date) [address] unknown) [place] [id number] (unknown) (no (unknown) (unknown) Label Comments: (units (unknown) date) unknown) (unknown) (no (unknown) (unknown) Pressure: IPAP 14 (units (unknown) date) EPAP 6 unknown) (unknown) (no (unknown) (unknown) Previous Rx's (units ( unknown) date) unknown) (unknown) (no (unknown) (unknown) Rx Instructions: (units (unknown) date) unknown) (unknown) (no (unknown) (unknown) Vital Signs - 8 hr (units (unknown) date) unknown) (unknown) (no (unknown) (unknown) (no value) (units (unk nown) date) unknown) (unknown) (no (unknown) (unknown) (DME) [employer] (units (unknown) date) [employer] BIPAP unknown) (unknown) (no (unknown) (unknown) Lantus U-100 Insulin (uni ts (unknown) date) 100 UNIT/1 ML unknown) solution (unknown) (no (unknown) (unknown) aspirin 81 MG (units ( unknown) date) tablet,delayed unknown) release (DR/EC) (unknown) (no (unknown) (unknown) glimepiride 2 mg (units (unknown) date) tablet unknown) (unknown) (no (unknown) (unknown) oxycodone 5 MG (units (unknown) date) tablet unknown) (unknown) (no (unknown) (unknown) pantoprazole 20 MG (units (unknown) date) tablet,delayed unknown) release (DR/EC) (unknown) (no (unknown) (unknown) 04/18/22 (units (unkno wn) date) unknown) (unknown) (no (unknown) (unknown) Medication (units (unk nown) date) Instructions unknown) Recorded (unknown) (no (unknown) (unknown) Medication (units (unk nown) date) Instructions unknown) Recorded Confirmed (unknown) (no (unknown) (unknown) 007 (units (unkno wn) date) unknown) (unknown) (no (unknown) (unknown) 04/18/22 11:33 (units (unknown) date) unknown) (unknown) (no (unknown) (unknown) 11:30 (units (unkno wn) date) unknown) (unknown) (no (unknown) (unknown) ? (units (unkno wn) date) unknown) (unknown) (no (unknown) (unknown) Age/Sex: 71 / F (units (unknown) date) unknown) (unknown) (no (unknown) (unknown) Allergy/AdvReac Type (uni ts (unknown) date) Severity Reaction unknown) Status Date / Time (unknown) (no (unknown) (unknown) Approved by: (units (u nknown) date) Li Nguyen, unknown) , PhD on 04/18/2022 at 12:08 ? (unknown) (no (unknown) (unknown) Bilateral bunions (units (unknown) date) unknown) (unknown) (no (unknown) (unknown) Blood Pressure (units (unknown) date) 152/64 H 04/18/22 unknown) 11:30 (unknown) (no (unknown) (unknown) Blood Pressure (units (unknown) date) 152/64 H unknown) (unknown) (no (unknown) (unknown) Bones and chest (units (unknown) date) wall:? No fractures unknown) or dislocations.? No suspicious bony (unknown) (no (unknown) (unknown) COMPARISON:? None. 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 ? (unknown) (no (unknown) (unknown) Discharge Plan (units (unknown) date) unknown) (unknown) (no (unknown) (unknown) ER Physician: (units ( unknown) date) Vannesa KingP unknown) (unknown) (no (unknown) (unknown) Exam (units (unkno wn) date) unknown) (unknown) (no (unknown) (unknown) Excessive daytime (units (unknown) date) sleepiness unknown) (unknown) (no (unknown) (unknown) FINDINGS:? (units (unk nown) date) unknown) (unknown) (no (unknown) (unknown) General (units (unkno wn) date) unknown) (unknown) (no (unknown) (unknown) HPI - Fall (units (unk nown) date) unknown) (unknown) (no (unknown) (unknown) History of (units (unk nown) date) bunionectomy of both unknown) great toes (unknown) (no (unknown) (unknown) IMPRESSION:? No (units (unknown) date) displaced rib unknown) fracture. No acute cardiopulmonary disease (unknown) (no (unknown) (unknown) INDICATIONS:? fall (units (unknown) date) thinks she has a rib unknown) fracture (unknown) (no (unknown) (unknown) Imaging Data (units (u nknown) date) unknown) (unknown) (no (unknown) (unknown) Initial Vital Signs (unit s (unknown) date) unknown) (unknown) (no (unknown) (unknown) Initial Vital Signs: (uni ts (unknown) date) unknown) (unknown) (no (unknown) (unknown) Lungs and pleura:? (units (unknown) date) No pleural effusions unknown) or pneumothorax.? Lungs appear clear.? (unknown) (no (unknown) (unknown) MDM - Fall (units (unk nown) date) unknown) (unknown) (no (unknown) (unknown) Mediastinum:? (units ( unknown) date) Mediastinal contours unknown) appear normal.? Heart size is normal.? (unknown) (no (unknown) (unknown) Medical History (units (unknown) date) (Reviewed 03/14/22 @ unknown) 19:38 by STAN Kruse) (unknown) (no (unknown) (unknown) Memory loss of (units (unknown) date) unknown cause unknown) (unknown) (no (unknown) (unknown) Mode of arrival: (units (unknown) date) Ambulatory unknown) (unknown) (no (unknown) (unknown) Neuropathic pain of (unit s (unknown) date) both feet unknown) (unknown) (no (unknown) (unknown) No Action (units (unkn own) date) unknown) (unknown) (no (unknown) (unknown) Obstructive sleep (units (unknown) date) apnea of adult unknown) (unknown) (no (unknown) (unknown) Ordered: (units (unkno wn) date) unknown) (unknown) (no (unknown) (unknown) Orders (units (unkno wn) date) unknown) (unknown) (no (unknown) (unknown) Overlying soft (units (unknown) date) tissues appear unknown) unremarkable.? (unknown) (no (unknown) (unknown) Oxygen Delivery (units (unknown) date) Method 04/18/22 unknown) 11:30 (unknown) (no (unknown) (unknown) Oxygen Delivery (units (unknown) date) Method Room Air unknown) (unknown) (no (unknown) (unknown) PROCEDURE:? XR RIBS (unit s (unknown) date) LT MIN 3V W CXR1V unknown) (unknown) (no (unknown) (unknown) Patient History (units (unknown) date) unknown) (unknown) (no (unknown) (unknown) Patient: Terrence Buckley (uni ts (unknown) date) MR#: [id number] unknown) (unknown) (no (unknown) (unknown) Prescriptions: (units (unknown) date) unknown) (unknown) (no (unknown) (unknown) Primary insomnia (units (unknown) date) unknown) (unknown) (no (unknown) (unknown) Pulse Oximetry 94 (units (unknown) date) 04/18/22 11:30 unknown) (unknown) (no (unknown) (unknown) Pulse Oximetry 94 (units (unknown) date) unknown) (unknown) (no (unknown) (unknown) Pulse Rate 80 (units (unknown) date) 04/18/22 11:30 unknown) (unknown) (no (unknown) (unknown) Pulse Rate 80 (units ( unknown) date) unknown) (unknown) (no (unknown) (unknown) Lizette Mireles DO (units (unknown) date) [Primary Care unknown) Provider] - (unknown) (no (unknown) (unknown) Referrals: (units (unk nown) date) unknown) (unknown) (no (unknown) (unknown) Related Data (units (u nknown) date) unknown) (unknown) (no (unknown) (unknown) Respiratory Rate 16 (uni ts (unknown) date) 04/18/22 11:30 unknown) (unknown) (no (unknown) (unknown) Respiratory Rate 16 (unit s (unknown) date) unknown) (unknown) (no (unknown) (unknown) Resprionics (units (un known) date) Dreamstation BIPAP #1 unknown) ea 01/06/19 08/08/21 (unknown) (no (unknown) (unknown) S/P lumbar spinal (units (unknown) date) fusion unknown) (unknown) (no (unknown) (unknown) Signed By: (units (unk nown) date) unknown) (unknown) (no (unknown) (unknown) Smoking Status: (units (unknown) date) Never smoker unknown) (unknown) (no (unknown) (unknown) Smoking Status: (units (unknown) date) Never smoker unknown) (unknown) (no (unknown) (unknown) Social History (units (unknown) date) (Reviewed 03/14/22 @ unknown) 19:38 by STAN Kruse) (unknown) (no (unknown) (unknown) Source: patient (units (unknown) date) unknown) (unknown) (no (unknown) (unknown) Stated Complaint: (units (unknown) date) possible broken left unknown) rib/ear infection (unknown) (no (unknown) (unknown) Substance Use Type: (unit s (unknown) date) does not use unknown) (unknown) (no (unknown) (unknown) Surgical History (units (unknown) date) (Reviewed 03/14/22 @ unknown) 19:38 by STAN Kruse) (unknown) (no (unknown) (unknown) Surgical changes and (uni ts (unknown) date) devices:? Cervical unknown) spine and partially visualized lumbar (unknown) (no (unknown) (unknown) TECHNIQUE:? 2 views (unit s (unknown) date) of the left ribs were unknown) acquired, along with a single view (unknown) (no (unknown) (unknown) Temperature 98.4 F (unit s (unknown) date) 04/18/22 11:30 unknown) (unknown) (no (unknown) (unknown) Temperature 98.4 F (units (unknown) date) unknown) (unknown) (no (unknown) (unknown) Time Seen by (units (u nknown) date) Provider: 04/18/22 unknown) 12:30 (unknown) (no (unknown) (unknown) Type 2 diabetes (units (unknown) date) mellitus unknown) (unknown) (no (unknown) (unknown) U-100 Insulin) (units (unknown) date) unknown) (unknown) (no (unknown) (unknown) Vital Signs (units (un known) date) unknown) (unknown) (no (unknown) (unknown) Vital signs: (units (u nknown) date) unknown) (unknown) (no (unknown) (unknown) XR ribs LT min 3V w (unit s (unknown) date) CXR1V Stat unknown) (unknown) (no (unknown) (unknown) [From Levemir U-100 (unit s (unknown) date) Insulin] unknown) (unknown) (no (unknown) (unknown) [From ZESTORETIC] (units (unknown) date) BLOAT unknown) (unknown) (no (unknown) (unknown) alcohol intake (units (unknown) date) frequency: unknown) holidays/special occasions only (unknown) (no (unknown) (unknown) aspirin 81 mg (units ( unknown) date) tablet,delayed 81 mg unknown) PO QDAY ##0 02/18/17 08/08/21 (unknown) (no (unknown) (unknown) caregiver/support (units (unknown) date) person: No unknown) (unknown) (no (unknown) (unknown) chest.? (units (unkno wn) date) unknown) (unknown) (no (unknown) (unknown) condition (units (unkn own) date) unknown) (unknown) (no (unknown) (unknown) details: to (units (u nknown) date) [place], [place] (unknown) (no (unknown) (unknown) fixation hardware.? (unit s (unknown) date) Cholecystectomy unknown) clips. (unknown) (no (unknown) (unknown) glimepiride 2 mg (units (unknown) date) tablet 4 mg PO QAM unknown) 06/29/20 08/08/21 (unknown) (no (unknown) (unknown) household members: (units (unknown) date) spouse unknown) (unknown) (no (unknown) (unknown) housing: house (units (unknown) date) unknown) (unknown) (no (unknown) (unknown) hydrochlorothiazide (unit s (unknown) date) Allergy Intermediate unknown) COUGH, Verified 04/18/22 11:29 (unknown) (no (unknown) (unknown) insulin detemir (units (unknown) date) Allergy Intermediate unknown) Rash Verified 04/18/22 11:29 (unknown) (no (unknown) (unknown) insulin glargine 100 (uni ts (unknown) date) unit/mL 35 unit SQ unknown) BID ##0 03/04/17 08/08/21 (unknown) (no (unknown) (unknown) lesions.? (units (unkn own) date) unknown) (unknown) (no (unknown) (unknown) lisinopril [From (units (unknown) date) ZESTORETIC] Allergy unknown) Intermediate COUGH, Verified 04/18/22 11:29 (unknown) (no (unknown) (unknown) lives independently: (uni ts (unknown) date) Yes unknown) (unknown) (no (unknown) (unknown) marital status: (units (unknown) date) unknown) (unknown) (no (unknown) (unknown) oxycodone 5 mg (units (unknown) date) tablet 5 - 10 mg PO unknown) Q3HP PRN #60 tabs 03/07/17 (unknown) (no (unknown) (unknown) pantoprazole 20 mg (units (unknown) date) tablet,delayed 20 mg unknown) PO QDAY ##0 02/18/17 08/08/21 (unknown) (no (unknown) (unknown) process. (units (unkno wn) date) unknown) (unknown) (no (unknown) (unknown) release (units (unkno wn) date) unknown) (unknown) (no (unknown) (unknown) spine (units (unkno wn) date) unknown) (unknown) (no (unknown) (unknown) subcutaneous (units (u nknown) date) solution (Lantus unknown) (unknown) (no (unknown) (unknown) substance use type: (unit s (unknown) date) does not use unknown) (unknown) (no (unknown) (unknown) verapamil (units (unkn own) date) [VERAPAMIL] Allergy unknown) Intermediate BLOATING Verified 04/18/22 11:29 Result panel 19 (unknown) (no (unknown) (unknown) (no value) (units (unk nown) date) unknown) (unknown) (no (unknown) (unknown) [address] [place] [address] (units (unknown) date) unknown) (unknown) (no (unknown) (unknown) [place], [place] (units ( unknown) date) [address] unknown) (unknown) (no (unknown) (unknown) CT Scan Report (units (unknown) date) unknown) (unknown) (no (unknown) (unknown) [facility] (units (unknown) date) unknown) (unknown) (no (unknown) (unknown) Signed (units (unkno wn) date) unknown) (unknown) (no (unknown) (unknown) (no value) (units (unk nown) date) unknown) (unknown) (no (unknown) (unknown) 04/18/22 (units (unkno wn) date) unknown) (unknown) (no (unknown) (unknown) Approved by: (units (u nknown) date) Li Franco unknown) MD Patrick, PhD on 04/18/2022 at 13:10 (unknown) (no (unknown) (unknown) Brain: No (units (unk nown) date) intracranial unknown) bleeds or masses. There is cerebral volume loss for (unknown) (no (unknown) (unknown) COMPARISON: (units (un known) date) [facility], unknown) CT, HEAD WITHOUT CONTRAST, 12/16/2013, 19:06. (unknown) (no (unknown) (unknown) CSF spaces: (units (un known) date) Basal cisterns are unknown) patent. No extra-axial fluid collections. The (unknown) (no (unknown) (unknown) Dictated by: (units (u nknown) date) Li Franco unknown) MD Patrick, PhD on 04/18/2022 at 13:09 (unknown) (no (unknown) (unknown) FINDINGS: (units (unkn own) date) unknown) (unknown) (no (unknown) (unknown) IMPRESSION: No (units (unknown) date) acute intracranial unknown) disease process. (unknown) (no (unknown) (unknown) INDICATIONS: (units (u nknown) date) fall, concussive unknown) symptoms (unknown) (no (unknown) (unknown) Image quality: (units (unknown) date) Excellent. unknown) (unknown) (no (unknown) (unknown) Noncontrast 4.5 (units (unknown) date) mm thick angled unknown) axial sections acquired from the foramen magnum (unknown) (no (unknown) (unknown) Sinuses: (units (unkno wn) date) Visualized sinuses unknown) and mastoids are clear. (unknown) (no (unknown) (unknown) Skull and face: (units (unknown) date) Calvarium and unknown) visualized facial bones appear intact, without (unknown) (no (unknown) (unknown) TECHNIQUE: (units (unk nown) date) unknown) (unknown) (no (unknown) (unknown) artery (units (unkno wn) date) atherosclerosis. unknown) (unknown) (no (unknown) (unknown) lesions. (units (unkno wn) date) unknown) (unknown) (no (unknown) (unknown) matter chronic (units (unknown) date) small vessel unknown) ischemic changes. There is intracranial internal (unknown) (no (unknown) (unknown) resultant (units (unkn own) date) ventricular and unknown) sulcal prominence. There are periventricular and (unknown) (no (unknown) (unknown) size. (units (unkno wn) date) unknown) (unknown) (no (unknown) (unknown) ventricles are (units (unknown) date) symmetric in size unknown) and shape. (unknown) (no (unknown) (unknown) vertex, with (units (u nknown) date) coronal and unknown) sagittal reformats. For radiation dose reduction, the (unknown) (no (unknown) (unknown) was used: (units (unkn own) date) automated exposure unknown) control, adjustment of mA and/or kV according to (unknown) (no (unknown) (unknown) 0007 (units (unkno wn) date) unknown) (unknown) (no (unknown) (unknown) Accession Number: (units (unknown) date) [id number] unknown) (unknown) (no (unknown) (unknown) Age/Sex: 71 / F (units (unknown) date) Date of Service: unknown) (unknown) (no (unknown) (unknown) : 1950 (units (unknown) date) Acct:[id number] unknown) (unknown) (no (unknown) (unknown) Loc: ED (units (unkno wn) date) unknown) (unknown) (no (unknown) (unknown) Ordering (units (unkno wn) date) Provider: unknown) Vannesa King (unknown) (no (unknown) (unknown) PROCEDURE: CT (units (unknown) date) HEAD/BRAIN WO CON unknown) (unknown) (no (unknown) (unknown) Patient: (units (unkno wn) date) Terrence Buckley unknown) MR#: [id number] (unknown) (no (unknown) (unknown) Procedure: CT (units ( unknown) date) head/brain wo con unknown) (unknown) (no (unknown) (unknown) age, with (units (unkn own) date) unknown) (unknown) (no (unknown) (unknown) carotid (units (unkno wn) date) unknown) (unknown) (no (unknown) (unknown) deep white (units (unk nown) date) unknown) (unknown) (no (unknown) (unknown) following (units (unkn own) date) unknown) (unknown) (no (unknown) (unknown) patient (units (unkno wn) date) unknown) (unknown) (no (unknown) (unknown) suspicious (units (unk nown) date) unknown) (unknown) (no (unknown) (unknown) to the (units (unkno wn) date) unknown) Result panel 20 (unknown) (no (unknown) (unknown) Qty: 1 (units (unkno wn) date) unknown) (unknown) (no (unknown) (unknown) (no value) (units (unk nown) date) unknown) (unknown) (no (unknown) (unknown) Radiologist's (units ( unknown) date) Impression: unknown) (unknown) (no (unknown) (unknown) Date of Service: (units (unknown) date) 04/18/22 unknown) (unknown) (no (unknown) (unknown) (no value) (units (unk nown) date) unknown) (unknown) (no (unknown) (unknown) 20 mg PO QDAY Qty: 0 (uni ts (unknown) date) unknown) (unknown) (no (unknown) (unknown) 35 unit SQ BID Qty: (unit s (unknown) date) 0 unknown) (unknown) (no (unknown) (unknown) 4 mg PO QAM (units (un known) date) unknown) (unknown) (no (unknown) (unknown) 5 - 10 mg PO Q3HP (units (unknown) date) PRNQty: 60 0RF unknown) (unknown) (no (unknown) (unknown) 81 mg PO QDAY Qty: 0 (uni ts (unknown) date) unknown) (unknown) (no (unknown) (unknown) Allergies (units (unkn own) date) unknown) (unknown) (no (unknown) (unknown) As directed (units (un known) date) unknown) (unknown) (no (unknown) (unknown) BLOAT (units (unkno wn) date) unknown) (unknown) (no (unknown) (unknown) DME: [facility] (units (unknown) date) unknown) (unknown) (no (unknown) (unknown) Dose Instruction: (units (unknown) date) unknown) (unknown) (no (unknown) (unknown) ED Orders (units (unkn own) date) unknown) (unknown) (no (unknown) (unknown) Emergency Report (units (unknown) date) unknown) (unknown) (no (unknown) (unknown) Home Medications (units (unknown) date) unknown) (unknown) (no (unknown) (unknown) [facility] [address] (uni ts (unknown) date) [address] unknown) [place] [address] (unknown) (no (unknown) (unknown) Label Comments: (units (unknown) date) unknown) (unknown) (no (unknown) (unknown) Pressure: IPAP 14 (units (unknown) date) EPAP 6 unknown) (unknown) (no (unknown) (unknown) Previous Rx's (units ( unknown) date) unknown) (unknown) (no (unknown) (unknown) Rx Instructions: (units (unknown) date) unknown) (unknown) (no (unknown) (unknown) Vital Signs - 8 hr (units (unknown) date) unknown) (unknown) (no (unknown) (unknown) (no value) (units (unk nown) date) unknown) (unknown) (no (unknown) (unknown) (DME) Resprionics (units (unknown) date) Dreamstation BIPAP unknown) (unknown) (no (unknown) (unknown) Lantus U-100 Insulin (uni ts (unknown) date) 100 UNIT/1 ML unknown) solution (unknown) (no (unknown) (unknown) aspirin 81 MG (units ( unknown) date) tablet,delayed unknown) release (DR/EC) (unknown) (no (unknown) (unknown) glimepiride 2 mg (units (unknown) date) tablet unknown) (unknown) (no (unknown) (unknown) oxycodone 5 MG (units (unknown) date) tablet unknown) (unknown) (no (unknown) (unknown) pantoprazole 20 MG (units (unknown) date) tablet,delayed unknown) release (DR/EC) (unknown) (no (unknown) (unknown) 04/18/22 (units (unkno wn) date) unknown) (unknown) (no (unknown) (unknown) Fall, Concussion, (units (unknown) date) Costal chondritis, unknown) Acute otitis media (unknown) (no (unknown) (unknown) Medication (units (unk nown) date) Instructions unknown) Recorded (unknown) (no (unknown) (unknown) Medication (units (unk nown) date) Instructions unknown) Recorded Confirmed (unknown) (no (unknown) (unknown) 007 (units (unkno wn) date) unknown) (unknown) (no (unknown) (unknown) 04/18/22 11:33 (units (unknown) date) unknown) (unknown) (no (unknown) (unknown) 11:30 (units (unkno wn) date) unknown) (unknown) (no (unknown) (unknown) ? (units (unkno wn) date) unknown) (unknown) (no (unknown) (unknown) Age/Sex: 71 / F (units (unknown) date) unknown) (unknown) (no (unknown) (unknown) Allergy/AdvReac Type (uni ts (unknown) date) Severity Reaction unknown) Status Date / Time (unknown) (no (unknown) (unknown) Approved by: (units (u nknown) date) Li Nguyen, unknown) , PhD on 04/18/2022 at 12:08 ? (unknown) (no (unknown) (unknown) Bilateral bunions (units (unknown) date) unknown) (unknown) (no (unknown) (unknown) Blood Pressure (units (unknown) date) 152/64 H 04/18/22 unknown) 11:30 (unknown) (no (unknown) (unknown) Blood Pressure (units (unknown) date) 152/64 H unknown) (unknown) (no (unknown) (unknown) Bones and chest (units (unknown) date) wall:? No fractures unknown) or dislocations.? No suspicious bony (unknown) (no (unknown) (unknown) COMPARISON:? None. (units (unknown) date) unknown) (unknown) (no (unknown) (unknown) Cardio: denies chest (uni ts (unknown) date) pain, palpitations, unknown) endorses left-sided rib pain with deep (unknown) (no (unknown) (unknown) Cardiovascular: (units (unknown) date) regular rate and unknown) rhythm, S1-S2 without additional sounds no (unknown) (no (unknown) (unknown) Chest x-ray: (units (u nknown) date) unknown) (unknown) (no (unknown) (unknown) Chief Complaint: (units (unknown) date) Fall unknown) (unknown) (no (unknown) (unknown) Clinical Impression: (uni ts (unknown) date) unknown) (unknown) (no (unknown) (unknown) Course (units (unkno wn) date) unknown) (unknown) (no (unknown) (unknown) : 1950 (units (unknown) date) Acct:[id number] unknown) (unknown) (no (unknown) (unknown) Departure (units (unkn own) date) unknown) (unknown) (no (unknown) (unknown) 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 ? (unknown) (no (unknown) (unknown) Discharge Plan (units (unknown) date) unknown) (unknown) (no (unknown) (unknown) ER Physician: (units ( unknown) date) Crew,Vannesa PIERCE unknown) (unknown) (no (unknown) (unknown) Ears: Left TM is (units (unknown) date) bulging with clear unknown) fluid behind and positive landmarks, mild (unknown) (no (unknown) (unknown) Ears: Right ear (units (unknown) date) pain, left ear unknown) fullness, no drainage (unknown) (no (unknown) (unknown) Exam (units (unkno wn) date) unknown) (unknown) (no (unknown) (unknown) Exam Narrative: (units (unknown) date) unknown) (unknown) (no (unknown) (unknown) Excessive daytime (units (unknown) date) sleepiness unknown) (unknown) (no (unknown) (unknown) Eyes: denies visual (unit s (unknown) date) changes, eye pain unknown) (unknown) (no (unknown) (unknown) Eyes: equal round (units (unknown) date) and reactive, EOMI, unknown) conjunctiva normal (unknown) (no (unknown) (unknown) FINDINGS:? (units (unk nown) date) unknown) (unknown) (no (unknown) (unknown) GI: abdomen soft, (units (unknown) date) nontender to unknown) palpation, nondistended, no masses, no exquisite (unknown) (no (unknown) (unknown) GI: denies abdominal (uni ts (unknown) date) pain, nausea, unknown) vomiting, or diarrhea (unknown) (no (unknown) (unknown) : denies dysuria, (unit s (unknown) date) hematuria or flank unknown) pain (unknown) (no (unknown) (unknown) General (units (unkno wn) date) unknown) (unknown) (no (unknown) (unknown) General: (units (unkno wn) date) cooperative, unknown) comfortable, in no acute distress, well groomed, sitting (unknown) (no (unknown) (unknown) General: denies (units (unknown) date) fever, chills unknown) (unknown) (no (unknown) (unknown) HPI - Fall (units (unk nown) date) unknown) (unknown) (no (unknown) (unknown) HPI Narrative: (units (unknown) date) unknown) (unknown) (no (unknown) (unknown) Head/Neck: denies (units (unknown) date) headache, neck pain unknown) endorses intermittent dizziness, (unknown) (no (unknown) (unknown) Head: atraumatic, (units (unknown) date) symmetrical facial unknown) expressions (unknown) (no (unknown) (unknown) History of Present (units (unknown) date) Illness unknown) (unknown) (no (unknown) (unknown) History of (units (unk nown) date) bunionectomy of both unknown) great toes (unknown) (no (unknown) (unknown) IMPRESSION:? No (units (unknown) date) displaced rib unknown) fracture. No acute cardiopulmonary disease (unknown) (no (unknown) (unknown) INDICATIONS:? fall (units (unknown) date) thinks she has a rib unknown) fracture (unknown) (no (unknown) (unknown) Imaging Data (units (u nknown) date) unknown) (unknown) (no (unknown) (unknown) Independently (units ( unknown) date) reviewed vitals signs unknown) and nursing notes. (unknown) (no (unknown) (unknown) Initial Vital Signs (unit s (unknown) date) unknown) (unknown) (no (unknown) (unknown) Initial Vital Signs: (uni ts (unknown) date) unknown) (unknown) (no (unknown) (unknown) Lungs and pleura:? (units (unknown) date) No pleural effusions unknown) or pneumothorax.? Lungs appear clear.? (unknown) (no (unknown) (unknown) MDM - Fall (units (unk nown) date) unknown) (unknown) (no (unknown) (unknown) MSK: denies new (units (unknown) date) joint pain, muscle unknown) weakness or swelling (unknown) (no (unknown) (unknown) MSK: moves all (units (unknown) date) extremities, unknown) neurovascularly intact, no weakness, normal tone (unknown) (no (unknown) (unknown) Mediastinum:? (units ( unknown) date) Mediastinal contours unknown) appear normal.? Heart size is normal.? (unknown) (no (unknown) (unknown) Medical History (units (unknown) date) (Reviewed 04/18/22 @ unknown) 13:[address]esa King [facility]) (unknown) (no (unknown) (unknown) Memory loss of (units (unknown) date) unknown cause unknown) (unknown) (no (unknown) (unknown) Mode of arrival: (units (unknown) date) Ambulatory unknown) (unknown) (no (unknown) (unknown) Mouth/Throat: moist (unit s (unknown) date) mucus membranes unknown) (unknown) (no (unknown) (unknown) Narrative (units (unkn own) date) unknown) (unknown) (no (unknown) (unknown) Narrative: (units (unk nown) date) unknown) (unknown) (no (unknown) (unknown) Neck: supple (units (u nknown) date) unknown) (unknown) (no (unknown) (unknown) Neuro: denies (units ( unknown) date) numbness, tingling, unknown) dizziness (unknown) (no (unknown) (unknown) Neuro: normal speech (uni ts (unknown) date) and cognition, A+O x3 unknown) (unknown) (no (unknown) (unknown) Neuropathic pain of (unit s (unknown) date) both feet unknown) (unknown) (no (unknown) (unknown) No Action (units (unkn own) date) unknown) (unknown) (no (unknown) (unknown) Nose: nares patent, (unit s (unknown) date) no rhinorrhea unknown) (unknown) (no (unknown) (unknown) Obstructive sleep (units (unknown) date) apnea of adult unknown) (unknown) (no (unknown) (unknown) Ordered: (units (unkno wn) date) unknown) (unknown) (no (unknown) (unknown) Orders (units (unkno wn) date) unknown) (unknown) (no (unknown) (unknown) Overlying soft (units (unknown) date) tissues appear unknown) unremarkable.? (unknown) (no (unknown) (unknown) Oxygen Delivery (units (unknown) date) Method 04/18/22 unknown) 11:30 (unknown) (no (unknown) (unknown) Oxygen Delivery (units (unknown) date) Method Room Air unknown) (unknown) (no (unknown) (unknown) PROCEDURE:? XR RIBS (unit s (unknown) date) LT MIN 3V W CXR1V unknown) (unknown) (no (unknown) (unknown) Patient History (units (unknown) date) unknown) (unknown) (no (unknown) (unknown) Patient states that (unit s (unknown) date) she fell at home, unknown) does not know what she hit the left side (unknown) (no (unknown) (unknown) Patient: Terrence Buckley (uni ts (unknown) date) MR#: [id number] unknown) (unknown) (no (unknown) (unknown) Prescriptions: (units (unknown) date) unknown) (unknown) (no (unknown) (unknown) Primary insomnia (units (unknown) date) unknown) (unknown) (no (unknown) (unknown) Psych: mental status (uni ts (unknown) date) is grossly normal, unknown) congruent mood, normal affect, pleasant (unknown) (no (unknown) (unknown) Pulse Oximetry 94 (units (unknown) date) 04/18/22 11:30 unknown) (unknown) (no (unknown) (unknown) Pulse Oximetry 94 (units (unknown) date) unknown) (unknown) (no (unknown) (unknown) Pulse Rate 80 (units (unknown) date) 04/18/22 11:30 unknown) (unknown) (no (unknown) (unknown) Pulse Rate 80 (units ( unknown) date) unknown) (unknown) (no (unknown) (unknown) Lizette Mireles DO (units (unknown) date) [Primary Care unknown) Provider] - (unknown) (no (unknown) (unknown) Referrals: (units (unk nown) date) unknown) (unknown) (no (unknown) (unknown) Related Data (units (u nknown) date) unknown) (unknown) (no (unknown) (unknown) Respiratory Rate 16 (uni ts (unknown) date) 04/18/22 11:30 unknown) (unknown) (no (unknown) (unknown) Respiratory Rate 16 (unit s (unknown) date) unknown) (unknown) (no (unknown) (unknown) Respiratory: denies (unit s (unknown) date) shortness of breath, unknown) cough chest tightness, wheezing (unknown) (no (unknown) (unknown) Respiratory: normal (unit s (unknown) date) effort, able to speak unknown) in complete sentences, no audible (unknown) (no (unknown) (unknown) Resprionics (units (un known) date) Dreamstation BIPAP #1 unknown) ea 01/06/19 08/08/21 (unknown) (no (unknown) (unknown) Review of Systems (units (unknown) date) unknown) (unknown) (no (unknown) (unknown) S/P lumbar spinal (units (unknown) date) fusion unknown) (unknown) (no (unknown) (unknown) Signed By: (units (unk nown) date) unknown) (unknown) (no (unknown) (unknown) Skin: brisk (units (un known) date) capillary refill, no unknown) rash, no erythema (unknown) (no (unknown) (unknown) Skin: denies rash, (units (unknown) date) itching or wound unknown) (unknown) (no (unknown) (unknown) Smoking Status: (units (unknown) date) Never smoker unknown) (unknown) (no (unknown) (unknown) Smoking Status: (units (unknown) date) Never smoker unknown) (unknown) (no (unknown) (unknown) Social History (units (unknown) date) (Reviewed 04/18/22 @ unknown) 13:02 by STAN Kruse) (unknown) (no (unknown) (unknown) Source: patient (units (unknown) date) unknown) (unknown) (no (unknown) (unknown) Stated Complaint: (units (unknown) date) possible broken left unknown) rib/ear infection (unknown) (no (unknown) (unknown) Substance Use Type: (unit s (unknown) date) does not use unknown) (unknown) (no (unknown) (unknown) Surgical History (units (unknown) date) (Reviewed 04/18/22 @ unknown) 13:02 by STAN Kruse) (unknown) (no (unknown) (unknown) Surgical changes and (uni ts (unknown) date) devices:? Cervical unknown) spine and partially visualized lumbar (unknown) (no (unknown) (unknown) TECHNIQUE:? 2 views (unit s (unknown) date) of the left ribs were unknown) acquired, along with a single view (unknown) (no (unknown) (unknown) Temperature 98.4 F (unit s (unknown) date) 04/18/22 11:30 unknown) (unknown) (no (unknown) (unknown) Temperature 98.4 F (units (unknown) date) unknown) (unknown) (no (unknown) (unknown) This is a (units (unkn own) date) 71-year-old female unknown) who presents to the emergency department after a (unknown) (no (unknown) (unknown) Time Seen by (units (u nknown) date) Provider: 04/18/22 unknown) 12:30 (unknown) (no (unknown) (unknown) Type 2 diabetes (units (unknown) date) mellitus unknown) (unknown) (no (unknown) (unknown) U-100 Insulin) (units (unknown) date) unknown) (unknown) (no (unknown) (unknown) Vital Signs (units (un known) date) unknown) (unknown) (no (unknown) (unknown) Vital signs: (units (u nknown) date) unknown) (unknown) (no (unknown) (unknown) XR ribs LT min 3V w (unit s (unknown) date) CXR1V Stat unknown) (unknown) (no (unknown) (unknown) [From Levemir U-100 (unit s (unknown) date) Insulin] unknown) (unknown) (no (unknown) (unknown) [From ZESTORETIC] (units (unknown) date) BLOAT unknown) (unknown) (no (unknown) (unknown) alcohol intake (units (unknown) date) frequency: unknown) holidays/special occasions only (unknown) (no (unknown) (unknown) and cooperative, no (unit s (unknown) date) gross neuro deficits, unknown) cranial nerves two through 12 are (unknown) (no (unknown) (unknown) any vomiting or (units (unknown) date) nausea, denies any unknown) nausea vomiting at the time of her injury. (unknown) (no (unknown) (unknown) aspirin 81 mg (units ( unknown) date) tablet,delayed 81 mg unknown) PO QDAY ##0 02/18/17 08/08/21 (unknown) (no (unknown) (unknown) because she says it (unit s (unknown) date) helps with her pain. unknown) She states that her blood sugars have (unknown) (no (unknown) (unknown) breath or palpation (unit s (unknown) date) unknown) (unknown) (no (unknown) (unknown) caregiver/support (units (unknown) date) person: No unknown) (unknown) (no (unknown) (unknown) changes, fatigue, (units (unknown) date) difficulty unknown) ambulating, fever, shortness of breath, she denies (unknown) (no (unknown) (unknown) chest.? (units (unkno wn) date) unknown) (unknown) (no (unknown) (unknown) condition (units (unkn own) date) unknown) (unknown) (no (unknown) (unknown) details: to (units (u nknown) date) [place], [place] (unknown) (no (unknown) (unknown) difficulty (units (unk nown) date) concentrating unknown) (unknown) (no (unknown) (unknown) erythema, right TM (units (unknown) date) is bulging, unknown) suppurative, erythematous without drainage or (unknown) (no (unknown) (unknown) fall and denies any (unit s (unknown) date) new dizziness, new unknown) sensation changes, weakness, speech (unknown) (no (unknown) (unknown) fixation hardware.? (unit s (unknown) date) Cholecystectomy unknown) clips. (unknown) (no (unknown) (unknown) glimepiride 2 mg (units (unknown) date) tablet 4 mg PO QAM unknown) 06/29/20 08/08/21 (unknown) (no (unknown) (unknown) grossly intact (units (unknown) date) unknown) (unknown) (no (unknown) (unknown) hearing changes but (unit s (unknown) date) no pain in her left unknown) ear, endorses dizziness from her 1st (unknown) (no (unknown) (unknown) her to possibly have (unit s (unknown) date) lost consciousness. unknown) Patient does not remember, states that (unknown) (no (unknown) (unknown) household members: (units (unknown) date) spouse unknown) (unknown) (no (unknown) (unknown) housing: house (units (unknown) date) unknown) (unknown) (no (unknown) (unknown) hydrochlorothiazide (unit s (unknown) date) Allergy Intermediate unknown) COUGH, Verified 04/18/22 11:29 (unknown) (no (unknown) (unknown) in chair, uses (units (unknown) date) walker to ambulate unknown) (unknown) (no (unknown) (unknown) in which she has had (unit s (unknown) date) concussive symptoms unknown) since. Patient also endorses right ear (unknown) (no (unknown) (unknown) insulin detemir (units (unknown) date) Allergy Intermediate unknown) Rash Verified 04/18/22 11:29 (unknown) (no (unknown) (unknown) insulin glargine 100 (uni ts (unknown) date) unit/mL 35 unit SQ unknown) BID ##0 03/04/17 08/08/21 (unknown) (no (unknown) (unknown) left ribs. She (units (unknown) date) denies any drainage unknown) from her ears bilaterally (unknown) (no (unknown) (unknown) lesions.? (units (unkn own) date) unknown) (unknown) (no (unknown) (unknown) lisinopril [From (units (unknown) date) ZESTORETIC] Allergy unknown) Intermediate COUGH, Verified 04/18/22 11:29 (unknown) (no (unknown) (unknown) lives independently: (uni ts (unknown) date) Yes unknown) (unknown) (no (unknown) (unknown) marital status: (units (unknown) date) unknown) (unknown) (no (unknown) (unknown) mechanical fall two (units (unknown) date) days ago and she hit unknown) her left ribs and left forehead causing (unknown) (no (unknown) (unknown) of her chest on. She (uni ts (unknown) date) denies any shortness unknown) of breath, wheezing, chest tightness, (unknown) (no (unknown) (unknown) oxycodone 5 mg (units (unknown) date) tablet 5 - 10 mg PO unknown) Q3HP PRN #60 tabs 03/07/17 (unknown) (no (unknown) (unknown) pain with history of (uni ts (unknown) date) chronic right ear unknown) infections, left ear fullness with (unknown) (no (unknown) (unknown) pain, neck pain, or (unit s (unknown) date) any other injury. unknown) She denies any bruising or wound on her (unknown) (no (unknown) (unknown) pantoprazole 20 mg (units (unknown) date) tablet,delayed 20 mg unknown) PO QDAY ##0 02/18/17 08/08/21 (unknown) (no (unknown) (unknown) peripheral edema, (units (unknown) date) warm extremities unknown) (unknown) (no (unknown) (unknown) process. (units (unkno wn) date) unknown) (unknown) (no (unknown) (unknown) release (units (unkno wn) date) unknown) (unknown) (no (unknown) (unknown) rupture (units (unkno wn) date) unknown) (unknown) (no (unknown) (unknown) seen in the (units (un known) date) emergency department unknown) 03/14/2022 with a concussion and a head injury (unknown) (no (unknown) (unknown) she has been putting (uni ts (unknown) date) a pillow at home to unknown) brace when she is walking around (unknown) (no (unknown) (unknown) she has ongoing (units (unknown) date) concussive symptoms unknown) since this fall and mentions that she was (unknown) (no (unknown) (unknown) spine (units (unkno wn) date) unknown) (unknown) (no (unknown) (unknown) states that it is (units (unknown) date) painful to take a unknown) deep breath, if she puts any pressure on it, (unknown) (no (unknown) (unknown) subcutaneous (units (u nknown) date) solution (Lantus unknown) (unknown) (no (unknown) (unknown) substance use type: (unit s (unknown) date) does not use unknown) (unknown) (no (unknown) (unknown) tenderness with (units (unknown) date) exam, without unknown) guarding or rebound. (unknown) (no (unknown) (unknown) under control, (units (unknown) date) denies any memory unknown) changes, sleeping at inappropriate times, back (unknown) (no (unknown) (unknown) verapamil (units (unkn own) date) [VERAPAMIL] Allergy unknown) Intermediate BLOATING Verified 04/18/22 11:29 (unknown) (no (unknown) (unknown) wheezing, stridor, (units (unknown) date) or rales. No unknown) retractions or tachypnea. Result panel 21 (unknown) (no (unknown) (unknown) Qty: 1 (units (unkno wn) date) unknown) (unknown) (no (unknown) (unknown) (no value) (units (unk nown) date) unknown) (unknown) (no (unknown) (unknown) Radiologist's (units ( unknown) date) Impression: unknown) (unknown) (no (unknown) (unknown) (no value) (units (unk nown) date) unknown) (unknown) (no (unknown) (unknown) Date of Service: (units (unknown) date) 04/18/22 unknown) (unknown) (no (unknown) (unknown) (no value) (units (unk nown) date) unknown) (unknown) (no (unknown) (unknown) 20 mg PO QDAY Qty: 0 (uni ts (unknown) date) unknown) (unknown) (no (unknown) (unknown) 35 unit SQ BID Qty: (unit s (unknown) date) 0 unknown) (unknown) (no (unknown) (unknown) 4 mg PO QAM (units (un known) date) unknown) (unknown) (no (unknown) (unknown) 5 - 10 mg PO Q3HP (units (unknown) date) PRNQty: 60 0RF unknown) (unknown) (no (unknown) (unknown) 81 mg PO QDAY Qty: 0 (uni ts (unknown) date) unknown) (unknown) (no (unknown) (unknown) Allergies (units (unkn own) date) unknown) (unknown) (no (unknown) (unknown) As directed (units (un known) date) unknown) (unknown) (no (unknown) (unknown) BLOAT (units (unkno wn) date) unknown) (unknown) (no (unknown) (unknown) DME: [facility] (units (unknown) date) unknown) (unknown) (no (unknown) (unknown) Dose Instruction: (units (unknown) date) unknown) (unknown) (no (unknown) (unknown) ED Orders (units (unkn own) date) unknown) (unknown) (no (unknown) (unknown) Emergency Report (units (unknown) date) unknown) (unknown) (no (unknown) (unknown) Home Medications (units (unknown) date) unknown) (unknown) (no (unknown) (unknown) [facility] [address] (uni ts (unknown) date) [address] unknown) [place] [address] (unknown) (no (unknown) (unknown) Label Comments: (units (unknown) date) unknown) (unknown) (no (unknown) (unknown) Last Admin: 04/18/22 (uni ts (unknown) date) 13:19 Dose: 1 tab unknown) (unknown) (no (unknown) (unknown) Last Admin: 04/18/22 (uni ts (unknown) date) 13:19 Dose: 1,000 mg unknown) (unknown) (no (unknown) (unknown) Pressure: IPAP 14 (units (unknown) date) EPAP 6 unknown) (unknown) (no (unknown) (unknown) Previous Rx's (units ( unknown) date) unknown) (unknown) (no (unknown) (unknown) Rx Instructions: (units (unknown) date) unknown) (unknown) (no (unknown) (unknown) Stop: 04/18/22 12:55 (uni ts (unknown) date) unknown) (unknown) (no (unknown) (unknown) Vital Signs - 8 hr (units (unknown) date) unknown) (unknown) (no (unknown) (unknown) (no value) (units (unk nown) date) unknown) (unknown) (no (unknown) (unknown) (DME) Resprionics (units (unknown) date) Dreamstation BIPAP unknown) (unknown) (no (unknown) (unknown) Lantus U-100 Insulin (uni ts (unknown) date) 100 UNIT/1 ML unknown) solution (unknown) (no (unknown) (unknown) aspirin 81 MG (units ( unknown) date) tablet,delayed unknown) release (DR/EC) (unknown) (no (unknown) (unknown) glimepiride 2 mg (units (unknown) date) tablet unknown) (unknown) (no (unknown) (unknown) oxycodone 5 MG (units (unknown) date) tablet unknown) (unknown) (no (unknown) (unknown) pantoprazole 20 MG (units (unknown) date) tablet,delayed unknown) release (DR/EC) (unknown) (no (unknown) (unknown) 04/18/22 (units (unkno wn) date) unknown) (unknown) (no (unknown) (unknown) Costal chondritis (units (unknown) date) unknown) (unknown) (no (unknown) (unknown) Encounter type: (units (unknown) date) initial encounter unknown) Loss of consciousness presence/duration: with (unknown) (no (unknown) (unknown) Encounter type: (units (unknown) date) initial encounter unknown) Qualified Code(s): W19.XXXA - Unspecified (unknown) (no (unknown) (unknown) LOC of 30 min or (units (unknown) date) less Qualified unknown) Code(s): S06.0X1A - Concussion with loss of (unknown) (no (unknown) (unknown) Medication (units (unk nown) date) Instructions unknown) Recorded (unknown) (no (unknown) (unknown) Medication (units (unk nown) date) Instructions unknown) Recorded Confirmed (unknown) (no (unknown) (unknown) Otitis media type: (units (unknown) date) suppurative unknown) Laterality: right Recurrence: recurrent (unknown) (no (unknown) (unknown) ear drum, recurrent, (uni ts (unknown) date) right ear unknown) (unknown) (no (unknown) (unknown) white (units (unkno wn) date) unknown) (unknown) (no (unknown) (unknown) 007 (units (unkno wn) date) unknown) (unknown) (no (unknown) (unknown) 04/18/22 11:33 (units (unknown) date) unknown) (unknown) (no (unknown) (unknown) 04/18/22 12:54 (units (unknown) date) unknown) (unknown) (no (unknown) (unknown) 11:30 (units (unkno wn) date) unknown) (unknown) (no (unknown) (unknown) ? (units (unkno wn) date) unknown) (unknown) (no (unknown) (unknown) Acute otitis media (units (unknown) date) unknown) (unknown) (no (unknown) (unknown) Age/Sex: 71 / F (units (unknown) date) unknown) (unknown) (no (unknown) (unknown) Allergy/AdvReac Type (uni ts (unknown) date) Severity Reaction unknown) Status Date / Time (unknown) (no (unknown) (unknown) Amoxicillin (units (un known) date) (Amoxicillin 250 Mg unknown) Capsule) 1,000 mg PO NOW ONE (unknown) (no (unknown) (unknown) Approved by: (units (u nknown) date) Li Nguyen, unknown) , PhD on 04/18/2022 at 12:08 ? (unknown) (no (unknown) (unknown) Approved by: (units (u nknown) date) Li Nguyen, unknown) , PhD on 04/18/2022 at 13:10 ? (unknown) (no (unknown) (unknown) Bilateral bunions (units (unknown) date) unknown) (unknown) (no (unknown) (unknown) Blood Pressure (units (unknown) date) 152/64 H 04/18/22 unknown) 11:30 (unknown) (no (unknown) (unknown) Blood Pressure (units (unknown) date) 152/64 H unknown) (unknown) (no (unknown) (unknown) Bones and chest (units (unknown) date) wall:? No fractures unknown) or dislocations.? No suspicious bony (unknown) (no (unknown) (unknown) Brain:? No (units (unk nown) date) intracranial bleeds unknown) or masses.? There is cerebral volume loss for (unknown) (no (unknown) (unknown) COMPARISON:? [facility] (unit s (unknown) date) [facility], CT, HEAD unknown) WITHOUT CONTRAST, 12/16/2013, 19:06. (unknown) (no (unknown) (unknown) COMPARISON:? None. (units (unknown) date) unknown) (unknown) (no (unknown) (unknown) CSF spaces:? Basal (units (unknown) date) cisterns are patent.? unknown) No extra-axial fluid collections.? The (unknown) (no (unknown) (unknown) CT head/brain wo con (uni ts (unknown) date) Stat unknown) (unknown) (no (unknown) (unknown) CT scan - head: (units (unknown) date) unknown) (unknown) (no (unknown) (unknown) Cardio: denies chest (uni ts (unknown) date) pain, palpitations, unknown) endorses left-sided rib pain with deep (unknown) (no (unknown) (unknown) Cardiovascular: (units (unknown) date) regular rate and unknown) rhythm, S1-S2 without additional sounds no (unknown) (no (unknown) (unknown) Chest x-ray: (units (u nknown) date) unknown) (unknown) (no (unknown) (unknown) Chief Complaint: (units (unknown) date) Fall unknown) (unknown) (no (unknown) (unknown) Clinical Impression: (uni ts (unknown) date) unknown) (unknown) (no (unknown) (unknown) Code(s): H66.004 - (units (unknown) date) Acute suppurative unknown) otitis media without spontaneous rupture of (unknown) (no (unknown) (unknown) Concussion (units (unk nown) date) unknown) (unknown) (no (unknown) (unknown) Course (units (unkno wn) date) unknown) (unknown) (no (unknown) (unknown) : 1950 (units (unknown) date) Acct:[id number] unknown) (unknown) (no (unknown) (unknown) Departure (units (unkn own) date) unknown) (unknown) (no (unknown) (unknown) 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 ? (unknown) (no (unknown) (unknown) Dictated by: (units (u nknown) date) Li Nguyen unknown) , PhD on 04/18/2022 at 13:09 ? ? (unknown) (no (unknown) (unknown) Discharge Plan (units (unknown) date) unknown) (unknown) (no (unknown) (unknown) Discontinued (units (u nknown) date) Medications unknown) (unknown) (no (unknown) (unknown) ER Physician: (units ( unknown) date) Vannesa King unknown) (unknown) (no (unknown) (unknown) Ears: Left TM is (units (unknown) date) bulging with clear unknown) fluid behind and positive landmarks, mild (unknown) (no (unknown) (unknown) Ears: Right ear (units (unknown) date) pain, left ear unknown) fullness, no drainage (unknown) (no (unknown) (unknown) Exam (units (unkno wn) date) unknown) (unknown) (no (unknown) (unknown) Exam Narrative: (units (unknown) date) unknown) (unknown) (no (unknown) (unknown) Excessive daytime (units (unknown) date) sleepiness unknown) (unknown) (no (unknown) (unknown) Eyes: denies visual (unit s (unknown) date) changes, eye pain unknown) (unknown) (no (unknown) (unknown) Eyes: equal round (units (unknown) date) and reactive, EOMI, unknown) conjunctiva normal (unknown) (no (unknown) (unknown) FINDINGS:? (units (unk nown) date) unknown) (unknown) (no (unknown) (unknown) Fall (units (unkno wn) date) unknown) (unknown) (no (unknown) (unknown) GI: abdomen soft, (units (unknown) date) nontender to unknown) palpation, nondistended, no masses, no exquisite (unknown) (no (unknown) (unknown) GI: denies abdominal (uni ts (unknown) date) pain, nausea, unknown) vomiting, or diarrhea (unknown) (no (unknown) (unknown) : denies dysuria, (unit s (unknown) date) hematuria or flank unknown) pain (unknown) (no (unknown) (unknown) General (units (unkno wn) date) unknown) (unknown) (no (unknown) (unknown) General: (units (unkno wn) date) cooperative, unknown) comfortable, in no acute distress, well groomed, sitting (unknown) (no (unknown) (unknown) General: denies (units (unknown) date) fever, chills unknown) (unknown) (no (unknown) (unknown) HPI - Fall (units (unk nown) date) unknown) (unknown) (no (unknown) (unknown) HPI Narrative: (units (unknown) date) unknown) (unknown) (no (unknown) (unknown) Head/Neck: denies (units (unknown) date) headache, neck pain unknown) endorses intermittent dizziness, (unknown) (no (unknown) (unknown) Head: atraumatic, (units (unknown) date) symmetrical facial unknown) expressions (unknown) (no (unknown) (unknown) History of Present (units (unknown) date) Illness unknown) (unknown) (no (unknown) (unknown) History of (units (unk nown) date) bunionectomy of both unknown) great toes (unknown) (no (unknown) (unknown) Hydrocodone (units (un known) date) Bitart/Acetaminophen unknown) (Hydrocodone/Acet 5/325 Tablet) 1 tab PO NOW (unknown) (no (unknown) (unknown) IMPRESSION:? No (units (unknown) date) acute intracranial unknown) disease process. (unknown) (no (unknown) (unknown) IMPRESSION:? No (units (unknown) date) displaced rib unknown) fracture. No acute cardiopulmonary disease (unknown) (no (unknown) (unknown) INDICATIONS:? fall (units (unknown) date) thinks she has a rib unknown) fracture (unknown) (no (unknown) (unknown) INDICATIONS:? fall, (unit s (unknown) date) concussive symptoms unknown) (unknown) (no (unknown) (unknown) Image quality:? (units (unknown) date) Excellent.? unknown) (unknown) (no (unknown) (unknown) Imaging Data (units (u nknown) date) unknown) (unknown) (no (unknown) (unknown) Independently (units ( unknown) date) reviewed vitals signs unknown) and nursing notes. (unknown) (no (unknown) (unknown) Initial Vital Signs (unit s (unknown) date) unknown) (unknown) (no (unknown) (unknown) Initial Vital Signs: (uni ts (unknown) date) unknown) (unknown) (no (unknown) (unknown) Lungs and pleura:? (units (unknown) date) No pleural effusions unknown) or pneumothorax.? Lungs appear clear.? (unknown) (no (unknown) (unknown) MDM - Fall (units (unk nown) date) unknown) (unknown) (no (unknown) (unknown) MSK: denies new (units (unknown) date) joint pain, muscle unknown) weakness or swelling (unknown) (no (unknown) (unknown) MSK: moves all (units (unknown) date) extremities, unknown) neurovascularly intact, no weakness, normal tone (unknown) (no (unknown) (unknown) Mediastinum:? (units ( unknown) date) Mediastinal contours unknown) appear normal.? Heart size is normal.? (unknown) (no (unknown) (unknown) Medical History (units (unknown) date) (Reviewed 04/18/22 @ unknown) 13:02 by [facility]) (unknown) (no (unknown) (unknown) Memory loss of (units (unknown) date) unknown cause unknown) (unknown) (no (unknown) (unknown) Mode of arrival: (units (unknown) date) Ambulatory unknown) (unknown) (no (unknown) (unknown) Mouth/Throat: moist (unit s (unknown) date) mucus membranes unknown) (unknown) (no (unknown) (unknown) Narrative (units (unkn own) date) unknown) (unknown) (no (unknown) (unknown) Narrative: (units (unk nown) date) unknown) (unknown) (no (unknown) (unknown) Neck: supple (units (u nknown) date) unknown) (unknown) (no (unknown) (unknown) Neuro: denies (units ( unknown) date) numbness, tingling, unknown) dizziness (unknown) (no (unknown) (unknown) Neuro: normal speech (uni ts (unknown) date) and cognition, A+O x3 unknown) (unknown) (no (unknown) (unknown) Neuropathic pain of (unit s (unknown) date) both feet unknown) (unknown) (no (unknown) (unknown) No Action (units (unkn own) date) unknown) (unknown) (no (unknown) (unknown) Noncontrast 4.5 mm (units (unknown) date) thick angled axial unknown) sections acquired from the foramen magnum (unknown) (no (unknown) (unknown) Nose: nares patent, (unit s (unknown) date) no rhinorrhea unknown) (unknown) (no (unknown) (unknown) ONE (units (unkno wn) date) unknown) (unknown) (no (unknown) (unknown) Obstructive sleep (units (unknown) date) apnea of adult unknown) (unknown) (no (unknown) (unknown) Ordered: (units (unkno wn) date) unknown) (unknown) (no (unknown) (unknown) Orders (units (unkno wn) date) unknown) (unknown) (no (unknown) (unknown) Overlying soft (units (unknown) date) tissues appear unknown) unremarkable.? (unknown) (no (unknown) (unknown) Oxygen Delivery (units (unknown) date) Method 04/18/22 unknown) 11:30 (unknown) (no (unknown) (unknown) Oxygen Delivery (units (unknown) date) Method Room Air unknown) (unknown) (no (unknown) (unknown) PROCEDURE:? CT (units (unknown) date) HEAD/BRAIN WO CON unknown) (unknown) (no (unknown) (unknown) PROCEDURE:? XR RIBS (unit s (unknown) date) LT MIN 3V W CXR1V unknown) (unknown) (no (unknown) (unknown) Patient History (units (unknown) date) unknown) (unknown) (no (unknown) (unknown) Patient states that (unit s (unknown) date) she fell at home, unknown) does not know what she hit the left side (unknown) (no (unknown) (unknown) Patient: Terrence Buckley (uni ts (unknown) date) MR#: [id number] unknown) (unknown) (no (unknown) (unknown) Prescriptions: (units (unknown) date) unknown) (unknown) (no (unknown) (unknown) Primary insomnia (units (unknown) date) unknown) (unknown) (no (unknown) (unknown) Psych: mental status (uni ts (unknown) date) is grossly normal, unknown) congruent mood, normal affect, pleasant (unknown) (no (unknown) (unknown) Pulse Oximetry 94 (units (unknown) date) 04/18/22 11:30 unknown) (unknown) (no (unknown) (unknown) Pulse Oximetry 94 (units (unknown) date) unknown) (unknown) (no (unknown) (unknown) Pulse Rate 80 (units (unknown) date) 04/18/22 11:30 unknown) (unknown) (no (unknown) (unknown) Pulse Rate 80 (units ( unknown) date) unknown) (unknown) (no (unknown) (unknown) Qualifiers: (units (un known) date) unknown) (unknown) (no (unknown) (unknown) Lizette Mireles DO (units (unknown) date) [Primary Care unknown) Provider] - (unknown) (no (unknown) (unknown) Referrals: (units (unk nown) date) unknown) (unknown) (no (unknown) (unknown) Related Data (units (u nknown) date) unknown) (unknown) (no (unknown) (unknown) Respiratory Rate 16 (uni ts (unknown) date) 04/18/22 11:30 unknown) (unknown) (no (unknown) (unknown) Respiratory Rate 16 (unit s (unknown) date) unknown) (unknown) (no (unknown) (unknown) Respiratory: denies (unit s (unknown) date) shortness of breath, unknown) cough chest tightness, wheezing (unknown) (no (unknown) (unknown) Respiratory: normal (unit s (unknown) date) effort, able to speak unknown) in complete sentences, no audible (unknown) (no (unknown) (unknown) Resprionics (units (un known) date) Dreamstation BIPAP #1 unknown) ea 01/06/19 08/08/21 (unknown) (no (unknown) (unknown) Review of Systems (units (unknown) date) unknown) (unknown) (no (unknown) (unknown) S/P lumbar spinal (units (unknown) date) fusion unknown) (unknown) (no (unknown) (unknown) Signed By: (units (unk nown) date) unknown) (unknown) (no (unknown) (unknown) Sinuses:? Visualized (uni ts (unknown) date) sinuses and mastoids unknown) are clear.? (unknown) (no (unknown) (unknown) Skin: brisk (units (un known) date) capillary refill, no unknown) rash, no erythema (unknown) (no (unknown) (unknown) Skin: denies rash, (units (unknown) date) itching or wound unknown) (unknown) (no (unknown) (unknown) Skull and face:? (units (unknown) date) Calvarium and unknown) visualized facial bones appear intact, without (unknown) (no (unknown) (unknown) Smoking Status: (units (unknown) date) Never smoker unknown) (unknown) (no (unknown) (unknown) Smoking Status: (units (unknown) date) Never smoker unknown) (unknown) (no (unknown) (unknown) Social History (units (unknown) date) (Reviewed 04/18/22 @ unknown) 13:02 by STAN Kruse) (unknown) (no (unknown) (unknown) Source: patient (units (unknown) date) unknown) (unknown) (no (unknown) (unknown) Spontaneous tympanic (uni ts (unknown) date) membrane rupture: unknown) without spontaneous rupture Qualified (unknown) (no (unknown) (unknown) Stated Complaint: (units (unknown) date) possible broken left unknown) rib/ear infection (unknown) (no (unknown) (unknown) Substance Use Type: (unit s (unknown) date) does not use unknown) (unknown) (no (unknown) (unknown) Surgical History (units (unknown) date) (Reviewed 04/18/22 @ unknown) 13:02 by STAN Kruse) (unknown) (no (unknown) (unknown)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 unknown) (unknown) (no (unknown) (unknown) Giant cell arteritis (uni ts (unknown) date) considered, but unknown) thought unlikely given lack of unilateral (unknown) (no (unknown) (unknown) HPI - Fall (units (unk nown) date) unknown) (unknown) (no (unknown) (unknown) HPI Narrative: (units (unknown) date) unknown) (unknown) (no (unknown) (unknown) HTN Emergency (units ( unknown) date) considered, but unknown) thought unlikely given normal vitals (unknown) (no (unknown) (unknown) Head/Neck: denies (units (unknown) date) headache, neck pain unknown) endorses intermittent dizziness, (unknown) (no (unknown) (unknown) Head: atraumatic, (units (unknown) date) symmetrical facial unknown) expressions (unknown) (no (unknown) (unknown) Headache (units (unkno wn) date) considerations unknown) include, but not limited to: (unknown) (no (unknown) (unknown) History of Present (units (unknown) date) Illness unknown) (unknown) (no (unknown) (unknown) History of (units (unk nown) date) bunionectomy of both unknown) great toes (unknown) (no (unknown) (unknown) Hydrocodone (units (un known) date) Bitart/Acetaminophen unknown) (Hydrocodone/Acet 5/325 Tablet) 1 tab PO NOW (unknown) (no (unknown) (unknown) IMPRESSION:? No (units (unknown) date) acute intracranial unknown) disease process. (unknown) (no (unknown) (unknown) IMPRESSION:? No (units (unknown) date) displaced rib unknown) fracture. No acute cardiopulmonary disease (unknown) (no (unknown) (unknown) INDICATIONS:? fall (units (unknown) date) thinks she has a rib unknown) fracture (unknown) (no (unknown) (unknown) INDICATIONS:? fall, (unit s (unknown) date) concussive symptoms unknown) (unknown) (no (unknown) (unknown) Image quality:? (units (unknown) date) Excellent.? unknown) (unknown) (no (unknown) (unknown) Imaging Data (units (u nknown) date) unknown) (unknown) (no (unknown) (unknown) Imaging. (units (unkno wn) date) unknown) (unknown) (no (unknown) (unknown) Independently (units ( unknown) date) reviewed vitals signs unknown) and nursing notes. (unknown) (no (unknown) (unknown) Initial Vital Signs (unit s (unknown) date) unknown) (unknown) (no (unknown) (unknown) Initial Vital Signs: (uni ts (unknown) date) unknown) (unknown) (no (unknown) (unknown) Instructions: (units ( unknown) date) Middle Ear Infection, unknown) Concussion, Postconcussion Syndrome (unknown) (no (unknown) (unknown) Lungs and pleura:? (units (unknown) date) No pleural effusions unknown) or pneumothorax.? Lungs appear clear.? (unknown) (no (unknown) (unknown) MDM - Fall (units (unk nown) date) unknown) (unknown) (no (unknown) (unknown) MDM Narrative (units ( unknown) date) unknown) (unknown) (no (unknown) (unknown) MIPS PERFORMANCE] (units (unknown) date) unknown) (unknown) (no (unknown) (unknown) MSK: denies new (units (unknown) date) joint pain, muscle unknown) weakness or swelling (unknown) (no (unknown) (unknown) MSK: moves all (units (unknown) date) extremities, unknown) neurovascularly intact, no weakness, normal tone (unknown) (no (unknown) (unknown) Mediastinum:? (units ( unknown) date) Mediastinal contours unknown) appear normal.? Heart size is normal.? (unknown) (no (unknown) (unknown) Medical History (units (unknown) date) (Reviewed 04/18/22 @ unknown) 13:02 [address] Vannesa King [facility]) (unknown) (no (unknown) (unknown) Medical decision (units (unknown) date) making narrative: unknown) (unknown) (no (unknown) (unknown) Memory loss of (units (unknown) date) unknown cause unknown) (unknown) (no (unknown) (unknown) Meningitis (units (unkn own) date) considered, but unknown) thought unlikely given lack of Brudzinski's, Kernig's (unknown) (no (unknown) (unknown) Mode of arrival: (units (unknown) date) Ambulatory unknown) (unknown) (no (unknown) (unknown) Mouth/Throat: moist (unit s (unknown) date) mucus membranes unknown) (unknown) (no (unknown) (unknown) Narrative (units (unkn own) date) unknown) (unknown) (no (unknown) (unknown) Narrative: (units (unk nown) date) unknown) (unknown) (no (unknown) (unknown) Neck: supple (units (u nknown) date) unknown) (unknown) (no (unknown) (unknown) Neuro: denies (units ( unknown) date) numbness, tingling, unknown) dizziness (unknown) (no (unknown) (unknown) Neuro: normal speech (uni ts (unknown) date) and cognition, A+O x3 unknown) (unknown) (no (unknown) (unknown) Neuropathic pain of (unit s (unknown) date) both feet unknown) (unknown) (no (unknown) (unknown) New (units (unkno wn) date) unknown) (unknown) (no (unknown) (unknown) No Action (units (unkn own) date) unknown) (unknown) (no (unknown) (unknown) Noncontrast 4.5 mm (units (unknown) date) thick angled axial unknown) sections acquired from the foramen magnum (unknown) (no (unknown) (unknown) Nose: nares patent, (unit s (unknown) date) no rhinorrhea unknown) (unknown) (no (unknown) (unknown) ONE (units (unkno wn) date) unknown) (unknown) (no (unknown) (unknown) Obstructive sleep (units (unknown) date) apnea of adult unknown) (unknown) (no (unknown) (unknown) Ordered: (units (unkno wn) date) unknown) (unknown) (no (unknown) (unknown) Orders (units (unkno wn) date) unknown) (unknown) (no (unknown) (unknown) Other serious (units (u nknown) date) diagnoses considered unknown) unlikely given lack of red flag findings such (unknown) (no (unknown) (unknown) Overlying soft (units (unknown) date) tissues appear unknown) unremarkable.? (unknown) (no (unknown) (unknown) Oxygen Delivery (units (unknown) date) Method 04/18/22 unknown) 11:30 (unknown) (no (unknown) (unknown) Oxygen Delivery (units (unknown) date) Method Room Air unknown) (unknown) (no (unknown) (unknown) PROCEDURE:? CT (units (unknown) date) HEAD/BRAIN WO CON unknown) (unknown) (no (unknown) (unknown) PROCEDURE:? XR RIBS (unit s (unknown) date) LT MIN 3V W CXR1V unknown) (unknown) (no (unknown) (unknown) Patient Disposition: (uni ts (unknown) date) Home unknown) (unknown) (no (unknown) (unknown) Patient History (units (unknown) date) unknown) (unknown) (no (unknown) (unknown) Patient did not have (uni ts (unknown) date) any focal neuro unknown) deficits, she was prescribed methocarbamol (unknown) (no (unknown) (unknown) Patient on blood (units (unknown) date) thinners: No unknown) (unknown) (no (unknown) (unknown) Patient states that (unit s (unknown) date) she fell at home, unknown) does not know what she hit the left side (unknown) (no (unknown) (unknown) Patient: Terrence Buckley (uni ts (unknown) date) MR#: [id number] unknown) (unknown) (no (unknown) (unknown) Prescriptions: (units (unknown) date) unknown) (unknown) (no (unknown) (unknown) Primary insomnia (units (unknown) date) unknown) (unknown) (no (unknown) (unknown) Psych: mental status (uni ts (unknown) date) is grossly normal, unknown) congruent mood, normal affect, pleasant (unknown) (no (unknown) (unknown) Pulse Oximetry 94 (units (unknown) date) 04/18/22 11:30 unknown) (unknown) (no (unknown) (unknown) Pulse Oximetry 94 (units (unknown) date) unknown) (unknown) (no (unknown) (unknown) Pulse Rate 80 (units (unknown) date) 04/18/22 11:30 unknown) (unknown) (no (unknown) (unknown) Pulse Rate 80 (units ( unknown) date) unknown) (unknown) (no (unknown) (unknown) Qualifiers: (units (un known) date) unknown) (unknown) (no (unknown) (unknown) Reasons: (units (unkno wn) date) unknown) (unknown) (no (unknown) (unknown) Recommendation: (units (unknown) date) Consider CT. The unknown) [place] [facility] CT Rule cannot rule out need for (unknown) (no (unknown) (unknown) Lizette Mireles DO (units (unknown) date) [Primary Care unknown) Provider] - (unknown) (no (unknown) (unknown) Referrals: (units (unk nown) date) unknown) (unknown) (no (unknown) (unknown) Related Data (units (u nknown) date) unknown) (unknown) (no (unknown) (unknown) Respiratory Rate 16 (uni ts (unknown) date) 04/18/22 11:30 unknown) (unknown) (no (unknown) (unknown) Respiratory Rate 16 (unit s (unknown) date) unknown) (unknown) (no (unknown) (unknown) Respiratory: denies (unit s (unknown) date) shortness of breath, unknown) cough chest tightness, wheezing (unknown) (no (unknown) (unknown) Respiratory: normal (unit s (unknown) date) effort, able to speak unknown) in complete sentences, no audible (unknown) (no (unknown) (unknown) Resprionics (units (un known) date) Dreamstation BIPAP #1 unknown) ea 01/06/19 08/08/21 (unknown) (no (unknown) (unknown) Retrograde amnesia (units (unknown) date) to the event greater unknown) or equal to 30 min: Yes (unknown) (no (unknown) (unknown) Review of Systems (units (unknown) date) unknown) (unknown) (no (unknown) (unknown) S/P lumbar spinal (units (unknown) date) fusion unknown) (unknown) (no (unknown) (unknown) Scores (units (unkno wn) date) unknown) (unknown) (no (unknown) (unknown) Seizure after (units ( unknown) date) injury: No unknown) (unknown) (no (unknown) (unknown) Signed By: (units (unk nown) date) unknown) (unknown) (no (unknown) (unknown) Sinuses:? Visualized (uni ts (unknown) date) sinuses and mastoids unknown) are clear.? (unknown) (no (unknown) (unknown) Skin: brisk (units (un known) date) capillary refill, no unknown) rash, no erythema (unknown) (no (unknown) (unknown) Skin: denies rash, (units (unknown) date) itching or wound unknown) (unknown) (no (unknown) (unknown) Skull and face:? (units (unknown) date) Calvarium and unknown) visualized facial bones appear intact, without (unknown) (no (unknown) (unknown) Smoking Status: (units (unknown) date) Never smoker unknown) (unknown) (no (unknown) (unknown) Smoking Status: (units (unknown) date) Never smoker unknown) (unknown) (no (unknown) (unknown) Social History (units (unknown) date) (Reviewed 04/18/22 @ unknown) 13:02 by STAN Kruse) (unknown) (no (unknown) (unknown) Source: patient (units (unknown) date) unknown) (unknown) (no (unknown) (unknown) Spontaneous tympanic (uni ts (unknown) date) membrane rupture: unknown) without spontaneous rupture Qualified (unknown) (no (unknown) (unknown) Stated Complaint: (units (unknown) date) possible broken left unknown) rib/ear infection (unknown) (no (unknown) (unknown) Subarachnoid (units (u nknown) date) hemorrhage, but unknown) unlikely as patient denies sudden onset of pain, (unknown) (no (unknown) (unknown) Substance Use Type: (unit s (unknown) date) does not use unknown) (unknown) (no (unknown) (unknown) Surgical History (units (unknown) date) (Reviewed 04/18/22 @ unknown) 13:02 by STAN Kruse) (unknown) (no (unknown) (unknown) Surgical changes and (uni ts (unknown) date) devices:? Cervical unknown) spine and partially visualized lumbar (unknown) (no (unknown) (unknown) Suspected open or (units (unknown) date) depressed skull unknown) fracture: No (unknown) (no (unknown) (unknown) TECHNIQUE:? (units (un known) date) unknown) (unknown) (no (unknown) (unknown) TECHNIQUE:? 2 views (unit s (unknown) date) of the left ribs were unknown) acquired, along with a single view (unknown) (no (unknown) (unknown) Temperature 98.4 F (unit s (unknown) date) 04/18/22 11:30 unknown) (unknown) (no (unknown) (unknown) Temperature 98.4 F (units (unknown) date) unknown) (unknown) (no (unknown) (unknown) This is a 8-year-old (uni ts (unknown) date) female who presents unknown) to the emergency department two days (unknown) (no (unknown) (unknown) This is a (units (unkn own) date) 71-year-old female unknown) who presents to the emergency department after a (unknown) (no (unknown) (unknown) Time Seen by (units (u nknown) date) Provider: 04/18/22 unknown) 12:30 (unknown) (no (unknown) (unknown) Two or more episodes (uni ts (unknown) date) of vomiting: No unknown) (unknown) (no (unknown) (unknown) Type 2 diabetes (units (unknown) date) mellitus unknown) (unknown) (no (unknown) (unknown) U-100 Insulin) (units (unknown) date) unknown) (unknown) (no (unknown) (unknown) Vital Signs (units (un known) date) unknown) (unknown) (no (unknown) (unknown) Vital signs: (units (u nknown) date) unknown) (unknown) (no (unknown) (unknown) XR ribs LT min 3V w (unit s (unknown) date) CXR1V Stat unknown) (unknown) (no (unknown) (unknown) [From Levemir U-100 (unit s (unknown) date) Insulin] unknown) (unknown) (no (unknown) (unknown) [From ZESTORETIC] (units (unknown) date) BLOAT unknown) (unknown) (no (unknown) (unknown) [] Patient GCS < 15 (unit s (unknown) date) unknown) (unknown) (no (unknown) (unknown) [] Patient has focal (uni ts (unknown) date) neurologic deficit unknown) (unknown) (no (unknown) (unknown) [x] Patient is 19 or (uni ts (unknown) date) older, presenting unknown) with minor blunt head trauma. Head CT (unknown) (no (unknown) (unknown) [x] Patient is 66 or (uni ts (unknown) date) older unknown) (unknown) (no (unknown) (unknown) abnormality. (units (u nknown) date) Patient has not had unknown) any mental status changes since this incident (unknown) (no (unknown) (unknown) after a fall out of (unit s (unknown) date) bed where she hurt unknown) her left ribs, and her left forehead and (unknown) (no (unknown) (unknown) age, with (units (unkn own) date) unknown) (unknown) (no (unknown) (unknown) alcohol intake (units (unknown) date) frequency: unknown) holidays/special occasions only (unknown) (no (unknown) (unknown) all pereira, chest (units (unknown) date) x-rays negative for unknown) any rib fractures. Patient denies any (unknown) (no (unknown) (unknown) amoxicillin 875 mg (units (unknown) date) tablet 875 mg PO BID unknown) 5 days #10 tabs 04/18/22 (unknown) (no (unknown) (unknown) and cooperative, no (unit s (unknown) date) gross neuro deficits, unknown) cranial nerves two through 12 are (unknown) (no (unknown) (unknown) any vomiting or (units (unknown) date) nausea, denies any unknown) nausea vomiting at the time of her injury. (unknown) (no (unknown) (unknown) appointment. Let them (uni ts (unknown) date) know you were seen in unknown) the Emergency Department and that we (unknown) (no (unknown) (unknown) artery (units (unkno wn) date) atherosclerosis.? unknown) (unknown) (no (unknown) (unknown) asked that you be (units (unknown) date) seen for follow-up. unknown) We will electronically transmit a record (unknown) (no (unknown) (unknown) aspirin 81 mg (units ( unknown) date) tablet,delayed 81 mg unknown) PO QDAY ##0 02/18/17 08/08/21 (unknown) (no (unknown) (unknown) because she says it (unit s (unknown) date) helps with her pain. unknown) She states that her blood sugars have (unknown) (no (unknown) (unknown) breath or palpation (unit s (unknown) date) unknown) (unknown) (no (unknown) (unknown) but endorses (units (u nknown) date) difficulty unknown) concentrating, intermittent headache, occasional (unknown) (no (unknown) (unknown) caregiver/support (units (unknown) date) person: No unknown) (unknown) (no (unknown) (unknown) carotid (units (unkno wn) date) unknown) (unknown) (no (unknown) (unknown) changes, fatigue, (units (unknown) date) difficulty unknown) ambulating, fever, shortness of breath, she denies (unknown) (no (unknown) (unknown) chest.? (units (unkno wn) date) unknown) (unknown) (no (unknown) (unknown) concerning symptoms, (uni ts (unknown) date) such as [fever unknown) greater than 101F, chills, worsening pain, (unknown) (no (unknown) (unknown) concussion. She (units (unknown) date) states that she has unknown) had ongoing dizziness which is intermittent (unknown) (no (unknown) (unknown) condition (units (unkn own) date) unknown) (unknown) (no (unknown) (unknown) consciousness of 30 (unit s (unknown) date) minutes or less, unknown) initial encounter (unknown) (no (unknown) (unknown) consistent with (units (unknown) date) ongoing concussion, unknown) you may have a new concussion or this may be (unknown) (no (unknown) (unknown) decision making was (unit s (unknown) date) completed patient unknown) endorsed concern for brain injury. She (unknown) (no (unknown) (unknown) denies any neck (units (unknown) date) pain, no neck pain on unknown) exam, breath sounds are clear throughout (unknown) (no (unknown) (unknown) denies any vision (units (unknown) date) changes, denies any unknown) nausea or vomiting at any point after her (unknown) (no (unknown) (unknown) details: to (units (u nknown) date) [place] (unknown) (no (unknown) (unknown) difficulty (units (unk nown) date) concentrating unknown) (unknown) (no (unknown) (unknown) discharge home. All (uni ts (unknown) date) questions and unknown) concerns answered at this time. (unknown) (no (unknown) (unknown) dizziness. She (units (unknown) date) states that her blood unknown) sugars have been under tight control, (unknown) (no (unknown) (unknown) does not remember if (uni ts (unknown) date) she had a loss of unknown) consciousness or not. Patient was seen (unknown) (no (unknown) (unknown) emergency care (units (unknown) date) clinician for trauma unknown) because (select one or more): [SATISFIES (unknown) (no (unknown) (unknown) erythema, right TM (units (unknown) date) is bulging, unknown) suppurative, erythematous without drainage or (unknown) (no (unknown) (unknown) establish care with (unit s (unknown) [facility] [place] [facility]. (unknown) (no (unknown) (unknown) fall and denies any (unit s (unknown) date) new dizziness, new unknown) sensation changes, weakness, speech (unknown) (no (unknown) (unknown) fall, initial (units ( unknown) date) encounter unknown) (unknown) (no (unknown) (unknown) fall. (units (unkno wn) date) unknown) (unknown) (no (unknown) (unknown) findings, pain in (units (unknown) date) christianity, vision change unknown) (unknown) (no (unknown) (unknown) fixation hardware.? (unit s (unknown) date) Cholecystectomy unknown) clips. (unknown) (no (unknown) (unknown) following (units (unkn own) date) unknown) (unknown) (no (unknown) (unknown) for her neck and (units (unknown) date) muscle aches, unknown) amoxicillin b.i.d. for five days for acute otitis (unknown) (no (unknown) (unknown) ft or > 5 stairs): (units (unknown) date) No unknown) (unknown) (no (unknown) (unknown) glimepiride 2 mg (units (unknown) date) tablet 4 mg PO QAM unknown) 06/29/20 08/08/21 (unknown) (no (unknown) (unknown) grossly intact (units (unknown) date) unknown) (unknown) (no (unknown) (unknown) hearing changes but (unit s (unknown) date) no pain in her left unknown) ear, endorses dizziness from her 1st (unknown) (no (unknown) (unknown) her to possibly have (unit s (unknown) date) lost consciousness. unknown) Patient does not remember, states that (unknown) (no (unknown) (unknown) household members: (units (unknown) date) spouse unknown) (unknown) (no (unknown) (unknown) housing: house (units (unknown) date) unknown) (unknown) (no (unknown) (unknown) hydrochlorothiazide (unit s (unknown) date) Allergy Intermediate unknown) COUGH, Verified 04/18/22 11:29 (unknown) (no (unknown) (unknown) in chair, uses (units (unknown) date) walker to ambulate unknown) (unknown) (no (unknown) (unknown) in which she has had (unit s (unknown) date) concussive symptoms unknown) since. Patient also endorses right ear (unknown) (no (unknown) (unknown) informed of results. (unit s (unknown) date) Patient has been unknown) given strict return to ER precautions for (unknown) (no (unknown) (unknown) insulin detemir (units (unknown) date) Allergy Intermediate unknown) Rash Verified 04/18/22 11:29 (unknown) (no (unknown) (unknown) insulin glargine 100 (uni ts (unknown) date) unit/mL 35 unit SQ unknown) BID ##0 03/04/17 08/08/21 (unknown) (no (unknown) (unknown) is inflammation and (unit s (unknown) date) pain from your left unknown) ribs failure fall. Your symptoms are (unknown) (no (unknown) (unknown) left ribs. She (units (unknown) date) denies any drainage unknown) from her ears bilaterally (unknown) (no (unknown) (unknown) lesions.? (units (unkn own) date) unknown) (unknown) (no (unknown) (unknown) lidocaine 5 % (units ( unknown) date) topical patch 1 patch unknown) topical DAILY PRN rib pain 04/18/22 (unknown) (no (unknown) (unknown) lisinopril [From (units (unknown) date) ZESTORETIC] Allergy unknown) Intermediate COUGH, Verified 04/18/22 11:29 (unknown) (no (unknown) (unknown) lives independently: (uni ts (unknown) date) Yes unknown) (unknown) (no (unknown) (unknown) marital status: (units (unknown) date) unknown) (unknown) (no (unknown) (unknown) matter chronic small (uni ts (unknown) date) vessel ischemic unknown) changes.? There is intracranial internal (unknown) (no (unknown) (unknown) mechanical fall two (units (unknown) date) days ago and she hit unknown) her left ribs and left forehead causing (unknown) (no (unknown) (unknown) methocarbamol 500 mg (uni ts (unknown) date) tablet 500 mg PO unknown) BEDTIME muscle tightness 04/18/22 (unknown) (no (unknown) (unknown) nausea vomiting (units (unknown) date) since. CT head was unknown) negative for any acute intracranial (unknown) (no (unknown) (unknown) next five days, and (unit s (unknown) date) schedule a follow-up unknown) appointment with Dr. Mireles. Please (unknown) (no (unknown) (unknown) not worst of life, (units (unknown) date) or neck pain unknown) (unknown) (no (unknown) (unknown) of her chest on. She (uni ts (unknown) date) denies any shortness unknown) of breath, wheezing, chest tightness, (unknown) (no (unknown) (unknown) of today's note if (units (unknown) date) your PCP is in our unknown) system (unknown) (no (unknown) (unknown) outpatient providers (uni ts (unknown) date) as instructed. unknown) Patient understands plan and agrees to (unknown) (no (unknown) (unknown) oxycodone 5 mg (units (unknown) date) tablet 5 - 10 mg PO unknown) Q3HP PRN #60 tabs 03/07/17 (unknown) (no (unknown) (unknown) pain with history of (uni ts (unknown) date) chronic right ear unknown) infections, left ear fullness with (unknown) (no (unknown) (unknown) pain, neck pain, or (unit s (unknown) date) any other injury. unknown) She denies any bruising or wound on her (unknown) (no (unknown) (unknown) pantoprazole 20 mg (units (unknown) date) tablet,delayed 20 mg unknown) PO QDAY ##0 02/18/17 08/08/21 (unknown) (no (unknown) (unknown) patient (units (unkno wn) date) unknown) (unknown) (no (unknown) (unknown) peripheral edema, (units (unknown) date) warm extremities unknown) (unknown) (no (unknown) (unknown) persistent vomiting (unit s (unknown) date) or other bothersome unknown) symptoms] (unknown) (no (unknown) (unknown) process. (units (unkno wn) date) unknown) (unknown) (no (unknown) (unknown) release (units (unkno wn) date) unknown) (unknown) (no (unknown) (unknown) resultant ventricular (uni ts (unknown) date) and sulcal unknown) prominence.? There are periventricular and deep (unknown) (no (unknown) (unknown) return to the (units (u nknown) date) emergency department unknown) if you have any worsening of your symptoms, I (unknown) (no (unknown) (unknown) rupture (units (unkno wn) date) unknown) (unknown) (no (unknown) (unknown) rupture. Left TM is (unit s (unknown) date) mildly erythematous, unknown) bulging TM with clear fluid behind and (unknown) (no (unknown) (unknown) seen in the (units (un known) date) emergency department unknown) 03/14/2022 with a concussion and a head injury (unknown) (no (unknown) (unknown) she has been putting (uni ts (unknown) date) a pillow at home to unknown) brace when she is walking around (unknown) (no (unknown) (unknown) she has ongoing (units (unknown) date) concussive symptoms unknown) since this fall and mentions that she was (unknown) (no (unknown) (unknown) signs are stable on (unit s (unknown) date) repeat examination is unknown) unremarkable. Patient has been (unknown) (no (unknown) (unknown) size.? (units (unkno wn) date) unknown) (unknown) (no (unknown) (unknown) spine (units (unkno wn) date) unknown) (unknown) (no (unknown) (unknown) states that it is (units (unknown) date) painful to take a unknown) deep breath, if she puts any pressure on it, (unknown) (no (unknown) (unknown) stay hydrated, use (units (unknown) date) Tylenol as needed for unknown) pain and rest as needed. (unknown) (no (unknown) (unknown) subcutaneous (units (u nknown) date) solution (Lantus unknown) (unknown) (no (unknown) (unknown) substance use type: (unit s (unknown) date) does not use unknown) (unknown) (no (unknown) (unknown) sugars under (units (u nknown) date) control, stay unknown) hydrated, take this antibiotic twice a day for the (unknown) (no (unknown) (unknown) suspicious (units (unk nown) date) unknown) (unknown) (no (unknown) (unknown) tenderness with (units (unknown) date) exam, without unknown) guarding or rebound. (unknown) (no (unknown) (unknown) the emergency (units ( unknown) date) department on unknown) 03/14/2022 for a mechanical fall, head injury and (unknown) (no (unknown) (unknown) thinners, etc. (units (unknown) date) Patient is unknown) appropriate and amenable to discharge home. Vital (unknown) (no (unknown) (unknown) to the (units (unkno wn) date) unknown) (unknown) (no (unknown) (unknown) tramadol 50 mg (units (unknown) date) tablet 50 mg PO DAILY unknown) PRN pain #14 tabs 04/18/22 (unknown) (no (unknown) (unknown) under control, (units (unknown) date) denies any memory unknown) changes, sleeping at inappropriate times, back (unknown) (no (unknown) (unknown) ventricles are (units (unknown) date) symmetric in size and unknown) shape.? (unknown) (no (unknown) (unknown) verapamil (units (unkn own) date) [VERAPAMIL] Allergy unknown) Intermediate BLOATING Verified 04/18/22 11:29 (unknown) (no (unknown) (unknown) vertex, with coronal (uni ts (unknown) date) and sagittal unknown) reformats.? For radiation dose reduction, the (unknown) (no (unknown) (unknown) was used:? automated (uni ts (unknown) date) exposure control, unknown) adjustment of mA and/or kV according to (unknown) (no (unknown) (unknown) wheezing, stridor, (units (unknown) date) or rales. No unknown) retractions or tachypnea. Social History date description facility (no date) Never smoked tobacco ([facility]) [facility] Vital Signs date measurement value units [id number]+0000 BMI BMI 41.0 kg/m2 78012825419774+0000 BP_diastolic BP_diastolic 72 mm[H g] [id number]+0000 BP_systolic BP_systolic 108 mm[Hg] 96723809647386+0000 heart_rate heart_rate 71 /min [id number]+0000 height_metric height_metric 152.4 cm [id number]+0000 height_standard height_standard 60 in [id number]+0000 respiration_rate respiration_rate 16 /min [id number]+0000 temperature_metric temperature_metric 36.44 C [id number]+0000 temperature_standard temperature_standard 9 7.6 F [id number]+0000 weight_metric weight_metric 43.21 kg [id number]+0000 weight_standard weight_standard 95.25 lb [id number]+0000 BMI BMI 39.5 kg/m2 53100344777847+0000 BP_diastolic BP_diastolic 81 mm[H g] 49947140470494+0000 BP_systolic BP_systolic 133 mm[Hg] 46486694391810+0000 heart_rate heart_rate 81 /min [id number]+0000 height_metric height_metric 154.94 cm [id number]+0000 height_standard height_standard 61 in [id number]+0000 respiration_rate respiration_rate 16 /min [id number]+0000 temperature_metric temperature_metric 36.67 C +0000 temperature_standard temperature_standard 9 8 F +0000 weight_metric weight_metric 43.09 kg +0000 weight_standard weight_standard 95 lb +0000 BMI BMI 39.6 kg/m2 +0000 BP_diastolic BP_diastolic 64 mm[H g] +0000 BP_systolic BP_systolic 152 mm[Hg] +0000 heart_rate heart_rate 80 /min +0000 height_metric height_metric 154.94 cm +0000 height_standard height_standard 61 in +0000 respiration_rate respiration_rate 16 /min +0000 temperature_metric temperature_metric 36.89 C +0000 temperature_standard temperature_standard 9 8.4 F +0000 weight_metric weight_metric 43.21 kg +0000 weight_standard weight_standard 95.25 lb
== END 2022-04-17 16:50 | disposition left against medical advice (07) ==
LOC: ED 13:46
DX: Z53.21 Procedure and treatment not carried out due to patient leaving prior to being seen by health care provider (principal)

== ENCOUNTER 2025-09-14 01:56 | Observation (INO) ==
--- OUTSIDE RECORDS SUMMARY | 2025-09-14 02:36 | EXTERNAL MEDICAL SUMMARY RPT | Continuity of Care Document ---
Author Organization [facility] Address [address] [place] [id number] Phone Care Team Providers Care Infantry Unit Leader Name Role Phone Lizette Mireles Unavailable Unavailable Allergies and Intolerances date description facility reaction severity 2025-07-26 13:40:40 [facility] (no reactio n) Moderate 2025-07-26 13:40:40 [facility] (no reactio n) Moderate 2025-07-26 13:40:40 [facility] (no reactio n) Moderate 2025-07-26 13:40:40 [facility] (no reactio n) Moderate Problems date description facility 2025-09-09 10:43 Intervertebral disc disorders with radiculopathy, lumbar region [facility] 2025-09-09 10:43 Cervicalgia [facility] 2025-09-09 10:43 Pain in thoracic spine [facility] Results/Labs test date facility value unit notes Result panel 1 Specimen collection (procedure) (no date) [facility] (missing) (missing) (missing) Result panel 2 Specimen collection (procedure) (no date) [facility] (missing) (missing) (missing) Result panel 3 Specimen collection (procedure) (no date) [facility] (missing) (missing) (missing) Result panel 4 Specimen collection (procedure) (no date) [facility] (missing) (missing) (missing) Result panel 5 Specimen collection (procedure) (no date) [facility] (missing) (missing) (missing) Result panel 6 Specimen collection (procedure) (no date) [facility] (missing) (missing) (missing) Result panel 7 Specimen collection (procedure) (no date) [facility] (missing) (missing) (missing) Result panel 8 Specimen collection (procedure) (no date) [facility] (missing) (missing) (missing) Result panel 9 Specimen collection (procedure) (no date) [facility] (missing) (missing) (missing) Result panel 10 Specimen collection (procedure) (no date) [facility] (missing) (missing) (missing) Result panel 11 Specimen collection (procedure) (no date) [facility] (missing) (missing) (missing) Result panel 12 Specimen collection (procedure) (no date) [facility] (missing) (missing) (missing) Result panel 13 Specimen collection (procedure) (no date) [facility] (missing) (missing) (missing) Result panel 14 Specimen collection (procedure) (no date) [facility] (missing) (missing) (missing) Result panel 15 Specimen collection (procedure) (no date) [facility] (missing) (missing) (missing) Result panel 16 Specimen collection (procedure) (no date) [facility] (missing) (missing) (missing) Result panel 17 Specimen collection (procedure) (no date) [facility] (missing) (missing) (missing) Result panel 18 Specimen collection (procedure) (no date) [facility] (missing) (missing) (missing) Result panel 19 Specimen collection (procedure) (no date) [facility] (missing) (missing) (missing) Result panel 20 Specimen collection (procedure) (no date) [facility] (missing) (missing) (missing) Result panel 21 Specimen collection (procedure) (no date) [facility] (missing) (missing) (missing) Result panel 22 Specimen collection (procedure) (no date) [facility] (missing) (missing) (missing) Result panel 23 Specimen collection (procedure) (no date) [facility] (missing) (missing) (missing) Result panel 24 Specimen collection (procedure) (no date) [facility] (missing) (missing) (missing) Result panel 25 Specimen collection (procedure) (no date) [facility] (missing) (missing) (missing) Result panel 26 Specimen collection (procedure) (no date) [facility] (missing) (missing) (missing) Result panel 27 Specimen collection (procedure) (no date) [facility] (missing) (missing) (missing) Result panel 28 Specimen collection (procedure) (no date) [facility] (missing) (missing) (missing) Result panel 29 Specimen collection (procedure) (no date) [facility] (missing) (missing) (missing) Result panel 30 Specimen collection (procedure) (no date) [facility] (missing) (missing) (missing) Result panel 31 Specimen collection (procedure) (no date) [facility] (missing) (missing) (missing) Result panel 32 Specimen collection (procedure) (no date) [facility] (missing) (missing) (missing) Result panel 33 Specimen collection (procedure) (no date) [facility] (missing) (missing) (missing) Result panel 34 Specimen collection (procedure) (no date) [facility] (missing) (missing) (missing) Result panel 35 Specimen collection (procedure) (no date) [facility] (missing) (missing) (missing) Result panel 36 Specimen collection (procedure) (no date) [facility] (missing) (missing) (missing) Result panel 37 Specimen collection (procedure) (no date) [facility] (missing) (missing) (missing) Result panel 38 Specimen collection (procedure) (no date) [facility] (missing) (missing) (missing) Result panel 39 Specimen collection (procedure) (no date) [facility] (missing) (missing) (missing) Result panel 40 Specimen collection (procedure) (no date) [facility] (missing) (missing) (missing) Result panel 41 Specimen collection (procedure) (no date) [facility] (missing) (missing) (missing) Result panel 42 Specimen collection (procedure) (no date) [facility] (missing) (missing) (missing) Result panel 43 Specimen collection (procedure) (no date) [facility] (missing) (missing) (missing) Result panel 44 Specimen collection (procedure) (no date) [facility] (missing) (missing) (missing) Result panel 45 Specimen collection (procedure) (no date) [facility] (missing) (missing) (missing) Result panel 46 Specimen collection (procedure) (no date) [facility] (missing) (missing) (missing) Result panel 47 Specimen collection (procedure) (no date) [facility] (missing) (missing) (missing) Result panel 48 Specimen collection (procedure) (no date) [facility] (missing) (missing) (missing) Result panel 49 Specimen collection (procedure) (no date) [facility] (missing) (missing) (missing) Result panel 50 Specimen collection (procedure) (no date) [facility] (missing) (missing) (missing) Result panel 51 Specimen collection (procedure) (no date) [facility] (missing) (missing) (missing) Result panel 52 Specimen collection (procedure) (no date) [facility] (missing) (missing) (missing) Result panel 53 Specimen collection (procedure) (no date) [facility] (missing) (missing) (missing) Result panel 54 Specimen collection (procedure) (no date) [facility] (missing) (missing) (missing) Result panel 55 Specimen collection (procedure) (no date) [facility] (missing) (missing) (missing) Result panel 56 Specimen collection (procedure) (no date) [facility] (missing) (missing) (missing) Result panel 57 Specimen collection (procedure) (no date) [facility] (missing) (missing) (missing) Result panel 58 Specimen collection (procedure) (no date) [facility] (missing) (missing) (missing) Social History date description facility 2025-07-26 00:00 Ex-smoker (finding) [facility] Vital Signs date measurement value units 2025-07-26 00:00 BMI 39.6 kg/m2 2025-07-26 00:00 heart_rate 88 /min 2025-07-26 00:00 height_metric 152.4 cm 2025-07-26 00:00 o2_saturation 98 % 2025-07-26 00:00 weight_metric 92.07 kg
--- NOTE | 2025-09-14 02:45 | ED Physician Documentation ---
History of Present Illness Stated complaint Stated Complaint: GLF/HIT HEAD Chief complaint Chief Complaint: Neuro Additonal information Additional information: Patient is a 75-year-old female with history of diabetes on insulin who presents with her after suspected ground-level fall at home. Patient states that she has a limited memory of what actually happened. She states that she knows she fell and was helped up to the couch by her daughter shortly after she fell, but states that specific memory of all of this is somewhat blurry. She endorses pain in her posterior scalp with associated goose egg in posterior scalp. She denies pain anywhere else. Denies neck pain currently. She states that today she was feeling at her normal baseline medical status prior to the fall. Denies any recent illnesses. She states that at baseline she has chronic diarrhea and this is not new. Denies any increased urinary frequency, urination changes otherwise. states that he was asleep when this happened, but states that his is typically at night owl, and she often dozes off in the couch. She was found next to the couch/chair and they both suspect that she likely slumped out of the chair/couch when she fell. The daughter at home heard the crash, and came into the room where patient fell immediately afterward and states that the patient was immediately awake afterward and if she did lose consciousness it was for very brief time. No seizure-like activity was observed and patient has no previous history of seizure activity. Patient was able to ambulate into the ER on her own power with her walker which is her baseline. She does state that she has significant neuropathy and has had falls in the past as a result of losing balance/complications of neuropathy. She does not endorse any chest pain, palpitations, shortness of breath, chest heaviness today at any time. She denies any significant cardiopulmonary history. She is not on blood thinners. GCS 15 on arrival. Review of Systems Status of ROS: See HPI Meds/Allgy Home Medications Ambulatory Orders Medication Instructions Recorded Confirmed aspirin 81 mg tablet,delayed 81 mg PO DAILY 09/14/25 1 11/14/24 release clobetasol 0.05 % scalp solution 1 applic topical ALY Y 09/14/25 09/14/25 clobetasol 0.05 % shampoo 5 ml topical DAILY 09/14/25 09/14/25 colesevelam 625 mg tablet 3,750 mg PO DAILY 09/14/25 1 11/14/24 donepezil 10 mg tablet 10 mg PO DAILY 09/14/2508/27 dulaglutide 4.5 mg/0.5 mL 4.5 mg subcut Q14D 09/14/25 09/14/25 subcutaneous pen injector (Trulicity) fexofenadine 180 mg tablet 180 mg PO DAILY 09/14/25 fluticasone propionate 50 2 spray intranasal DAILY 09/14/25 mcg/actuation nasal spray,suspension insulin glargine 100 unit/mL (3 unit subcut 09/14/25 mL) subcutaneous pen (Lantus Solostar U-100 Insulin) meloxicam 15 mg tablet 15 mg PO DAILY 09/14/2508/27 pregabalin 75 mg capsule (Lyrica) 225 mg PO DAILY 08/2709/14/25 quetiapine 25 mg tablet 12.5 mg PO DAILY 09/14/25 semaglutide 0.25 mg or 0.5 mg (2 mg subcut 09/14/25 mg/3 mL) subcutaneous pen injector (Ozempic) solifenacin 10 mg tablet 10 mg PO DAILY 09/14/2508/27 terbinafine HCl 250 mg tablet 250 mg PO DAILY 09/14/25 09/14/25 Allergies Allergies Allergy/AdvReac Type Severity Reaction Status Date / Time lisinopril Allergy Rash Verified 04/17/22 14:06 [facility] Active Problems All Active Problems (Updated 09/14/25 @ 07:26 by Arsenio Tiwari MD) Recurrent falls (Acute) Ground-level fall (Acute) Syncope (Acute) Social History Social History Smoking Status: Unknown if ever smoked Do you feel safe in your home environment?: Yes History of physical, verbal, emotional, or financial abuse?: No Exam Exam Vital Signs: Vital Signs x48h Temp Pulse Resp BP Pulse Ox 09/14/25 07:02 78 20 117/87 98 09/14/25 05:00 88 22 127/87 98 09/14/25 03:48 88 23 145/99 H 98 09/14/25 02:12 36.8 C 78 22 165/65 H 98 Constitutional normal general appearance and no apparent distress Resting comfortably, no acute distress. HENMT hearing grossly normal bilaterally, external ears normal, EACs normal, TMs normal bilaterally and external nose normal Area of swelling in the left posterior scalp, minimally tender to palpation. No underlying unstable skull fragment. No laceration. Eyes PERRL, conjunctivae normal, normal visual pereira by confrontation, periorbital findings normal and no nystagmus Pupils 3 mm and reactive bilaterally. No conjunctival injection. No nystagmus. Visual acuity intact to confrontation. Neck/C-Spine cervical full ROM noted and supple Chest palpation of chest normal Respiratory breath sounds equal bilaterally, normal respiratory effort, clear to auscultation bilaterally and no wheezes Clear to auscultation bilaterally, no increased respiratory effort. Saturating at 97% on room air. Cardiovascular normal heart rate noted, regular rhythm noted, no murmur and peripheral pulses 2+ throughout Regular rate and rhythm. Normal S1-S2, no murmurs. Radial pulses 2+ and symmet jerrica. Gastrointestinal abdomen soft to palpation, nontender to palpation and nontender to percussion Genitourinary no CVA tenderness Back/Pelvis no thoracic spine tenderness, no lumbar spine tenderness, thoracic spine ROM normal and lumbar spine ROM normal Extremities normal to inspection, normal to palpation, no tenderness, full ROM, no joint enlargement and no deformity Neurology auger supervisor II-XII intact, no movement abnormality noted, no focal motor deficit noted, no sensory deficits noted and GCS 15 Psychiatry mental status grossly normal and oriented x3 Skin skin color normal Results Vitals Vitals: Vital Signs - 24 hr 09/14/25 01:56 09/14/25 02:12 09/14/25 03:48 Temperature 36.8 C Temperature Source Tympanic Pulse Rate 78 88 Respiratory Rate 22 23 Blood Pressure 165/65 H 145/99 H O2 Saturation 98 98 O2 Source Room air Room air Room air Pain Intensity 6 7 09/14/25 05:00 09/14/25 07:02 Temperature Temperature Source Pulse Rate 88 78 Respiratory Rate 22 20 Blood Pressure 127/87 117/87 O2 Saturation 98 98 O2 Source Room air Room air Pain Intensity Oxygen O2 Source Room air Labs Labs: Laboratory Tests 09/14/25 09/14/25 02:57 03:07 WBC 9.2 RBC 5.13 Hgb 13.8 Hct 42.4 MCV 82.7 MCH 26.9 L MCHC 32.5 RDW 12.8 Plt Count 177 MPV 9.5 Neut # (Auto) 5.3 Lymph # (Auto) 2.9 [place] # (Auto) 0.8 Eos # (Auto) 0.2 Baso # (Auto) 0.1 Absolute Nucleated RBC 0.00 Nucleated RBC % 0.0 Sodium 136 Potassium 4.1 Chloride 101 Carbon Dioxide 27 Anion Gap 8.0 BUN 13 Creatinine 0.6 Estimated GFR (MDRD) 98 Glucose 138 H Calcium 10.8 H Total Bilirubin 0.4 AST 19 ALT 18 Alkaline Phosphatase 34 L Troponin I High Sens 4.6 Total Protein 6.9 Albumin 4.2 Globulin 2.7 Albumin/Globulin Ratio 1.6 Urine Color LIGHT YELLOW Urine Clarity CLEAR Urine pH 6.5 Ur Specific [place] 1.005 Urine Protein NEGATIVE Urine Glucose (UA) NEGATIVE Urine Ketones NEGATIVE Urine Occult Blood NEGATIVE Urine Nitrite NEGATIVE Urine Bilirubin NEGATIVE Urine Urobilinogen 0.2 (NORMAL) Ur Leukocyte Esterase SMALL H Urine RBC 3 Urine WBC 4-5 Ur Squamous Epith Cells RARE Squamous Urine Bacteria Rare Ur Microscopic Review INDICATED Urine Culture Comments INDICATED PD Medical Decision Making ED course ED course: Assessment: Patient is a 75-year-old female with history of type 2 diabetes on insulin, who presents after ground-level fall at home. This was unwitnessed. Suspected by patient's that she slumped out of her chair. She does not remember the events very well. She has a goose egg and tenderness in her left posterior scalp. No blood thinner use. DDx: Includes but not limited to, ground-level fall, concussion, mechanical fall, subarachnoid hemorrhage, subdural hemorrhage, C-spine fracture, C-spine ligamentous injury, vasovagal syncope, cardiogenic syncope, electrolyte abnormality, UTI, etc. Workup: CBC unremarkable. CMP is unremarkable. Urine studies unremarkable apart from small leukocyte esterase. Troponin within normal limits. EKG per my read: Sinus rhythm, regular intervals, normal axis, no malignant ST segment changes. CT head is unremarkable with no acute intracranial findings. CTA head and neck unremarkable. Discussion: This patient's workup is unremarkable from a traumatic perspective, her EKG and heart enzymes are unremarkable. Her labs also are all within normal limits. However, after patient came back from head CT, she sustained another fall. This was unwitnessed, but states that as she was attempting to get into the bed, she appeared to fall forward into the bed, and fell back down to the ground. She denies any prodromal symptoms prior to this, and throughout her fall tonight she is denied any chest pain, palpitations, shortness of breath, but this time she did state that afterwards she felt lightheaded. I attempted to admit her overnight, but the nighttime telehospitalist requested CTA head and neck to look for posterior circulation stroke. She had no focal deficits on my examination at bedside. CTA head and neck studies were unremarkable. I talked to the daytime hospitalist who agreed to admit her for echo, potential MRI, and further evaluation into her falls/safe discharge planning. Discharge Plan Discharge Patient Disposition: [facility] DC/Xfer Condition: Stable Clinical Impression: Ground-level fall, Recurrent falls Interventions: ED Admission Assessment Last Done: 09/14/25 08:31 Vitals documented within 30 minutes of discharge?: Yes
[2025-09-14 03:11] LABS: HCT - HEMATOCRIT 42.4 % (37.0-47.0); HGB - HEMOGLOBIN 13.8 g/dL (12.0-16.0); MEAN PLATELET VOLUME 9.5 fL (7.9-10.8); NRBC ABSOLUTE COUNT (AUTO) 0.00 x10^3/uL; NUCLEATED RED BLOOD CELLS AUTO 0.0 /100WBC; PLT - PLATELET COUNT 177 10^3/uL (130-450); RED CELL DISTRIBUTION WIDTH 12.8 % (12.0-15.0)
[2025-09-14 03:28] LABS: GLUCOSE, URINE (UA) NEGATIVE (NEGATIVE); KETONES,URINE (UA) NEGATIVE (NEGATIVE); OCCULT BLOOD,URINE NEGATIVE (NEGATIVE)
[2025-09-14 03:31] LABS: ALT ALANINE AMINOTRANSFERASE 18.0 IU/L (10-60); AST ASPARTATE AMINOTRANSFERASE 19.0 IU/L (10-42); BUN - BLOOD UREA NITROGEN 13.0 mg/dL (6-20); CARBON DIOXIDE - CO2 27.0 mmol/L (21-32); CREATININE 0.6 mg/dL (0.6-1.3); GFR - MDRD 98.0 (>89)
[2025-09-14 03:38] LABS: SQUAMOUS EPITHELIAL CELL,UR RARE Squamous (<= Few)
--- NOTE | 2025-09-14 07:27 | HISTORY & PHYSICAL EXAMINATION ---
Chief Complaint Chief Complaint Chief Complaint: Syncope History of Present Illness Admitted From Admitted From:: Home History Obtained From Records Reviewed: EMR History obtained from: Patient, patient's family (son, daughter, ) Exam Limitations: None History of Present Illness HPI Comment/Other: Patient is a 75-year-old female with a history of insulin-dependent diabetes mellitus who presents after a syncopal episode. Per patient, the last thing she remembers is being in the living room. The next thing she remembers is waking up in the kitchen. Her daughter came down to the kitchen, and found her on the ground. Per daughter, she responded very quickly and woke up. She said she did not see any shaking of any of the extremities. She said this is the first time this has happened. She says that she takes 30 units of insulin Lantus twice a day. She recalls that she may have eaten a little bit less dinner, and then took her Lantus a couple hours later. She has been dealing with some episodes of hypoglycemia at home. She was previously on glipizide, but her primary care provider discontinued it. She denies any chest pain, palpitations, feelings of any arrhythmias at home. She has never had any cardiac issues or seen a road conductor in the past. She says that for the past few years she has been dealing with dizziness when standing from a seated position, and has been advised appropriately to do this very slowly. She does not think she has passed out in the past before. Past medical history includes diabetes mellitus, obstructive sleep apnea, diabetic neuropathy. Medications include insulin, pregabalin, vitamin D. Allergies include lisinopril which caused a rash. Surgical history includes multiple orthopedic repairs including shoulder, knees, toes. She denies any alcohol use. She denies any recreational drug use. She previously smoked, but quit about 50 years ago. 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 She lives with her . Typically ambulates with a cane or walker outside the house. Her goals of care and resuscitation status were discussed, and she would like to be a full code. Meds/Allgy Home Medications Ambulatory Orders Medication Instructions Recorded Confirmed aspirin 81 mg tablet,delayed 81 mg PO DAILY 09/14/2511/14/24 release cholecalciferol (vitamin D3) 125 125 mcg PO DAILY 08/2709/14/25 mcg (5,000 unit) capsule clobetasol 0.05 % scalp solution 1 applic topical ALY Y 09/14/25 09/14/25 clobetasol 0.05 % shampoo 5 ml topical Q OTHER DAY 09/14/25 colesevelam 625 mg tablet 3,750 mg PO DAILY 09/14/25 1 11/14/24 cyanocobalamin (vitamin B-12) 250 250 mcg PO DAILY 09/14/25 mcg tablet (Vitamin B-12) donepezil 10 mg tablet 10 mg PO DAILY 09/14/2508/27 fexofenadine 180 mg tablet 180 mg PO DAILY PRN allergy 09/14/25 09/14/25 symptoms fluticasone propionate 50 2 spray intranasal DAILY PRN 09/14/25 09/14/25 mcg/actuation nasal allergy symptoms spray,suspension insulin glargine 100 unit/mL (3 35 unit subcut DAILY 1 11/14/24 09/14/25 mL) subcutaneous pen (Lantus Solostar U-100 Insulin) meloxicam 15 mg tablet 15 mg PO DAILY PRN arthritis pain 09/14/25 09/14/25 smenrpsddoej-awjyhzbz-daqgoi 1 tab PO DAILY 09/14/2511/14/24 tablet (Multivitamin 50 Plus tablet) pregabalin 75 mg capsule (Lyrica) 225 mg PO DAILY 08/2709/14/25 semaglutide 0.25 mg or 0.5 mg (2 0.25 mg subcut QWEEK 09/14/25 09/14/25 mg/3 mL) subcutaneous pen injector (Ozempic) Allergies Allergies Allergy/AdvReac Type Severity Reaction Status Date / Time lisinopril Allergy Rash Verified 04/17/22 14:06 [facility] Active Problems All Active Problems (Updated 09/14/25 @ 14:18 by Everardo Gracia MD) Diabetic neuropathy (Chronic) Insulin dependent diabetes mellitus (Acute) Recurrent falls (Acute) Ground-level fall (Acute) Syncope (Acute) Medical History Medical History Diabetes Social History Social History Smoking Status: Unknown if ever smoked If you are a former smoker, when did you quit? (Date/Year): 1971 How many cigarettes a day do you smoke? (20 cigarettes=1 Pk): 20 Second hand tobacco smoke exposure: No Do you dip or chew tobacco?: No Do you vape?: No Patient requests smoking cessation consult: No Initiate information on smoking cessation: No Level: Assisted Home Mobility Equipment: Walker Do you feel safe in your home environment?: Yes History of physical, verbal, emotional, or financial abuse?: No POLST Patient has POLST: No POLST on file?: No POLST CPR Status: Attempt Resuscitation (CPR) Level of Medical Intervention: Full Treatment Review of Systems Constitutional Reports: Weakness; Denies: Fatigue, Fever, Chills, Malaise or Poor appetite Eyes Denies: Pain, Irritation or Blurry vision Ears, nose, mouth, and throat Denies: Ear pain, Hearing loss, Tinnitus, Nose bleeds or Nasal discharge Cardiovascular Reports: Syncope; Denies: Irregular heart rate, chest pain, palpitations, edema or shortness of breath with exertion Respiratory Denies: Shortness of breath, Cough or Sputum production Gastrointestinal Denies: Abdominal pain, Abdominal distention, Nausea or Vomiting Genitourinary Denies: Painful urination, Urinary frequency or Urinary urgency Musculoskeletal Reports: Extremity pain; Denies: Back pain, Extremity swelling or Joint pain Integumentary/Breast Denies: Rash, Itching, Dryness, Redness or Skin pain Neurological Reports: Headache and General weakness; Denies: Weakness in extremities, Numbness in extremities, Abnormal gait or Dizziness Psychiatric Denies: Depression, Anxiety or Mood swings Endocrine Denies: Excessive urination, Excessive thirst or Fatigue Hematologic/Lymphatic Denies: Anemia, Easy bruising or Easy bleeding Allergic/Immunologic Denies: Hives or Tongue swelling Prior Level of Functionality: Independent of ADLs. Is primary caregiver for adult daughter. Uses walker/cane to ambulate. Exam Exam Vital Signs: Vital Signs x48h Temp Pulse Pulse Resp BP BP Pulse Ox 09/14/25 08:42 97.2 F L 62 18 160/78 H 96 09/14/25 08:25 65 18 132/78 H 98 09/14/25 07:02 78 20 117/87 98 Constitutional normal general appearance, no apparent distress, abnormal body habitus (overweight), no limitations and alert HENMT normocephalic Some swelling noted of left posterior scalp, no laceration, no active bleeding Eyes PERRL, EOMs intact bilaterally and conjunctivae normal Neck/C-Spine visual inspection normal, trachea midline and cervical spine nontender Chest inspection of chest normal Respiratory breath sounds equal bilaterally, normal respiratory effort, clear to auscultation bilaterally, no wheezes, no rales and no retractions Cardiovascular normal heart rate noted, regular rhythm noted, no gallop, no rub and no murmur Gastrointestinal abdomen normal to inspection, abdomen soft to palpation, nontender to palpation and normoactive bowel sounds Genitourinary no CVA tenderness and bladder normal to palpation Extremities normal to inspection, normal to palpation, no tenderness and full ROM Neurology no movement abnormality noted and no focal motor deficit noted Extraocular movements intact, pupils equal and reactive to light. Strength 5/5 in all extremities. No drift noted. No dysdiadochokinesia or dysmetria noted as well. Sensation intact. Tongue midline. Psychiatry mental status grossly normal, oriented x3, thought process normal, cooperative and affect normal Skin skin color normal, no rash, no lesions and no wounds Conclusion/Plan Problem List (1) Syncope: Qualifiers: Syncope type: unspecified Qualified Code(s): R55 - Syncope and collapse (2) Ground-level fall: Plan: The following plan is for the above two assessments: Patient presented with unwitnessed syncope at home. Differential includes hypoglycemia, cardiogenic syncope, neurogenic syncope, seizure. Patient takes 30 units of Lantus twice a day. Her A1c is 6.2%. She has been euglycemic while here. She also endorses increased episodes of hypoglycemia at home, and was recently taken off her glimepiride. Sliding scale insulin, will hold off on long-acting insulin tonight. Continue to monitor glucose closely. Will likely discharge her home on the lower insulin regimen. EKG with no obvious ischemic changes. Sinus rhythm. Placed on cardiac telemetry. Echo ordered, pending. CT head, CT angiogram of the head and neck negative for any acute ischemic event. MRI of the brain has been ordered as well. Less likely seizure. Patient had no postictal period per family. No tonic- clonic movements noted. (3) Insulin dependent diabetes mellitus: Plan: Patient's A1c is 6.2%. She has been taking 30 units of Lantus twice a day. Concerned that hypoglycemia may be contributing to the syncopal episodes. Hold off on Lantus while here in the hospital, low-dose sliding scale employed, hypoglycemia protocol in place. (4) Diabetic neuropathy: Plan: Continue home Lyrica. Qualifiers: Diabetes mellitus type: type 2 Diabetes mellitus complication detail: w ith other neurological complication Qualified Code(s): E11.49 - Type 2 diabetes mellitus with other diabetic neurological complication Lab Results Lab results reviewed: Yes 09/14/25 03:07 09/14/25 03:07 Diagnostic Imaging Results Diagnostic Imaging Results: positive Final report reviewed EKG Results EKG Interpreted Independently: Yes Core Measures Anticipated LOS I expect patient to be DC'd or transferred within 96 hours.: Yes Issues Hospital Issues and Management Plan: None anticipated. DVT/VTE - Prophylaxis VTE/DVT Device ordered at admit?: No VTE/DVT Prophylaxis med ordered at admit?: Yes Stroke - Rehab Assessment Rehab services assessment to be ordered?: No AMI - Statin at Admit Aspirin Prescribed on Admit: No
--- NOTE | 2025-09-14 08:03 | CT Report ---
PROCEDURE: CT Head WO INDICATIONS: ground level fall/ LOC, posterior scalp pain TECHNIQUE: CT of the head was performed, without intravenous contrast. Reformats: Coronal and sagittal. For radiation dose reduction, the following was used: automated exposure control, adjustment of mA and/or kV according to patient size. COMPARISON: None. FINDINGS: Image quality: Diagnostic CSF spaces: Lateral ventricles are symmetric. Patent cisterns. Cavum septum pellucidum and vergae Volume: Vascular calcifications. Periventricular white matter disease is commonly seen with chronic microangiopathy. Volume loss is present. These findings are moderate. Brain: No acute hemorrhage. No gross loss of guerra-white differentiation Craniofacial structures: No significant paranasal sinus opacity. Left posterior scalp hematoma IMPRESSION: No acute intracranial hemorrhage. Agree with preliminary report. Reviewed by: Hussain Valdes MD on 09/14/2025 8:00 AM [facility] Approved by: Hussain Valdes MD on 09/14/2025 8:00 AM [facility] Station ID: [id number]
--- NOTE | 2025-09-14 08:07 | CT Report ---
PROCEDURE: CT Cervical Spine WO INDICATIONS: ground level fall, head trauma TECHNIQUE: Noncontrast images acquired from the skull base to the T4 level. Sagittal and coronal reformats were then constructed. For radiation dose reduction, the following was used: automated exposure control, adjustment of mA and/or kV according to patient size. COMPARISON: None. FINDINGS: Image quality: Diagnostic Bones: Anterior fusion construct from C5-C7, in expected position, with interbody spacers. There is reversal of the normal cervical lordosis. Mild to moderate degenerative changes, particularly at C4-C5 and C7-T1. Vertebral body heights are well-maintained. No traumatic subluxation. Prominent posterior osteophytes seen at C5-C6 with likely thecal sac narrowing. Soft tissues: No apical pneumothorax Unremarkable paravertebral soft tissues IMPRESSION: Mild to moderate spondylosis. Postsurgical changes. No acute fracture or traumatic subluxation. If there is high concern for further derangement, consider MRI evaluation. No significant changes from the preliminary report. Reviewed by: Hussain Valdes MD on 09/14/2025 8:04 AM PST Approved by: Hussain Valdes MD on 09/14/2025 8:04 AM PST Station ID: [id number]
--- NOTE | 2025-09-14 08:12 | CT Report ---
PROCEDURE: CT Angio Head/Neck INDICATIONS: concern for posterior circulation stroke CONTRAST: IV contrast OMNI 300 80ml TECHNIQUE: After the administration of intravenous contrast, images were acquired from the aortic arch through the [place] of [place]. 3-dimensional bstrvze-rwwllnebg-pnrgmfwxud (MIP) and volume rendering reformats were acquired of the central intracranial vasculature and neck separately. COMPARISON: None. FINDINGS: Image quality: Diagnostic Head angiography Anterior circulation: ICAs: Mild to moderate cavernous calcifications ACAs: Patent MCAs: Patent AComm: no aneurysm Venous sinuses: Not well assessed on this arterial phase study Posterior circulation: Dominance: Right Vertebral arteries: Patent Basilar artery: Patent PComms: no aneurysm academic hospitalist: Patent Neck angiography Aortic arch and subclavian arteries: Mild calcifications CCAs: Patent ICA origins (by NASCET criteria): Mild right origin calcifications, without significant narrowing. Left ICA origin appears patent ICAs: Patent ECAs: origins are patent. Vertebral arteries: Mild calcifications at the right-sided origin. Otherwise patent. Soft tissues: No lymphadenopathy by size criteria. Lung apices: No apex pneumothorax Bones: There are degenerative osseous changes. Cervical spine findings are separately dictated. Hypoplastic maxillary sinuses. Mild diffuse mucosal thickening. IMPRESSION: No large vessel occlusion or high-grade stenosis. If there is high concern for infarct, consider MRI. Overall low-grade atherosclerotic scattered calcifications. Agree with preliminary report. The estimate of stenosis included in the report of the imaging study was calculated using the NASCET method Reviewed by: Hussain Valdes MD on 09/14/2025 8:09 AM PST Approved by: Hussain Valdes MD on 09/14/2025 8:09 AM PST Station ID: [id number]
[2025-09-14] MEDS ORDERED: SODIUM CHLORIDE FLUSH 0.9% 10 ML SYRINGE IVP PRN (08:28)
[2025-09-14] MEDS ORDERED: ONDANSETRON ODT 4 MG TABLET TL PRN (08:28)
[2025-09-14] MEDS ORDERED: ONDANSETRON 4 MG/2 ML VIAL IVP PRN (08:28)
[2025-09-14] MEDS: SODIUM CHLORIDE 0.9% 1,000 ML IV SCH (10:18)
[2025-09-14] MEDS: SODIUM CHLORIDE FLUSH 0.9% 10 ML SYRINGE IVP SCH (10:18)
--- NOTE | 2025-09-14 11:49 | PHARMACY PROGRESS NOTE ---
Best Possible Medication History Admit Date and Time: 09/14/25 147144 Home Medications Medication Instructions Recorded Confirmed Type aspirin 81 mg tablet,delayed 81 mg PO DAILY 09/14/25 1 11/14/24 History release cholecalciferol (vitamin D3) 125 125 mcg PO DAILY 08/2709/14/25 History mcg (5,000 unit) capsule clobetasol 0.05 % scalp solution 1 applic topical ALY Y 09/14/25 09/14/25 History clobetasol 0.05 % shampoo 5 ml topical Q OTHER DAY 09/14/25 History colesevelam 625 mg tablet 3,750 mg PO DAILY 09/14/25 1 11/14/24 History cyanocobalamin (vitamin B-12) 250 250 mcg PO DAILY 09/14/25 History mcg tablet (Vitamin B-12) donepezil 10 mg tablet 10 mg PO DAILY 09/14/2508/27 History fexofenadine 180 mg tablet 180 mg PO DAILY PRN allergy 09/14/25 09/14/25 History symptoms fluticasone propionate 50 2 spray intranasal DAILY PRN 09/14/25 09/14/25 History mcg/actuation nasal allergy symptoms spray,suspension insulin glargine 100 unit/mL (3 35 unit subcut DAILY 1 11/14/24 09/14/25 History mL) subcutaneous pen (Lantus Solostar U-100 Insulin) meloxicam 15 mg tablet 15 mg PO DAILY PRN arthritis pain 09/14/25 09/14/25 History ccmolbsvenum-uxshtewz-tzgpem 1 tab PO DAILY 09/14/25 1 11/14/24 History tablet (Multivitamin 50 Plus tablet) pregabalin 75 mg capsule (Lyrica) 225 mg PO DAILY 08/2709/14/25 History semaglutide 0.25 mg or 0.5 mg (2 0.25 mg subcut QWEEK 09/14/25 09/14/25 History mg/3 mL) subcutaneous pen injector (Ozempic) Processed by: Pharmacy (Medication reconciliation completed by Jet Engine MechanicJoaquina) Medications reviewed in ED?: No Medication History completed: Yes Patient Interview: Completed Secondary Source(s): Insurance records [facility] Statement: As the person ultimately responsible for medication therapy, providers are able to order a medication from an existing home medication list in [facility] via the "Reconcile Routine" prior to Confirmation of that medication by clerical and office support workers. Such practice is discouraged except when the physician, in their clinical judgment, deems that a medical need exists for a medication without regard to previous use.
[2025-09-14] MEDS ORDERED: INSULIN GLARGINE-YFGN 300 UNIT/3 ML PEN SUBQ STA (12:09)
[2025-09-14] MEDS: INSULIN LISPRO 300 UNIT/3 ML PEN SUBQ SCH (12:15)
[2025-09-14 13:27] LABS: ESTIMATED AVERAGE GLUCOSE 131 mg/dL (70-100); HEMOGLOBIN A1c% 6.2 % (4.27-6.07)
[2025-09-14] MEDS: CHOLECALCIFEROL 5,000 UNIT CAPSULE PO SCH (13:59)
[2025-09-14] MEDS: ASPIRIN EC 81 MG TABLET PO SCH (13:59)
[2025-09-14] MEDS: DONEPEZIL 5 MG TABLET PO SCH (13:59)
--- NOTE | 2025-09-14 17:46 | PT Plan of Care ---
PT Plan of Care Physical Therapy Plan of Care: Diagnosis Diagnosis syncopal fall with head strike Referring Provider Everardo Gracia Patient Status Observation Chief Complaint Chief Complaint GLF with head strike, poor balance Onset of Chief Complaint OPERATIONS RESEARCH MANAGER Medical History (Updated 09/14/25 @ 14:18 by Everardo Gracia MD) Diabetes Balance/ Functional Results Sitting Balance Good Standing Balance Fair Tinetti Composite Score ( 20 Balance + Gait) Tinetti Assessment Moderate Fall Risk Interpretation Assessment Assessment Pt is a pleasant 75yo F referred for PT eval d/t GLF with head strike. Reportedly syncopal fall, pending MRI and echo. Cleared for eval by hospitalist. Pt has extensive PMH/PSH including lumbar fusion approx 7yrs ago and pt reports h/o ACDF or similar, but unable to recall date or specifics of surgery. Further reports history of polyarthralgia and vertigo. Upon PT eval, pt A& Ox4 and agreeable to PT eval. Transfers with minAx1 overall. Screened for concussion and BPPV d/t intermittent short lived episodic dizziness . Testing negative aside from dizziness primarily with STS and walking. Vitals stable prior to PT eval. Plan to assess orthos during next PT session. Pt opts to use upwalker for ambulation; unsteady with lateral LOB during gait assessment requiring up to modAx1 for safety. Moderate fall risk per Tinetti score of 20/28. Given medical complexity and presentation below baseline, pt will benefit from continued PT in acute setting. When medically clear, PT rec dc to SNF vs home pending progress. Will update closer to time of dc. Goals Improve bed mobility to: Modified Independent Improve supine to sit to: Modified Independent Improve sit to stand to: Modified Independent Improve pivot transfer ability Modified Independent to: Improve sit to supine to: Modified Independent Improve gait ability to: SBA Assistive Device Used: Front Wheeled Walker Improve Standing Balance to: Good PT Plan of Care Frequency 1-2x/day Duration Until discharge Discharge Recommendations Discharge Location SNF vs home DC Equipment Recommended Front wheeled walker Transport Needs at Discharge Personal vehicle
[2025-09-14] MEDS ORDERED: INSULIN GLARGINE-YFGN 300 UNIT/3 ML PEN SUBQ SCH (21:00)
[2025-09-15] MEDS: ACETAMINOPHEN 325 MG TABLET PO PRN (01:17)
[2025-09-15 06:32] LABS: HCT - HEMATOCRIT 42.6 % (37.0-47.0); HGB - HEMOGLOBIN 14.1 g/dL (12.0-16.0); MEAN PLATELET VOLUME 9.3 fL (7.9-10.8); PLT - PLATELET COUNT 168.0 10^3/uL (130-450); RED CELL DISTRIBUTION WIDTH 12.8 % (12.0-15.0)
[2025-09-15 06:57] LABS: ALT ALANINE AMINOTRANSFERASE 20.0 IU/L (10-60); AST ASPARTATE AMINOTRANSFERASE 22.0 IU/L (10-42); BUN - BLOOD UREA NITROGEN 12.0 mg/dL (6-20); CARBON DIOXIDE - CO2 30.0 mmol/L (21-32); CREATININE 0.6 mg/dL (0.6-1.3); GFR - MDRD 98.0 (>89)
--- NOTE | 2025-09-15 07:46 | Discharge Summary ---
"Discharge Summary Admit Date: 09/14/25 Discharge Date: 09/15/25 Discharging Provider: Dr. Everardo Gracia Primary Care Provider: Dr. Margaret Mireles Code Status: Attempt Resuscitation Discharge Facility Name: Home, self care DIAGNOSES Discharge Diagnoses with Status of Each Condition: Syncopelikely attributed to hypoglycemic episodes. Patient has a A1c of 6.2%, and was taking 30 units of Lantus twice a day. Was recently taken off of glimepiride due to hypoglycemic episodes. Advised to hold Lantus completely. Only continue Ozempic. Check sugars twice a day, and create a blood glucose log to take into primary care physician's office in 1 to 2 weeks at follow-up appointment. EKG was completed with no obvious ischemic changes, echo was ordered with no valvular disease noted. CT head, CT angiogram and MRI of the brain were negative for any acute infarcts, strokes or bleeds. Insulin-dependent diabetes [id number] was 6.2%. She was advised to stop her Lantus completely. She was advised to continue just her Ozempic. She was advised to continue a glucose log and follow-up with her primary care provider in 1 to 2 weeks. Diabetic neuropathycontinue Lyrica. HPI History of Present Illness: Patient is a 75-year-old female with a history of insulin-dependent diabetes mellitus who presents after a syncopal episode. Per patient, the last thing she remembers is being in the living room. The next thing she remembers is waking up in the kitchen. Her daughter came down to the kitchen, and found her on the ground. Per daughter, she responded very quickly and woke up. She said she did not see any shaking of any of the extremities. She said this is the first time this has happened. She says that she takes 30 units of insulin Lantus twice a day. She recalls that she may have eaten a little bit less dinner, and then took her Lantus a couple hours later. She has been dealing with some episodes of hypoglycemia at home. She was previously on glipizide, but her primary care provider discontinued it. She denies any chest pain, palpitations, feelings of any arrhythmias at home. She has never had any cardiac issues or seen a vamp wetter in the past. She says that for the past few years she has been dealing with dizziness when standing from a seated position, and has been advised appropriately to do this very slowly. She does not think she has passed out in the past before. Past medical history includes diabetes mellitus, obstructive sleep apnea, diabetic neuropathy. Medications include insulin, pregabalin, vitamin D. Allergies include lisinopril which caused a rash. Surgical history includes multiple orthopedic repairs including shoulder, knees, toes. She denies any alcohol use. She denies any recreational drug use. She previously smoked, but quit about 50 years ago. 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 She lives with her . Typically ambulates with a cane or walker outside the house. Her goals of care and resuscitation status were discussed, and she would like to be a full code. CONSULTS | PROCEDURES Consultations: Physical therapy Procedures: Brain MRI09/15no acute infarct or hemorrhage. CT [id number]/19no large vessel occlusion or high-grade stenosis. Cervical CT11/no acute fracture or traumatic subluxation. Head CT11/no acute intracranial hemorrhage. HOSPITAL COURSE Hospital Course: Patient is a 75-year-old female with a history of insulin-dependent diabetes mellitus, obstructive sleep apnea who presented after syncopal episode. This was likely attributed to hypoglycemic episodes. Patient has a A1c of 6.2%, and was taking 30 units of Lantus twice a day. Was recently taken off of glimepiride due to hypoglycemic episodes. Her Lantus was held completely here. She was placed on sliding scale insulin, and only required about 3 to 4 units in a 24-hour period. She was advised to hold Lantus completely. Only continue Ozempic. Check sugars twice a day, and create a blood glucose log to take into primary care physician's office in 1 to 2 weeks at follow-up appointment. EKG was completed with no obvious ischemic changes, echo was ordered with no valvular disease noted. CT head, CT angiogram and MRI of the brain were negative for any acute infarcts, strokes or bleeds. Physical therapy worked with her and recommended SNF at home. She did not want to go to [facility] facility. Home health care was offered, but she refused it as well. She has great family support at home, and will be discharged home in stable condition. She was advised to make an appointment with her primary care provider in the next 1 to 2 weeks. ALLERGIES Allergies Allergy/AdvReac Type Severity Reaction Status Date / Time lisinopril Allergy Rash Verified 04/17/22 14:06 MEDICATIONS Ambulatory Orders Medication Instructions Recorded Confirmed aspirin 81 mg tablet,delayed 81 mg PO DAILY 09/14/25 1 11/14/24 release cholecalciferol (vitamin D3) 125 125 mcg PO DAILY 08/2709/14/25 mcg (5,000 unit) capsule clobetasol 0.05 % scalp solution 1 applic topical ALY Y 09/14/25 09/14/25 clobetasol 0.05 % shampoo 5 ml topical Q OTHER DAY 09/14/25 colesevelam 625 mg tablet 3,750 mg PO DAILY 09/14/25 1 11/14/24 cyanocobalamin (vitamin B-12) 250 250 mcg PO DAILY 09/14/25 mcg tablet (Vitamin B-12) donepezil 10 mg tablet 10 mg PO DAILY 09/14/2508/27 fexofenadine 180 mg tablet 180 mg PO DAILY PRN allergy 09/14/25 09/14/25 symptoms fluticasone propionate 50 2 spray intranasal DAILY PRN 09/14/25 09/14/25 mcg/actuation nasal allergy symptoms spray,suspension meloxicam 15 mg tablet 15 mg PO DAILY PRN arthritis pain 09/14/25 09/14/25 [id number] 1 tab PO DAILY 09/14/2511/14/24 tablet (Multivitamin 50 Plus tablet) pregabalin 75 mg capsule (Lyrica) 225 mg PO DAILY 08/2709/14/25 semaglutide 0.25 mg or 0.5 mg (2 0.25 mg subcut QWEEK 09/14/25 09/14/25 mg/3 mL) subcutaneous pen injector (Ozempic) PHYSICAL EXAM AT DISCHARGE Vital Signs: Vital Signs x48h Temp Pulse Resp BP Pulse Ox 09/15/25 15:00 97.5 F L 75 20 127/67 95 09/15/25 12:54 97.9 F 76 17 109/69 94 Constitutional normal general appearance, no apparent distress, abnormal body habitus (overweight), no limitations and alert HENMT normocephalic Some swelling noted of left posterior scalp, no laceration, no active bleeding Eyes PERRL, EOMs intact bilaterally and conjunctivae normal Neck/C-Spine visual inspection normal, trachea midline and cervical spine nontender Chest inspection of chest normal Respiratory breath sounds equal bilaterally, normal respiratory effort, clear to auscultation bilaterally, no wheezes, no rales and no retractions Cardiovascular normal heart rate noted, regular rhythm noted, no gallop, no rub and no murmur Gastrointestinal abdomen normal to inspection, abdomen soft to palpation, nontender to palpation and normoactive bowel sounds Genitourinary no CVA tenderness and bladder normal to palpation Extremities normal to inspection, normal to palpation, no tenderness and full ROM Neurology no movement abnormality noted and no focal motor deficit noted Extraocular movements intact, pupils equal and reactive to light. Strength 5/5 in all extremities. No drift noted. No dysdiadochokinesia or dysmetria noted as well. Sensation intact. Tongue midline. Psychiatry mental status grossly normal, oriented x3, thought process normal, cooperative and affect normal Skin skin color normal, no rash, no lesions and no wounds LABS 09/15/25 06:10 09/15/25 06:10 DIAGNOSTIC IMAGING Diagnostic Imaging Results: Final report reviewed FOLLOW UP Follow Up: Follow up with PCP. TIME SPENT Time Spent in Discharge (Minutes): 35 Discharge Plan Discharge Patient Disposition: Home, Self Care Condition: Stable Prescriptions: Continued aspirin 81 mg tablet,delayed release (DR/EC) 81 mg PO DAILY clobetasol 0.05 % solution 1 applic TOPICAL DAILY clobetasol 0.05 % shampoo 5 ml TOPICAL Q OTHER DAY colesevelam 625 mg tablet 3,750 mg PO DAILY donepezil 10 mg tablet 10 mg PO DAILY fexofenadine 180 mg tablet 180 mg PO DAILY PRN (Reason: allergy symptoms) fluticasone propionate 50 mcg/actuation spray,suspension 2 spray INTRANASAL DAILY PRN (Reason: allergy symptoms) meloxicam 15 mg tablet 15 mg PO DAILY PRN (Reason: arthritis pain ) Patient Comments: pt states they do not take it every day pregabalin [Lyrica] 75 mg capsule 225 mg PO DAILY Patient Comments: pt states they are currently only taking 2 capsules Ozempic 0.25 mg or 0.5 mg (2 mg/3 mL) pen injector 0.25 mg SUBCUT QWEEK Multivitamin 50 Plus Tablet 1 tab PO DAILY cholecalciferol (vitamin D3) 125 mcg (5,000 unit) capsule 125 mcg PO DAILY cyanocobalamin (vitamin B-12) [Vitamin B-12] 250 mcg tablet 250 mcg PO DAILY Discontinued insulin glargine [Lantus Solostar U-100 Insulin] 100 unit/mL (3 mL) insulin pen 35 unit SUBCUT DAILY Diet: Diabetic Interventions: Belongings Inventory Last Done: 09/14/25 12:50 Discharge Last Done: 09/15/25 15:35 Discharge Checklist - Nursing Last Done: 09/15/25 15:35 Discharge Vital Signs (30 Minutes) Last Done: 09/15/25 15:00 Health Concerns: You had a fainting episode (syncope) that I'm worried was caused by low blood sugar (hypoglycemia). Please follow these instructions to help prevent future episodes and know what to do if your blood sugar drops again. Your A1c was 6.2%, and I do not think you need insulin anymore. I understand that you have been taking 30 units twice a day at home. I want you to stop this completely. The only thing I want you to continue is Ozempic. As discussed, I would like you to check your sugars twice a day. Please write this down, first thing in the morning and at night, before you sleep, and take in these readings to your primary care appointment. I understand that you are hoping to see Dr. Mireles in the next one week which will be perfect. She will make adjustments as necessary. I am unable to make a physical therapy referral for you for the outpatient as I am not an outpatient provider. Your primary care provider will be able to provide you with this. Your MRI was negative for any acute bleed or strokes. Your echocardiogram was completed, but is still pending. If there are any abnormalities, I will give you a call. 1. Recognizing Low Blood Sugar - Symptoms can include shakiness, sweating, confusion, dizziness, fast heartbeat, irritability, or feeling very hungry. Severe low blood sugar can cause fainting, seizures, or confusion. - Always carry a blood glucose meter or continuous glucose monitor if you use one. 2. What to Do if You Feel Symptoms - If you feel symptoms or your blood sugar is less than 70 mg/dL (3.9 mmol/L), eat or drink 15 grams of fast-acting sugar right away. Examples include: - 4 glucose tablets - 4 ounces (about half a cup) of fruit juice or regular soda - 1 tablespoon of sugar or honey - Wait 15 minutes, then check your blood sugar again. If it is still below 70 mg/dL or you still have symptoms, repeat the steps above. - Once your blood sugar is above 70 mg/dL and you feel better, eat a snack or meal with both carbohydrates and protein (like a sandwich or crackers with cheese) to keep your blood sugar stable. 3. If You Cannot Swallow or Lose Consciousness - If you are unable to swallow or become unconscious, someone should call 911 immediately. 4. Preventing Future Episodes - Take your diabetes medications exactly as prescribed. - Eat regular meals and snacks. Do not skip meals. - Check your blood sugar as directed by your healthcare provider, especially before driving, exercising, or going to bed. - Always carry a source of fast-acting sugar with you. - Tell your healthcare provider if you have frequent low blood sugars or if you ever lose consciousness from low blood sugar. 5. When to Seek Medical Help - If you have another episode of fainting, confusion, or cannot raise your blood sugar after following the steps above, seek medical attention right away. - If you have frequent low blood sugars, contact your healthcare provider to review your treatment plan.[4][1][3] 6. Follow-Up - Schedule a follow-up appointment with your healthcare provider to discuss this episode and review your diabetes management plan. If you have any questions or concerns, contact your healthcare provider. Print Language: Nigerien Patient Instructions: Hypoglycemia (Low Blood Sugar) Stand Alone Forms: PCP List Vitals documented within 30 minutes of discharge?: Yes (127/67 75 20 36.4 95%)"
[2025-09-15] MEDS: ENOXAPARIN 40 MG/0.4 ML SYRINGE SUBQ SCH (09:35)
[2025-09-15] MEDS: CYANOCOBALAMIN 500 MCG TABLET PO SCH (09:36)
[2025-09-15] MEDS: PREGABALIN 100 MG CAPSULE PO SCH (09:36)
[2025-09-15] MEDS: PREGABALIN 25 MG CAPSULE PO SCH (09:36)
--- NOTE | 2025-09-15 13:03 | MRI Report ---
PROCEDURE: MRI Brain WO INDICATIONS: ams TECHNIQUE: Multisequence MRI of the brain was performed without intravenous contrast. COMPARISON: 09/14/2025 CT FINDINGS: Image quality: Diagnostic CSF spaces: Basal cisterns are patent. Lateral ventricles are symmetric. Cavum septum pellucidum and vergae Volume: Periventricular white matter signal abnormality is commonly seen with chronic microangiopathy. Volume loss is present. These findings are mild. Brain: No acute infarct on diffusion-weighted images. No hematoma Craniofacial structures: Mild paranasal sinus mucosal thickening. Hypoplastic maxillary sinuses, partially seen. IMPRESSION: No acute infarct or hemorrhage. Reviewed by: Hussain Valdes MD on 09/15/2025 1:00 PM [facility] Approved by: Hussain Valdes MD on 09/15/2025 1:00 PM [facility] Station ID: [id number]
[2025-09-15 15:36] VITALS: BP 127/67; TEMP 97.5; O2SAT 95
--- NOTE | 2025-09-15 17:36 | ECHO Report ---
Version: 1 Study ID: [id number] [address] Adult Echocardiogram Report Name: BARB GONZALEZ Study Date: 09/15/2025, 10: 47 AM BP: 128 / 55 mmHg Patient Location: [facility] [place]^[id number]^[id number] HR: 85 bpm : 1950 (MM/DD/YYYY) Gender: Female Height: 61 in Age: 75 Years Weight: 210.541 lb BSA: 1.93 m² Reason For Study: syncope History: Syncope with ground level fall No prior study Interpretation Summary There is mild concentric increase in the wall thickness of the left ventricle. Hyperdynamic left ventricular systolic function is present. The visual left ventricular ejection fraction is estimated at 65 to 70%. The right ventricle is normal in size and function. No concerning cardiac valve disease is noted. Left Ventricle: The left ventricle is normal in size. There is mild concentric increase in the wall thickness of the left ventricle. An intracavitary gradient is present. Echo findings are not consistent with left ventricular outflow tract obstruction. Hyperdynamic left ventricular systolic function is present. The visual left ventricular ejection fraction is estimated at 65 to 70%. No regional wall motion abnormalities are present. The overall diastolic pattern is most consistent with impaired left ventricular relaxation with elevated filling pressures. Right Ventricle: The right ventricle is normal in size and function. The basal right ventricular diameter measured from a right ventricular focused view is 3.3 cm. The tricuspid annular plane systolic excursion (TAPSE) measurement is 1.7 cm. Aortic Valve: The aortic valve is trileaflet. The aortic valve is mildly thickened. Aortic valve sclerosis is present without stenosis. No aortic regurgitation is present. Mitral Valve: The mitral valve leaflets appear thickened, but with normal motion. Mild mitral annular calcification is present. No evidence of mitral stenosis is seen. There is mild mitral regurgitation. Tricuspid Valve: The tricuspid valve is normal in structure and function. Trace tricuspid regurgitation present. Pulmonic Valve: The pulmonic valve is normal in structure and function. Trace pulmonic valvular regurgitation is present. Left Atrium: The left atrium is mildly dilated. The left atrial volume indexed to body surface area is 36 ml/m2. This refers to the maximal volume measured prior to mitral valve opening. Right Atrium: Right atrial size is normal. The inferior vena cava appears normal. Atrial Septum: Lipomatous hypertrophy of the interatrial septum is present. Aorta: The ascending aorta is not well seen. The sinuses of Valsalva are normal in size. The aorta at the sinus of Valsalva measures 3.0cm. Pulmonary Artery: Pulmonary artery systolic pressure could not be estimated due to an insufficient tricuspid regurgitant jet. Pericardium/Pleural Space: There is no pericardial effusion. A prominent fat pad is present. Left Ventricle IVSd: 1.08 cm LVIDd: 3.9 cm LVPWd: 1.22 cm LVIDs: 2.7 cm Right Ventricle TAPSE: 1.73 cm Atria LA dimension: 6.0 cm LAV(MOD-sp4): 69.9 ml LAV(MOD-sp2): 67.2 ml Diastolic Function MV dec time: 0.30 sec MV E max miroslava: 84.1 cm/sec MV A max miroslava: 116.3 cm/sec Aortic Valve LV V1 mean P.7 mmHg LV V1 mean: 101.6 cm/sec LV V1 VTI: 27.3 cm LV V1 max: 132.3 cm/sec LV V1 max P.0 mmHg Ao max P.3 mmHg Ao V2 max: 189.2 cm/sec MMode/2D Measurements & Calculations BMI: 39.8 kilograms/m² BSA([facility]): 2.08 m² IVSd: 1.08 cm LA A4C-A/L: 21.9 cm² LA dimension: 6.0 cm LA ESV-A/L: 64.1 ml LAV(MOD-sp2): 67.2 ml LAV(MOD-sp4): 69.9 ml LVIDd: 3.9 cm LVIDs: 2.7 cm LVPWd: 1.22 cm TAPSE: 1.73 cm Doppler Measurements & Calculations Ao max P.3 mmHg Ao V2 max: 189.2 cm/sec Lat E/e': 19.1 LV V1 max: 132.3 cm/sec LV V1 max P.0 mmHg LV V1 mean: 101.6 cm/sec LV V1 mean P.7 mmHg LV V1 VTI: 27.3 cm Med E/e': 19.1 MV A max miroslava: 116.3 cm/sec MV dec time: 0.30 sec MV DVI-pr: 0.72 MV E max miroslava: 84.1 cm/sec PA max P.2 mmHg PA V2 max: 113.8 cm/sec RAP systole: 3.0 mmHg Other Measurements & Calculations EDV(Teich): 66.8 ml EF(sp-el): 50.0 % EF(Teich): 61.1 % ESV(Teich): 26.0 ml FS: 32.2 % MV E/A: 0.72 Procedure Notes: A complete two-dimensional transthoracic echocardiogram was performed (2D, M- mode, Doppler and color flow Doppler). Indication: Evaluate cardiac and valve function. The patient was comfortable and cooperative throughout the procedure. The underlying rhythm was sinus. CPT Codes: 97781/[id number]: Transthoracic Echo with Spectral and Color Doppler. MD Viola Aguilar 09/15/2025, 5: 35 PM Ordering Physician: Everardo Gracia Referring Physician: Arsenio Tiwari Performed By: Eusebia Nevarez RDCS
== END 2025-09-15 15:00 | disposition home or self-care (01) ==
LOC: MS2 01:56 → ED 01:56 → MS2 08:32
PROVIDERS: ADMIT Internal Medicine; ATTEND Internal Medicine
DX: Z87.891 Personal history of nicotine dependence; Z79.85 Long-term (current) use of injectable non-insulin antidiabetic drugs; R55 Syncope and collapse; Z91.81 History of falling; E11.40 Type 2 diabetes mellitus with diabetic neuropathy, unspecified; Z79.4 Long term (current) use of insulin; Z88.8 Allergy status to other drugs, medicaments and biological substances; G47.33 Obstructive sleep apnea (adult) (pediatric); R22.0 Localized swelling, mass and lump, head